=== PATIENT | female | born 1950 | race Caucasian/White ===

== ENCOUNTER 2021-09-20 05:38 | Emergency (ER) | payer MEDICARE, MEDICAID, SELFPAY ==
[2021-09-20] VITALS (71 sets, daily range): BP systolic 96–158; BP diastolic 63–102; PULSE 80–162; RESP 12–32; TEMP 36.4; O2SAT 86–100
--- NOTE | ~2021-09-20 | CT_ITS ---
EXAMINATION: CT brain wo con DATE: 09/20/2021 06:37 INDICATION: Confusion. TECHNIQUE: Computed tomography (CT) of the head was performed without intravenous contrast. The mA wa s adjusted according to patient size. Iterative reconstruction technique was employed. The dose-lengt h product was 681.00 mGy-cm. COMPARISON: None FINDINGS: There are scattered areas of low attenuation in the cerebral white matter. There is no intr acranial hemorrhage, acute infarction, or abnormal intracranial mass lesion. The ventricles are mohan l in size. There is mild mucosal thickening in the paranasal sinuses. The mastoid air cells are mohan l. The orbits are normal. IMPRESSION: 1. Mild nonspecific cerebral white matter disease, which likely represents chronic small vessel ische boby disease. Reviewed, dictated and finalized at location A. IMPRESSION: 1. Mild nonspecific cerebral white matter disease, which likely represents sales coordinator man small vessel ischemic disease.
--- NOTE | ~2021-09-20 | XR_ITS ---
EXAMINATION: XR chest 1V DATE: 09/20/2021 06:43 INDICATION: Cough. Transient alteration of awareness. TECHNIQUE: A single frontal view of the chest was obtained. COMPARISON: None. FINDINGS: The chest demonstrates clear lungs without pneumonia, pleural effusion, or pneumothorax. Th e heart size is normal. There is a left subclavian port with tip in superior vena cava. Surgical clip s in the right upper quadrant are likely from cholecystectomy. There is a suture anchor in right chiki ral head. IMPRESSION: 1. No acute cardiopulmonary disease. Reviewed, dictated and finalized at location A.
--- NOTE | 2021-09-20 05:45 | ECG_ITS ---
Measurements Intervals [place] Rate: 121 P: IN: 0 QRS: 13 QRSD: 76 T: 36 QT: 299 QTc: 424 Interpretive Statements ATRIAL FIBRILLATION WITH RAPID VENTRICULAR RESPONSE BASELINE ARTIFACT- II, III, AVR, AVL, AVF, V2 ABNORMAL ECG Electronically Signed On 09-20-2021 6:39:06 CDT by Jasbir Marcus D.O.
--- NOTE | 2021-09-20 05:54 | ED.AMS ---
HPI - Altered Mental Status General Chief Complaint: Altered Mental Status <Yaniv Winkler MD - Last Filed: 09/20/21 06:03> Stated Complaint: AMS, wound to L hip, new onset afib <Yaniv Winkler MD - Last Filed: 09/20/21 06:03> Time Seen by Provider: 09/20/21 05:45 <Yaniv Winkler MD - Last Filed: 09/20/21 06:03> Source: EMS <Yaniv Winkler MD - Last Filed: 09/20/21 06:03> Mode of arrival: EMS <Yaniv Winkler MD - Last Filed: 09/20/21 06:03> Limitations: altered mental status <Yaniv Winkler MD - Last Filed: 09/20/21 06:03> History of Present Illness HPI narrative: Patient is a 71-year-old female brought in by EMS from a longterm due to altered mental status. Family requested the patient be transferred to [place] but according to EMS, patient went into atrial fib RVR and that is why they brought her here which is the nearest facility. Per EMS, family requested since her infectious disease doctor is there, currently being treated secondary to left hip wound infection. <Yaniv Winkler MD - Last Filed: 09/20/21 06:03> Related Data Allergies/Adverse Reactions: Allergies Allergy/AdvReac Type Severity Reaction Status Date / Time iodine Allergy Unknown Verified 09/20/21 06:06 latex Allergy Unknown Verified 09/20/21 06:06 meperidine Allergy Unknown Verified 09/20/21 06:06 Penicillins Allergy Unknown Verified 09/20/21 06:06 piperacillin [From Zosyn] Allergy Unknown Verified 09/20/21 06:06 tazobactam [From Zosyn] Allergy Unknown Verified 09/20/21 06:06 <Yaniv Winkler MD - Last Filed: 09/20/21 06:03> Review of Systems Review of Systems: ROS unobtainable: Yes unobtainable due to mental status <Yaniv Winkler MD - Last Filed: 09/20/21 06:03> [facility] Past Medical History Medical History: Medical History (Updated 09/20/21 @ 17:18 by Analy Palomares MD) COPD (chronic obstructive pulmonary disease) Depression Diabetes mellitus Hypertension <Yaniv Winkler MD - Last Filed: 09/20/21 06:03> Exam Const: General: alert, confusion and ill appearing <Yaniv Winkler MD - Last Filed: 09/20/21 06:03> Other: Patient is alert and awake. Not oriented to time and place. Moderate distress <Yaniv Winkler MD - Last Filed: 09/20/21 06:03> HENMT: Head: normal to inspection, normocephalic and atraumatic <Yaniv Winkler MD - Last Filed: 09/20/21 06:03> Ears: hearing grossly normal bilaterally, TM normal on the right and TM normal on the left <Yaniv Winkler MD - Last Filed: 09/20/21 06:03> General nose exam: Normal external nose present, Normal nares present and No nasal discharge present <Yaniv Winkler MD - Last Filed: 09/20/21 06:03> Face and sinus: normal facial exam <Yaniv Winkler MD - Last Filed: 09/20/21 06:03> Mouth: Yes Normal oral and palatal mucosa present, Yes lip normal, Yes tongue normal and Yes oropharynx normal <Yaniv Winkler MD - Last Filed: 09/20/21 06:03> Throat: posterior oropharynx normal, tonsils normal and uvula midline <Yaniv Winkler MD - Last Filed: 09/20/21 06:03> Eyes: General: appearance normal, both eyes and all related structures <Yaniv Winkler MD - Last Filed: 09/20/21 06:03> Pupils: Equal, round and reactive pupils present <Yaniv Winkler MD - Last Filed: 09/20/21 06:03> EOM: EOMs intact bilaterally <Yaniv Winkler MD - Last Filed: 09/20/21 06:03> Neck: Neck: normal visual inspection, full ROM, no lymphadenopathy and no meningeal signs <Yaniv Winkler MD - Last Filed: 09/20/21 06:03> Chest: Chest palpation & inspection: normal inspection of the chest <Yaniv Winkler MD - Last Filed: 09/20/21 06:03> Resp: Effort & Inspection: normal respiratory effort, able to speak in complete sentences, no respiratory distress and not tachypneic <Yaniv Winkler MD - Last Filed: 09/20/21 06:03> Auscultation: clear to auscultation bilaterally, no crackles,
[2021-09-20] MEDS: LACTATED RINGERS 1,000 ML 999 ML IV CONT (06:05)
[2021-09-20] MEDS: dilTIAZem HCl INJ 25 MG/5 ML VIAL 20 MG IV PUSH (06:07)
--- NOTE | 2021-09-20 06:20 | PC.NURSE ---
pt O2 saturation at 86% on room air. placed pt on 2L of O2 via nasal cannula and pt now at 99%.
[2021-09-20 06:22] LABS: Basophils Absolute Auto 0.1 K/mm3 (0.0-0.1); Basophils Percent Auto 0.7 % (0.2-1.2); Eosinophils Absolute Auto 0.3 K/mm3 (0-0.3); Eosinophils Percent Auto 2.4 % (0-4.4); Hematocrit 41.3 % (37.0-47.0); Hemoglobin 13.2 g/dL (12.0-15.0); Immature Granulocyte Absolute 0.02 K/mm3 (0.00-0.031); Immature Granulocyte Percent A 0.2 % (0-0.5); Lymphocytes Absolute Auto 3.17 K/mm3 (0.9-3.2); Lymphocytes Percent Auto 30.4 % (18.3-44.2); Mean Corpuscular Hemoglobin 27.3 pg (26-34); Mean Corpuscular Volume 85.5 fl (80-100); Mean Platelet Volume 10.2 fl (7.4-10.4); Monocytes Absolute Auto 1.2 K/mm3 (0.1-0.6); Monocytes Percent Auto 11.1 % (2.6-8.5); Neutrophils Absolute Auto 5.8 K/mm3 (1.3-6.7); Neutrophils Percent Auto 55.2 % (45.5-73.1); Platelet Count Result 375 k/mm3 (150-375); Red Blood Count 4.83 M/mm3 (4.2-5.4); White Blood Count 10.4 K/mm3 (4.5-10.0)
[2021-09-20 06:43] LABS: Alanine Aminotransferase 16 U/L (4-35); Albumin Level 4.2 g/dL (3.5-5.1); Alkaline Phosphatase 137 U/L (38-126); Anion Gap 12 mmol/L (8-16); Aspartate Amino Transferase 32 U/L (14-36); Bilirubin,Total 0.6 mg/dL (0.2-1.3); Blood Urea Nitrogen 19 mg/dL (7-17); Calcium 9.6 mg/dL (8.4-10.2); Carbon Dioxide 27 mmol/L (22-30); Chloride 103 mmol/L (98-107); Estimated CRCL calculation 70 ml/min; Estimated Glomerular Filt Rate > 60; Glucose 94 mg/dL (65-110); Potassium 3.8 mmol/L (3.4-5.0); Sodium 142 mmol/L (137-145)
[2021-09-20 06:47] LABS: Add Urine Microscopic? YES; Appearance Urine Cloudy (Clear); Bacteria Urine 2+ /hpf; Bilirubin Urine Negative (Negative); Blood Urine 1+ (Negative); Color Urine Yellow (Yellow); Glucose Urine UA Negative (Negative); Ketones Urine Negative (Negative); Leukocyte Esterase Ur 3+ LEU/UL (Negative); Mucus Urine Rare /lpf; Nitrate Urine Positive (Negative); Protein Urine Negative (Negative); Specific Grav Ur 1.014 (1.001-1.035); Squamous Epithelial Cell Urine Few /hpf (Few); Urobilinogen Urine Negative mg/dL (<2.0); WBC Urine >75 /hpf
[2021-09-20 07:19] LABS: Lactic Acid Reflex 2.7 mmol/L (0.7-2.1)
--- NOTE | 2021-09-20 07:20 | PC.NURSE ---
assumed care of patient
[2021-09-20 08:07] LABS: Magnesium 1.6 mg/dL (1.6-2.3)
[2021-09-20 08:14] LABS: INR 1.1; Prothrombin Time 14.5 Seconds (11.1-14.7)
[2021-09-20 08:15] LABS: Partial Thromboplastin Time 36.8 SECONDS (22.3-36.8)
[2021-09-20] MEDS: METOPROLOL TARTRATE 50 MG TAB 12.5 MG PO ×2 (08:17→11:24)
--- NOTE | 2021-09-20 08:26 | PC.NURSE ---
vancomycin 1 gm completed.
[2021-09-20 10:06] LABS: Reflex Lactic Acid Yes or No Add Lactic
[2021-09-20 10:19] LABS: Free T4 Free Thyroxine Reflex 1.58 ng/dL (0.78-2.19)
[2021-09-20 11:10] LABS: Total Triiodothyronine (T3) 3.04 NG/ML (0.97-1.69)
[2021-09-20 11:43] LABS: Lactic Acid 1.7 mmol/L (0.7-2.1)
--- NOTE | 2021-09-20 12:28 | PC.NURSE ---
spo2 95% on room air.
--- NOTE | 2021-09-20 19:20 | PC.NURSE ---
Assumed care of pt at this time, per RN report, pt is A&Ox1. Pt upright on stretcher, refusing to answer this RNs A&O questions. Pt states Im not answering any questions, I already told the last nurse . Pt states she doesn't feel good but refuses to answer where her pain is or what her symptoms are. Lights dimmed, pt repositioned. Updated on POC.
--- NOTE | 2021-09-20 19:41 | PC.NURSE ---
1926: [facility] called to confirm that patient still needed bed and should remain on waitlist.
[2021-09-20] MEDS: MORPHINE SULFATE (*CRX) 4 MG/ML INJ IV PUSH (20:41)
[2021-09-20] MEDS: APIXABAN 5 MG TABLET PO (21:29)
--- NOTE | 2021-09-20 22:05 | PC.NURSE ---
Received call from [facility] transfer line, [address]. Gave report to Rayray DUBON at this time. 2215; Spoke with pts POA and gave update at this time.
--- NOTE | 2021-09-20 22:23 | PC.NURSE ---
Called [facility] to transport patient to [facility]. Rm [address]. ETA 12 midnight.
[2021-09-20] MEDS: METOPROLOL TARTRATE INJ 5 MG/5 ML VIAL IV PUSH (23:05)
--- NOTE | 2021-09-20 23:36 | PC.NURSE ---
Pt alert and oriented to person, place, and time. Visibly upset and crying. Pt asking for her grandson and asking if [facility] things about her. Then pt states to this RN You think you know everything, but you dont. I dont like you. EDP notified.
[2021-09-20] MEDS: LORazepam INJ (*CRX) 2 MG/ML VIAL 0.5 MG IV PUSH (23:49)
[2021-09-21 00:26] VITALS: BP 110/70; PULSE 119; RESP 18; O2SAT 97
--- NOTE | 2021-09-21 00:32 | PC.NURSE ---
Lindsay updated ETA...[id number]
[2021-09-21 00:34] VITALS: PULSE 104
--- NOTE | 2021-09-21 00:44 | PC.NURSE ---
Pt sleeping on stretcher, lights dimmed.
[2021-09-21 01:12] VITALS: PULSE 110; RESP 19; O2SAT 98
[2021-09-21 01:43] LABS: Glucose Point of Care 107 mg/dl (65-105)
[2021-09-21 01:54] VITALS: BP 104/54; PULSE 105; RESP 18; O2SAT 99
== END 2021-09-21 02:09 | disposition short-term general hospital (02) ==
PROVIDERS: Emergency Medicine; Emergency Provider General Practice; PCP Family Medicine
DX: Z20.822 Contact with and (suspected) exposure to COVID-19 (principal); R41.82 Altered mental status, unspecified; N39.0 Urinary tract infection, site not specified; I48.91 Unspecified atrial fibrillation; S71.002A Unspecified open wound, left hip, initial encounter; J44.9 Chronic obstructive pulmonary disease, unspecified; F32.9 Major depressive disorder, single episode, unspecified; E11.9 Type 2 diabetes mellitus without complications; I10 Essential (primary) hypertension; X58.XXXA Exposure to other specified factors, initial encounter
CPT/HCPCS: 36415; 70450; 71045; 80053; 81001; 82948; 83605; 83735; 84439; 84443; 84480; 85025; 85610; 85730; 87040; 87070; 87086; 87088; 87147; 87186; 87205; 87426; 93005; 96361; 96365; 96366; 96367; 96375; 99285; A9270; C9803; J1956; J2060; J2270; J3370; J7120

== ENCOUNTER 2021-11-14 07:00 | Emergency (ER) | payer MEDICARE, MEDICAID, SELFPAY ==
[2021-11-14] VITALS (76 sets, daily range): BP systolic 82–194; BP diastolic 50–131; PULSE 60–114; RESP 11–24; TEMP 36.2; O2SAT 92–100
--- NOTE | ~2021-11-14 | CT_ITS ---
EXAMINATION: CT brain wo con DATE: 11/14/2021 08:25 INDICATION: Altered mental status. Response to painful stimuli only. TECHNIQUE: Computed tomography (CT) of the head was performed without intravenous contrast. Sagittal and coronal reconstructions were performed. The mA was adjusted according to patient size. Iterative reconstruction technique was employed. The dose-length product was 756.67 mGy-cm. COMPARISON: head CT dated 09/20/2021 FINDINGS: No acute intracranial hemorrhage, acute infarction or abnormal extra axial fluid collection. There is unchanged mild scattered white matter hypoattenuation consistent with chronic small vessel ischemic disease. Symmetric prominence of the sulci and ventricles consistent with mild age-appropriate diffus e cerebral volume loss. No mass/mass effect. Mild mucosal thickening in the bilateral ethmoid sinuses . The orbits, paranasal sinuses and mastoid air cells are normal. IMPRESSION: 1. No acute intracranial process. 2. Stable appearance of age-related changes including mild diffuse volume loss and mild scattered whi te matter hypoattenuation consistent with chronic small vessel ischemic disease. Reviewed, dictated and finalized at location A. 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 No acute intracranial process. 2. Stable appearance of age-related changes including mild diffuse volume loss and mild scattered white matter hypoattenuation consistent with chronic small v essel ischemic disease.
--- NOTE | ~2021-11-14 | XR_ITS ---
EXAMINATION: XR chest 1V EXAM DATE: 11/14/2021 08:26 INDICATION: Confusion, shortness of breath. TECHNIQUE: Portable AP frontal chest x-ray was obtained. Comparison is made to prior examination from 09/20/2021. FINDINGS: Some tortuosity to the left-sided Chemo-Port with tip in the upper portion of the SVC. No k inking of the catheter. There are cholecystectomy clips. The lungs are clear. There are no pleural e ffusions. Cardiac silhouette is prominent but magnified on this AP technique. There is no pneumoth orax suspected. There are bony degenerative changes. IMPRESSION: No acute cardiopulmonary findings. Reviewed, dictated and finalized at location D. RTER LAUNDRY
--- NOTE | 2021-11-14 07:20 | ECG_ITS ---
Measurements Intervals [place] Rate: 72 P: [place]: 0 QRS: -17 QRSD: 98 T: -4 QT: 369 QTc: 406 Interpretive Statements ATRIAL FIBRILLATION DELAYED PRECORDIAL R/S TRANSITION LOW QRS VOLTAGE IN PRECORDIAL LEADS BORDERLINE T WAVE ABNORMALITY- DIFFUSE LEDS BASELINE ARTIFACT- I, II, III, AVR, AVL, AVF, V3-V6 ABNORMAL ECG Electronically Signed On 11-14-2021 7:25:16 APARTMENT MAINTENANCE by Jasbir Marcus D.O.
--- NOTE | 2021-11-14 07:33 | ED.GENADULT ---
HPI - General Adult General Chief complaint: Altered Mental Status Stated complaint: unresponsive episode Time Seen by Provider: 11/14/21 07:04 Source: EMS and RN notes reviewed History of Present Illness HPI narrative: Patient is a 71 y/o female sent from [facility] for altered mental status. Patient is found to have altered mental status this morning. There is no known alleviating or aggravating factor. Last known well is not clear at this time. Patient is unable to provide any history. Related Data Home Medications Medication Instructions Recorded Confirmed acetaminophen [Tylenol] 650 mg PO Q6-8H PRN 11/14/21 albuterol sulfate [ProAir HFA] 1 inh INHALATION QID 11/14/21 aspirin 81 mg PO DAILY 11/14/21 atorvastatin [Lipitor] 10 mg PO DAILY 11/14/21 cefuroxime axetil 250 mg PO BID 11/14/21 diltiazem HCl [Tiazac] 180 mg PO DAILY 11/14/21 duloxetine 30 mg PO DAILY 11/14/21 11/14/21 fentanyl 1 patch TOPICAL DAILY 11/14/21 ferrous sulfate 325 mg PO BID 11/14/21 furosemide [Lasix] 40 mg PO DAILY 11/14/21 gabapentin 400 mg PO DAILY 11/14/21 isosorbide mononitrate 30 mg PO DAILY 11/14/21 lisinopril 5 mg PO DAILY 11/14/21 methocarbamol 750 mg PO DAILY 11/14/21 metoprolol tartrate [Lopressor] 100 mg PO DAILY 11/14/21 nortriptyline 25 mg PO DAILY 11/14/21 oxycodone 5 mg PO Q8-12H PRN 11/14/21 pantoprazole 40 mg PO BID 11/14/21 paroxetine HCl 20 mg PO DAILY 11/14/21 potassium chloride 20 meq PO DAILY 11/14/21 tiotropium bromide [Spiriva with cap INHALATION DAILY 11/14/21 HandiHaler] Allergies Allergy/AdvReac Type Severity Reaction Status Date / Time iodine Allergy Unknown Verified 09/20/21 06:06 latex Allergy Unknown Verified 09/20/21 06:06 meperidine Allergy Unknown Verified 09/20/21 06:06 Penicillins Allergy Unknown Verified 09/20/21 06:06 piperacillin [From Zosyn] Allergy Unknown Verified 09/20/21 06:06 tazobactam [From Zosyn] Allergy Unknown Verified 09/20/21 06:06 Review of Systems Review of Systems: ROS unobtainable: Yes unobtainable due to mental status PMFSH Past Medical History Medical History COPD (chronic obstructive pulmonary disease) Depression Diabetes mellitus Hypertension Exam Const: General: no acute distress and well developed Orientation/consciousness: oriented to person and confusion HENMT: Head: normocephalic Ears: external ears normal General nose exam: Normal external nose present Eyes: General: appearance normal, both eyes and all related structures Conjunctivae: conjunctivae normal Neck: Neck: normal visual inspection and full ROM Chest: Chest palpation & inspection: normal inspection of the chest and no tenderness Resp: Effort & Inspection: normal respiratory effort Auscultation: clear to auscultation bilaterally Cardio: Rate: regular rate Rhythm: regular rhythm GI: GI Palp: No abdominal tenderness and Yes Soft to palpation Skin: General skin exam: normal color and turgor normal Neuro: General: oriented to person, confusion and other (does not follow commands or answer most questions) Extrem: General: normal to inspection, full ROM and no pedal edema Psych: Appearance: grossly normal Mental Status: mental status grossly normal Affect: normal affect Course Reevaluation(s) Reevaluation #1: Rechecked. Patient is more awake, she is able to answer questions and follow commands. Daughter is here. She requests transfer to [facility]. Date: 11/14/21 Time: 08:45 Consultations Consultation #1: Discussed with Dr. Jaquez (neurology) at [facility], who agrees to accept the patient for transfer. Date: 11/14/21 Time: 09:39 Vital Signs Vital signs: Vital Signs Temperature 36.2 C L 11/14/21 07:06 Pulse Rate 68 11/14/21 07:06 Respiratory Rate 17 11/14/21 07:06 Blood Pressure 138/84 11/14/21 07:06 Pulse Oximetry 99 11/14/21 07:06 Temperature 36.2 C L 11/14/21 07:06 Pulse Rate 96
[2021-11-14 07:54] LABS: Basophils Absolute Auto 0.1 K/mm3 (0.0-0.1); Basophils Percent Auto 0.8 % (0.2-1.2); Eosinophils Absolute Auto 0.6 K/mm3 (0-0.3); Eosinophils Percent Auto 6.6 % (0-4.4); Hematocrit 43.3 % (37.0-47.0); Hemoglobin 13.6 g/dL (12.0-15.0); Immature Granulocyte Absolute 0.02 K/mm3 (0.00-0.031); Immature Granulocyte Percent A 0.2 % (0-0.5); Lymphocytes Absolute Auto 3.15 K/mm3 (0.9-3.2); Lymphocytes Percent Auto 33.2 % (18.3-44.2); Mean Corpuscular HGB Conc 31.4 g/dl (32-36); Mean Corpuscular Hemoglobin 27.8 pg (26-34); Mean Corpuscular Volume 88.4 fl (80-100); Mean Platelet Volume 10.8 fl (7.4-10.4); Monocytes Absolute Auto 1.1 K/mm3 (0.1-0.6); Monocytes Percent Auto 11.2 % (2.6-8.5); Neutrophils Absolute Auto 4.5 K/mm3 (1.3-6.7); Platelet Count Result 267 k/mm3 (150-375); Red Cell Distribution Width 17.1 % (11.5-14.5); White Blood Count 9.5 K/mm3 (4.5-10.0)
--- NOTE | 2021-11-14 07:58 | PC.NURSE ---
[facility] called per ERP request, spoke with LING Sevilla. RN reports that pt was first noticed to be abnormal shortly after 0600. diet attendant RN did not note any abnormalities in pt condition.
[2021-11-14 08:00] LABS: Alveolar/Arterial O2 Gradient 18.1 mmHg; Base Excess ABG 3.5 mEq/l (+/-2.0); HCO3 ABG 27.5 mEq/l (22.0-26.0); Oxygen Saturation ABG 95.4 % (95.0-100.0); PCO2 ABG 39.5 mmHg (35.0-45.0); PO2 ABG 72.2 mmHg (80.0-100.0); Total Hemoglobin 13.6 g/dL (12.0-18.0)
[2021-11-14 08:01] LABS: Device NASAL CANNULA; Fractional Inspired Oxygen 28 %; Modified Allen's Test Pass; Oxygen Content ABG 94.4 %vol (16.0-22.0); Oxyhemoglobin 94.4 % THb (90.0-100.0); Site Drawn RIGHT RADIAL
[2021-11-14 08:02] LABS: Prothrombin Time 13.4 Seconds (11.1-14.7)
[2021-11-14 08:03] LABS: Add Urine Microscopic? YES; Appearance Urine Cloudy (Clear); Bilirubin Urine Negative (Negative); Blood Urine 2+ (Negative); Color Urine Yellow (Yellow); Glucose Urine UA Negative (Negative); Ketones Urine Negative (Negative); Leukocyte Esterase Ur 3+ LEU/UL (Negative); Mucus Urine Rare /lpf; Nitrate Urine Positive (Negative); Partial Thromboplastin Time 26.6 SECONDS (22.3-36.8); Protein Urine Negative (Negative); RBC Urine 21-50 /hpf (0-2); Specific Grav Ur 1.012 (1.001-1.035); Urobilinogen Urine Negative mg/dL (<2.0); WBC Clumps Urine Present /HPF; WBC Urine >75 /hpf
[2021-11-14 08:04] LABS: Alanine Aminotransferase 14 U/L (4-35); Albumin Level 4.2 g/dL (3.5-5.1); Alkaline Phosphatase 147 U/L (38-126); Anion Gap 12 mmol/L (8-16); Aspartate Amino Transferase 25 U/L (14-36); Bilirubin,Total 0.4 mg/dL (0.2-1.3); Blood Urea Nitrogen 20 mg/dL (7-17); Calcium 9.5 mg/dL (8.4-10.2); Carbon Dioxide 28 mmol/L (22-30); Chloride 101 mmol/L (98-107); Estimated Glomerular Filt Rate > 60; Glucose 96 mg/dL (65-110); Potassium 3.8 mmol/L (3.4-5.0); Sodium 141 mmol/L (137-145)
--- NOTE | 2021-11-14 08:20 | PC.NURSE ---
Patient to CT.
[2021-11-14] MEDS: CIPROFLOXACIN 400 MG/D5W 200ML 200 ML 200 MG IVPB (09:30)
[2021-11-14] MEDS: SODIUM CHLORIDE 0.9% IV 500 ML (12:00)
[2021-11-14] MEDS: oxyCODONE HCL (*CRX) 5 MG TAB IR PO (19:42)
--- NOTE | 2021-11-14 19:44 | PC.NURSE ---
made contact with [facility] to check if there was any update on a bed. [facility] stated that there are no bed available and they are over capacity
--- NOTE | 2021-11-14 23:00 | PC.NURSE ---
Assuming care of pt.
--- NOTE | 2021-11-14 23:48 | PC.NURSE ---
Pt sitting at end of bed wanting to go back to intermediate sitter at bedside for safety.
--- NOTE | 2021-11-15 00:23 | PC.NURSE ---
made contact with [facility] to transfer pt to [facility] RM 503 with ETA 0045 trip # [id number]
--- NOTE | 2021-11-15 00:52 | PC.NURSE ---
made contact with [facility] new eta 0201
--- NOTE | 2021-11-15 00:56 | PC.NURSE ---
Report called to [facility] Arminda RN pt will be going to room 503. Awaiting transport to take pt.
[2021-11-15 01:02] LABS: Glucose Point of Care 115 mg/dl (65-105)
--- NOTE | 2021-11-15 01:47 | PC.NURSE ---
laura has arrived and crew is aware that pt is going to [facility] rm 503
[2021-11-15 02:11] VITALS: BP 124/87; PULSE 96; RESP 18; O2SAT 96
== END 2021-11-15 02:14 | disposition short-term general hospital (02) ==
LOC: ANHED 07:24
PROVIDERS: Emergency Provider Emergency Medicine; PCP Family Medicine
DX: R41.82 Altered mental status, unspecified (principal); J44.9 Chronic obstructive pulmonary disease, unspecified; E11.9 Type 2 diabetes mellitus without complications; I10 Essential (primary) hypertension; F32.A Depression, unspecified; Z79.82 Long term (current) use of aspirin; I48.91 Unspecified atrial fibrillation; R94.31 Abnormal electrocardiogram [ECG] [EKG]
CPT/HCPCS: 36415; 36600; 51701; 70450; 71045; 80053; 81001; 82805; 82948; 85025; 85610; 85730; 87077; 87086; 87186; 93005; 96361; 96365; 99285; A9270; J0744; J7040

== ENCOUNTER 2021-11-25 08:00 | Emergency (ER) | payer MEDICARE, MEDICAID, SELFPAY ==
[2021-11-25 07:58] VITALS: BP 136/77; PULSE 73; RESP 14; TEMP 36.5; O2SAT 97
--- NOTE | 2021-11-25 08:19 | ED.WOUNDLAC ---
HPI - Wound/Laceration General Chief Complaint: Wound/Laceration Stated Complaint: bleeding wound Time Seen by Provider: 11/25/21 08:17 Source: patient, EMS and RN notes reviewed Mode of arrival: EMS Limitations: no limitations History of Present Illness HPI narrative: Patient brought to the emergency room by ambulance from [facility] because of bleeding from chronic wound on the left thigh. Patient reports having chronic wound with intermittent packing for a while. Patient denies other symptoms. Related Data Home Medications Medication Instructions Recorded Confirmed acetaminophen [Tylenol] 650 mg PO Q6-8H PRN 11/14/21 albuterol sulfate [ProAir HFA] 1 inh INHALATION QID 11/14/21 aspirin 81 mg PO DAILY 11/14/21 atorvastatin [Lipitor] 10 mg PO DAILY 11/14/21 cefuroxime axetil 250 mg PO BID 11/14/21 diltiazem HCl [Tiazac] 180 mg PO DAILY 11/14/21 duloxetine 30 mg PO DAILY 11/14/21 11/14/21 fentanyl 1 patch TOPICAL DAILY 11/14/21 ferrous sulfate 325 mg PO BID 11/14/21 furosemide [Lasix] 40 mg PO DAILY 11/14/21 gabapentin 400 mg PO DAILY 11/14/21 isosorbide mononitrate 30 mg PO DAILY 11/14/21 lisinopril 5 mg PO DAILY 11/14/21 methocarbamol 750 mg PO DAILY 11/14/21 metoprolol tartrate [Lopressor] 100 mg PO DAILY 11/14/21 nortriptyline 25 mg PO DAILY 11/14/21 oxycodone 5 mg PO Q8-12H PRN 11/14/21 pantoprazole 40 mg PO BID 11/14/21 paroxetine HCl 20 mg PO DAILY 11/14/21 potassium chloride 20 meq PO DAILY 11/14/21 tiotropium bromide [Spiriva with cap INHALATION DAILY 11/14/21 HandiHaler] Allergies Allergy/AdvReac Type Severity Reaction Status Date / Time iodine Allergy Unknown Verified 11/25/21 08:10 latex Allergy Unknown Verified 11/25/21 08:10 meperidine Allergy Unknown Verified 11/25/21 08:10 Penicillins Allergy Unknown Verified 11/25/21 08:10 piperacillin [From Zosyn] Allergy Unknown Verified 11/25/21 08:10 tazobactam [From Zosyn] Allergy Unknown Verified 11/25/21 08:10 Review of Systems Review of Systems: CONSTITUTIONAL: Denies fever, chills, or sweats. EYES: Denies visual changes, redness, or discharge. ENT: Denies rhinorrhea, congestion, sore throat, or otalgia. CARDIOVASCULAR: Denies chest pain, palpitations, or edema. RESPIRATORY: Denies cough or dyspnea. GASTROINTESTINAL: Denies abdominal pain, nausea, vomiting, or diarrhea. GENITOURINARY: Denies dysuria or hematuria. SKIN: Denies rash or itching. MUSCULOSKELETAL: Denies back pain, joint pain, or myalgia. NEUROLOGIC: Denies headache, numbness, or weakness. PSYCHIATRIC: Denies anxiety or depression. [facility] Past Medical History Medical History COPD (chronic obstructive pulmonary disease) Depression Diabetes mellitus Hypertension Exam Narrative: General appearance: Well-developed, well-nourished Skin: Normal color, 1.5 cm open wound, half centimeter deep, at the lateral side of left thigh, packed with small piece of gauze, no active bleeding. 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
[2021-11-25 09:18] VITALS: BP 135/91; PULSE 70; RESP 16; O2SAT 98
== END 2021-11-25 09:21 ==
PROVIDERS: Emergency Provider Emergency Medicine; PCP Family Medicine
DX: L98.8 Other specified disorders of the skin and subcutaneous tissue (principal); Z79.82 Long term (current) use of aspirin; J44.9 Chronic obstructive pulmonary disease, unspecified; E11.9 Type 2 diabetes mellitus without complications; I10 Essential (primary) hypertension
CPT/HCPCS: 99282

== ENCOUNTER 2023-03-26 17:09 | Inpatient (IN) | payer MEDICARE, MEDICAID, SELFPAY ==
[2023-03-26] VITALS (8 sets, daily range): BP systolic 97–159; BP diastolic 73–109; PULSE 95–132; RESP 19–24; TEMP 36.4–36.6; O2SAT 96–100; BMI 37.0
--- NOTE | ~2023-03-26 | XR_ITS ---
EXAMINATION: XR chest 1V portable Exam Date/Time: 03/26/2023 18:00 CDT HISTORY: covid + Comparison: 11/14/2021. RESULT: Lines, tubes, and devices: Left port terminating in the SVC. Lungs and pleura: Diffuse reticular opacities. Streaky and patchy left lower lung subsegmental opaci ties. Cardiomediastinal silhouette: Stable. Other: No acute osseous or upper abdominal finding. IMPRESSION: Mild interstitial edema. Subsegmental left basilar atelectasis/consolidation. Reviewed, dictated and finalized at location K.
--- NOTE | ~2023-03-26 | CT_ITS ---
EXAMINATION: CT brain wo con DATE: 03/26/2023 18:19 INDICATION: AMS . TECHNIQUE: Computed tomography (CT) of the head was performed without intravenous contrast. The mA wa s adjusted according to patient size. Iterative reconstruction technique was employed. The dose-lengt h product was 681.00 mGy-cm. COMPARISON: 11/14/2021. FINDINGS: No acute intracranial hemorrhage or extra-axial fluid collection. No hydrocephalus, mass, or herniation. No acute ischemic infarct. Unremarkable dural venous sinus attenuation. No acute osseous abnormality. Bilateral maxillary, ethmoid, and sphenoid coastal thickening, the remaining aerated spaces are clear . Mild atrophy and chronic white matter change. Atherosclerotic intracranial calcification. Old right i nternal capsule lacunar infarct. IMPRESSION: No acute intracranial process. Reviewed, dictated and finalized at location K.
--- NOTE | 2023-03-26 17:09 | ED.AMS ---
HPI - Altered Mental Status General Chief Complaint: Shortness of Breath/Dyspnea Stated Complaint: sob/altered loc Source: EMS Mode of arrival: EMS Limitations: altered mental status and clinical condition History of Present Illness HPI narrative: Patient is a 72-year-old female with a history of COPD, hypertension, hyperlipidemia, type 2 diabetes, atrial fibrillation on chronic anticoagulation, CHF, GERD, CVA noted to be recently COVID-positive at nursing facility in which patient resides, presenting for evaluation of altered mental status and hypoxia. Patient found to be hypoxic, 80% on room air by staff at facility today, placed on 4 L oxygen via nasal cannula and EMS contacted to transport the patient. Per chart review, patient without history of atrial fibrillation but is on chronic anticoagulation. Patient is somnolent but arousable. Currently protecting her airway. No significant respiratory distress but is hypoxic without supplemental oxygen. Additional history cannot be obtained secondary to altered mentation. Per daughter with whom I spoke with over the phone, pt recently diagnosed with UTI. No known seizure history. Family states that she has a history of stroke and difficulty communicating secondary to this. Pt is full code per daughter. Related Data Home Medications Medication Instructions Recorded Confirmed acetaminophen 325 mg capsule 650 mg PO Q6-8H PRN Pain 11/14/21 (Tylenol) albuterol sulfate 90 mcg/actuation 1 inh inhalation QID 11/14/21 aerosol inhaler (ProAir HFA) aspirin 81 mg chewable tablet 81 mg PO DAILY 11/14/21 atorvastatin 10 mg tablet (Lipitor) 10 mg PO DAILY 11/14/21 cefuroxime axetil 250 mg tablet 250 mg PO BID 11/14/21 diltiazem HCl 180 mg capsule,24 180 mg PO DAILY 11/14/21 hr,extended release (Tiazac) duloxetine 30 mg capsule,delayed 30 mg PO DAILY 11/14/21 11/14/21 release fentanyl 25 mcg/hr transdermal 1 patch topical DAILY 11/14/21 patch ferrous sulfate 325 mg (65 mg 325 mg PO BID 11/14/21 iron) capsule,extended release furosemide 40 mg tablet (Lasix) 40 mg PO DAILY 11/14/21 gabapentin 400 mg capsule 400 mg PO DAILY 11/14/21 isosorbide mononitrate 30 mg 30 mg PO DAILY 11/14/21 tablet,extended release 24 hr lisinopril 5 mg tablet 5 mg PO DAILY 11/14/21 methocarbamol 750 mg tablet 750 mg PO DAILY 11/14/21 metoprolol tartrate 100 mg tablet 100 mg PO DAILY 11/14/21 (Lopressor) nortriptyline 50 mg capsule 25 mg PO DAILY 11/14/21 oxycodone 5 mg tablet 5 mg PO Q8-12H PRN Pain 11/14/21 pantoprazole 40 mg tablet,delayed 40 mg PO BID 11/14/21 release paroxetine HCl 20 mg tablet 20 mg PO DAILY 11/14/21 potassium chloride 20 mEq 20 meq PO DAILY 11/14/21 tablet,extended release(part/cryst) tiotropium bromide 18 mcg capsule cap inhalation DAILY 11/14/21 with inhalation device (Spiriva with HandiHaler) Allergies Allergy/AdvReac Type Severity Reaction Status Date / Time iodine Allergy Unknown Verified 03/26/23 17:46 latex Allergy Unknown Verified 03/26/23 17:46 meperidine Allergy Unknown Verified 03/26/23 17:46 Penicillins Allergy Unknown Verified 03/26/23 17:46 piperacillin [From Zosyn] Allergy Unknown Verified 03/26/23 17:46 tazobactam [From Zosyn] Allergy Unknown Verified 03/26/23 17:46 Review of Systems Review of Systems: ROS unobtainable: Yes unobtainable due to medical condition and unobtainable due to mental status PMFSH Past Medical History Medical History COPD (chronic obstructive pulmonary disease) Depression Diabetes mellitus Hypertension Exam Narrative: GENERAL: Somnolent but arousable, ill-appearing, responds to painful stimuli HEAD: Normocephalic, atraumatic. EYES: PERRLA and EOMI. ENT: Nares clear, no rhinorrhea or epistaxis. Mucous membranes dry NECK: Supple. CHEST: Hypoxic on room air, placed on supplemental oxygen, coarse breath sounds bilaterally HEART
--- NOTE | 2023-03-26 17:20 | ECG_ITS ---
Measurements Intervals [place] Rate: 122 P: [place]: 0 QRS: 8 QRSD: 97 T: 180 QT: 268 QTc: 383 Interpretive Statements ATRIAL FIBRILLATION WITH RAPID VENTRICULAR RESPONSE ST DEVIATION AND MODERATE T-WAVE ABNORMALITY, CONSIDER LATERAL ISCHEMIA [-0.1+ mV T WAVE IN I/aVL/V5/V6] COMPARED TO ECG 11/14/2021 07:18:36 NO SIGNIFICANT CHANGES Electronically Signed On 03-27-2023 9:35:38 CDT by Jeremiah Valverde M.D.
[2023-03-26 17:44] LABS: Glucose Point of Care 139 mg/dl (65-105)
[2023-03-26] MEDS: SODIUM CHLORIDE 0.9% IV 500 ML 999 ML IV CONT (17:48)
[2023-03-26] MEDS: methylPREDNISolone SOD SUCC 125 MG VIAL IV PUSH (17:48)
[2023-03-26 17:50] LABS: Alveolar/Arterial O2 Gradient 66.9 mmHg; Base Excess ABG -1.5 mEq/l (+/-2.0); Fractional Inspired Oxygen 35 %; HCO3 ABG 23.1 mEq/l (22.0-26.0); Oxygen Content ABG 21.4 %vol (16.0-22.0); Oxygen Saturation ABG 98.7 % (95.0-100.0); Oxyhemoglobin 96.9 % THb (90.0-100.0); PCO2 ABG 38.8 mmHg (35.0-45.0); PO2 ABG 137.5 mmHg (80.0-100.0); PO2 FiO2 Ratio Arterial Blood 3.93 %; Total Hemoglobin 15.6 g/dL (12.0-18.0); pH ABG 7.392 (7.350-7.450)
[2023-03-26 17:51] LABS: Device SIMPLE MASK; Modified Allen's Test Pass; Site Drawn RIGHT RADIAL
[2023-03-26 17:53] LABS: Basophils Absolute Auto 0.1 K/mm3 (0.0-0.1); Basophils Percent Auto 0.6 % (0.2-1.2); Eosinophils Absolute Auto 0.1 K/mm3 (0-0.3); Eosinophils Percent Auto 1.2 % (0-4.4); Hematocrit 45.5 % (37.0-47.0); Hemoglobin 14.8 g/dL (12.0-15.0); Immature Granulocyte Absolute 0.03 K/mm3 (0.00-0.031); Immature Granulocyte Percent A 0.3 % (0-0.5); Lymphocytes Absolute Auto 2.41 K/mm3 (0.9-3.2); Lymphocytes Percent Auto 21.4 % (18.3-44.2); Mean Corpuscular HGB Conc 32.5 g/dl (32-36); Mean Corpuscular Hemoglobin 30.2 pg (26-34); Mean Corpuscular Volume 92.9 fl (80-100); Mean Platelet Volume 10.8 fl (7.4-10.4); Monocytes Absolute Auto 1.2 K/mm3 (0.1-0.6); Monocytes Percent Auto 10.8 % (2.6-8.5); Neutrophils Absolute Auto 7.4 K/mm3 (1.3-6.7); Neutrophils Percent Auto 65.7 % (45.5-73.1); Platelet Count Result 262 k/mm3 (150-375); Red Cell Distribution Width 13.5 % (11.5-14.5); White Blood Count 11.3 K/mm3 (4.5-10.0)
[2023-03-26 18:09] LABS: INR 1.5; Prothrombin Time 17.4 Seconds (11.1-14.7)
[2023-03-26 18:10] LABS: Partial Thromboplastin Time 39.8 SECONDS (22.3-36.8)
[2023-03-26 18:11] LABS: Alanine Aminotransferase 21 U/L (6-35); Alkaline Phosphatase 142 U/L (38-126); Anion Gap 9 mmol/L (8-16); Aspartate Amino Transferase 30 U/L (14-36); Bilirubin,Total 0.8 mg/dL (0.2-1.3); Blood Urea Nitrogen 18 mg/dL (7-17); Calcium 9.4 mg/dL (8.4-10.2); Carbon Dioxide 29 mmol/L (22-30); Chloride 103 mmol/L (98-107); Estimated CRCL calculation 61 ml/min; Estimated Glomerular Filt Rate > 60; Glucose 132 mg/dL (65-110); Potassium 3.7 mmol/L (3.4-5.0); Sodium 141 mmol/L (137-145)
[2023-03-26 18:21] LABS: NT Pro B Type Natriuretic Pept 532 pg/mL (19.9-100); Troponin I 0.013 ng/mL (0.000-0.034)
[2023-03-26 18:51] LABS: Appearance Urine Turbid (Clear); Bacteria Urine 4+ /hpf; Bilirubin Urine 1+ (Negative); Blood Urine 1+ (Negative); Color Urine Dark Yellow (Yellow); Glucose Urine UA Negative (Negative); Ketones Urine 2+ mg/dL (Negative); Leukocyte Esterase Ur 3+ LEU/UL (Negative); Need Manual Microscopic Reviewed; Nitrate Urine Negative (Negative); Non Pathogenic Casts >20; Protein Urine 3+ mg/dL (Negative); Specific Grav Ur 1.024 (1.001-1.035); Squamous Epithelial Cell Urine Moderate /hpf (Few); WBC Urine >100 /hpf; pH Urine 8.5 (5.0-9.0)
[2023-03-26 18:52] LABS: Add Urine Microscopic? YES
[2023-03-26 19:36] LABS: Influenza A QL RT-PCR Negative (Negative); Influenza B QL RT-PCR Negative (Negative); RSV RNA, RT-PCR Negative (Negative); SARS-CoV-2 RNA PCR Positive (Negative)
[2023-03-26] MEDS: REMDESIVIR 200 MG/NS 250 ML 200 MG/250 ML BAG 250 MG IVPB (19:47)
[2023-03-26] MEDS: METOPROLOL TARTRATE INJ 5 MG/5 ML VIAL IV PUSH (19:54)
[2023-03-26 20:00] LABS: Lactic Acid Reflex 1.3 mmol/L (0.7-2.0)
--- NOTE | 2023-03-26 20:01 | PM.IMHP ---
H&P: HPI History of Present Illness Date/Time: 03/26/23 20:01 Chief Complaint: Low pulse ox Narrative: This is a 72-year-old female with past medical history significant for COPD, hypertension, patient has had COVID B multiple times, resides at senior care facility today she was brought to the emergency room after she was found to have an oxygen saturation in the 80% range was placed on 4 L by nasal cannula by EMS. Most of the history has been obtained upon reviewing medical records discussion with emergency room physician at the time of my visit patient is lethargic unable to give any history. Preliminary workup was significant for chest x-ray was reported as: EXAMINATION:? XR chest 1V portable Exam Date/Time:? 03/26/2023 18:00 CDT HISTORY: covid + ? Comparison:? 11/14/2021. RESULT: Lines, tubes, and devices:? Left port terminating in the SVC. Lungs and pleura:? Diffuse reticular opacities. Streaky and patchy left lower lung subsegmental opacities. Cardiomediastinal silhouette:? Stable. Other:? No acute osseous or upper abdominal finding. ? IMPRESSION: Mild interstitial edema. Subsegmental left basilar atelectasis/consolidation. Head CT was reported as: EXAMINATION: CT brain wo con DATE: 03/26/2023 18:19 INDICATION: AMS . TECHNIQUE: Computed tomography (CT) of the head was performed without intravenous contrast. The mA was adjusted according to patient size. Iterative reconstruction technique was employed. The dose-length product was 681.00 mGy-cm. COMPARISON: 11/14/2021. FINDINGS: No acute intracranial hemorrhage or extra-axial fluid collection. No hydrocephalus, mass, or herniation. No acute ischemic infarct. Unremarkable dural venous sinus attenuation. No acute osseous abnormality. Bilateral maxillary, ethmoid, and sphenoid coastal thickening, the remaining aerated spaces are clear. Mild atrophy and chronic white matter change. Atherosclerotic intracranial calcification. Old right internal capsule lacunar infarct. IMPRESSION:? No acute intracranial process. Review of Systems Review of Systems: ROS unobtainable: Yes unobtainable due to mental status (lethargy) PMFSH Past Medical History Medical History (Updated 03/26/23 @ 23:31 by Vincenzo Perez MD) COPD (chronic obstructive pulmonary disease) Depression Diabetes mellitus Hypertension Meds Home Medications and Allergies Home Medications Medication Instructions Recorded Confirmed Type acetaminophen 325 mg capsule 650 mg PO Q6-8H PRN Pain 11/14/21 03/26/23 History (Tylenol) albuterol sulfate 90 mcg/actuation 1 inh inhalation QID 11/14/21 03/26/23 History aerosol inhaler (ProAir HFA) aspirin 81 mg chewable tablet 81 mg PO DAILY 11/14/21 03/26/23 History atorvastatin 10 mg tablet (Lipitor) 10 mg PO DAILY 11/14/21 03/26/23 History cefuroxime axetil 250 mg tablet 250 mg PO BID 11/14/21 03/26/23 History diltiazem HCl 180 mg capsule,24 180 mg PO DAILY 11/14/21 03/26/23 History hr,extended release (Tiazac) fentanyl 25 mcg/hr transdermal 1 patch topical DAILY 11/14/21 03/26/23 History patch ferrous sulfate 325 mg (65 mg 325 mg PO TID 11/14/21 03/26/23 History iron) capsule,extended release furosemide 40 mg tablet (Lasix) 40 mg PO DAILY 11/14/21 03/26/23 History isosorbide mononitrate 30 mg 30 mg PO DAILY 11/14/21 03/26/23 History tablet,extended release 24 hr lisinopril 5 mg tablet 5 mg PO DAILY 11/14/21 03/26/23 History nortriptyline 50 mg capsule 25 mg PO HS 11/14/21 03/26/23 History oxycodone 5 mg tablet 5 mg PO Q8-12H PRN Pain 11/14/21 03/26/23 History paroxetine HCl 20 mg tablet 20 mg PO DAILY 11/14/21 03/26/23 History potassium chloride 20 mEq 20 meq PO DAILY 11/14/21 03/26/23 History tablet,extended release(part/cryst) tiotropium bromide 18 mcg capsule 1 cap inhalation DAILY 11/14/21 03/26/23 History with inhalation device (Spiriva with HandiHaler) Lactobacillus acidophilus 75 1 cap PO BID 03/26/23
[2023-03-26 20:04] LABS: INR 1.5; Prothrombin Time 17.5 Seconds (11.1-14.7)
[2023-03-26 20:08] LABS: Alanine Aminotransferase 22 U/L (6-35); Estimated CRCL calculation 61 ml/min; Estimated Glomerular Filt Rate > 60
[2023-03-26 22:11] LABS: Troponin I 0.017 ng/mL (0.000-0.034)
--- NOTE | 2023-03-26 23:20 | ADMGEN ---
This patient, Lexus Veliz, was admitted to IMU Room 232-01. Patient/family oriented to hospital policies and general routines including ID bracelet, bed and alarms, visiting hours, pain management, procedures, bathroom and other care routines, personal items, smoking policy, room service/diet, and visiting hours. Information on how to activate the Rapid Response Team has been discussed. Patient/Family are encouraged to report perceived risks to care and to ask questions if they do not understand what they are told or what they should do.
[2023-03-27] VITALS (16 sets, daily range): BP systolic 92–132; BP diastolic 55–80; PULSE 64–134; RESP 16–20; TEMP 36.2–36.6; O2SAT 65–100
[2023-03-27 00:21] LABS: Troponin I 0.012 ng/mL (0.000-0.034)
[2023-03-27 05:23] LABS: Alanine Aminotransferase 21 U/L (6-35); Estimated CRCL calculation 71 ml/min; Estimated Glomerular Filt Rate > 60
[2023-03-27 05:34] LABS: INR 1.3; Prothrombin Time 16.1 Seconds (11.1-14.7)
[2023-03-27] MEDS: ALBUTEROL SULFATE (*SP) AEROSOL 1 PUFF INHALATION ×4 (08:43→21:02)
[2023-03-27] MEDS: FLUTICASONE/SALMETEROL 115-21 MCG INHALER 1 PUFF 2 PUFF INHALATION ×2 (08:43→21:03)
[2023-03-27] MEDS: UMECLIDINIUM BROMIDE 62.5 MCG ELLIPTA 1 PUFF INHALATION (08:44)
[2023-03-27] MEDS: METOPROLOL TARTRATE 50 MG TAB PO ×2 (09:57→20:30)
[2023-03-27] MEDS: FERROUS SULFATE 324 MG TABLET PO ×2 (09:58→17:46)
[2023-03-27] MEDS: lisinopriL 5 MG TABLET PO (09:58)
[2023-03-27] MEDS: ASPIRIN 81 MG CHEWABLE TABLET PO (09:58)
[2023-03-27] MEDS: dilTIAZem HCL CD 180 MG CAP.ER.24H PO (09:58)
[2023-03-27] MEDS: ACIDOPHILUS/BULGARICUS CHEWABLE TABLET 1 TABLET BY MOUTH ×2 (09:58→17:46)
[2023-03-27] MEDS: PARoxetine 20 MG TABLET PO (09:58)
[2023-03-27] MEDS: GABAPENTIN 100 MG CAPSULE 200 MG PO (09:58)
[2023-03-27] MEDS: SUCRALFATE 1 GM TABLET PO ×2 (09:59→17:46)
[2023-03-27] MEDS: THERAPEUTIC MULTIVITAMINS/MINERALS TAB (*BKC) 1 TABLET PO (09:59)
[2023-03-27] MEDS: busPIRone HCL 5 MG TABLET PO (09:59)
[2023-03-27] MEDS: ATORVASTATIN 10 MG TABLET PO (09:59)
[2023-03-27] MEDS: CHOLECALCIFEROL 1,000 UNITS TABLET 1000 UNITS PO (09:59)
[2023-03-27] MEDS: APIXABAN 5 MG TABLET PO ×2 (10:00→17:46)
[2023-03-27] MEDS: ISOSORBIDE MONONITRATE 30 MG TAB.ER.24H PO (10:00)
[2023-03-27] MEDS: SENNOSIDES 8.6 MG TABLET PO ×2 (10:00→17:46)
[2023-03-27] MEDS: TOLNAFTATE 1% POWDER 45 GM BTL 1 APPLIC TOPICAL ×2 (10:00→20:59)
[2023-03-27] MEDS: PANTOPRAZOLE 40 MG TABLET PO (10:00)
[2023-03-27] MEDS: ALTEPLASE 2 MG VIAL (CATHFLO) IV PUSH (10:03)
--- NOTE | 2023-03-27 16:11 | PM.IMPN ---
Progress Note: A&P Assessment and Plan (1) Altered mental status: Code(s): R41.82 - Altered mental status, unspecified Status: Acute Assessment and Plan: Patient brought to the ED for altered mental status. She has been here in the ED multiple times for similar findings. BP soft and mildly tachycardic on admission. CT brain showing no acute process but does show an old right internal capsule CVA. CXR showing mild interstitial edema and left basilar airspace disease. She was COVID positive. Treated with IV Solu-Medrol and IV fluids. BP improved. Required one dose of IV metoprolol for her HR. UA positive. Urine and Blood cultures collected. Remdesivir, Rocephin and Azithromycin given. She was admitted to IMU. Patient is noted to be on sedatives including Fentanyl patch and oxycodone which were held. UA noted and concerning for UTI. Hx of ESBL EColi. Adjust abx. Check TSH, B12 Will hold Gabapentin. Monitor. (2) COVID-19: Code(s): U07.1 - COVID-19 Status: Acute Assessment and Plan: Patient diagnosed with COVID prior to admission and still positive here. CXR showing mild interstitial edema and left basilar airspace disease. She was started on remdesivir. Add Decadron. Wean O2 as tolerated. (3) Lung infiltrate: Code(s): R91.8 - Other nonspecific abnormal finding of lung field Status: Acute Assessment and Plan: CXR as above with consolidation LLL. She has a hx of MRSA in a wound culture. Patient given Rocephin and Zithromax in ED and now on Azithro only. Will adjust abx. Check MRSA nasal swab. Check urine Ag Continue to monitor. Wean O2 as tolerated. (4) Acute UTI: Code(s): N39.0 - Urinary tract infection, site not specified Status: Acute Assessment and Plan: UA noted. Hx of ESBL EColi. Await urine culture identification and sensitivity. Abx as above (5) Hypoxia: Code(s): R09.02 - Hypoxemia Status: Acute Assessment and Plan: As above. ABG noted. No pCO2 retention. Related to COVID infection. Currently on supplemental oxygen by Venturi mask. Wean O2 as tolerated (6) COPD (chronic obstructive pulmonary disease): Code(s): J44.9 - Chronic obstructive pulmonary disease, unspecified Status: Acute Assessment and Plan: Patient not actively wheezing. Continue home inhalers. Hold off on nebulizer treatments since she has COVID (7) Atrial fibrillation with RVR: Code(s): I48.91 - Unspecified atrial fibrillation Status: Acute Assessment and Plan: AFib with RVR early on but rate controlled now. Continue diltiazem and metoprolol. Continue Eliquis Subjective Date/time seen: 03/27/23 16:11 Interval history: 72yo female with AFib on chronic anticoagulation, COPD, DM and HTN here for altered mental status and hypoxia. She was noted to be COVID positive recently at the shelter. Patient is somnolent but arouses. She responds to pain as well. She mumbles a few words but overall unable to give history. She has a hx of stroke and has difficulty communicating due to the stroke. No hx of seizures. Using a face mask since she is a mouth breather. Exam Narrative: AF 97.1 96/59 69 16 98% FM Gen - NARD lying semi-recumbent in bed resting quietly. Chest - coarse BS anteriorly with crackles in the flanks. nml RR CV - irregularly irregular. Tele showing AFib with mostly controlled rate. Abd - Soft, obese, NT Ext - No pedal edema Neuro - arouses, mumbles speech. does not interact with examiner. cog wheeling UE. no ankle clonus. Skin - Warm and dry Objective Data Vital Signs Vital Signs: Vital Signs - 24 hr 03/26/23 17:11 03/26/23 19:19 03/26/23 19:38 Temperature 97.5 F L Pulse Rate 112 H 108 H Respiratory Rate 20 21 H Blood Pressure 97/73 L 133/77 Pulse Oximetry 100 100 99 Oxygen Delivery Room Air Simple Face Mask Oxygen Flow Rate 4 03/26/23 19:54 03/26
[2023-03-27] MEDS: ACETAMINOPHEN 325 MG TABLET 650 MG PO (17:49)
[2023-03-27] MEDS: REMDESIVIR 100 MG/NS 250 ML 100 MG/250 ML BAG 250 MG IVPB (22:22)
[2023-03-27] MEDS: CENTRAL LINE FLUSH 10 ML IV PUSH (22:22)
[2023-03-28] VITALS (18 sets, daily range): BP systolic 84–129; BP diastolic 58–80; PULSE 61–78; RESP 18–22; TEMP 35.7–36.6; O2SAT 95–100
[2023-03-28] MEDS: CENTRAL LINE FLUSH 10 ML IV PUSH ×2 (05:30→12:51)
[2023-03-28 06:06] LABS: Basophils Percent Auto 0.1 % (0.2-1.2); Hematocrit 46.6 % (37.0-47.0); Hemoglobin 14.6 g/dL (12.0-15.0); Immature Granulocyte Absolute 0.07 K/mm3 (0.00-0.031); Immature Granulocyte Percent A 0.4 % (0-0.5); Lymphocytes Absolute Auto 1.72 K/mm3 (0.9-3.2); Lymphocytes Percent Auto 10.7 % (18.3-44.2); Mean Corpuscular HGB Conc 31.3 g/dl (32-36); Mean Corpuscular Hemoglobin 29.7 pg (26-34); Mean Corpuscular Volume 94.7 fl (80-100); Mean Platelet Volume 10.8 fl (7.4-10.4); Monocytes Absolute Auto 0.4 K/mm3 (0.1-0.6); Monocytes Percent Auto 2.5 % (2.6-8.5); Neutrophils Absolute Auto 13.8 K/mm3 (1.3-6.7); Neutrophils Percent Auto 86.3 % (45.5-73.1); Platelet Count Result 291 k/mm3 (150-375); Red Blood Count 4.92 M/mm3 (4.2-5.4); Red Cell Distribution Width 13.5 % (11.5-14.5)
[2023-03-28 06:19] LABS: INR 1.7; Prothrombin Time 19.7 Seconds (11.1-14.7)
[2023-03-28 06:24] LABS: Anion Gap 10 mmol/L (8-16); Blood Urea Nitrogen 20 mg/dL (7-17); Calcium 8.9 mg/dL (8.4-10.2); Carbon Dioxide 30 mmol/L (22-30); Chloride 98 mmol/L (98-107); Estimated CRCL calculation 71 ml/min; Estimated Glomerular Filt Rate > 60; Glucose 136 mg/dL (65-110); Magnesium 2.1 mg/dL (1.6-2.3); Phosphorus 3.2 mg/dL (2.5-4.5); Potassium 3.8 mmol/L (3.4-5.0); Sodium 138 mmol/L (137-145)
[2023-03-28 06:41] LABS: Alanine Aminotransferase 44 U/L (6-35)
[2023-03-28 07:27] LABS: Folic Acid 19.4 ng/mL (2.76->20)
[2023-03-28 07:36] LABS: Thyroid Stimulating Hormone Reflex 0.458 uIU/mL (0.465-4.68)
[2023-03-28] MEDS: UMECLIDINIUM BROMIDE 62.5 MCG ELLIPTA 1 PUFF INHALATION (08:04)
[2023-03-28] MEDS: FLUTICASONE/SALMETEROL 115-21 MCG INHALER 1 PUFF 2 PUFF INHALATION ×2 (08:04→20:33)
[2023-03-28] MEDS: ALBUTEROL SULFATE (*SP) AEROSOL 1 PUFF INHALATION ×3 (08:04→20:32)
[2023-03-28 08:24] LABS: Free T4 Free Thyroxine Reflex 1.33 ng/dL (0.78-2.19)
[2023-03-28] MEDS: ACETAMINOPHEN 325 MG TABLET 650 MG PO ×2 (09:15→15:23)
[2023-03-28] MEDS: SUCRALFATE 1 GM TABLET PO ×3 (09:15→17:34)
[2023-03-28] MEDS: lisinopriL 5 MG TABLET PO (09:16)
[2023-03-28] MEDS: CHOLECALCIFEROL 1,000 UNITS TABLET 1000 UNITS PO (09:16)
[2023-03-28] MEDS: ASPIRIN 81 MG CHEWABLE TABLET PO (09:16)
[2023-03-28] MEDS: dilTIAZem HCL CD 180 MG CAP.ER.24H PO (09:16)
[2023-03-28] MEDS: FERROUS SULFATE 324 MG TABLET PO ×3 (09:16→17:34)
[2023-03-28] MEDS: ACIDOPHILUS/BULGARICUS CHEWABLE TABLET 1 TABLET BY MOUTH ×2 (09:16→17:34)
[2023-03-28] MEDS: ISOSORBIDE MONONITRATE 30 MG TAB.ER.24H PO (09:16)
[2023-03-28] MEDS: THERAPEUTIC MULTIVITAMINS/MINERALS TAB (*BKC) 1 TABLET PO (09:16)
[2023-03-28] MEDS: APIXABAN 5 MG TABLET PO ×2 (09:16→17:34)
[2023-03-28] MEDS: SENNOSIDES 8.6 MG TABLET PO ×2 (09:16→17:35)
[2023-03-28] MEDS: METOPROLOL TARTRATE 50 MG TAB PO (09:16)
[2023-03-28] MEDS: PANTOPRAZOLE 40 MG TABLET PO (09:16)
[2023-03-28] MEDS: ATORVASTATIN 10 MG TABLET PO (09:16)
[2023-03-28] MEDS: busPIRone HCL 5 MG TABLET PO (09:16)
[2023-03-28] MEDS: PARoxetine 20 MG TABLET PO (09:16)
[2023-03-28] MEDS: TOLNAFTATE 1% POWDER 45 GM BTL 1 APPLIC TOPICAL (09:17)
[2023-03-28] MEDS: AZITHROMYCIN 250 MG TABLET PO (09:17)
[2023-03-28 09:20] LABS: Total Triiodothyronine (T3) 1.35 NG/ML (0.97-1.69)
--- NOTE | 2023-03-28 09:58 | PM.IMPN ---
Progress Note: A&P Assessment and Plan (1) Altered mental status: Code(s): R41.82 - Altered mental status, unspecified Status: Acute Assessment and Plan: Patient brought to the ED for altered mental status. She has been here in the ED multiple times for similar findings in 2020. BP soft and mildly tachycardic on admission. CT brain showing no acute process but does show an old right internal capsule CVA. CXR showing mild interstitial edema and left basilar airspace disease. She was COVID positive. Treated with IV Solu-Medrol and IV fluids. BP improved. Required one dose of IV metoprolol for her HR. UA positive. Urine and Blood cultures collected. Remdesivir, Rocephin and Azithromycin given. She was admitted to IMU. TSH 0.46 with normal B12. Symptoms better today Patient is noted to be on sedatives including Fentanyl patch and oxycodone which remain on hold UA noted and concerning for UTI. Hx of ESBL EColi. Will hold Gabapentin. Continue abx. Monitor. (2) COVID-19: Code(s): U07.1 - COVID-19 Status: Acute Assessment and Plan: Patient diagnosed with COVID prior to admission and still positive here. CXR showing mild interstitial edema and left basilar airspace disease. She was started on remdesivir and Decadron. Weaned off O2 today. Continue the same for now (3) Lung infiltrate: Code(s): R91.8 - Other nonspecific abnormal finding of lung field Status: Acute Assessment and Plan: CXR as above with consolidation LLL. Lynn she has bacterial PNA. She has a hx of MRSA in a wound culture. Patient given Rocephin and Zithromax in ED and now on Azithro only. Abx adjusted. BCx NGTD. MRSA nasal swab pending. Urine Ag pending Continue to monitor. (4) Acute UTI: Code(s): N39.0 - Urinary tract infection, site not specified Status: Acute Assessment and Plan: UA noted. Hx of ESBL EColi. UCx positive. Await urine culture identification and sensitivity. Abx as above (5) Hypoxia: Code(s): R09.02 - Hypoxemia Status: Acute Assessment and Plan: As above. ABG noted. No pCO2 retention. Related to COVID infection. Was on supplemental oxygen by Venturi mask. Monitor for continued improvement. (6) COPD (chronic obstructive pulmonary disease): Code(s): J44.9 - Chronic obstructive pulmonary disease, unspecified Status: Acute Assessment and Plan: Patient not actively wheezing. Continue home inhalers. Hold off on nebulizer treatments since she has COVID (7) Atrial fibrillation with RVR: Code(s): I48.91 - Unspecified atrial fibrillation Status: Acute Assessment and Plan: AFib with RVR early on but rate controlled now. Continue diltiazem and metoprolol. Continue Eliquis Subjective Date/time seen: 03/28/23 09:58 Interval history: 72yo female with AFib on chronic anticoagulation, COPD, DM and HTN here for altered mental status and hypoxia. She was noted to be COVID positive recently at the retirement. Patient is more awake and alert but confused so hx unreliable. She complains of pain 'everywhere' mostly in her low back/buttock area. Also with lower chest and upper abd pain. Mild nausea but thinks she could eat. Complains of SOB but not cough. Exam Narrative: AF 96.3 123/73 71 22 100% FM (on RA at the time of my visit) Gen - NARD lying semi-recumbent in bed Chest - few basilar rhonchi CV - irregularly irregular. Tele showing AFib with controlled rate. Abd - Soft, obese, +BS, diffusely tender - Stone secured draining clear yellow urine Ext - No pedal edema Neuro - Awake and alert. Oriented to name only. Skin - Warm and dry. chronic venous stasis skin changes bilateral shins Objective Data Vital Signs Vital Signs: Vital Signs - 24 hr 03/27/23 10:00 03/27/23 12:00 03/27/23 12:00 Temperature 97.1 F L Pulse Rate 78 71 Respiratory Rate 16 Blood Pressure 96/59 L
--- NOTE | 2023-03-28 14:10 | PCPTNOTE ---
Spoke with pt's daughter, pt uses [facility] at retirement. Hospitalist aware of DC of PT orders at this time.
--- NOTE | 2023-03-28 14:12 | PCOTNOTE ---
Pt. is dependent at baseline at [facility], confirmed by daughter. Not appropriate for therapy services at this level of care. Hospitalist notified and in agreement. Nursing aware
[2023-03-28] MEDS: ERTAPENEM 1 GM/NS 50 ML 1 GM/50 ML BAG IVPB (17:33)
--- NOTE | 2023-03-28 21:57 | PC.NURSE ---
patient transferred to [facility]. rm [id number]. transported by [facility]. kofi marina at [facility] given report.
[2023-03-30 22:07] LABS: Pneumococcal Antigen Urine Not Detected (Not Detected)
--- NOTE | 2023-03-31 07:09 | PM.TDS ---
Transfer Discharge Sum: Prov Provider Date of admission: 03/27/23 13:47 Primary care physician: Bill Da Silva, Admitting clinician: Vincenzo Perez MD DS: Admitting Diagnosis Discharge Date 03/28/23 Admitting Diagnosis Altered mental status and hypoxia DS: Discharge Diagnosis Discharge Diagnosis (1) Altered mental status: Code(s): R41.82 - Altered mental status, unspecified Status: Acute (2) COVID-19: Code(s): U07.1 - COVID-19 Status: Acute (3) Pneumonia: Code(s): J18.9 - Pneumonia, unspecified organism Status: Acute (4) Acute UTI: Code(s): N39.0 - Urinary tract infection, site not specified Status: Acute (5) Hypoxia: Code(s): R09.02 - Hypoxemia Status: Acute (6) COPD (chronic obstructive pulmonary disease): Code(s): J44.9 - Chronic obstructive pulmonary disease, unspecified Status: Acute (7) Atrial fibrillation with RVR: Code(s): I48.91 - Unspecified atrial fibrillation Status: Acute (8) Lung infiltrate: Code(s): R91.8 - Other nonspecific abnormal finding of lung field Status: Acute Transfer Discharge Sum: Med Medications Active and Home Medications: Home Medications acetaminophen 325 mg capsule (Tylenol) 650 mg PO Q6-8H PRN Pain 11/14/21 [History Confirmed 03/26/23] albuterol sulfate 90 mcg/actuation aerosol inhaler (ProAir HFA) 1 inh inhalation QID 11/14/21 [History Confirmed 03/26/23] aspirin 81 mg chewable tablet 81 mg PO DAILY 11/14/21 [History Confirmed 03/26/23] atorvastatin 10 mg tablet (Lipitor) 10 mg PO DAILY 11/14/21 [History Confirmed 03/26/23] cefuroxime axetil 250 mg tablet 250 mg PO BID 11/14/21 [History Confirmed 03/26/23] diltiazem HCl 180 mg capsule,24 hr,extended release (Tiazac) 180 mg PO DAILY 11/14/21 [History Confirmed 03/26/23] fentanyl 25 mcg/hr transdermal patch 1 patch topical DAILY 11/14/21 [History Confirmed 03/26/23] ferrous sulfate 325 mg (65 mg iron) capsule,extended release 325 mg PO TID 11/14/21 [History Confirmed 03/26/23] furosemide 40 mg tablet (Lasix) 40 mg PO DAILY 11/14/21 [History Confirmed 03/26/23] isosorbide mononitrate 30 mg tablet,extended release 24 hr 30 mg PO DAILY 11/14/21 [History Confirmed 03/26/23] lisinopril 5 mg tablet 5 mg PO DAILY 11/14/21 [History Confirmed 03/26/23] nortriptyline 50 mg capsule 25 mg PO HS 11/14/21 [History Confirmed 03/26/23] oxycodone 5 mg tablet 5 mg PO Q8-12H PRN Pain 11/14/21 [History Confirmed 03/26/23] paroxetine HCl 20 mg tablet 20 mg PO DAILY 11/14/21 [History Confirmed 03/26/23] potassium chloride 20 mEq tablet,extended release(part/cryst) 20 meq PO DAILY 11/14/21 [History Confirmed 03/26/23] tiotropium bromide 18 mcg capsule with inhalation device (Spiriva with HandiHaler) 1 cap inhalation DAILY 11/14/21 [History Confirmed 03/26/23] Lactobacillus acidophilus 75 million cell-pectin 100 mg capsule 1 cap PO BID 03/26/23 [History Confirmed 03/26/23] apixaban 5 mg tablet (Eliquis) 5 mg PO BID 03/26/23 [History Confirmed 03/26/23] budesonide-formoterol HFA 160 mcg-4.5 mcg/actuation aerosol inhaler (Symbicort) 2 inh inhalation BID 03/26/23 [History Confirmed 03/26/23] buspirone 5 mg tablet 5 mg PO DAILY 03/26/23 [History Confirmed 03/26/23] cholecalciferol (vitamin D3) 25 mcg (1,000 unit) tablet 25 mcg PO DAILY 03/26/23 [History Confirmed 03/26/23] doxycycline hyclate 100 mg capsule 100 mg PO BID 03/26/23 [History Confirmed 03/26/23] gabapentin 100 mg capsule 200 mg PO TID 03/26/23 [History Confirmed 03/26/23] metoprolol tartrate 50 mg tablet 50 mg PO BID 03/26/23 [History Confirmed 03/26/23] multivitamin d-gkchebzt-gwvrxig fumarate 18 mg-vitamin K 25 mcg tablet 1 tablet PO DAILY 03/26/23 [History Confirmed 03/26/23] nystatin 100,000 unit/gram topical powder 1 applic topical BID 03/26/23 [History Confirmed 03/26/23] omeprazole 20 mg capsule,delayed release 20 mg PO DAILY 03/26/23 [History Confirmed 03/26/23] sennosides 8.6 mg tablet
[2023-04-01 05:07] LABS: Legionella pneumophila Ag Ur Not Detected (Not Detected)
== END 2023-03-28 21:55 | disposition short-term general hospital (02) | DRG 177 ==
LOC: ANHED 19:17 → ANHIMU 20:41
PROVIDERS: Admitting Provider Internal Medicine; Emergency Provider Emergency Medicine; PCP Family Medicine; Visit Provider Internal Medicine
DX: U07.1 COVID-19 (principal); J18.9 Pneumonia, unspecified organism; N39.0 Urinary tract infection, site not specified; B95.62 Methicillin resistant Staphylococcus aureus infection as the cause of diseases classified elsewhere; I69.328 Other speech and language deficits following cerebral infarction; E78.5 Hyperlipidemia, unspecified; E11.9 Type 2 diabetes mellitus without complications; F32.A Depression, unspecified; I10 Essential (primary) hypertension; I48.91 Unspecified atrial fibrillation; K21.9 Gastro-esophageal reflux disease without esophagitis; J44.9 Chronic obstructive pulmonary disease, unspecified; Z86.16 Personal history of COVID-19; Z79.01 Long term (current) use of anticoagulants; Z86.14 Personal history of Methicillin resistant Staphylococcus aureus infection; Z88.0 Allergy status to penicillin
CPT/HCPCS: 36415; 36600; 70450; 71045; 80053; 80069; 81001; 82565; 82607; 82746; 82805; 82948; 83605; 83735; 83880; 84439; 84443; 84460; 84480; 84484; 85025; 85610; 85730; 87040; 87077; 87081; 87086; 87147; 87186; 87449; 87637; 87899; 93005; 94640; 96361; 96365; 96367; 96375; 99285; A9270; G0378; J0248; J0456; J0696; J0743; J1100; J1335; J1642; J2930; J2997; J3370; J7040

== ENCOUNTER 2023-04-20 12:15 | Emergency (ER) | payer MEDICARE, MEDICAID, SELFPAY ==
--- NOTE | ~2023-04-20 | CT_ITS ---
EXAMINATION: CT brain wo con INDICATION: Head injury COMPARISON: 03/26/2023 TECHNIQUE: Standard unenhanced head CT. The dose-length product (DLP) was 605.33 mGy-cm. The mA was a djusted according to patient size. Iterative reconstruction technique was employed. FINDINGS: There is no acute intraparenchymal hemorrhage. No evidence of mass lesion. No evidence of a cute infarction. There is mild periventricular and subcortical hypodensity probably related to small vessel ischemic disease. There is mild prominence of the sulci and ventricles related to cerebral atr ophy. Intracranial calcified cerebral atherosclerosis is noted. There are no extra-axial collections. There is no mass effect or midline shift. The orbits and soft tissues are unremarkable. The visualiz ed sinuses and mastoid air cells are well aerated. IMPRESSION: 1. No acute intracranial abnormality. 2. Age related findings. Reviewed, dictated and finalized at location A.
--- NOTE | ~2023-04-20 | XR_ITS ---
EXAMINATION: XR ankle LT min 3V DATE: 04/20/2023 13:27 INDICATION: Left ankle pain TECHNIQUE: Three views of the ankle were obtained. COMPARISON: None. FINDINGS: Bone alignment is normal. The bones are osteopenic which limits the sensitivity for fractur e however none is seen. There is ankle soft tissue swelling. Posterior and plantar calcaneal enthesop hytes are noted. IMPRESSION: 1. No acute osseous abnormality identified, sensitivity limited by osteopenia. Reviewed, dictated and finalized at location A.
--- NOTE | ~2023-04-20 | XR_ITS ---
EXAMINATION: XR foot LT min 3V DATE: 04/20/2023 13:27 INDICATION: Left foot pain TECHNIQUE: Dorsoplantar, lateral, and 2 oblique views of the left foot were obtained. COMPARISON: None FINDINGS: There is dorsal soft tissue swelling of the foot. The bones are osteopenic which limits the sensitivity for fracture however none is seen. There is mild to moderate polyarticular osteoarthriti s. IMPRESSION: 1. No acute osseous abnormality identified, sensitivity limited by osteopenia. Reviewed, dictated and finalized at location A.
--- NOTE | ~2023-04-20 | XR_ITS ---
EXAMINATION: XR hand RT min 3V INDICATION: Right hand pain TECHNIQUE: Three views of the right hand are obtained. COMPARISON: None available FINDINGS: The bones are osteopenic which limits sensitivity for fracture. There is a questionable fra cture at the palmar base of the first distal phalanx. There is soft tissue swelling of the wrist. A l inear heterotopic ossification is seen medial to the distal aspect of the third middle phalanx. There is polyarticular osteoarthritis. IMPRESSION: 1. Possible fracture at the base of the first distal phalanx. 2. Heterotopic ossification near the third middle phalanx, possible old avulsion. Correlate for tende rness at this site. Reviewed, dictated and finalized at location A. IMPRESSION: 1. Possible fracture at the base of the first distal phalanx. 2. Heterotopic ossification near the third middle phalanx, possible old avulsio n. Correlate for tenderness at this site.
--- NOTE | ~2023-04-20 | XR_ITS ---
EXAMINATION: XR wrist RT min 3V INDICATION: Right wrist pain TECHNIQUE: Four views of the right wrist are obtained. COMPARISON: None available FINDINGS: The bones are osteopenic which limits sensitivity for fracture. There is soft tissue swelli ng of the wrist. There is marked degenerative change at the distal radioulnar joint. There is chronic deformity of the ulnar styloid. No wrist fracture is identified. IMPRESSION: 1. Osteoarthritis and soft tissue swelling of the wrist without acute fracture identified. Reviewed, dictated and finalized at location A.
[2023-04-20 12:16] VITALS: BP 107/69; PULSE 61; RESP 20; TEMP 36.9; O2SAT 100
--- NOTE | 2023-04-20 12:38 | ED.FALL ---
HPI - Fall General Chief Complaint: Fall Stated Complaint: unwitnessed GLF, headache Time Seen by Provider: 04/20/23 12:25 History of Present Illness HPI Narrative: 72-year-old female presented to the ED for evaluation after having a fall from her wheelchair. Patient states she does not stand or ambulate at baseline. Patient states she fell asleep in her wheelchair and when she woke up she was unable to catch her cell from falling. Patient states she did injure her left foot right hand and did strike her head. Patient denied any loss of consciousness from the fall but patient is on Eliquis. Related Data Home Medications Medication Instructions Recorded Confirmed acetaminophen 325 mg capsule 650 mg PO Q6-8H PRN Pain 11/14/21 03/26/23 (Tylenol) albuterol sulfate 90 mcg/actuation 1 inh inhalation QID 11/14/21 03/26/23 aerosol inhaler (ProAir HFA) aspirin 81 mg chewable tablet 81 mg PO DAILY 11/14/21 03/26/23 atorvastatin 10 mg tablet (Lipitor) 10 mg PO DAILY 11/14/21 03/26/23 cefuroxime axetil 250 mg tablet 250 mg PO BID 11/14/21 03/26/23 diltiazem HCl 180 mg capsule,24 180 mg PO DAILY 11/14/21 03/26/23 hr,extended release (Tiazac) fentanyl 25 mcg/hr transdermal 1 patch topical DAILY 11/14/21 03/26/23 patch ferrous sulfate 325 mg (65 mg 325 mg PO TID 11/14/21 03/26/23 iron) capsule,extended release furosemide 40 mg tablet (Lasix) 40 mg PO DAILY 11/14/21 03/26/23 isosorbide mononitrate 30 mg 30 mg PO DAILY 11/14/21 03/26/23 tablet,extended release 24 hr lisinopril 5 mg tablet 5 mg PO DAILY 11/14/21 03/26/23 nortriptyline 50 mg capsule 25 mg PO HS 11/14/21 03/26/23 oxycodone 5 mg tablet 5 mg PO Q8-12H PRN Pain 11/14/21 03/26/23 paroxetine HCl 20 mg tablet 20 mg PO DAILY 11/14/21 03/26/23 potassium chloride 20 mEq 20 meq PO DAILY 11/14/21 03/26/23 tablet,extended release(part/cryst) tiotropium bromide 18 mcg capsule 1 cap inhalation DAILY 11/14/21 03/26/23 with inhalation device (Spiriva with HandiHaler) Lactobacillus acidophilus 75 1 cap PO BID 03/26/23 03/26/23 million cell-pectin 100 mg capsule apixaban 5 mg tablet (Eliquis) 5 mg PO BID 03/26/23 03/26/23 budesonide-formoterol HFA 160 2 inh inhalation BID 03/26/23 03/26/23 mcg-4.5 mcg/actuation aerosol inhaler (Symbicort) buspirone 5 mg tablet 5 mg PO DAILY 03/26/23 03/26/23 cholecalciferol (vitamin D3) 25 25 mcg PO DAILY 03/26/23 03/26/23 mcg (1,000 unit) tablet doxycycline hyclate 100 mg capsule 100 mg PO BID 03/26/23 03/26/23 gabapentin 100 mg capsule 200 mg PO TID 03/26/23 03/26/23 metoprolol tartrate 50 mg tablet 50 mg PO BID 03/26/23 03/26/23 multivitamin t-ijnqtzsn-imdxidg 1 tablet PO DAILY 03/26/23 03/26/23 fumarate 18 mg-vitamin K 25 mcg tablet nystatin 100,000 unit/gram topical 1 applic topical BID 03/26/23 03/26/23 powder omeprazole 20 mg capsule,delayed 20 mg PO DAILY 03/26/23 03/26/23 release sennosides 8.6 mg tablet (senna) 8.6 mg PO BID 03/26/23 03/26/23 sucralfate 1 gram tablet 1 g PO TID 03/26/23 03/26/23 Allergies Allergy/AdvReac Type Severity Reaction Status Date / Time iodine Allergy Unknown Verified 04/20/23 12:58 latex Allergy Unknown Verified 04/20/23 12:58 meperidine Allergy Unknown Verified 04/20/23 12:58 Penicillins Allergy Unknown Verified 04/20/23 12:58 piperacillin [From Zosyn] Allergy Unknown Verified 04/20/23 12:58 tazobactam [From Zosyn] Allergy Unknown Verified 04/20/23 12:58 Review of Systems Review of Systems: All systems reviewed & are unremarkable except as noted in HPI and below PMFSH Past Medical History Medical History (Updated 04/20/23 @ 15:19 by Landen Landers MD) COPD (chronic obstructive pulmonary disease) Depression Diabetes mellitus Hypertension Social History Social History Smoking status: Former smoker Alcohol intake: never Substance use: never Substance use type: does not use Spiritual care concerns:
[2023-04-20 13:27] VITALS: BP 116/70; PULSE 60; RESP 16; O2SAT 99
--- NOTE | 2023-04-20 14:51 | PC.NURSE ---
spoke with patient's daugher, update given. family unavailable to filler picker patient to transport back. spoke with rivera at [place], no transportation available today. per rivera, patient will be given medications when she returns to facility, no meds due until then.
[2023-04-20 14:55] VITALS: BP 112/74; PULSE 60; RESP 20; O2SAT 97
[2023-04-20] MEDS: oxyCODONE HCL (*CRX) 5 MG TAB IR PO (15:35)
--- NOTE | 2023-05-07 20:11 | PC.NURSE ---
LATE ENTRY This note is being entered to document information to the patient's record. The following information was omitted on [05/07/23], by [dusty]. received VO from Dr. Landers to place metal finger splint to right hand index finger. Metal finger splint placed to right hand index finger, secured with coban. patient tolerated
== END 2023-04-20 15:48 ==
PROVIDERS: Emergency Provider Emergency Medicine; PCP Family Medicine
DX: S09.90XA Unspecified injury of head, initial encounter (principal); S62.521A Displaced fracture of distal phalanx of right thumb, initial encounter for closed fracture; S99.912A Unspecified injury of left ankle, initial encounter; J44.9 Chronic obstructive pulmonary disease, unspecified; E11.9 Type 2 diabetes mellitus without complications; I10 Essential (primary) hypertension; F32.A Depression, unspecified; Z79.01 Long term (current) use of anticoagulants; Z79.82 Long term (current) use of aspirin; M85.872 Other specified disorders of bone density and structure, left ankle and foot; M19.031 Primary osteoarthritis, right wrist; W05.0XXA Fall from non-moving wheelchair, initial encounter
CPT/HCPCS: 29130; 70450; 73110; 73130; 73610; 73630; 99284; A9270

== ENCOUNTER 2023-05-12 18:07 | Inpatient (IN) | payer MEDICARE, MEDICAID, SELFPAY ==
[2023-05-12] VITALS (11 sets, daily range): BP systolic 104–131; BP diastolic 64–91; PULSE 70–102; RESP 14–22; TEMP 36.4–36.5; O2SAT 92–100; BMI 32.4
--- NOTE | ~2023-05-12 | XR_ITS ---
XR chest 1V portable DATE: 05/12/2023 19:48 INDICATION: Cerebrovascular accident TECHNIQUE: Portable supine AP view on 05/12/2023 at 1946 hours COMPARISON: March 26, 2023 portable supine AP chest at 1808 hours FINDINGS: Left subclavian Port-A-Cath catheter tip overlies the superior vena cava. Normal heart size. There is aortic calcification and unfolding. No hilar or mediastinal enlargement. No pulmonary infiltrate or consolidation, pleural effusion or pulmonary vascular congestion or pneumo thorax. Diffuse osteopenia. Degenerative spurring and mild thoracic scoliosis. IMPRESSION: No active cardiopulmonary disease Aortic atherosclerosis Left Port-A-Cath Reviewed, dictated and finalized at location A.
--- NOTE | ~2023-05-12 | MR_ITS ---
EXAMINATION: MR brain/brain stem wo/w con DATE: 05/13/2023 11:20 INDICATION: Seizure-like activity. TECHNIQUE: Magnetic resonance imaging (MRI) of the brain and brainstem was performed without and with 19 mL MultiHance intravenous contrast. COMPARISON: Head CT 05/12/2023 FINDINGS: There are scattered areas of nonspecific increased T2-weighted signal intensity in the cere bral white matter and jerson. There is no intracranial hemorrhage, acute infarction, or abnormal intrac ranial mass lesion. The ventricles are normal in size. The orbits are normal. There is mild mucosal t hickening in the ethmoid sinuses. The mastoid air cells are normal. IMPRESSION: 1. Mild nonspecific cerebral white matter disease and pontine disease, which likely represents chroni c small vessel ischemic disease. Reviewed, dictated and finalized at location A. IMPRESSION: 1. Mild nonspecific cerebral white matter disease and pontine disease, which sharad gill represents chronic small vessel ischemic disease.
--- NOTE | ~2023-05-12 | CT_ITS ---
EXAMINATION: CT brain wo con DATE: 05/12/2023 18:19 INDICATION: Complete change in mental status TECHNIQUE: Computed tomography (CT) of the head was performed without intravenous contrast. The mA wa s adjusted according to patient size. Iterative reconstruction technique was employed. Exam dose: 68 1.00 mGy-cm total exam DLP. COMPARISON: 04/20/2023 CT brain FINDINGS: No intracranial mass lesion or hemorrhage or cerebrovascular accident is evident. No midlin e shift or mass effect effect. Bilateral carotid siphon internal carotid artery calcifications. Nonspecific diminished attenuation o f the cerebral white matter, likely due to chronic small vessel ischemic changes. No subdural or epidural hematoma. No fracture or bone destruction of the cranial vault. Mild focal soft tissue thickening is some the e thmoid air cells. The paranasal sinuses and mastoid air cells are otherwise unremarkable. IMPRESSION: Cerebral atherosclerosis and chronic small vessel ischemic changes of the cerebral white matter No acute intracranial finding or significant change since 04/20/2023 Reviewed, dictated and finalized at Location A. Reviewed, dictated and finalized at location A.
--- NOTE | 2023-05-12 18:12 | ECG_ITS ---
Measurements Intervals [place] Rate: 77 P: [place]: 0 QRS: 3 QRSD: 82 T: 50 QT: 319 QTc: 363 Interpretive Statements POOR ECG QUALITY BECAUSE OF BASELINE NOISE ATRIAL FIBRILLATION LOW QRS VOLTAGE [QRS DEFLECTION < 0.5/1.0 mV IN LIMB/CHEST LEADS] POOR R-WAVE PROGRESSION ABNORMAL ECG COMPARED TO ECG 03/26/2023 17:29:10 HEART RATE RESPONSE TO ATRIAL FIBRILLATION IS NOW CONTROLLED Electronically Signed On 05-13-2023 11:19:00 CDT by Miguel Mtichell M.D.
--- NOTE | 2023-05-12 18:27 | ED.NEUROSD ---
HPI - Neuro Symptoms/Deficit General Chief Complaint: Suspected CVA Stated Complaint: cva Time Seen by Provider: 05/12/23 18:27 Source: EMS Mode of arrival: EMS History of Present Illness HPI Narrative: 72 years old white female came from senior living by ambulance because of unresponsiveness. Patient had her regular medication at 4 PM and was doing okay, at 520 the nurse noted that the patient sitting in bed, staring in space, unresponsive to verbal commands. 911 was called. Last COVID infection was March 2023. History of multiple CVA. Patient is full code. Related Data Home Medications Medication Instructions Recorded Confirmed acetaminophen 325 mg capsule 650 mg PO Q6-8H PRN Pain 11/14/21 03/26/23 (Tylenol) albuterol sulfate 90 mcg/actuation 1 inh inhalation QID 11/14/21 03/26/23 aerosol inhaler (ProAir HFA) aspirin 81 mg chewable tablet 81 mg PO DAILY 11/14/21 03/26/23 atorvastatin 10 mg tablet (Lipitor) 10 mg PO DAILY 11/14/21 03/26/23 cefuroxime axetil 250 mg tablet 250 mg PO BID 11/14/21 03/26/23 diltiazem HCl 180 mg capsule,24 180 mg PO DAILY 11/14/21 03/26/23 hr,extended release (Tiazac) fentanyl 25 mcg/hr transdermal 1 patch topical DAILY 11/14/21 03/26/23 patch ferrous sulfate 325 mg (65 mg 325 mg PO TID 11/14/21 03/26/23 iron) capsule,extended release furosemide 40 mg tablet (Lasix) 40 mg PO DAILY 11/14/21 03/26/23 isosorbide mononitrate 30 mg 30 mg PO DAILY 11/14/21 03/26/23 tablet,extended release 24 hr lisinopril 5 mg tablet 5 mg PO DAILY 11/14/21 03/26/23 nortriptyline 50 mg capsule 25 mg PO HS 11/14/21 03/26/23 oxycodone 5 mg tablet 5 mg PO Q8-12H PRN Pain 11/14/21 03/26/23 paroxetine HCl 20 mg tablet 20 mg PO DAILY 11/14/21 03/26/23 potassium chloride 20 mEq 20 meq PO DAILY 11/14/21 03/26/23 tablet,extended release(part/cryst) tiotropium bromide 18 mcg capsule 1 cap inhalation DAILY 11/14/21 03/26/23 with inhalation device (Spiriva with HandiHaler) Lactobacillus acidophilus 75 1 cap PO BID 03/26/23 03/26/23 million cell-pectin 100 mg capsule apixaban 5 mg tablet (Eliquis) 5 mg PO BID 03/26/23 03/26/23 budesonide-formoterol HFA 160 2 inh inhalation BID 03/26/23 03/26/23 mcg-4.5 mcg/actuation aerosol inhaler (Symbicort) buspirone 5 mg tablet 5 mg PO DAILY 03/26/23 03/26/23 cholecalciferol (vitamin D3) 25 25 mcg PO DAILY 03/26/23 03/26/23 mcg (1,000 unit) tablet doxycycline hyclate 100 mg capsule 100 mg PO BID 03/26/23 03/26/23 gabapentin 100 mg capsule 200 mg PO TID 03/26/23 03/26/23 metoprolol tartrate 50 mg tablet 50 mg PO BID 03/26/23 03/26/23 multivitamin [id number] 1 tablet PO DAILY 03/26/23 03/26/23 fumarate 18 mg-vitamin K 25 mcg tablet nystatin 100,000 unit/gram topical 1 applic topical BID 03/26/23 03/26/23 powder omeprazole 20 mg capsule,delayed 20 mg PO DAILY 03/26/23 03/26/23 release sennosides 8.6 mg tablet (senna) 8.6 mg PO BID 03/26/23 03/26/23 sucralfate 1 gram tablet 1 g PO TID 03/26/23 03/26/23 Allergies Allergy/AdvReac Type Severity Reaction Status Date / Time iodine Allergy Unknown Verified 04/20/23 12:58 latex Allergy Unknown Verified 04/20/23 12:58 meperidine Allergy Unknown Verified 04/20/23 12:58 Penicillins Allergy Unknown Verified 04/20/23 12:58 piperacillin [From Zosyn] Allergy Unknown Verified 04/20/23 12:58 tazobactam [From Zosyn] Allergy Unknown Verified 04/20/23 12:58 Review of Systems Review of Systems: ROS unobtainable: Yes unobtainable due to medical condition PMFSH Past Medical History Medical History COPD (chronic obstructive pulmonary disease) Depression Diabetes mellitus Hypertension Social History Social History Smoking status: Former smoker Alcohol intake: never Substance use: never Substance use type: does not use Spiritual care concerns: No Exam Narrative: General appear
[2023-05-12] MEDS: SODIUM CHLORIDE 0.9% IV 1,000 ML 999 ML IV CONT (18:47)
[2023-05-12 18:48] LABS: Alveolar/Arterial O2 Gradient 83.9 mmHg; Base Excess ABG 3.5 mEq/l (+/-2.0); Fractional Inspired Oxygen 28 %; HCO3 ABG 28.7 mEq/l (22.0-26.0); Oxygen Content ABG 18.5 %vol (16.0-22.0); Oxygen Saturation ABG 91.8 % (95.0-100.0); Oxyhemoglobin 90.8 % THb (90.0-100.0); PCO2 ABG 45.8 mmHg (35.0-45.0); PO2 ABG 61.7 mmHg (80.0-100.0); Total Hemoglobin 14.5 g/dL (12.0-18.0); pH ABG 7.415 (7.350-7.450)
[2023-05-12 18:49] LABS: Device NASAL CANNULA; Site Drawn LEFT RADIAL
[2023-05-12 19:05] LABS: Basophils Absolute Auto 0.1 K/mm3 (0.0-0.1); Basophils Percent Auto 0.6 % (0.2-1.2); Eosinophils Absolute Auto 0.5 K/mm3 (0-0.3); Hematocrit 43.2 % (37.0-47.0); Hemoglobin 13.6 g/dL (12.0-15.0); Immature Granulocyte Absolute 0.06 K/mm3 (0.00-0.031); Immature Granulocyte Percent A 0.4 % (0-0.5); Lymphocytes Absolute Auto 2.58 K/mm3 (0.9-3.2); Lymphocytes Percent Auto 16.7 % (18.3-44.2); Mean Corpuscular HGB Conc 31.5 g/dl (32-36); Mean Corpuscular Volume 95.2 fl (80-100); Mean Platelet Volume 10.3 fl (7.4-10.4); Monocytes Absolute Auto 1.2 K/mm3 (0.1-0.6); Monocytes Percent Auto 7.6 % (2.6-8.5); Neutrophils Absolute Auto 11.1 K/mm3 (1.3-6.7); Neutrophils Percent Auto 71.7 % (45.5-73.1); Platelet Count Result 335 k/mm3 (150-375); Red Blood Count 4.54 M/mm3 (4.2-5.4); Red Cell Distribution Width 13.6 % (11.5-14.5); White Blood Count 15.5 K/mm3 (4.5-10.0)
[2023-05-12 19:13] LABS: Acetaminophen < 10 ug/mL (10-30); Ammonia < 9 umol/L (9-30); Ethanol < 10 mg/dL (<10); Salicylate < 1.0 mg/dL (2-20)
[2023-05-12 19:15] LABS: Alanine Aminotransferase 17 U/L (6-35); Albumin Level 3.9 g/dL (3.5-5.1); Alkaline Phosphatase 155 U/L (38-126); Anion Gap 4 mmol/L (8-16); Aspartate Amino Transferase 30 U/L (14-36); Bilirubin,Total 0.6 mg/dL (0.2-1.3); Blood Urea Nitrogen 11 mg/dL (7-17); Calcium 9.3 mg/dL (8.4-10.2); Carbon Dioxide 35 mmol/L (22-30); Chloride 103 mmol/L (98-107); Creatine Kinase 40 U/L (30-135); Estimated CRCL calculation 70 ml/min; Estimated Glomerular Filt Rate > 60; Glucose 119 mg/dL (65-110); Potassium 4.8 mmol/L (3.4-5.0); Sodium 142 mmol/L (137-145)
[2023-05-12 19:25] LABS: Troponin I < 0.012 ng/mL (0.000-0.034)
[2023-05-12 19:26] LABS: INR 1.3; Prothrombin Time 16.8 Seconds (11.1-14.7)
[2023-05-12 19:27] LABS: Partial Thromboplastin Time 42.4 SECONDS (22.3-36.8)
[2023-05-12 19:54] LABS: Appearance Urine Cloudy (Clear); Bacteria Urine 1+ /hpf; Bilirubin Urine Negative (Negative); Blood Urine 1+ (Negative); Color Urine Dark Yellow (Yellow); Glucose Urine UA Negative (Negative); Ketones Urine Negative (Negative); Leukocyte Esterase Ur 1+ LEU/UL (Negative); Need Manual Microscopic Reviewed; Nitrate Urine Positive (Negative); Protein Urine Trace mg/dL (Negative); RBC Urine 0-2 /hpf (0-2); Specific Grav Ur 1.022 (1.001-1.035); Squamous Epithelial Cell Urine Many /hpf (Few); Urobilinogen Urine 0.2 mg/dL (<2.0); WBC Urine 21-50 /hpf
[2023-05-12 19:55] LABS: Add Urine Microscopic? YES
[2023-05-12 20:15] LABS: Amphetamine Screen Urine Negative (Negative); Barbiturate Screen Urine Negative (Negative); Benzodiazepines Screen Urine Negative (Negative); Cannabinoid Screen Urine Negative (Negative); Cocaine Screen Urine Negative (Negative); Methadone Screen Urine Negative (Negative); Opiate Screen Urine Positive (Negative); Phencyclidine Screen Urine Negative (Negative)
--- NOTE | 2023-05-12 22:07 | PC.NURSE ---
2200 Attempted to call report, spoke with Gera Roland RN. RN was on the phone with [employer] regarding another pt. Will call back.
--- NOTE | 2023-05-12 22:54 | ADMGEN ---
This patient, Lexus Veliz, was admitted to IMU Room 206-02. Patient/family oriented to hospital policies and general routines including ID bracelet, bed and alarms, visiting hours, pain management, procedures, bathroom and other care routines, personal items, smoking policy, room service/diet, and visiting hours. Information on how to activate the Rapid Response Team has been discussed. Patient/Family are encouraged to report perceived risks to care and to ask questions if they do not understand what they are told or what they should do.
[2023-05-12 22:57] LABS: Glucose Point of Care 118 mg/dl (65-105)
[2023-05-13] VITALS (17 sets, daily range): BP systolic 93–141; BP diastolic 58–87; PULSE 64–90; RESP 14–22; TEMP 36.4–36.8; O2SAT 93–98
--- NOTE | 2023-05-13 05:07 | ECG_ITS ---
Measurements Intervals [place] Rate: 78 P: [place]: 0 QRS: -13 QRSD: 78 T: -14 QT: 337 QTc: 386 Interpretive Statements ATRIAL FIBRILLATION BASELINE ARTIFACT LOW QRS VOLTAGE [QRS DEFLECTION < 0.5/1.0 mV IN LIMB/CHEST LEADS] POSSIBLE ANTERIOR MYOCARDIAL INFARCTION [30 ms Q WAVE IN V3/V4, OR R < 0.2 mV IN V4], OF INDETERMINATE AGE ABNORMAL ECG COMPARED TO ECG 05/12/2023 18:34:38 NO SIGNIFICANT CHANGES Electronically Signed On 05-13-2023 17:00:45 CDT by Sarwat Cespedes M.D.
[2023-05-13] MEDS: NITROGLYCERIN SL 0.4 MG TABLET SUBLINGUAL (05:38)
[2023-05-13] MEDS: oxyCODONE HCL (*CRX) 2.5 MG TAB IR PO ×2 (05:43→18:01)
[2023-05-13] MEDS: IPRATROPIUM BR 0.02% INH SOLN 0.5 MG/2.5 ML VIAL INHALATION (05:56)
[2023-05-13] MEDS: ALBUTEROL SULFATE NEB 2.5 MG/3 ML INH INHALATION (05:56)
[2023-05-13] MEDS: SODIUM CHLORIDE 0.9% IV 1,000 ML 75 ML IV CONT ×2 (06:24→22:58)
--- NOTE | 2023-05-13 06:34 | PM.IMHP ---
H&P: HPI History of Present Illness Date/Time: 05/13/23 06:34 Chief Complaint: Altered mental status Narrative: 72-year-old female with a past medical history of depression, paroxysmal atrial fibrillation, COPD, GERD, coronary artery disease and chronic pain who presents to the ER from [facility] due to altered mental status. Per EMS report the patient is usually alert orient x4 around 16:30 patient was found to be not responsive. Patient was not talking or following commands but she was responsive to painful stimuli. She was reportedly having episodes of apnea. Patient's blood glucose was 101. The patient herself is a poor historian. She is alert oriented person and seems to be aware that she is in the hospital. She can call all the staff members by name after only being them once. But when I asked her the month and year she looks away and refuses to answer. The patient only wants to talk about how much pain she is in. She is complaining of severe chest pain an EKG was performed when she arrived to IMU and demonstrated no acute process although his poor tracing. At the time of my evaluation I just barely brushed my fingers across the patient's chest wall in she screamed out in pain. The ER provider wanted the patient admitted because of her altered mental status he. He reported that when the patient came into the ER she looks as if she may have been having did corticated posturing with her arms extended wrists flexed in hands fisted with her toes pointed. However at the time of my evaluation the patient is awake and talking to me in her toes are chronically in a dorsiflexed position with noted contractures of her Achilles tendon with decreased range of motion of the ankles. The patient is able to straighten out the fingers are left hand in staff is able to easily straighten out the fingers the patient's left hand she does tend the hold the wrist flexed. This could be possibly due to her prior history of stroke that her daughter report. Patient in the holding the fingers of the right hand in a odd posture as well. Even while the patient is talking to staff she is holding her arms in extension at the elbows. Her arms tend to be more rolled in at the shoulders. However patient is able to move her hands in his picking up her cup. The patient had a Stone catheter that was placed in the ER. She has does have very dark colored urine. Her urine in the ER demonstrated many squamous cells 1+ bacteria 2150 wbc's and 1+ esterase with positive nitrates. She does have a history multidrug resistant UTIs in the past. The patient is unable to give me significant information regarding her symptoms preceding her admission. The patient perseverating about her pain in just asks for us to help her. Nursing staff had told me that the patient was wheezing. I had ordered p.r.n. breathing treatments. I arrived at the bedside while patient was receiving her breathing treatment and lungs were clear. Respiratory felt the patient's lungs were clear prior to the treatment. However nursing staff felt the patient was wheezing from the door. Patient does have history of COPD. She has not been witnessed coughing. She did recently have COVID. She was placed on oxygen by EMS. Witnessed apnea occurred with EMS but the patient does have a history of obstructive sleep apnea. According to the ER the patient is not on oxygen at the senior care. Source of information is past medical records, ER records, senior care records and patient report is a poor historian. Nursing staff received past medical history from patient's daughter. Review of Systems Review of Systems: Review of systems was attempted but limited due to various behavioral factors with the patient and possibly some confusion. [facility] Past Medical History Medical History (Updated 05/13/23 @ 07:26 by Miranda Noyola DO) Anxiety CHF (congestive heart failure) Chronic pain disorder CMV (cytome
[2023-05-13 07:29] LABS: Basophils Absolute Auto 0.1 K/mm3 (0.0-0.1); Basophils Percent Auto 0.4 % (0.2-1.2); Eosinophils Absolute Auto 0.4 K/mm3 (0-0.3); Hemoglobin 12.2 g/dL (12.0-15.0); Immature Granulocyte Absolute 0.05 K/mm3 (0.00-0.031); Immature Granulocyte Percent A 0.4 % (0-0.5); Lymphocytes Percent Auto 16.9 % (18.3-44.2); Mean Corpuscular HGB Conc 31.3 g/dl (32-36); Mean Corpuscular Hemoglobin 29.6 pg (26-34); Mean Corpuscular Volume 94.7 fl (80-100); Mean Platelet Volume 10.6 fl (7.4-10.4); Monocytes Percent Auto 8.2 % (2.6-8.5); Neutrophils Absolute Auto 8.9 K/mm3 (1.3-6.7); Neutrophils Percent Auto 71.1 % (45.5-73.1); Platelet Count Result 291 k/mm3 (150-375); Red Blood Count 4.12 M/mm3 (4.2-5.4); Red Cell Distribution Width 13.5 % (11.5-14.5); White Blood Count 12.5 K/mm3 (4.5-10.0)
[2023-05-13 07:35] LABS: Anion Gap 2 mmol/L (8-16); Blood Urea Nitrogen 11 mg/dL (7-17); Calcium 8.3 mg/dL (8.4-10.2); Carbon Dioxide 32 mmol/L (22-30); Chloride 104 mmol/L (98-107); Estimated CRCL calculation 76 ml/min; Estimated Glomerular Filt Rate > 60; Glucose 104 mg/dL (65-110); Potassium 3.8 mmol/L (3.4-5.0); Sodium 138 mmol/L (137-145)
[2023-05-13] MEDS: TOLNAFTATE 1% POWDER 45 GM BTL 1 APPLIC TOPICAL ×2 (10:06→18:45)
[2023-05-13] MEDS: ISOSORBIDE MONONITRATE 30 MG TAB.ER.24H PO (10:07)
[2023-05-13] MEDS: CHOLECALCIFEROL 1,000 UNITS TABLET 1000 UNITS PO (10:07)
[2023-05-13] MEDS: GABAPENTIN 100 MG CAPSULE 200 MG PO ×3 (10:07→18:01)
[2023-05-13] MEDS: SENNA/DOCUSATE SODIUM TABLET 1 TAB PO ×2 (10:07→18:01)
[2023-05-13] MEDS: PANTOPRAZOLE 40 MG TABLET PO (10:07)
[2023-05-13] MEDS: APIXABAN 5 MG TABLET PO ×2 (10:07→21:54)
[2023-05-13] MEDS: METOPROLOL TARTRATE 50 MG TAB PO ×2 (10:08→21:55)
[2023-05-13] MEDS: lisinopriL 2.5 MG TABLET PO (10:08)
[2023-05-13] MEDS: SUCRALFATE 1 GM TABLET PO ×4 (10:09→21:55)
[2023-05-13] MEDS: busPIRone HCL 5 MG TABLET PO (10:09)
[2023-05-13] MEDS: PARoxetine 20 MG TABLET PO (10:09)
[2023-05-13] MEDS: dilTIAZem HCL CD 180 MG CAP.ER.24H PO (10:09)
[2023-05-13] MEDS: ASPIRIN 81 MG CHEWABLE TABLET PO (10:14)
[2023-05-13 11:14] LABS: Glucose Point of Care 101 mg/dl (65-105)
--- NOTE | 2023-05-13 12:24 | WPDNEURCNPN ---
Assessment and Plan Assessment and plan (1) Altered mental status: Qualifiers: Altered mental status type: transient alteration of awareness Qualified Code(s): R40.4 - Transient alteration of awareness Code(s): R41.82 - Altered mental status, unspecified Status: Acute (2) Chronic narcotic use: Code(s): F11.90 - Opioid use, unspecified, uncomplicated Status: Acute (3) Seizure-like activity: Code(s): R56.9 - Unspecified convulsions Status: Acute Plan Chronic use of the narcotics with the possibility of the abnormal postures or seizure-like activity in addition to chronic obstructive pulmonary disease patient was loaded with the anticonvulsants in the emergency room that is Keppra 1 g which can be continued in the dosage of 500 b.i.d. and she can be observed over the next 24 hours evaluate the final status Consult date: 05/13/23 HPI: Lexus Veliz is a 72 year old female admitted to the hospital through the emergency room where she was sent from the custodial by ambulance because of unresponsiveness as per the information available she had her regular medication at 4:00 p.m. at 5:20 p.m. patient's nurse noted that she was sitting in bed staring in the space and unresponsive to the verbal commands 911 was called to the scene she has had multiple CVAs in the past but carries the full code status. She has been on multiple medications including aspirin 81 mg daily atorvastatin 10 mg daily antihypertensive medications and also with multiple drug allergies. She does have a history of chronic obstructive pulmonary disease with diabetes mellitus, hypertension, former smoker, never alcohol intake, initial exam neurologically she was unresponsive staring into space not following verbal commands and decerebrate posturing vital signs otherwise were normal considering the possibility of the seizure as described above given Keppra IV in the emergency room 1.5 g subsequently documentation that she became more responsive admission diagnosis was convulsion with history of stroke otherwise routine labs with mild leukocytosis and MRI today diagnostic of nonspecific cerebral white matter disease and pontine disease on the basis of chronic small vessel disease patient's medication profile shows multiple medications including fentanyl apixaban gabapentin and now antibiotics. Review of Systems Review of Systems: All systems reviewed & are unremarkable except as noted in HPI and below PMFSH Past Medical History Medical History (Updated 05/13/23 @ 07:26 by Miranda Noyola DO) Anxiety CHF (congestive heart failure) Chronic pain disorder CMV (cytomegalovirus infection) COPD (chronic obstructive pulmonary disease) CVA (cerebral vascular accident) Depression Diabetes mellitus Diabetic peripheral neuropathy GERD (gastroesophageal reflux disease) Hypertension Obstructive sleep apnea Paroxysmal A-fib Pneumonia due to COVID-19 virus (~01/2023) Type 2 diabetes mellitus Vasculitis determined by biopsy of skin Vitamin D deficiency Surgical History Surgical History (Updated 05/13/23 @ 06:52 by Miranda Noyola DO) History of colonoscopy with polypectomy History of hysterectomy History of left hip replacement Family History Family History Sibling Heart disease Son COPD (chronic obstructive pulmonary disease) Daughter Sleep apnea Father Colon polyp Mother Colon polyp Colon cancer Social History Social History (Updated 05/13/23 @ 06:59 by Miranda Noyola DO) Social History: Patient is residing at [facility]. Code status: Full code per EMR Smoking packs per day: 2 Smoking cigarettes per day: 40.0 Years smoked: 15 Smoking pack-years: 30.00 Smoking status: Former smoker Tobacco type: cigarettes Alcohol intake: former Substance use: never Substance use type: does not use Lack of Transportati
--- NOTE | 2023-05-13 13:18 | PM.IMPN ---
Progress Note: A&P Assessment and Plan (1) Altered mental status: Qualifiers: Altered mental status type: transient alteration of awareness Qualified Code(s): R40.4 - Transient alteration of awareness Code(s): R41.82 - Altered mental status, unspecified Status: Acute Assessment and Plan: Patient and episode of altered mental status brought her to the ER. ER staff was worried about patient possibly having seizure. Ammonia <9. B12/folate normal in March. TSH normal. She did receive keppra in the ED. Neurology consulted and Keppra recommended. Brain MRI showing no acute findings. Check EEG. (2) Seizure-like activity: Code(s): R56.9 - Unspecified convulsions Status: Acute Assessment and Plan: As above (3) Chronic narcotic use: Code(s): F11.90 - Opioid use, unspecified, uncomplicated Status: Acute Assessment and Plan: Stable. Continue Fentanyl (4) Bacteriuria with pyuria: Code(s): R82.71 - Bacteriuria; R82.81 - Pyuria Status: Acute Assessment and Plan: Urine dark in color. Many squamous cells noted on sample so suspect this is contaminate. Bili normal and Hgb stable so doubt hemolysis. Rocephin started. (5) COPD (chronic obstructive pulmonary disease): Qualifiers: COPD type: unspecified COPD Qualified Code(s): J44.9 - Chronic obstructive pulmonary disease, unspecified Code(s): J44.9 - Chronic obstructive pulmonary disease, unspecified Status: Acute Assessment and Plan: Forced expiratory wheezing felt related to her self-induced. Nebs treatments available as needed. Subjective Date/time seen: 05/13/23 13:18 Interval history: 72yo female with pAFib, COPD, CAD and chronic pain [facility] status. She complains of headache but not uncommon for her normally controlled with Tylenol. She also having 'a little bit' of chest pain and slight SOB. Chest pain is chronic and normally takes Tylenol (and then NTG SL if pain persists). She is eating without issues today. She is confused and so hx is suspect. Exam Narrative: AF 98.1 120/82 88 18 98% 4L Gen - NARD sitting up feeding herself lunch using a fork Chest - bibasialr inspiratory crackles with expiratory wheezing with self-induced forced expiration CV - irregularly irregular. Tele showing AFib with controlled HR Abd - Soft, obese, +epigastric pain with guarding - Stone secured draining brown colored urine. Ext - No pedal edema Neuro - Alert but confused. chronic plantar flexion with some ability to attempt dorsiflexion. 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 suspect self-induced malingering. Skin -chronic venous stasis skin changes bilateral lower extremities Objective Data Vital Signs Vital Signs: Vital Signs - 24 hr 05/12/23 18:36 05/12/23 18:45 05/12/23 18:45 Temperature 97.7 F Pulse Rate 91 102 H 70 Respiratory Rate 18 18 Blood Pressure 129/78 129/78 Pulse Oximetry 92 Oxygen Delivery Nasal Cannula Oxygen Flow Rate 2 05/12/23 19:02 05/12/23 20:04 05/12/23 20:29 Temperature Pulse Rate 101 H 86 Respiratory Rate 17 15 14 Blood Pressure 131/91 H 119/64 104/78 Pulse Oximetry 93 92 99 Oxygen Delivery Oxygen Flow Rate 05/12/23 20:41 05/12/23 21:01 05/12/23 21:02 Temperature Pulse Rate 79 89 87 Respiratory Rate 17 15 17 Blood Pressure 110/81 106/77 Pulse Oximetry 98 100 96 Oxygen Delivery Oxygen Flow Rate 05/12/23 21:22 05/12/23 21:42 05/12/23 22:25 Temperature 97.6 F Pulse Rate 86 86 77 Respiratory Rate 17 15 22 H Blood Pressure 120/87 110/65 110/64 Pulse Oximetry 92 96 95 Oxygen Delivery Oxygen Flow Rate 05/13/23 00:00 05/13/23 00:00 05/13/23 02:00 Temperature Pulse Rate 71 72 Respiratory Rate Blood Pressure 110/64 Pulse Oximetry Oxygen Delivery Oxy
[2023-05-13 20:08] LABS: Glucose Point of Care 127 mg/dl (65-105)
[2023-05-13] MEDS: ATORVASTATIN 10 MG TABLET PO (21:54)
[2023-05-13] MEDS: levETIRAcetam 500 MG TABLET PO (21:55)
[2023-05-13] MEDS: NORTRIPTYLINE HCL 25 MG CAPSULE PO (21:55)
[2023-05-14] VITALS (14 sets, daily range): BP systolic 97–140; BP diastolic 43–78; PULSE 55–80; RESP 16–22; TEMP 36.2–36.6; O2SAT 94–100
[2023-05-14 04:59] LABS: Basophils Absolute Auto 0.1 K/mm3 (0.0-0.1); Basophils Percent Auto 0.8 % (0.2-1.2); Eosinophils Absolute Auto 0.6 K/mm3 (0-0.3); Eosinophils Percent Auto 6.2 % (0-4.4); Hematocrit 38.4 % (37.0-47.0); Hemoglobin 12.1 g/dL (12.0-15.0); Immature Granulocyte Absolute 0.02 K/mm3 (0.00-0.031); Immature Granulocyte Percent A 0.2 % (0-0.5); Lymphocytes Absolute Auto 2.34 K/mm3 (0.9-3.2); Lymphocytes Percent Auto 26.2 % (18.3-44.2); Mean Corpuscular HGB Conc 31.5 g/dl (32-36); Mean Platelet Volume 10.5 fl (7.4-10.4); Monocytes Absolute Auto 1.1 K/mm3 (0.1-0.6); Neutrophils Absolute Auto 4.9 K/mm3 (1.3-6.7); Neutrophils Percent Auto 54.6 % (45.5-73.1); Platelet Count Result 275 k/mm3 (150-375); Red Blood Count 4.04 M/mm3 (4.2-5.4); Red Cell Distribution Width 13.5 % (11.5-14.5); White Blood Count 8.9 K/mm3 (4.5-10.0)
[2023-05-14 05:22] LABS: Anion Gap 7 mmol/L (8-16); Blood Urea Nitrogen 8 mg/dL (7-17); Calcium 8.2 mg/dL (8.4-10.2); Carbon Dioxide 26 mmol/L (22-30); Chloride 105 mmol/L (98-107); Estimated CRCL calculation 88 ml/min; Estimated Glomerular Filt Rate > 60; Glucose 104 mg/dL (65-110); Lactate Dehydrogenase 143 U/L (120-246); Potassium 3.3 mmol/L (3.4-5.0); Sodium 138 mmol/L (137-145)
[2023-05-14] MEDS: ISOSORBIDE MONONITRATE 30 MG TAB.ER.24H PO (08:23)
[2023-05-14] MEDS: SUCRALFATE 1 GM TABLET PO ×4 (08:23→21:51)
[2023-05-14] MEDS: POTASSIUM CHLORIDE 20 MEQ PACKET (FOR LIQUID) PO (08:23)
[2023-05-14] MEDS: lisinopriL 2.5 MG TABLET PO (08:23)
[2023-05-14] MEDS: ASPIRIN 81 MG CHEWABLE TABLET PO (08:23)
[2023-05-14] MEDS: dilTIAZem HCL CD 180 MG CAP.ER.24H PO (08:24)
[2023-05-14] MEDS: PANTOPRAZOLE 40 MG TABLET PO (08:24)
[2023-05-14] MEDS: PARoxetine 20 MG TABLET PO (08:24)
[2023-05-14] MEDS: APIXABAN 5 MG TABLET PO ×2 (08:24→21:51)
[2023-05-14] MEDS: CHOLECALCIFEROL 1,000 UNITS TABLET 1000 UNITS PO (08:24)
[2023-05-14] MEDS: busPIRone HCL 5 MG TABLET PO (08:24)
[2023-05-14] MEDS: GABAPENTIN 100 MG CAPSULE 200 MG PO ×3 (08:24→17:02)
[2023-05-14] MEDS: SENNA/DOCUSATE SODIUM TABLET 1 TAB PO ×2 (08:24→17:02)
[2023-05-14] MEDS: METOPROLOL TARTRATE 50 MG TAB PO ×2 (08:24→21:51)
[2023-05-14] MEDS: levETIRAcetam 500 MG TABLET PO ×2 (08:24→21:51)
[2023-05-14] MEDS: fentaNYL (*CRX) 25 MCG PATCH TRANSDERM (08:26)
[2023-05-14] MEDS: UMECLIDINIUM BROMIDE 62.5 MCG ELLIPTA 1 PUFF INHALATION (08:57)
[2023-05-14 09:05] LABS: Glucose Point of Care 105 mg/dl (65-105)
--- NOTE | 2023-05-14 11:37 | WPDNEUROLOGY ---
Neurology EEG Report General Information Date of Study: 05/13/23 TEST eeg DIAGNOSIS seizure-like activity CONDITION OF RECORDING awake drowsy and sleep EEG NUMBER [id number] CLINICAL HISTORY patient is not sure why she is here ,seems little confused and the test was ordered because seizure-like activity , at the time of testing patient was awake drowsy and sleep.
--- NOTE | 2023-05-14 11:48 | WPDNEUROLOGY ---
Neurology EEG Report General Information Date of Study: 05/13/23 TEST eeg DIAGNOSIS seizure like activity CONDITION OF RECORDING awake drowsy and sleep EEG NUMBER [id number] CLINICAL HISTORY patient is not sure why she is here seems somewhat confused. EEG DESCRIPTION Background rhythm consists of low to medium voltage 6 to 7 hertz per 2nd theta activity with a fair anterior-posterior gradient and also admixed with multiple movement artifacts. Bilateral symmetrical sleep activity seen during sleep again with multiple muscle artifacts. Hyperventilation not done. Photic stimulation not done. Non paroxysmal. Nonfocal. Nonlateralizing. IMPRESSION No significant abnormalities noted
[2023-05-14 12:06] LABS: Glucose Point of Care 159 mg/dl (65-105)
[2023-05-14] MEDS: TOLNAFTATE 1% POWDER 45 GM BTL 1 APPLIC TOPICAL ×2 (12:26→17:02)
--- NOTE | 2023-05-14 15:58 | PM.IMPN ---
Progress Note: A&P Assessment and Plan (1) Altered mental status: Qualifiers: Altered mental status type: transient alteration of awareness Qualified Code(s): R40.4 - Transient alteration of awareness Code(s): R41.82 - Altered mental status, unspecified Status: Acute Assessment and Plan: Patient leigh to the ED for altered mental status. ED staff was worried about patient possibly having seizure. Ammonia <9. B12/folate normal in March. TSH normal. She did receive Keppra in the ED. Neurology consulted and Keppra recommended. Brain MRI showing no acute findings. EEG showing normal record. Appreciate neurology input. (2) Seizure-like activity: Code(s): R56.9 - Unspecified convulsions Status: Acute Assessment and Plan: As above (3) Bacteriuria with pyuria: Code(s): R82.71 - Bacteriuria; R82.81 - Pyuria Status: Acute Assessment and Plan: Urine was dark in color but no evidence of hemolysis. Many squamous cells noted on sample so suspect this is contaminate. UCx growing EColi. Was started on Rocephin but has hx of ESBL EColi. Will change to meropenem until sensitivites known. (4) Chronic narcotic use: Code(s): F11.90 - Opioid use, unspecified, uncomplicated Status: Acute Assessment and Plan: Stable. Continue Fentanyl (5) COPD (chronic obstructive pulmonary disease): Qualifiers: COPD type: unspecified COPD Qualified Code(s): J44.9 - Chronic obstructive pulmonary disease, unspecified Code(s): J44.9 - Chronic obstructive pulmonary disease, unspecified Status: Acute Assessment and Plan: Forced expiratory wheezing felt related to her self-induced. Nebs treatments available as needed. Wean off O2. Subjective Date/time seen: 05/14/23 15:58 Interval history: 72yo female with pAFib, COPD, CAD and chronic pain brought in from the custodial for altered mental status. Slept okay. She is alert but confused and thus hx is unreliable. Exam Narrative: AF 97.1 97/43 66 18 95% ra Gen - NARD Chest - bibasialr inspiratory crackles with expiratory wheezing with self-induced forced expiration CV - irregularly irregular. Tele showing AFib with controlled HR Abd - Soft, obese, mild diffuse tenderness - Stone secured draining clear colored urine. Ext - No pedal edema Neuro - Alert but confused. Psych - odd mood. Skin -chronic venous stasis skin changes bilateral lower extremities Objective Data Vital Signs Vital Signs: Vital Signs - 24 hr 05/13/23 16:00 05/13/23 16:00 05/13/23 18:00 Temperature 98.2 F Pulse Rate 73 73 83 Respiratory Rate 18 Blood Pressure 93/65 L Pulse Oximetry 98 Oxygen Delivery Oxygen Flow Rate 05/13/23 16:00 05/13/23 20:00 05/13/23 21:55 Temperature 97.8 F Pulse Rate 71 68 Respiratory Rate 20 Blood Pressure 110/58 L Pulse Oximetry 94 98 Oxygen Delivery Nasal Cannula Oxygen Flow Rate 2 05/13/23 20:00 05/13/23 22:00 05/14/23 00:00 Temperature 97.3 F L Pulse Rate 64 73 55 L Respiratory Rate 22 H Blood Pressure 135/78 Pulse Oximetry 94 Oxygen Delivery Oxygen Flow Rate 05/14/23 00:00 05/14/23 02:00 05/14/23 04:00 Temperature 97.2 F L Pulse Rate 80 67 65 Respiratory Rate 20 Blood Pressure 140/65 Pulse Oximetry 98 Oxygen Delivery Oxygen Flow Rate 05/14/23 04:00 05/14/23 00:10 05/14/23 06:00 Temperature Pulse Rate 62 62 78 Respiratory Rate 18 Blood Pressure Pulse Oximetry 98 Oxygen Delivery Nasal Cannula Oxygen Flow Rate 3 05/14/23 08:24 05/14/23 08:00 05/14/23 08:00 Temperature 97.3 F L Pulse Rate 75 80 Respiratory Rate 18 Blood Pressure 110/64 Pulse Oximetry 100 99 Oxygen Delivery Nasal Cannula Oxygen Flow Rate 2 05/14/23 08:45 05/14/23 08:57 05/14/23 08:00 Temperature Pulse Rate 74 Respiratory Rate Blood Pressure P
[2023-05-14] MEDS: MEROPENEM 500 MG in SODIUM CHLORIDE 0.9% IV 100 ML 200 ML IVPB ×2 (17:02→21:52)
--- NOTE | 2023-05-14 17:55 | PC.NURSE ---
This patient, Lexus Veliz, was transferred to [[id number] ] on 05/14/23 at 1755. Personal belongings sent with patient. Report given to [LING Kumari @ [phone] ]. Appropriate documentation sent with patient.
[2023-05-14] MEDS: NORTRIPTYLINE HCL 25 MG CAPSULE PO (21:51)
[2023-05-14] MEDS: ATORVASTATIN 10 MG TABLET PO (21:51)
[2023-05-15 20:00] VITALS: BP 129/77; PULSE 86; RESP 20; TEMP 36.2; O2SAT 99
--- NOTE | 2023-05-15 20:16 | PC.NURSE ---
Paper documentation exists on this patient due to [employer] [facility] downtime on 05/15/23 from 0030 to 1930 .
--- NOTE | 2023-05-15 21:12 | PC.NURSE ---
Pt has been discharged from this facility, per EMS to [facility]. IV has been removed, pt has been cleaned up, and report was called to LING Brandt at receiving facility.
[2023-05-16 10:29] LABS: EDCOVIDSCREEN Negative (Negative)
== END 2023-05-15 18:00 | DRG 101 ==
LOC: ANHED 21:20 → ANHIMU 21:49 → ANH3MEDSUR 05-14 17:59
PROVIDERS: Internal Medicine; Admitting Provider Internal Medicine; Emergency Provider Emergency Medicine; PCP Family Medicine; Visit Provider Student in an Organized Health Care Education/Training Program
DX: R56.9 Unspecified convulsions (principal); R82.71 Bacteriuria; J44.9 Chronic obstructive pulmonary disease, unspecified; Z20.822 Contact with and (suspected) exposure to COVID-19; I25.10 Atherosclerotic heart disease of native coronary artery without angina pectoris; F11.90 Opioid use, unspecified, uncomplicated; I48.0 Paroxysmal atrial fibrillation; E11.42 Type 2 diabetes mellitus with diabetic polyneuropathy; K21.9 Gastro-esophageal reflux disease without esophagitis; G47.33 Obstructive sleep apnea (adult) (pediatric); I11.0 Hypertensive heart disease with heart failure; I50.9 Heart failure, unspecified; F32.A Depression, unspecified; Z96.642 Presence of left artificial hip joint; E66.9 Obesity, unspecified; Z68.32 Body mass index [BMI] 32.0-32.9, adult; Z87.891 Personal history of nicotine dependence; Z86.16 Personal history of COVID-19; Z79.82 Long term (current) use of aspirin; Z86.73 Personal history of transient ischemic attack (TIA), and cerebral infarction without residual deficits; Z90.710 Acquired absence of both cervix and uterus
CPT/HCPCS: 36415; 36600; 70450; 70553; 71045; 80048; 80053; 80307; 81001; 82140; 82550; 82805; 82948; 83615; 84443; 84484; 85025; 85610; 85730; 87077; 87086; 87186; 87426; 93005; 94640; 95816; 96361; 96365; 99285; A9270; A9577; C9803; J0696; J1953; J2185; J7030

== ENCOUNTER 2023-07-27 12:19 | Observation (INO) | payer MEDICARE, MEDICAID, SELFPAY ==
[2023-07-27] VITALS (37 sets, daily range): BP systolic 63–174; BP diastolic 44–158; PULSE 49–100; RESP 12–24; TEMP 36.1–36.5; O2SAT 87–100
--- NOTE | ~2023-07-27 | CT_ITS ---
EXAMINATION: CT brain wo con DATE: 07/27/2023 14:45 INDICATION: Altered mental status. Seizure-like activity. TECHNIQUE: Computed tomography (CT) of the head was performed without intravenous contrast. The mA wa s adjusted according to patient size. Iterative reconstruction technique was employed. Exam dose: 60 5.33 mGy-cm total exam DLP. COMPARISON: 05/13/2023 MRI brain/brainstem 05/12/2023 CT brain FINDINGS: There is moderately prominent central and cortical cerebral and cerebellar atrophy. No intracranial mass lesion or hemorrhage or cerebrovascular accident is detected. No midline shift o r mass effect. No subdural or epidural hematoma. Bilateral carotid siphon internal carotid artery calcifications. No fracture or bone destruction of the cranial vault. Limited development of mastoid air cells, espec ially on the right. Occasional opacified left mastoid air cells. Included paranasal sinuses are unrem arkable. No fracture or bone destruction of the cranial vault. IMPRESSION: No acute intracranial finding Reviewed, dictated and finalized at [facility]. Reviewed, dictated and finalized at [facility].
--- NOTE | ~2023-07-27 | XR_ITS ---
XR chest 1V portable DATE: 07/27/2023 14:48 INDICATION: Altered mental state TECHNIQUE: Portable AP chest on 07/27/2023 at 1446 hours COMPARISON: 05/12/2023 portable AP chest at 1946 hours FINDINGS: Left Port-A-Cath catheter overlies proximal superior vena cava. Heart size appears within normal limits. Is aortic calcification and unfolding. No hilar or mediastin al enlargement is detected. There is mild elevation of the right leaf of the diaphragm. No pulmonary infiltrate or consolidation, pleural effusion or pulmonary vascular congestion or pneumo thorax is detected. There is diffuse osteopenia. There is osteophytic change at the glenohumeral joints. There is degener ative spurring of the thoracic and lumbar spine. Status post cholecystectomy. IMPRESSION: No active cardiopulmonary disease Left Port-A-Cath Reviewed, dictated and finalized at location [facility].
--- NOTE | 2023-07-27 12:22 | ED.SEIZURE ---
HPI - Seizure General Chief Complaint: Seizure Stated Complaint: seizure History of Present Illness HPI Narrative: Patient is a 73 year old male with history of stroke, seizure vs psuedo seizure here with possible seizure like activity. History obtained by EMS/nursing as patient is unable to tell me. They note her facility noticed an episode of her staring off and were concerned she may have been having a seizure. No seizure like activity was unwitnessed by staff but she was unresponsive to staff when they found her and suspected she may have had one. Recent admission for similar. Related Data Home Medications Medication Instructions Recorded Confirmed acetaminophen 325 mg capsule 650 mg PO Q6H PRN Pain 11/14/21 07/27/23 (Tylenol) albuterol sulfate 90 mcg/actuation 2 inh inhalation QID 11/14/21 07/27/23 aerosol inhaler (ProAir HFA) aspirin 81 mg chewable tablet 81 mg PO DAILY 11/14/21 07/27/23 atorvastatin 10 mg tablet (Lipitor) 10 mg PO HS 11/14/21 07/27/23 diltiazem HCl 180 mg capsule,24 180 mg PO DAILY 11/14/21 07/27/23 hr,extended release (Tiazac) fentanyl 25 mcg/hr transdermal 1 patch topical Q72H 11/14/21 07/27/23 patch isosorbide mononitrate 30 mg 30 mg PO DAILY 11/14/21 07/27/23 tablet,extended release 24 hr lisinopril 5 mg tablet 2.5 mg PO DAILY 11/14/21 07/27/23 nortriptyline 50 mg capsule 25 mg PO HS 11/14/21 07/27/23 oxycodone 5 mg tablet 2.5 mg PO Q8H PRN Pain 11/14/21 07/27/23 paroxetine HCl 20 mg tablet 20 mg PO DAILY 11/14/21 07/27/23 tiotropium bromide 18 mcg capsule 1 cap inhalation DAILY 11/14/21 07/27/23 with inhalation device (Spiriva with HandiHaler) apixaban 5 mg tablet (Eliquis) 5 mg PO BID 03/26/23 07/27/23 buspirone 5 mg tablet 5 mg PO DAILY 03/26/23 07/27/23 cholecalciferol (vitamin D3) 25 25 mcg PO DAILY 03/26/23 07/27/23 mcg (1,000 unit) tablet gabapentin 100 mg capsule 200 mg PO TID 03/26/23 07/27/23 metoprolol tartrate 50 mg tablet 50 mg PO BID 03/26/23 07/27/23 multivitamin e-[id number] 1 tablet PO DAILY 03/26/23 07/27/23 fumarate 18 mg-vitamin K 25 mcg tablet nystatin 100,000 unit/gram topical 1 applic topical BID 03/26/23 07/27/23 powder sucralfate 1 gram tablet 1 g PO QID 03/26/23 07/27/23 glucagon 1 mg solution for 1 mg IM Q15M PRN Hypoglycemia 05/12/23 07/27/23 injection (Glucagon Emergency Kit) guaifenesin 100 mg/5 mL oral liquid 200 mg PO Q6H PRN Cough 05/12/23 07/27/23 naloxone 4 mg/actuation nasal spray 1 spray intranasal ONCE PRN Opioid 05/12/23 07/27/23 Overdose nitroglycerin 0.4 mg sublingual 0.4 mg sublingual Q5M PRN Chest 05/12/23 07/27/23 tablet Pain ondansetron 4 mg disintegrating 4 mg PO Q8H PRN Nausea And Vomiting 05/12/23 07/27/23 tablet pantoprazole 40 mg tablet,delayed 40 mg PO QAM 05/12/23 07/27/23 release sennosides 8.6 mg-docusate sodium 1 tab-cap PO BID 05/12/23 07/27/23 50 mg capsule (Senna Plus) levetiracetam 500 mg tablet 500 mg PO BID 07/27/23 07/27/23 Allergies Allergy/AdvReac Type Severity Reaction Status Date / Time iodine Allergy Unknown Verified 07/27/23 13:13 latex Allergy Unknown Verified 07/27/23 13:13 meperidine Allergy Unknown Verified 07/27/23 13:13 Penicillins Allergy Unknown Verified 07/27/23 13:13 piperacillin [From Zosyn] Allergy Unknown Verified 07/27/23 13:13 tazobactam [From Zosyn] Allergy Unknown Verified 07/27/23 13:13 Review of Systems Review of Systems: ROS unobtainable: Yes unobtainable due to mental status PMFSH Past Medical History Medical History (Updated 07/27/23 @ 17:48 by Randa Brady PA-C) Anxiety Chronic anticoagulation Chronic obstructive pulmonary disease Chronic pain disorder Depression Diabetic peripheral neuropathy Gastroesophageal reflux disease Hypertension Obstructive sleep apnea Paroxysmal atrial fibrillation Pneumonia due to COVID-19 virus (01/2023) Seizure-like activity (05/2023) Type 2 diabetes mellitus Vasculitis determined by biopsy of skin Gisell
--- NOTE | 2023-07-27 12:25 | ECG_ITS ---
Measurements Intervals [place] Rate: 52 P: OK: 0 QRS: 2 QRSD: 89 T: 17 QT: 374 QTc: 350 Interpretive Statements ATRIAL FIBRILLATION WITH SLOW VENTRICULAR RESPONSE LOW QRS VOLTAGE [QRS DEFLECTION < 0.5/1.0 mV IN LIMB/CHEST LEADS] MINIMAL ST DEPRESSION [0.025+ mV ST DEPRESSION] COMPARED TO ECG 05/13/2023 05:20:39 ST (T WAVE) DEVIATION NOW PRESENT Electronically Signed On 07-28-2023 11:11:14 CDT by Fazal Murrell MD
[2023-07-27 12:48] LABS: Basophils Absolute Auto 0.1 K/mm3 (0.0-0.1); Basophils Percent Auto 0.6 % (0.2-1.2); Eosinophils Absolute Auto 0.4 K/mm3 (0-0.3); Eosinophils Percent Auto 4.5 % (0-4.4); Hematocrit 43.9 % (37.0-47.0); Hemoglobin 13.6 g/dL (12.0-15.0); Immature Granulocyte Absolute 0.03 K/mm3 (0.00-0.031); Immature Granulocyte Percent A 0.3 % (0-0.5); Lymphocytes Absolute Auto 2.81 K/mm3 (0.9-3.2); Lymphocytes Percent Auto 28.5 % (18.3-44.2); Mean Corpuscular Hemoglobin 28.5 pg (26-34); Mean Corpuscular Volume 91.8 fl (80-100); Mean Platelet Volume 10.7 fl (7.4-10.4); Monocytes Absolute Auto 1.2 K/mm3 (0.1-0.6); Monocytes Percent Auto 12.2 % (2.6-8.5); Neutrophils Absolute Auto 5.3 K/mm3 (1.3-6.7); Neutrophils Percent Auto 53.9 % (45.5-73.1); Platelet Count Result 341 k/mm3 (150-375); Red Blood Count 4.78 M/mm3 (4.2-5.4); Red Cell Distribution Width 14.1 % (11.5-14.5); White Blood Count 9.9 K/mm3 (4.5-10.0)
[2023-07-27 13:04] LABS: Anion Gap 4 mmol/L (8-16); Blood Urea Nitrogen 12 mg/dL (7-17); Carbon Dioxide 30 mmol/L (22-30); Chloride 102 mmol/L (98-107); Potassium 4.4 mmol/L (3.4-5.0); Sodium 136 mmol/L (137-145)
[2023-07-27] MEDS: SODIUM CHLORIDE 0.9% IV 1,000 ML 999 ML IV CONT (13:04)
[2023-07-27] MEDS: levETIRAcetam 1000MG/NACL100ML 1,000 MG/100 ML BAG 400 MG IVPB ×2 (13:04)
[2023-07-27 13:05] LABS: Alanine Aminotransferase 17 U/L (6-35); Albumin Level 4.2 g/dL (3.5-5.1); Alkaline Phosphatase 126 U/L (38-126); Aspartate Amino Transferase 36 U/L (14-36); Bilirubin,Total 0.6 mg/dL (0.2-1.3); Calcium 9.3 mg/dL (8.4-10.2); Estimated Glomerular Filt Rate > 60; Glucose 112 mg/dL (65-110)
[2023-07-27 13:17] LABS: Appearance Urine Cloudy (Clear); Bacteria Urine 4+ /hpf; Bilirubin Urine Negative (Negative); Blood Urine Trace (Negative); Color Urine Dark Yellow (Yellow); Glucose Urine UA Negative (Negative); Ketones Urine Negative (Negative); Leukocyte Esterase Ur 2+ LEU/UL (Negative); Need Manual Microscopic Reviewed; Nitrate Urine Positive (Negative); Protein Urine Trace mg/dL (Negative); RBC Urine 0-2 /hpf (0-2); Specific Grav Ur 1.021 (1.001-1.035); Squamous Epithelial Cell Urine Few /hpf (Few); WBC Urine 51-100 /hpf
[2023-07-27 13:20] LABS: Lipase 34 U/L (23-300)
[2023-07-27 13:21] LABS: INR 1.4; Prothrombin Time 17.8 Seconds (11.1-14.7)
[2023-07-27 13:22] LABS: Partial Thromboplastin Time 43.8 SECONDS (22.3-36.8)
[2023-07-27 13:25] LABS: Add Urine Microscopic? YES
[2023-07-27 13:27] LABS: Creatine Kinase 47 U/L (30-135)
[2023-07-27 13:31] LABS: Troponin I < 0.012 ng/mL (0.000-0.034)
[2023-07-27 13:39] LABS: Ammonia < 9 umol/L (9-30); Lactic Acid Reflex 3.4 mmol/L (0.7-2.0)
--- NOTE | 2023-07-27 13:59 | PC.NURSE ---
Patient in room screaming and yelling and attempting to get out of bed. MD ordered meds and LING Guzman, at bedside to administer. Pt refusing medication, refusing cat scan and other imaging, and refusing to let staff touch or help her. Multiple attempts have been made to contact pts DPOA with no success. This RN spoke to Dr Blanton about administering Zyprexa IM without patient consent and due to mental status of patient at this time it has been decided the patient is unsafe to make her own decisions and for safety of patient, multiple staff members at bedside to assist RN with administering med. Pt then attempting to climb out of bed and swinging to hit staff. Security called to room to speak with patient and continue to keep her safe.
[2023-07-27] MEDS: OLANZapine 5 MG, WATER, STERILE FOR INJECTION 2.1 ML IM (14:03)
--- NOTE | 2023-07-27 15:49 | PC.NURSE ---
Pts BP cuff adjusted multiple times and rechecked BP with high readings. MD aware, no new orders received at this time.
[2023-07-27] MEDS: GENTAMICIN SULFATE INJ 355 MG in DEXTROSE 5% 100 ML 100 MG IVPB (15:51)
[2023-07-27 16:11] LABS: Troponin I < 0.012 ng/mL (0.000-0.034)
[2023-07-27] MEDS: hydrALAZINE HCL 20 MG/ML VIAL 10 MG IV PUSH (16:13)
[2023-07-27] MEDS: SODIUM CHLORIDE 0.9% IV 1,000 ML 999 ML (16:22)
[2023-07-27 16:28] LABS: Reflex Lactic Acid Yes or No Add Lactic
[2023-07-27 17:08] LABS: Lactic Acid 1.1 mmol/L (0.7-2.0)
--- NOTE | 2023-07-27 17:42 | PM.IMHP ---
H&P: HPI History of Present Illness Date/Time: 07/27/23 18:00 Chief Complaint: Possible seizure. Narrative: This is a 73-year-old female with a medical history significant for paroxysmal atrial fibrillation, coronary artery disease, chronic obstructive pulmonary disease, gastroesophageal reflux disease, depression, chronic pain, ESBL E coli UTI, MRSA, and a fairly recent hospitalization in May 2023 for seizure-like activity for which she has been on levetiracetam who presented to the emergency department via EMS from [facility] for evaluation of a possible seizure. She is alert and oriented at the time my evaluation provides the following history. She woke up feeling ?off? this morning though she could provide me with no specifics. Not long prior to arrival staff at her care facility found her ?staring off? and they were concerned that she was having a seizure as they were unable to get her to respond. There were no reports of limb jerking, tongue bite, or bowel or bladder incontinence. She was a bit confused thereafter and as the hours have passed she has become progressively more oriented. At the time my evaluation she does not have any specific complaints. She does endorse dysuria when prompted. She denies fever, chills, sweats, headache, neck ache, focal weakness, paresthesias, chest pain, shortness a breath, nausea, vomiting, and diarrhea. Review of Systems Review of Systems: Twelve systems were reviewed and are negative except for as per HPI. [facility] Past Medical History Medical History (Updated 07/27/23 @ 22:50 by Randa Brady PA-C) Anxiety Chronic anticoagulation Chronic obstructive pulmonary disease Chronic pain disorder Depression Diabetic peripheral neuropathy Gastroesophageal reflux disease Hypertension Obstructive sleep apnea Paroxysmal atrial fibrillation Pneumonia due to COVID-19 virus (01/2023) Seizure-like activity (05/2023) Type 2 diabetes mellitus Vasculitis determined by biopsy of skin Vitamin D deficiency Surgical History Surgical History History of colonoscopy with polypectomy History of hysterectomy History of left hip replacement Family History Family History Sibling Heart disease Son COPD (chronic obstructive pulmonary disease) Daughter Sleep apnea Father Colon polyp Mother Colon polyp Colon cancer Social History Social History Social History: Healthcare power of state attorney: Karina Veliz. Code status: Full code. Smoking packs per day: 2 Smoking cigarettes per day: 40.0 Years smoked: 25 Smoking pack-years: 50.00 Smoking status: Former smoker Tobacco type: cigarettes Alcohol intake: never Substance use: never Substance use type: does not use Lack of Transportation: No Lack of Food: Never True Current Housing: I Have Housing Concerned About Future Housing: No Difficulty Paying Gas/Electric Bills: No Difficulty Paying for Meds: No Currently Unemployed: No Education: Don't Know Difficulty w/ Childcare or Family Care: No Additional living arrangements comments: Resident of [facility]. Spiritual care concerns: No Meds Home Medications and Allergies Home Medications Medication Instructions Recorded Confirmed Type acetaminophen 325 mg capsule 650 mg PO Q6H PRN Pain 11/14/21 07/27/23 History (Tylenol) albuterol sulfate 90 mcg/actuation 2 inh inhalation QID 11/14/21 07/27/23 History aerosol inhaler (ProAir HFA) aspirin 81 mg chewable tablet 81 mg PO DAILY 11/14/21 07/27/23 History atorvastatin 10 mg tablet (Lipitor) 10 mg PO HS 11/14/21 07/27/23 History diltiazem HCl 180 mg capsule,24 180 mg PO DAILY 11/14/21 07/27/23 History hr,extended release (Tiazac) fentanyl 25 mcg/hr transdermal 1 patch topical Q72H 11/14/21
--- NOTE | 2023-07-27 18:41 | ADMGEN ---
This patient, Lexus Veliz, was admitted to Medical Room 247-. Patient/family oriented to hospital policies and general routines including ID bracelet, bed and alarms, visiting hours, pain management, procedures, bathroom and other care routines, personal items, smoking policy, room service/diet, and visiting hours. Information on how to activate the Rapid Response Team has been discussed. Patient/Family are encouraged to report perceived risks to care and to ask questions if they do not understand what they are told or what they should do.
[2023-07-27 20:31] LABS: Glucose Point of Care 85 mg/dl (65-105)
[2023-07-27 20:36] LABS: Troponin I < 0.012 ng/mL (0.000-0.034)
[2023-07-27] MEDS: ATORVASTATIN 10 MG TABLET PO (23:14)
[2023-07-27] MEDS: SENNA/DOCUSATE SODIUM TABLET 1 TAB PO (23:14)
[2023-07-27] MEDS: APIXABAN 5 MG TABLET PO (23:14)
[2023-07-27] MEDS: SUCRALFATE 1 GM TABLET PO (23:14)
[2023-07-27] MEDS: levETIRAcetam 500 MG TABLET PO (23:14)
[2023-07-27] MEDS: GABAPENTIN 100 MG CAPSULE 200 MG PO (23:14)
[2023-07-27] MEDS: ACETAMINOPHEN 325 MG TABLET 650 MG PO (23:21)
[2023-07-27] MEDS: SODIUM CHLORIDE 0.9% IV 1,000 ML 100 ML IV CONT (23:22)
[2023-07-27] MEDS: NORTRIPTYLINE HCL 25 MG CAPSULE PO (23:22)
[2023-07-28] VITALS (11 sets, daily range): BP systolic 107–124; BP diastolic 55–78; PULSE 70–120; RESP 18; TEMP 35.8–36.6; O2SAT 94–100
[2023-07-28 02:54] LABS: Hematocrit 36.6 % (37.0-47.0); Hemoglobin 11.6 g/dL (12.0-15.0); Mean Corpuscular HGB Conc 31.7 g/dl (32-36); Mean Corpuscular Hemoglobin 28.9 pg (26-34); Mean Corpuscular Volume 91.3 fl (80-100); Mean Platelet Volume 10.5 fl (7.4-10.4); Platelet Count Result 264 k/mm3 (150-375); Red Blood Count 4.01 M/mm3 (4.2-5.4); Red Cell Distribution Width 14.2 % (11.5-14.5); White Blood Count 7.3 K/mm3 (4.5-10.0)
[2023-07-28 03:08] LABS: Anion Gap 5 mmol/L (8-16); Blood Urea Nitrogen 9 mg/dL (7-17); Calcium 8.4 mg/dL (8.4-10.2); Carbon Dioxide 25 mmol/L (22-30); Chloride 106 mmol/L (98-107); Estimated CRCL calculation 70 ml/min; Estimated Glomerular Filt Rate > 60; Glucose 127 mg/dL (65-110); Magnesium 1.7 mg/dL (1.6-2.3); Potassium 3.4 mmol/L (3.4-5.0); Sodium 136 mmol/L (137-145)
[2023-07-28 03:12] LABS: Gentamicin Random 4.4 ug/mL (5.0-12.0)
[2023-07-28 08:10] LABS: Glucose Point of Care 105 mg/dl (65-105)
[2023-07-28] MEDS: SUCRALFATE 1 GM TABLET PO ×2 (08:31→20:21)
[2023-07-28] MEDS: APIXABAN 5 MG TABLET PO ×2 (08:31→20:21)
[2023-07-28] MEDS: CHOLECALCIFEROL 1,000 UNITS TABLET 1000 UNITS PO (08:31)
[2023-07-28] MEDS: THERAPEUTIC MULTIVITAMINS/MINERALS TAB (*BKC) 1 TABLET PO (08:31)
[2023-07-28] MEDS: PANTOPRAZOLE 40 MG TABLET PO (08:31)
[2023-07-28] MEDS: levETIRAcetam 500 MG TABLET PO ×2 (08:31→17:09)
[2023-07-28] MEDS: ASPIRIN 81 MG CHEWABLE TABLET PO (08:31)
[2023-07-28] MEDS: PARoxetine 20 MG TABLET PO ×2 (08:31→20:21)
[2023-07-28] MEDS: GABAPENTIN 100 MG CAPSULE 200 MG PO (08:31)
[2023-07-28] MEDS: busPIRone HCL 5 MG TABLET PO (08:31)
[2023-07-28] MEDS: SENNA/DOCUSATE SODIUM TABLET 1 TAB PO (08:31)
[2023-07-28] MEDS: TOLNAFTATE 1% POWDER 45 GM BTL 1 APPLIC TOPICAL ×2 (08:32→17:11)
[2023-07-28] MEDS: UMECLIDINIUM BROMIDE 62.5 MCG ELLIPTA 1 PUFF INHALATION (08:56)
[2023-07-28] MEDS: ALBUTEROL SULFATE (*SP) AEROSOL 1 PUFF 2 PUFF INHALATION ×3 (08:56→19:22)
[2023-07-28 12:03] LABS: Glucose Point of Care 109 mg/dl (65-105)
--- NOTE | 2023-07-28 12:05 | PM.IMPN ---
Progress Note: A&P Assessment and Plan (1) Unresponsive episode: Code(s): R40.4 - Transient alteration of awareness Status: Acute Assessment and Plan: CT Brain negative 07/27/23 Likely due to hypotension vs seizure vs arrhythmia vs psychiatric 07/28/23: Drowsy and confused. Encephalopathy due to infection vs drugs vs postictal vs psych 07/28/23: Stopped nortriptyline and fentanyl patch (2) Urinary tract infection: Code(s): N39.0 - Urinary tract infection, site not specified Status: Acute Assessment and Plan: Continue vanc and gent pending c/s results (3) Hypotension: Code(s): I95.9 - Hypotension, unspecified Status: Acute Assessment and Plan: Dehydration vs drugs vs sepsis vs cardiac (unlikely) 07/28/23: BP 107/55 (4) Lactic acidosis: Code(s): E87.20 - Acidosis, unspecified Status: Acute Assessment and Plan: Hypotension vs seizure (5) Seizure-like activity: Onset Date: 05/2023 Code(s): R56.9 - Unspecified convulsions Status: Acute Assessment and Plan: Continue levetiracetam (6) Hypertension: Code(s): I10 - Essential (primary) hypertension Status: Acute Assessment and Plan: Hold diltiazem and monitor (7) Paroxysmal atrial fibrillation: Code(s): I48.0 - Paroxysmal atrial fibrillation Status: Acute Assessment and Plan: Continue low-dose metoprolol and apixaban (8) Chronic anticoagulation: Code(s): Z79.01 - terminal carman (current) use of anticoagulants Status: Acute Assessment and Plan: Apixaban Subjective Date/time seen: 07/28/23 12:05 Interval history: Admitted 07/27 with hypotension altered mental status and possible UTI. Hypotension responded to fluids. Treated with zyprexa 5 mg IM at about 2:00 p.m. 07/27 due to agitation. Receiving vancomycin and gentamicin for UTI due to history of MRSA infection. 07/28 drowsy. Poor appetite. Sleeping most of the day. Review of Systems Review of Systems: ROS unobtainable: Yes unobtainable due to mental status Exam Narrative: HEENT: PERRL, sclerae nonicteric, pharyngeal mucosa pink and intact NECK: No JVD CHEST: Clear to auscultation. Normal effort. HEART: NL S1/S2, regular, no murmur ABDOMEN: BS+, soft, nontender, no mass, no bruits EXTREMITIES: No cyanosis, edema, or clubbing NEUROLOGIC: CN intact and symmetric to inspection. Moves all extremities. Does not follow commands. Speech slurred. MUSCULOSKELETAL: Tone and strength symmetric. PSYCH: Drowsy but arouses with calling name and moving arm. Oriented to person only. Objective Data Vital Signs Vital Signs: Vital Signs - 24 hr 07/27/23 12:11 07/27/23 12:16 07/27/23 12:21 Temperature 97.7 F Pulse Rate 61 Respiratory Rate 18 Blood Pressure 133/80 Pulse Oximetry 100 100 100 Oxygen Delivery Room Air Room Air Room Air Oxygen Flow Rate 07/27/23 13:14 07/27/23 13:15 07/27/23 13:18 Temperature Pulse Rate 74 Respiratory Rate 24 H Blood Pressure Pulse Oximetry 87 L 98 90 Oxygen Delivery Room Air Nasal Cannula Oxygen Flow Rate 2 07/27/23 13:21 07/27/23 13:43 07/27/23 13:49 Temperature Pulse Rate 74 Respiratory Rate 23 H 19 14 Blood Pressure 139/53 L Pulse Oximetry 100 89 L Oxygen Delivery Oxygen Flow Rate 07/27/23 14:00 07/27/23 14:01 07/27/23 14:15 Temperature Pulse Rate 68 Respiratory Rate 12 12 16 Blood Pressure 110/91 H Pulse Oximetry Oxygen Delivery Oxygen Flow Rate 07/27/23 14:16 07/27/23 14:51 07/27/23 14:52 Temperature Pulse Rate 66 61 65 Respiratory Rate 12 17 14 Blood Pressure 129/101 H 152/134 H Pulse Oximetry 100 97 Oxygen Delivery Oxygen Flow Rate 07/27/23 15:02 07/27/23 15:15 07/27/23 15:17 Temperature Pulse Rate 59 L 52 L 61 Respiratory Rate 17 16 16 Blood Pressure 174/158 H Pulse Oximetry 100 92 100 Oxygen Deliv
--- NOTE | 2023-07-28 12:14 | PC.NURSE ---
Dr Lino notified of patient hard to arouse and keep awake. Patient responds to voice and opens her eyes but goes right back to sleep. Patient was able to follow commands this am but will not now. Fentanyl patch removed from left chest. Dr Lino at bedside. [place] signs temp 97, resp 22 02 3l sat 98% hr 102 and bp 121/66. Will monitor, patient on tele Afib
[2023-07-28 17:12] LABS: Glucose Point of Care 112 mg/dl (65-105)
--- NOTE | 2023-07-28 17:47 | PC.NURSE ---
Dr Lino notified of patient refusing 1700 meds
[2023-07-28] MEDS: ATORVASTATIN 10 MG TABLET PO (20:21)
[2023-07-28 21:03] LABS: Glucose Point of Care 113 mg/dl (65-105)
[2023-07-28] MEDS: ACETAMINOPHEN 325 MG TABLET 650 MG PO (23:58)
[2023-07-29] VITALS (10 sets, daily range): BP systolic 91–127; BP diastolic 70–95; PULSE 62–99; RESP 18; TEMP 36.5–36.6; O2SAT 95–100
[2023-07-29] MEDS: GENTAMICIN SULFATE INJ 355 MG in DEXTROSE 5% 100 ML 100 MG IVPB (03:33)
[2023-07-29 05:59] LABS: Hematocrit 39.1 % (37.0-47.0); Hemoglobin 12.2 g/dL (12.0-15.0); Mean Corpuscular HGB Conc 31.2 g/dl (32-36); Mean Corpuscular Hemoglobin 28.6 pg (26-34); Mean Corpuscular Volume 91.6 fl (80-100); Mean Platelet Volume 10.5 fl (7.4-10.4); Platelet Count Result 262 k/mm3 (150-375); Red Blood Count 4.27 M/mm3 (4.2-5.4); Red Cell Distribution Width 14.2 % (11.5-14.5); White Blood Count 7.5 K/mm3 (4.5-10.0)
[2023-07-29] MEDS: ACETAMINOPHEN 325 MG TABLET 650 MG PO (06:05)
[2023-07-29 06:16] LABS: Anion Gap 4 mmol/L (8-16); Blood Urea Nitrogen 6 mg/dL (7-17); Calcium 8.9 mg/dL (8.4-10.2); Carbon Dioxide 29 mmol/L (22-30); Chloride 104 mmol/L (98-107); Estimated CRCL calculation 70 ml/min; Estimated Glomerular Filt Rate > 60; Glucose 91 mg/dL (65-110); Potassium 3.9 mmol/L (3.4-5.0); Sodium 137 mmol/L (137-145)
--- NOTE | 2023-07-29 07:00 | P.PNIM_ITS ---
Progress Note: A&P Assessment and Plan (1) Acute metabolic encephalopathy: Code(s): G93.41 - Metabolic encephalopathy Status: Acute Assessment and Plan: * Presented to the ED with unresponsive behavior, staring off in space * CT of the brain showed no acute intracranial findings * Urine culture positive for UTI * Currently on Gentamicin, convert to PO if able * Seems to be improving * Continue to trend mental status (2) Urinary tract infection: Qualifiers: Hematuria presence: without hematuria Urinary tract infection type: acute cystitis Qualified Code(s): N30.00 - Acute cystitis without hematuria Code(s): N39.0 - Urinary tract infection, site not specified Status: Acute Assessment and Plan: * UA was positive for nitrates, Leukocyte esterase, WBC 51-100, 4+ bacteria * Urine culture postive for ECOLI * History of ESBL in the past * Continue Gentamicin for now * Convert to PO option if able (3) Hypotension: Qualifiers: Hypotension type: other hypotension type Qualified Code(s): I95.89 - Other hypotension Code(s): I95.9 - Hypotension, unspecified Status: Acute Assessment and Plan: * Related to dehydration or acute infection * BP noted to be 63/52 * Currently stable at 123/95 * Resolved * Continue to trend (4) Lactic acidosis: Code(s): E87.20 - Acidosis, unspecified Status: Acute Assessment and Plan: * Lactic acid 3.4 upon arrival * Resolved, repeat 1.1 * IV fluids given in the ED * Continue antibiotics (5) Seizure-like activity: Onset Date: 05/2023 Code(s): R56.9 - Unspecified convulsions Status: Acute Assessment and Plan: * Continue levetiracetam 500mg PO BID * Seizure precautions * Head CT negative for acute findings (6) Hypertension: Qualifiers: Hypertension type: primary hypertension Qualified Code(s): I10 - Essential (primary) hypertension Code(s): I10 - Essential (primary) hypertension Status: Acute Assessment and Plan: * Noted to be hypotensive at 63/52 * IV fluids given in the ED * Stable at this time 123/95 * Ok to restart Dilt, metoprolol and lisinopril from home * Trend BP * Adjust therapy as indicated (7) Paroxysmal atrial fibrillation: Code(s): I48.0 - Paroxysmal atrial fibrillation Status: Acute Assessment and Plan: * Continue low-dose metoprolol and apixaban * Rate controlled * Restart Dilt as well * Trend HR (8) Chronic anticoagulation: Code(s): Z79.01 - skilled nursing (current) use of anticoagulants Status: Acute Assessment and Plan: * Apixaban * For A. fib Time Spent With Patient Time: 48 minutes Time with patient: Greater than 35 minutes Subjective Date/time seen: 07/29/23 07:00 Interval history: 07/29/23 07/28/23 1205 Admitted 07/27 with hypotension altered mental status and possible UTI. Hypotension responded to fluids. Treated with zyprexa 5 mg IM at about 2:00 p.m. 07/27 due to agitation. Receiving vancomycin and gentamicin for UTI due to history of MRSA infection. 07/28 drowsy. Poor appetite. Sleeping most of the day.
--- NOTE | 2023-07-29 07:00 | PM.IMPN ---
Progress Note: A&P Assessment and Plan (1) Acute metabolic encephalopathy: Code(s): G93.41 - Metabolic encephalopathy Status: Acute Assessment and Plan: Presented to the ED with unresponsive behavior, staring off in space CT of the brain showed no acute intracranial findings Urine culture positive for UTI Currently on Gentamicin, convert to PO if able Seems to be improving Continue to trend mental status (2) Urinary tract infection: Qualifiers: Hematuria presence: without hematuria Urinary tract infection type: acute cystitis Qualified Code(s): N30.00 - Acute cystitis without hematuria Code(s): N39.0 - Urinary tract infection, site not specified Status: Acute Assessment and Plan: UA was positive for nitrates, Leukocyte esterase, WBC 51-100, 4+ bacteria Urine culture postive for ECOLI History of ESBL in the past Continue Gentamicin for now Convert to PO option if able (3) Hypotension: Qualifiers: Hypotension type: other hypotension type Qualified Code(s): I95.89 - Other hypotension Code(s): I95.9 - Hypotension, unspecified Status: Acute Assessment and Plan: Related to dehydration or acute infection BP noted to be 63/52 Currently stable at 123/95 Resolved Continue to trend (4) Lactic acidosis: Code(s): E87.20 - Acidosis, unspecified Status: Acute Assessment and Plan: Lactic acid 3.4 upon arrival Resolved, repeat 1.1 IV fluids given in the ED Continue antibiotics (5) Seizure-like activity: Onset Date: 05/2023 Code(s): R56.9 - Unspecified convulsions Status: Acute Assessment and Plan: Continue levetiracetam 500mg PO BID Seizure precautions Head CT negative for acute findings (6) Hypertension: Qualifiers: Hypertension type: primary hypertension Qualified Code(s): I10 - Essential (primary) hypertension Code(s): I10 - Essential (primary) hypertension Status: Acute Assessment and Plan: Noted to be hypotensive at 63/52 IV fluids given in the ED Stable at this time 123/95 Ok to restart Dilt, metoprolol and lisinopril from home Trend BP Adjust therapy as indicated (7) Paroxysmal atrial fibrillation: Code(s): I48.0 - Paroxysmal atrial fibrillation Status: Acute Assessment and Plan: Continue low-dose metoprolol and apixaban Rate controlled Restart Dilt as well Trend HR (8) Chronic anticoagulation: Code(s): Z79.01 - 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 fib Time Spent With Patient Time: 48 minutes Time with patient: Greater than 35 minutes Subjective Date/time seen: 07/29/23 07:00 Interval history: 07/29/23 07/28/23 1205 Admitted 07/27 with hypotension altered mental status and possible UTI. Hypotension responded to fluids. Treated with zyprexa 5 mg IM at about 2:00 p.m. 07/27 due to agitation. Receiving vancomycin and gentamicin for UTI due to history of MRSA infection. 07/28 drowsy. Poor appetite. Sleeping most of the day. 07/27/23? 18:00 This is a 73-year-old female with a medical history significant for paroxysmal atrial fibrillation, coronary artery disease, chronic obstructive pulmonary disease, gastroesophageal reflux disease, depression, chronic pain, ESBL E coli UTI, MRSA, and a fairly recent hospitalization in May 2023 for seizure-like activity for which she has been on levetiracetam who presented to the emergency department via EMS from [facility] for evaluation of a possible seizure. She is alert and oriented at the time my evaluation provides the following history. She woke up feeling ?off? this morning though she could provide me with no specifics. Not long prior to a
[2023-07-29] MEDS: UMECLIDINIUM BROMIDE 62.5 MCG ELLIPTA 1 PUFF INHALATION (08:14)
[2023-07-29] MEDS: ALBUTEROL SULFATE (*SP) AEROSOL 1 PUFF 2 PUFF INHALATION ×3 (08:15→16:33)
[2023-07-29] MEDS: SUCRALFATE 1 GM TABLET PO (08:19)
[2023-07-29] MEDS: PANTOPRAZOLE 40 MG TABLET PO (08:19)
[2023-07-29] MEDS: GABAPENTIN 100 MG CAPSULE 200 MG PO (08:21)
[2023-07-29] MEDS: ASPIRIN 81 MG CHEWABLE TABLET PO (08:21)
[2023-07-29] MEDS: APIXABAN 5 MG TABLET PO (08:21)
[2023-07-29] MEDS: CHOLECALCIFEROL 1,000 UNITS TABLET 1000 UNITS PO (08:22)
[2023-07-29] MEDS: METOPROLOL TARTRATE 50 MG TAB PO (08:24)
[2023-07-29] MEDS: lisinopriL 2.5 MG TABLET PO (08:24)
[2023-07-29] MEDS: THERAPEUTIC MULTIVITAMINS/MINERALS TAB (*BKC) 1 TABLET PO (08:24)
[2023-07-29] MEDS: dilTIAZem HCL CD 180 MG CAP.24HR PO (08:24)
[2023-07-29] MEDS: busPIRone HCL 5 MG TABLET PO (08:25)
[2023-07-29] MEDS: levETIRAcetam 500 MG TABLET PO (08:25)
[2023-07-29] MEDS: TOLNAFTATE 1% POWDER 45 GM BTL 1 APPLIC TOPICAL (08:25)
[2023-07-29] MEDS: SENNA/DOCUSATE SODIUM TABLET 1 TAB PO (08:25)
[2023-07-29 08:41] LABS: Glucose Point of Care 84 mg/dl (65-105)
--- NOTE | 2023-07-29 11:45 | PM.DS ---
DS: Admitting Diagnosis Discharge Date 07/29/23 1145 Admitting Diagnosis Acute UTI, Acute metabolic encephalopathy DS: Discharge Diagnosis Discharge Diagnosis (1) Acute metabolic encephalopathy: Code(s): G93.41 - Metabolic encephalopathy Status: Acute Assessment and Plan: Presented to the ED with unresponsive behavior, staring off in space CT of the brain showed no acute intracranial findings Urine culture positive for UTI Currently on Gentamicin, convert to PO if able Seems to be improving Continue to trend mental status (2) Urinary tract infection: Qualifiers: Hematuria presence: without hematuria Urinary tract infection type: acute cystitis Qualified Code(s): N30.00 - Acute cystitis without hematuria Code(s): N39.0 - Urinary tract infection, site not specified Status: Acute Assessment and Plan: UA was positive for nitrates, Leukocyte esterase, WBC 51-100, 4+ bacteria Urine culture postive for ECOLI History of ESBL in the past Continue Gentamicin for now Convert to PO option if able (3) Hypotension: Qualifiers: Hypotension type: other hypotension type Qualified Code(s): I95.89 - Other hypotension Code(s): I95.9 - Hypotension, unspecified Status: Acute Assessment and Plan: Related to dehydration or acute infection BP noted to be 63/52 Currently stable at 123/95 Resolved Continue to trend (4) Lactic acidosis: Code(s): E87.20 - Acidosis, unspecified Status: Acute Assessment and Plan: Lactic acid 3.4 upon arrival Resolved, repeat 1.1 IV fluids given in the ED Continue antibiotics (5) Seizure-like activity: Onset Date: 05/2023 Code(s): R56.9 - Unspecified convulsions Status: Acute Assessment and Plan: Continue levetiracetam 500mg PO BID Seizure precautions Head CT negative for acute findings (6) Hypertension: Qualifiers: Hypertension type: primary hypertension Qualified Code(s): I10 - Essential (primary) hypertension Code(s): I10 - Essential (primary) hypertension Status: Acute Assessment and Plan: Noted to be hypotensive at 63/52 IV fluids given in the ED Stable at this time 123/95 Ok to restart Dilt, metoprolol and lisinopril from home Trend BP Adjust therapy as indicated (7) Paroxysmal atrial fibrillation: Code(s): I48.0 - Paroxysmal atrial fibrillation Status: Acute Assessment and Plan: Continue low-dose metoprolol and apixaban Rate controlled Restart Dilt as well Trend HR (8) Chronic anticoagulation: Code(s): 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 upon arrival to the ED head CT showed no acute intracranial findings. Chest x-ray showed no acute cardiopulmonary her disease. Patient was noted to be hypotensive with a blood pressure of 63/52. Lactic acid was elevated at 3.4 which after fluids came down to 1.1. UA did appear infectious however urine culture was positive for E coli. Patient was started on gentamicin and vancomycin Related to the ESBL the patient does have in the past. Currently patient is doing well she seems to be at her baseline. She is complaining of little bit of GERD. She denies any current shortness of breath, nausea, vomiting, diarrhea or constipation. She did state that her bilateral legs do hurt. Currently patient is stable for discharge. Patient will
--- NOTE | 2023-07-29 11:45 | P.DS_ITS ---
DS: Admitting Diagnosis Discharge Date 07/29/23 1145 Admitting Diagnosis Acute UTI, Acute metabolic encephalopathy DS: Discharge Diagnosis Discharge Diagnosis (1) Acute metabolic encephalopathy: Code(s): G93.41 - Metabolic encephalopathy Status: Acute Assessment and Plan: * Presented to the ED with unresponsive behavior, staring off in space * CT of the brain showed no acute intracranial findings * Urine culture positive for UTI * Currently on Gentamicin, convert to PO if able * Seems to be improving * Continue to trend mental status (2) Urinary tract infection: Qualifiers: Hematuria presence: without hematuria Urinary tract infection type: acute cystitis Qualified Code(s): N30.00 - Acute cystitis without hematuria Code(s): N39.0 - Urinary tract infection, site not specified Status: Acute Assessment and Plan: * UA was positive for nitrates, Leukocyte esterase, WBC 51-100, 4+ bacteria * Urine culture postive for ECOLI * History of ESBL in the past * Continue Gentamicin for now * Convert to PO option if able (3) Hypotension: Qualifiers: Hypotension type: other hypotension type Qualified Code(s): I95.89 - Other hypotension Code(s): I95.9 - Hypotension, unspecified Status: Acute Assessment and Plan: * Related to dehydration or acute infection * BP noted to be 63/52 * Currently stable at 123/95 * Resolved * Continue to trend (4) Lactic acidosis: Code(s): E87.20 - Acidosis, unspecified Status: Acute Assessment and Plan: * Lactic acid 3.4 upon arrival * Resolved, repeat 1.1 * IV fluids given in the ED * Continue antibiotics (5) Seizure-like activity: Onset Date: 05/2023 Code(s): R56.9 - Unspecified convulsions Status: Acute Assessment and Plan: * Continue levetiracetam 500mg PO BID * Seizure precautions * Head CT negative for acute findings (6) Hypertension: Qualifiers: Hypertension type: primary hypertension Qualified Code(s): I10 - Essential (primary) hypertension Code(s): I10 - Essential (primary) hypertension Status: Acute Assessment and Plan: * Noted to be hypotensive at 63/52 * IV fluids given in the ED * Stable at this time 123/95 * Ok to restart Dilt, metoprolol and lisinopril from home * Trend BP * Adjust therapy as indicated (7) Paroxysmal atrial fibrillation: Code(s): I48.0 - Paroxysmal atrial fibrillation Status: Acute Assessment and Plan: * Continue low-dose metoprolol and apixaban * Rate controlled * Restart Dilt as well * Trend HR (8) Chronic anticoagulation: Code(s): Z79.01 - alf (current) use of anticoagulants Status: Acute Assessment and Plan: * Apixaban * For A. fib DS: Summary Hospital Course Reason for hospitalization: Hospital Course: Patient is a 73-year-old female with a past medical history of AFib, UTI, chronic pain disorder, hypertension, RUPAL, AFib, type 2 diabetes who presented to the ED with complaints of confusion, Staring off in space, possible seizure. upon arrival to the ED head CT showed no acute intracranial findings. Chest x-
[2023-07-29 12:15] LABS: Glucose Point of Care 108 mg/dl (65-105)
[2023-07-29 12:16] LABS: Glucose Point of Care 101 mg/dl (65-105)
--- NOTE | 2023-07-29 12:44 | PC.NURSE ---
Guillaume Zaidi PHYSICAL THERAPY RESIDENT notified of mrsa nares positive result
[2023-07-29] MEDS: oxyCODONE HCL (*CRX) 2.5 MG TAB IR PO (12:56)
[2023-07-29 15:04] LABS: SARS-CoV-2 RNA PCR Negative (Negative)
--- NOTE | 2023-07-29 16:00 | PC.NURSE ---
On 07/29/23, the student, Helen Reyna RN LP provided care and completed [employer] documentation on this patient. I have reviewed the student's documentation and agree with the findings.
[2023-07-30 12:59] LABS: Levetiracetam Keppra 31.4 mcg/mL (6.0-46.0)
== END 2023-07-29 17:46 ==
LOC: ANHED 17:26 → ANH2MED 21:05
PROVIDERS: Internal Medicine; Nurse Practitioner; Physician Assistant; Admitting Provider Chiropractor; Emergency Provider Student in an Organized Health Care Education/Training Program; PCP Family Medicine; Visit Provider Internal Medicine
DX: G93.41 Metabolic encephalopathy (principal); N39.0 Urinary tract infection, site not specified; B96.20 Unspecified Escherichia coli [E. coli] as the cause of diseases classified elsewhere; I95.9 Hypotension, unspecified; E87.20 Acidosis, unspecified; E11.42 Type 2 diabetes mellitus with diabetic polyneuropathy; R56.9 Unspecified convulsions; I11.0 Hypertensive heart disease with heart failure; I48.0 Paroxysmal atrial fibrillation; F41.9 Anxiety disorder, unspecified; F32.A Depression, unspecified; J44.9 Chronic obstructive pulmonary disease, unspecified; K21.9 Gastro-esophageal reflux disease without esophagitis; Z45.2 Encounter for adjustment and management of vascular access device; E55.9 Vitamin D deficiency, unspecified; G47.33 Obstructive sleep apnea (adult) (pediatric); Z87.01 Personal history of pneumonia (recurrent); U09.9 Post COVID-19 condition, unspecified; Z87.891 Personal history of nicotine dependence; Z86.73 Personal history of transient ischemic attack (TIA), and cerebral infarction without residual deficits; Z79.82 Long term (current) use of aspirin; Z79.51 Long term (current) use of inhaled steroids; Z79.1 Long term (current) use of non-steroidal anti-inflammatories (NSAID); Z79.85 Long-term (current) use of injectable non-insulin antidiabetic drugs; Z79.891 Long term (current) use of opiate analgesic; Z79.01 Long term (current) use of anticoagulants; Z79.899 Other long term (current) drug therapy
CPT/HCPCS: 36415; 70450; 71045; 80048; 80053; 80170; 80177; 81001; 82140; 82550; 82948; 83605; 83690; 83735; 84484; 85025; 85027; 85610; 85730; 86140; 87040; 87077; 87081; 87086; 87147; 87186; 87635; 93005; 94640; 96361; 96365; 96366; 96367; 96372; 96375; 99285; A9270; G0378; J0360; J1580; J1953; J3370; J7030

== ENCOUNTER 2023-08-24 15:26 | Emergency (ER) | payer MEDICARE, MEDICAID, SELFPAY ==
--- NOTE | ~2023-08-24 | CT_ITS ---
EXAMINATION: CT cervical spine wo con DATE: 08/24/2023 16:29 INDICATION: neck pain TECHNIQUE: Computed tomography (CT) of the cervical spine was performed without intravenous contrast. Automated exposure control and iterative reconstruction technique were employed. The dose-length pro duct was 379.05 mGy-cm. COMPARISON: None. FINDINGS: Vertebral Body Alignment: Reversed lordosis centered at C6-7. Multilevel grade 1 listheses, presumabl y on a degenerative basis. Craniocervical and atlantoaxial alignment: Moderate degenerative change. Alignment intact. Osseous structures/fracture: No evidence of a lytic or blastic process in the visualized spine. No e vidence of acute fracture. C3-4 vertebral body fusion. Unfused C1 arch. Cervical soft tissues: The paraspinal soft tissues planes are maintained. Bilateral mastoid fluid. Bi apical pleural scarring. Degenerative changes: Multilevel moderate and severe degenerative disc disease and facet arthropathy. No severe central canal or neural foraminal narrowing. IMPRESSION: No acute fracture or traumatic malalignment in the cervical spine. Reviewed, dictated and finalized at location K.
--- NOTE | ~2023-08-24 | XR_ITS ---
EXAM: XR hip LT 2V w AP pelvis DATE: 08/24/2023 16:39 HISTORY: Left hip pain post fall . COMPARISON: None available. FINDINGS: Normal mineralization. No acute fracture or dislocation. Left hip arthroplasty with constr ained liner. Heterotopic bone about the left hip, with apparent bone bridging. Soft tissue anchors ov er the greater trochanter. No erosion or periosteal change. Soft tissues within normal limits. IMPRESSION: No radiopaque evidence of acute osseous or hardware fracture. 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 Loosening, infection, or particle disease not excluded. Comparison to outside studies would be helpfu l. Reviewed, dictated and finalized at location K. IMPRESSION: No radiopaque evidence of acute osseous or hardware fracture. Pseudarthrosis versus ankylosis of the heterotopic bone surrounding the hip chi nt. Loosening, infection, or particle disease not excluded. Comparison to outside s tudies would be helpful.
--- NOTE | ~2023-08-24 | CT_ITS ---
EXAMINATION: CT brain wo con DATE: 08/24/2023 16:29 INDICATION: head injury . TECHNIQUE: Computed tomography (CT) of the head was performed without intravenous contrast. The mA wa s adjusted according to patient size. Iterative reconstruction technique was employed. The dose-lengt h product was 681.00 mGy-cm. Coronal reformatted images were not available until 45 minutes after the scan was initially posted to PACS. COMPARISON: 07/27/2023. FINDINGS: No acute intracranial hemorrhage or extra-axial fluid collection. No hydrocephalus, mass, or herniation. No acute ischemic infarct. Unremarkable dural venous sinus attenuation. No acute osseous abnormality. Small left posterior occipital contusion. Trace right and small volume left mastoid fluid without erosion or middle ear fluid, the remaining ae rated spaces are clear. Moderate atrophy and chronic white matter change. Atherosclerotic intracranial calcification. IMPRESSION: No acute intracranial process. Reviewed, dictated and finalized at location K.
[2023-08-24 15:30] VITALS: BP 104/67; PULSE 74; RESP 20; TEMP 36.7; O2SAT 97
--- NOTE | 2023-08-24 15:34 | ED.FALL ---
HPI - Fall General Chief Complaint: Fall Stated Complaint: fall History of Present Illness HPI Narrative: 73-year-old female present to the emergency department for evaluation after having a fall from bed. Patient did strike the back of her head. Patient denied any loss consciousness. Patient did also report having some left hip pain but states this was potentially not from the fall. Patient denies any other pain or injury. Related Data Home Medications Medication Instructions Recorded Confirmed acetaminophen 325 mg capsule 650 mg PO Q6H PRN Pain 11/14/21 07/27/23 (Tylenol) albuterol sulfate 90 mcg/actuation 2 inh inhalation QID 11/14/21 07/27/23 aerosol inhaler (ProAir HFA) aspirin 81 mg chewable tablet 81 mg PO DAILY 11/14/21 07/27/23 atorvastatin 10 mg tablet (Lipitor) 10 mg PO HS 11/14/21 07/27/23 diltiazem HCl 180 mg capsule,24 180 mg PO DAILY 11/14/21 07/27/23 hr,extended release (Tiazac) isosorbide mononitrate 30 mg 30 mg PO DAILY 11/14/21 07/27/23 tablet,extended release 24 hr lisinopril 5 mg tablet 2.5 mg PO DAILY 11/14/21 07/27/23 nortriptyline 50 mg capsule 25 mg PO HS 11/14/21 07/27/23 paroxetine HCl 20 mg tablet 20 mg PO DAILY 11/14/21 07/27/23 tiotropium bromide 18 mcg capsule 1 cap inhalation DAILY 11/14/21 07/27/23 with inhalation device (Spiriva with HandiHaler) apixaban 5 mg tablet (Eliquis) 5 mg PO BID 03/26/23 07/27/23 buspirone 5 mg tablet 5 mg PO DAILY 03/26/23 07/27/23 cholecalciferol (vitamin D3) 25 25 mcg PO DAILY 03/26/23 07/27/23 mcg (1,000 unit) tablet gabapentin 100 mg capsule 200 mg PO TID 03/26/23 07/27/23 metoprolol tartrate 50 mg tablet 50 mg PO BID 03/26/23 07/27/23 multivitamin [id number]-[id number] 1 tablet PO DAILY 03/26/23 07/27/23 fumarate 18 mg-vitamin K 25 mcg tablet nystatin 100,000 unit/gram topical 1 applic topical BID 03/26/23 07/27/23 powder sucralfate 1 gram tablet 1 g PO QID 03/26/23 07/27/23 glucagon 1 mg solution for 1 mg IM Q15M PRN Hypoglycemia 05/12/23 07/27/23 injection (Glucagon Emergency Kit) guaifenesin 100 mg/5 mL oral liquid 200 mg PO Q6H PRN Cough 05/12/23 07/27/23 naloxone 4 mg/actuation nasal spray 1 spray intranasal ONCE PRN Opioid 05/12/23 07/27/23 Overdose nitroglycerin 0.4 mg sublingual 0.4 mg sublingual Q5M PRN Chest 05/12/23 07/27/23 tablet Pain ondansetron 4 mg disintegrating 4 mg PO Q8H PRN Nausea And Vomiting 05/12/23 07/27/23 tablet pantoprazole 40 mg tablet,delayed 40 mg PO QAM 05/12/23 07/27/23 release sennosides 8.6 mg-docusate sodium 1 tab-cap PO BID 05/12/23 07/27/23 50 mg capsule (Senna Plus) levetiracetam 500 mg tablet 500 mg PO BID 07/27/23 07/27/23 Allergies Allergy/AdvReac Type Severity Reaction Status Date / Time iodine Allergy Unknown Verified 07/27/23 13:13 latex Allergy Unknown Verified 07/27/23 13:13 meperidine Allergy Unknown Verified 07/27/23 13:13 Penicillins Allergy Unknown Verified 07/27/23 13:13 piperacillin [From Zosyn] Allergy Unknown Verified 07/27/23 13:13 tazobactam [From Zosyn] Allergy Unknown Verified 07/27/23 13:13 Review of Systems Review of Systems: All systems reviewed & are unremarkable except as noted in HPI and below PMFSH Past Medical History Medical History (Updated 08/24/23 @ 17:41 by Landen Landers MD) Anxiety Chronic anticoagulation Chronic obstructive pulmonary disease Chronic pain disorder Depression Diabetic peripheral neuropathy Gastroesophageal reflux disease Hypertension Obstructive sleep apnea Paroxysmal atrial fibrillation Pneumonia due to COVID-19 virus (01/2023) Seizure-like activity (05/2023) Type 2 diabetes mellitus Vasculitis determined by biopsy of skin Vitamin D deficiency Surgical History Surgical History History of colonoscopy with polypectomy History of hysterectomy History of left hip replacement Family History Family History (Reviewed 07/27/23 @ 22:37 by Randa Negrete
[2023-08-24 15:39] VITALS: RESP 20
[2023-08-24 19:45] VITALS: BP 110/83; PULSE 66; RESP 18; O2SAT 97
[2023-08-25 00:43] VITALS: BP 117/52; PULSE 74; RESP 15; O2SAT 100
== END 2023-08-25 00:58 ==
PROVIDERS: Emergency Provider Emergency Medicine; PCP Family Medicine
DX: S09.90XA Unspecified injury of head, initial encounter (principal); J44.9 Chronic obstructive pulmonary disease, unspecified; I10 Essential (primary) hypertension; E11.42 Type 2 diabetes mellitus with diabetic polyneuropathy; E55.9 Vitamin D deficiency, unspecified; G47.33 Obstructive sleep apnea (adult) (pediatric); F32.A Depression, unspecified; F41.9 Anxiety disorder, unspecified; Z96.642 Presence of left artificial hip joint; Z86.16 Personal history of COVID-19; Z87.01 Personal history of pneumonia (recurrent); Z87.891 Personal history of nicotine dependence; Z79.01 Long term (current) use of anticoagulants; Z90.710 Acquired absence of both cervix and uterus; W06.XXXA Fall from bed, initial encounter
CPT/HCPCS: 70450; 72125; 73502; 99284

== ENCOUNTER 2023-11-20 19:25 | Inpatient (IN) | payer MEDICARE, MEDICAID, SELFPAY ==
--- NOTE | ~2023-11-20 | CT_ITS ---
EXAMINATION: CT abdomen pelvis wo con DATE: 11/22/2023 13:50 INDICATION: Abdominal pain TECHNIQUE: Computed tomography (CT) of the abdomen and pelvis was performed without intravenous contr ast. The dose-length product (DLP) was 1279.86 mGy-cm. Automated exposure control and iterative recon struction technique were employed. COMPARISON: 11/20/2023 FINDINGS: Minimal dependent atelectasis is present in the lung bases. Cardiomegaly is noted. There ar e changes of cholecystectomy. The liver, spleen, pancreas, and adrenal glands are normal. Cysts of th e right kidney measure up to 4.1 cm. There is cortical thinning of the kidneys. There is mild left in guinal lymphadenopathy. No free intraperitoneal gas or evidence of bowel obstruction. There is severe lumbar spondylosis. There is a total left hip arthroplasty with unchanged lucency surrounding the ac etabular component. There is a small umbilical hernia containing fat. There is a moderate volume of c olonic stool including persistent fecal impaction of the rectum. IMPRESSION: 1. Constipation with persistent fecal impaction of the rectum. 2. Mild left inguinal lymphadenopathy, likely reactive. 3. Changes surrounding the left hip arthroplasty as previously described. Reviewed, dictated and finalized at location B. [employer]
--- NOTE | ~2023-11-20 | XR_ITS ---
XR abdomen/kub 1V DATE: 11/25/2023 09:49 INDICATION: Constipation TECHNIQUE: 2 supine AP views on 11/25/2023 and 0934 and 0935 hours COMPARISON: 11/20/2023 KUB FINDINGS: Surgical clips, right upper quadrant, likely due to cholecystectomy. There is prominent gaseous distention of the hepatic flexure, transverse colon, splenic flexure and d escending colon. There are some nondilated gas containing small bowel segments. No thumbprinting or b owel wall thickening is appreciated. No apparent intraperitoneal free air. The lung bases appear clear. Status post left total hip arthroplasty. Moderately severe right hip osteoarthritis. Multilevel degenerative disease of the lumbar spine. Osteopenia. IMPRESSION: Prominent gaseous distention of the colon; no bowel obstruction is evident Reviewed, dictated and finalized at [facility]. Reviewed, dictated and finalized at location A. OR CLINICAL DATA ANALYST
--- NOTE | ~2023-11-20 | CT_ITS ---
EXAMINATION: CT chest abdomen pelvis w con DATE: 11/20/2023 20:54 INDICATION: Left flank pain. Left upper quadrant and right lower quadrant abdominal pain. TECHNIQUE: Computed tomography (CT) of the chest, abdomen, and pelvis was performed with 100 mL Omnip aque 350 intravenous contrast. Automated exposure control and iterative reconstruction technique were employed. The dose-length product was 1684.19 mGy-cm. COMPARISON: Pelvis and left hip radiographs 08/24/2023 FINDINGS: CHEST CT: The lungs demonstrate mild atelectasis. No pleural effusion. Cardiomegaly is noted. No pericardial ef fusion. There is a left subclavian port with tip in superior vena cava. There is severe thoracic spon dylosis. ABDOMEN/PELVIS CT: There are cysts in the liver measuring up to 5 mm. There are changes of cholecystectomy. The spleen, pancreas, adrenal glands are normal. There is cortical thinning of the kidneys. There are cysts in ri ght kidney measuring up to 4.1 cm. There is calcified atherosclerosis of the aorta and many of the ot her arteries. Stool distends the rectosigmoid. There is diverticulosis of the colon without evidence of diverticulitis. The appendix is normal. There are no pathologically enlarged lymph nodes. There is no free intraperitoneal fluid. There is a total left hip arthroplasty. There are lucencies surroundi ng the acetabular component. There is an old healed fracture of proximal left femur. There is severe lumbar spondylosis. IMPRESSION: 1. Stool distends the rectosigmoid. 2. Total left arthroplasty with chronic lucencies around the acetabular component, which may be seen with infection, loosening, or particle disease. Correlate with postoperative radiographs. Reviewed, dictated and finalized at location [facility]. ERY OR MUSEUM GUIDE IMPRESSION: 1. Stool distends the rectosigmoid. 2. Total left arthroplasty with chronic lucencies around the acetabular compone nt, which may be seen with infection, loosening, or particle disease. Correlate with postoperative radiographs.
--- NOTE | ~2023-11-20 | XR_ITS ---
XR abdomen/kub 1V 11/24/2023 12:14 INDICATION: Abdomen pain TECHNIQUE: KUB COMPARISON: None FINDINGS: Bowel gas pattern is normal. Moderate colonic fecal loading. There is a left hip arthroplas ty. There is no evidence of free air, mass, organomegaly, ascites or obstruction. No abnormal calcul i are seen. The bones appear intact. Advanced lumbar spondylosis. There are cholecystectomy clips. IMPRESSION: 1: No acute abdominal abnormality identified. Reviewed, dictated and finalized at location [facility]. UP MACHINIST
[2023-11-20 19:26] VITALS: BP 139/99; PULSE 112; RESP 16; TEMP 36.3; O2SAT 98
[2023-11-20 19:45] LABS: Basophils Absolute Auto 0.1 K/mm3 (0.0-0.1); Basophils Percent Auto 0.8 % (0.2-1.2); Eosinophils Absolute Auto 0.3 K/mm3 (0-0.3); Eosinophils Percent Auto 2.6 % (0-4.4); Hematocrit 42.1 % (37.0-47.0); Hemoglobin 13.2 g/dL (12.0-15.0); Immature Granulocyte Absolute 0.04 K/mm3 (0.00-0.031); Immature Granulocyte Percent A 0.3 % (0-0.5); Lymphocytes Absolute Auto 2.88 K/mm3 (0.9-3.2); Lymphocytes Percent Auto 24.7 % (18.3-44.2); Mean Corpuscular HGB Conc 31.4 g/dl (32-36); Mean Corpuscular Hemoglobin 27.7 pg (26-34); Mean Corpuscular Volume 88.4 fl (80-100); Mean Platelet Volume 10.2 fl (7.4-10.4); Monocytes Percent Auto 8.2 % (2.6-8.5); Neutrophils Absolute Auto 7.4 K/mm3 (1.3-6.7); Neutrophils Percent Auto 63.4 % (45.5-73.1); Platelet Count Result 350 k/mm3 (150-375); Red Blood Count 4.76 M/mm3 (4.2-5.4); White Blood Count 11.6 K/mm3 (4.5-10.0)
[2023-11-20 19:56] LABS: Alanine Aminotransferase 18 U/L (6-35); Albumin Level 4.1 g/dL (3.5-5.1); Alkaline Phosphatase 189 U/L (38-126); Anion Gap 7 mmol/L (8-16); Aspartate Amino Transferase 26 U/L (14-36); Bilirubin,Total 0.4 mg/dL (0.2-1.3); Blood Urea Nitrogen 18 mg/dL (7-17); Calcium 9.2 mg/dL (8.4-10.2); Carbon Dioxide 28 mmol/L (22-30); Chloride 104 mmol/L (98-107); Estimated CRCL calculation 59 ml/min; Estimated Glomerular Filt Rate > 60; Glucose 131 mg/dL (65-110); Lipase 58 U/L (23-300); Potassium 3.9 mmol/L (3.4-5.0); Sodium 139 mmol/L (137-145)
--- NOTE | 2023-11-20 20:04 | ED.ABDPAIN ---
HPI - Abdominal Pain General Chief Complaint: Abdominal Pain Stated Complaint: abd pain Time Seen by Provider: 11/20/23 19:27 History of Present Illness HPI narrative: 73-year-old female presenting to the emergency department for left upper back, left upper quadrant and right lower quadrant abdominal pain. Patient reports that the pain started after breakfast. Patient does have prior history of cholecystectomy Patient also has a left total arthroplasty that has chronic infection that the surgeon opted not to reoperate on. Patient is not on any antibiotics for this but she is getting wound dressings. Patient denied any increased pain at the left hip Related Data Home Medications Medication Instructions Recorded Confirmed acetaminophen 325 mg capsule 650 mg PO Q6H PRN Pain 11/14/21 07/27/23 (Tylenol) albuterol sulfate 90 mcg/actuation 2 inh inhalation QID 11/14/21 07/27/23 aerosol inhaler (ProAir HFA) aspirin 81 mg chewable tablet 81 mg PO DAILY 11/14/21 07/27/23 atorvastatin 10 mg tablet (Lipitor) 10 mg PO HS 11/14/21 07/27/23 diltiazem HCl 180 mg capsule,24 180 mg PO DAILY 11/14/21 07/27/23 hr,extended release (Tiazac) isosorbide mononitrate 30 mg 30 mg PO DAILY 11/14/21 07/27/23 tablet,extended release 24 hr lisinopril 5 mg tablet 2.5 mg PO DAILY 11/14/21 07/27/23 nortriptyline 50 mg capsule 25 mg PO HS 11/14/21 07/27/23 paroxetine HCl 20 mg tablet 20 mg PO DAILY 11/14/21 07/27/23 tiotropium bromide 18 mcg capsule 1 cap inhalation DAILY 11/14/21 07/27/23 with inhalation device (Spiriva with HandiHaler) apixaban 5 mg tablet (Eliquis) 5 mg PO BID 03/26/23 07/27/23 buspirone 5 mg tablet 5 mg PO DAILY 03/26/23 07/27/23 cholecalciferol (vitamin D3) 25 25 mcg PO DAILY 03/26/23 07/27/23 mcg (1,000 unit) tablet gabapentin 100 mg capsule 200 mg PO TID 03/26/23 07/27/23 metoprolol tartrate 50 mg tablet 50 mg PO BID 03/26/23 07/27/23 multivitamin [id number] 1 tablet PO DAILY 03/26/23 07/27/23 fumarate 18 mg-vitamin K 25 mcg tablet nystatin 100,000 unit/gram topical 1 applic topical BID 03/26/23 07/27/23 powder sucralfate 1 gram tablet 1 g PO QID 03/26/23 07/27/23 glucagon 1 mg solution for 1 mg IM Q15M PRN Hypoglycemia 05/12/23 07/27/23 injection (Glucagon Emergency Kit) guaifenesin 100 mg/5 mL oral liquid 200 mg PO Q6H PRN Cough 05/12/23 07/27/23 naloxone 4 mg/actuation nasal spray 1 spray intranasal ONCE PRN Opioid 05/12/23 07/27/23 Overdose nitroglycerin 0.4 mg sublingual 0.4 mg sublingual Q5M PRN Chest 05/12/23 07/27/23 tablet Pain ondansetron 4 mg disintegrating 4 mg PO Q8H PRN Nausea And Vomiting 05/12/23 07/27/23 tablet pantoprazole 40 mg tablet,delayed 40 mg PO QAM 05/12/23 07/27/23 release sennosides 8.6 mg-docusate sodium 1 tab-cap PO BID 05/12/23 07/27/23 50 mg capsule (Senna Plus) levetiracetam 500 mg tablet 500 mg PO BID 07/27/23 07/27/23 Allergies Allergy/AdvReac Type Severity Reaction Status Date / Time iodine Allergy Unknown Verified 11/20/23 19:44 latex Allergy Unknown Verified 11/20/23 19:44 meperidine Allergy Unknown Verified 11/20/23 19:44 Penicillins Allergy Unknown Verified 11/20/23 19:44 piperacillin [From Zosyn] Allergy Unknown Verified 11/20/23 19:44 tazobactam [From Zosyn] Allergy Unknown Verified 11/20/23 19:44 Review of Systems Review of Systems: All systems reviewed & are unremarkable except as noted in HPI and below PMFSH Past Medical History Medical History (Updated 11/20/23 @ 22:42 by Landen Landers MD) Anxiety Chronic anticoagulation Chronic obstructive pulmonary disease Chronic pain disorder Depression Diabetic peripheral neuropathy Gastroesophageal reflux disease Hypertension Obstructive sleep apnea Paroxysmal atrial fibrillation Pneumonia due to COVID-19 virus (01/2023) Seizure-like activity (05/2023) Type 2 diabetes mellitus Vasculitis determined by biopsy of skin Vitamin D deficiency Surgical History Surgical History
[2023-11-20] MEDS: MORPHINE SULFATE (*CRX) 2 MG/ML INJ IV PUSH ×2 (21:03→22:19)
[2023-11-20 21:25] LABS: Add Urine Microscopic? YES; Appearance Urine Turbid (Clear); Bacteria Urine 4+ /hpf; Bilirubin Urine Negative (Negative); Blood Urine Negative (Negative); Color Urine Yellow (Yellow); Glucose Urine UA Negative (Negative); Ketones Urine Negative (Negative); Leukocyte Esterase Ur 2+ LEU/UL (Negative); Need Manual Microscopic Reviewed; Nitrate Urine Positive (Negative); Protein Urine Trace mg/dL (Negative); RBC Urine 0-2 /hpf (0-2); Specific Grav Ur 1.017 (1.001-1.035); Squamous Epithelial Cell Urine Many /hpf (Few); Urobilinogen Urine 0.2 mg/dL (<2.0); WBC Urine 51-100 /hpf
[2023-11-20 21:39] VITALS: BP 145/93; PULSE 99; RESP 17; O2SAT 98
[2023-11-20 23:00] VITALS: BP 149/79; PULSE 97; RESP 16; TEMP 36.7; O2SAT 96; BMI 30.9
--- NOTE | 2023-11-20 23:26 | ADMGEN ---
This patient, Lexus Veliz, was admitted to Medical Room 257-01. Patient/family oriented to hospital policies and general routines including ID bracelet, bed and alarms, visiting hours, pain management, procedures, bathroom and other care routines, personal items, smoking policy, room service/diet, and visiting hours. Information on how to activate the Rapid Response Team has been discussed. Patient/Family are encouraged to report perceived risks to care and to ask questions if they do not understand what they are told or what they should do.
--- NOTE | 2023-11-21 00:14 | PM.IMHP ---
H&P: HPI History of Present Illness Date/Time: 11/21/23 00:14 Chief Complaint: Left flank pain Narrative: This is a 73-year-old female [place] resident, past medical history significant for atrial fibrillation, rate controlled anticoagulated, chronic left hip pain and osteomyelitis, patient is mostly bed ridden, wheelchair-bound, COPD/emphysema, chronic pain disorder, gastroesophageal reflux disease, type 2 diabetes mellitus obstructive sleep apnea diabetic peripheral neuropathy. Patient has been in and out of hospitals and rehabilitation centers for the last 3 years. Patient was brought to the emergency room due to left flank pain. Preliminary workup was significant for urinalysis with numerous WBCs present. CT of chest abdomen and pelvis was reported as: EXAMINATION: CT chest abdomen pelvis w con DATE: 11/20/2023 20:54 INDICATION: Left flank pain. Left upper quadrant and right lower quadrant abdominal pain. TECHNIQUE: Computed tomography (CT) of the chest, abdomen, and pelvis was performed with 100 mL Omnipaque 350 intravenous contrast. Automated exposure control and iterative reconstruction technique were employed. The dose-length product was 1684.19 mGy-cm. COMPARISON: Pelvis and left hip radiographs 08/24/2023 FINDINGS: CHEST CT: The lungs demonstrate mild atelectasis. No pleural effusion. Cardiomegaly is noted. No pericardial effusion. There is a left subclavian port with tip in superior vena cava. There is severe thoracic spondylosis. ABDOMEN/PELVIS CT: There are cysts in the liver measuring up to 5 mm. There are changes of cholecystectomy. The spleen, pancreas, adrenal glands are normal. There is cortical thinning of the kidneys. There are cysts in right kidney measuring up to 4.1 cm. There is calcified atherosclerosis of the aorta and many of the other arteries. Stool distends the rectosigmoid. There is diverticulosis of the colon without evidence of diverticulitis. The appendix is normal. There are no pathologically enlarged lymph nodes. There is no free intraperitoneal fluid. There is a total left hip arthroplasty. There are lucencies surrounding the acetabular component. There is an old healed fracture of proximal left femur. There is severe lumbar spondylosis. IMPRESSION: 1. Stool distends the rectosigmoid. 2. Total left arthroplasty with chronic lucencies around the acetabular component, which may be seen with infection, loosening, or particle disease. Correlate with postoperative radiographs. Review of Systems Review of Systems: Left flank pain ROS unobtainable: Yes other (Patient is really poor historian circumstantial not really contributing ) [facility] Past Medical History Medical History (Updated 11/20/23 @ 22:42 by Landen Landers MD) Anxiety Chronic anticoagulation Chronic obstructive pulmonary disease Chronic pain disorder Depression Diabetic peripheral neuropathy Gastroesophageal reflux disease Hypertension Obstructive sleep apnea Paroxysmal atrial fibrillation Pneumonia due to COVID-19 virus (01/2023) Seizure-like activity (05/2023) Type 2 diabetes mellitus Vasculitis determined by biopsy of skin Vitamin D deficiency Surgical History Surgical History History of colonoscopy with polypectomy History of hysterectomy History of left hip replacement Family History Family History Sibling Heart disease Son COPD (chronic obstructive pulmonary disease) Daughter Sleep apnea Father Colon polyp Mother Colon polyp Colon cancer Social History Social History Social History: Healthcare power of criminal attorney: Karina Veliz. Code status: Full code. Smoking packs per day: 2 Smoking cigarettes per day: 40.0 Years smoked: 25 Smoking pack-years: 50.00 Smoking status: Former smoker Tobacco type: cigare
[2023-11-21 03:45] VITALS: BP 154/81; PULSE 91; RESP 24; TEMP 36.4; O2SAT 93
[2023-11-21] MEDS: MORPHINE SULFATE (*CRX) 2 MG/ML INJ IV PUSH ×2 (03:52→12:25)
--- NOTE | 2023-11-21 07:33 | PM.IMPN ---
Progress Note: A&P Assessment and Plan (1) Acute UTI: Code(s): N39.0 - Urinary tract infection, site not specified Status: Acute Assessment and Plan: UA suspicious for infection. Patient originally started on Rocephin but has history of ESBL and was transition to meropenem. Urine cultures pending. Adjust antibiotics to culture results. Patient may need IV antibiotics at home. (2) Acute flank pain: Code(s): R10.9 - Unspecified abdominal pain Status: Acute Assessment and Plan: Likely secondary to pyelonephritis Analgesics p.r.n. Supportive care (3) Acute metabolic encephalopathy: Code(s): G93.41 - Metabolic encephalopathy Status: Acute Assessment and Plan: Likely secondary to sepsis (4) Paroxysmal atrial fibrillation: Code(s): I48.0 - Paroxysmal atrial fibrillation Status: Acute Assessment and Plan: Rate controlled (5) Chronic obstructive pulmonary disease: Code(s): J44.9 - Chronic obstructive pulmonary disease, unspecified Status: Acute Assessment and Plan: Not actively wheezing. Stable. (6) Gastroesophageal reflux disease: Code(s): K21.9 - Gastro-esophageal reflux disease without esophagitis Status: Acute Assessment and Plan: PPI Subjective Date/time seen: 11/21/23 07:33 Interval history: Patient continued to have flank pain. Antibiotics transition to [place] and only due to no history of E coli ESBL. Advise patient to continue to ask for pain medications as they are available to her. Her CT does not show any signs of stone. She has remained afebrile. She denies any nausea vomiting. Exam Narrative: GENERAL: Comfortable, no acute distress HENMT: moist mucous membranes EYES: EOM intact b/l NECK: no lymphadenopathy RESPIRATORY: clear to auscultation CARDIO: RRR GI: soft, bowel sounds present; Left-sided CVA tenderness, left sided abdominal tenderness SKIN: no rashes EXTREMITIES: no edema, redness or tenderness Objective Data Vital Signs Vital Signs: Vital Signs - 24 hr 11/20/23 19:26 11/20/23 21:39 11/20/23 23:00 Temperature 97.3 F L 98.1 F Pulse Rate 112 H 99 97 Respiratory Rate 16 17 16 Blood Pressure 139/99 H 145/93 H 149/79 H Pulse Oximetry 98 98 96 Oxygen Delivery Room Air 11/21/23 03:45 Temperature 97.6 F Pulse Rate 91 Respiratory Rate 24 H Blood Pressure 154/81 H Pulse Oximetry 93 Oxygen Delivery Intake/Output Intake/Output: Intake & Output 11/18/23 11/19/23 11/20/23 11/21/23 23:59 23:59 23:59 23:59 Intake Total 50 50 Output Total 3 300 Balance 47 -250 Meds/Results Medications: Active Medications Generic Name Dose Route Start Last Admin Trade Name Freq PRN Reason Stop Dose Admin Acetaminophen 650 mg 11/21/23 07:27 Acetaminophen 325 Mg Tablet PO Q6H PRN Pain (Scale Score 1-3) Albuterol 2 puff 11/21/23 07:27 Albuterol Sulfate (*Sp) Aerosol 1 Puff INHALATION QID PRN Shortness Of Breath Apixaban 5 mg 11/21/23 09:00 Apixaban 5 Mg Tablet PO BID [facility] Aspirin 81 mg 11/21/23 09:00 Aspirin 81 Mg Chewable Tablet PO DAILY DEVAUGHN Atorvastatin Calcium 10 mg 11/21/23 21:00 Atorvastatin 10 Mg Tablet PO HS DEVAUGHN Buspirone HCl 5 mg 11/21/23 09:00 Buspirone Hcl 5 Mg Tablet PO TID DEVAUGHN Diltiazem HCl 180 mg 11/21/23 09:00 Diltiazem Hcl Cd 180 Mg Cap.24hr PO DAILY [facility] Meropenem 1 gm in 100 mls @ 200 mls/hr 11/21/23 07:35 IVPB Q8H DEVAUGHN Levetiracetam 500 mg 11/21/23 09:00 Levetiracetam 500 Mg Tablet PO BID DEVAUGHN Morphine Sulfate 2 mg 11/20/23 21:58 11/21/23 03:52 Morphine Sulfate (*Crx) 2 Mg/Ml Inj IV PUSH 2 mg Q4H PRN Administration Pain Rated 7-10 Nitroglycerin 0.4 mg 11/21/23 07:27 Nitroglycerin Sl 0.4 Mg Tablet SUBLINGUAL Q5M PRN Chest Pain Non-Formula
[2023-11-21 08:06] LABS: Hematocrit 41.4 % (37.0-47.0); Hemoglobin 12.8 g/dL (12.0-15.0); Mean Corpuscular HGB Conc 30.9 g/dl (32-36); Mean Corpuscular Hemoglobin 27.8 pg (26-34); Mean Corpuscular Volume 89.8 fl (80-100); Mean Platelet Volume 10.4 fl (7.4-10.4); Platelet Count Result 319 k/mm3 (150-375); Red Blood Count 4.61 M/mm3 (4.2-5.4); White Blood Count 9.2 K/mm3 (4.5-10.0)
[2023-11-21 08:18] LABS: Anion Gap 4 mmol/L (8-16); Blood Urea Nitrogen 14 mg/dL (7-17); Calcium 8.6 mg/dL (8.4-10.2); Carbon Dioxide 29 mmol/L (22-30); Chloride 104 mmol/L (98-107); Estimated CRCL calculation 73 ml/min; Estimated Glomerular Filt Rate > 60; Glucose 100 mg/dL (65-110); Sodium 137 mmol/L (137-145)
[2023-11-21] MEDS: PANTOPRAZOLE 40 MG TABLET PO (08:41)
[2023-11-21] MEDS: PARoxetine 20 MG TABLET PO (08:41)
[2023-11-21] MEDS: dilTIAZem HCL CD 180 MG CAP.24HR PO (08:41)
[2023-11-21] MEDS: SENNA/DOCUSATE SODIUM TABLET 1 TAB PO ×2 (08:41→17:15)
[2023-11-21] MEDS: oxyCODONE HCL (*CRX) 5 MG TAB IR PO ×2 (08:41→21:18)
[2023-11-21] MEDS: levETIRAcetam 500 MG TABLET PO ×2 (08:42→17:15)
[2023-11-21] MEDS: SUCRALFATE 1 GM TABLET PO ×4 (08:42→21:18)
[2023-11-21] MEDS: ASPIRIN 81 MG CHEWABLE TABLET PO (08:42)
[2023-11-21] MEDS: APIXABAN 5 MG TABLET PO ×2 (08:42→17:15)
[2023-11-21] MEDS: MEROPENEM 1 GM/NS 100 ML 1 GM/100 ML BAG IVPB ×3 (08:43→21:19)
[2023-11-21] MEDS: UMECLIDINIUM BROMIDE 62.5 MCG ELLIPTA 1 PUFF INHALATION (08:50)
[2023-11-21] MEDS: busPIRone HCL 5 MG TABLET PO ×3 (08:58→17:15)
[2023-11-21 12:07] VITALS: BMI 30.9
--- NOTE | 2023-11-21 15:13 | PCOTNOTE ---
Per care coordination notes from pt's last visit in July, pt has been a resident for 3 years at [facility] and is dependent at baseline and uses a marga lift to get to a w/c. Pt has no acute therapy needs at this time and orders will be discharged. Called Steff Odell to update her on this pt.
[2023-11-21 15:59] VITALS: BP 148/70; PULSE 83; RESP 18; TEMP 36.6; O2SAT 96
[2023-11-21] MEDS: HYDROmorphone HCL INJ (*CRX) 1 MG/ML SYR IV PUSH ×2 (17:16→23:36)
[2023-11-21 20:02] VITALS: BP 130/80; PULSE 101; RESP 20; TEMP 36.9; O2SAT 97
[2023-11-21] MEDS: ATORVASTATIN 10 MG TABLET PO (21:18)
[2023-11-22] MEDS: HYDROmorphone HCL INJ (*CRX) 1 MG/ML SYR IV PUSH ×4 (03:54→22:50)
[2023-11-22 03:56] VITALS: BP 136/90; PULSE 92; RESP 24; TEMP 37; O2SAT 98
[2023-11-22] MEDS: oxyCODONE HCL (*CRX) 5 MG TAB IR PO ×3 (05:39→21:04)
[2023-11-22] MEDS: MEROPENEM 1 GM/NS 100 ML 1 GM/100 ML BAG IVPB ×3 (05:39→21:10)
[2023-11-22 06:28] LABS: Alanine Aminotransferase 17 U/L (6-35); Albumin Level 3.7 g/dL (3.5-5.1); Alkaline Phosphatase 159 U/L (38-126); Anion Gap 6 mmol/L (8-16); Aspartate Amino Transferase 26 U/L (14-36); Bilirubin,Total 0.5 mg/dL (0.2-1.3); Blood Urea Nitrogen 13 mg/dL (7-17); Calcium 8.9 mg/dL (8.4-10.2); Carbon Dioxide 28 mmol/L (22-30); Chloride 103 mmol/L (98-107); Estimated CRCL calculation 73 ml/min; Estimated Glomerular Filt Rate > 60; Glucose 114 mg/dL (65-110); Hemoglobin 13.8 g/dL (12.0-15.0); Mean Corpuscular HGB Conc 31.4 g/dl (32-36); Mean Corpuscular Hemoglobin 28.2 pg (26-34); Mean Platelet Volume 10.5 fl (7.4-10.4); Platelet Count Result 358 k/mm3 (150-375); Potassium 3.8 mmol/L (3.4-5.0); Red Blood Count 4.89 M/mm3 (4.2-5.4); Red Cell Distribution Width 15.7 % (11.5-14.5); Sodium 137 mmol/L (137-145); White Blood Count 10.6 K/mm3 (4.5-10.0)
[2023-11-22 08:27] VITALS: BP 146/82; PULSE 92; RESP 18; TEMP 36.3; O2SAT 100
[2023-11-22] MEDS: dilTIAZem HCL CD 180 MG CAP.24HR PO (08:28)
[2023-11-22] MEDS: APIXABAN 5 MG TABLET PO ×2 (08:28→18:49)
[2023-11-22] MEDS: ASPIRIN 81 MG CHEWABLE TABLET PO (08:28)
[2023-11-22] MEDS: busPIRone HCL 5 MG TABLET PO ×3 (08:28→18:48)
[2023-11-22] MEDS: SENNA/DOCUSATE SODIUM TABLET 1 TAB PO ×2 (08:28→18:48)
[2023-11-22] MEDS: levETIRAcetam 500 MG TABLET PO ×2 (08:28→18:48)
[2023-11-22] MEDS: SUCRALFATE 1 GM TABLET PO ×4 (08:29→21:05)
[2023-11-22] MEDS: PANTOPRAZOLE 40 MG TABLET PO (08:29)
[2023-11-22] MEDS: polyethylene glycoL 3350 17 GM POWD.PACK PO (08:29)
[2023-11-22] MEDS: PARoxetine 20 MG TABLET PO (08:29)
[2023-11-22] MEDS: UMECLIDINIUM BROMIDE 62.5 MCG ELLIPTA 1 PUFF INHALATION (08:38)
--- NOTE | 2023-11-22 10:15 | PC.NURSE ---
Patient has port to left upper chest, not accessed
[2023-11-22] MEDS: fentaNYL (*CRX) 25 MCG PATCH TRANSDERM (13:20)
[2023-11-22 14:00] VITALS: BP 106/69; PULSE 91; RESP 16; TEMP 36.2; O2SAT 93
--- NOTE | 2023-11-22 14:21 | PM.IMPN ---
Progress Note: A&P Assessment and Plan (1) Acute UTI: Code(s): N39.0 - Urinary tract infection, site not specified Status: Acute Assessment and Plan: UA suspicious for infection. Patient originally started on Rocephin but has history of ESBL and was transition to meropenem. Urine cultures pending. Adjust antibiotics to culture results. Patient may need IV antibiotics at home. (2) Acute flank pain: Code(s): R10.9 - Unspecified abdominal pain Status: Acute Assessment and Plan: Likely secondary to pyelonephritis Analgesics p.r.n. 11/21 Pain worsened today. Lactic acid and repeat CT scan ordered. Lactic acid within normal limits. (3) Acute metabolic encephalopathy: Code(s): G93.41 - Metabolic encephalopathy Status: Acute Assessment and Plan: Likely secondary to sepsis (4) Paroxysmal atrial fibrillation: Code(s): I48.0 - Paroxysmal atrial fibrillation Status: Acute Assessment and Plan: Rate controlled (5) Chronic obstructive pulmonary disease: Code(s): J44.9 - Chronic obstructive pulmonary disease, unspecified Status: Acute Assessment and Plan: Not actively wheezing. Stable. (6) Gastroesophageal reflux disease: Code(s): K21.9 - Gastro-esophageal reflux disease without esophagitis Status: Acute Assessment and Plan: PPI Subjective Date/time seen: 11/22/23 14:21 Interval history: Patient having extensive abdominal pain and back pain. It is very tender to palpation. Added ventral patch patient's pain medication regimen due to extreme pain. Lactic was ordered and came back within normal limits and a repeat CT scan was ordered as well. She denies any nausea. Patient's labs are stable and kidney function is within normal limits. Urine culture still pending at this time. Exam Narrative: GENERAL: Comfortable, no acute distress HENMT: moist mucous membranes EYES: EOM intact b/l NECK: no lymphadenopathy RESPIRATORY: clear to auscultation CARDIO: RRR GI: soft, bowel sounds present; Left-sided CVA tenderness, left sided abdominal tenderness SKIN: no rashes EXTREMITIES: no edema, redness or tenderness Objective Data Vital Signs Vital Signs: Vital Signs - 24 hr 11/21/23 15:59 11/21/23 20:02 11/22/23 03:56 Temperature 97.9 F 98.4 F 98.6 F Pulse Rate 83 101 H 92 Respiratory Rate 18 20 24 H Blood Pressure 148/70 H 130/80 136/90 Pulse Oximetry 96 97 98 Oxygen Delivery 11/22/23 08:27 11/22/23 08:30 11/22/23 14:00 Temperature 97.4 F L 97.1 F L Pulse Rate 92 91 Respiratory Rate 18 16 Blood Pressure 146/82 H 106/69 Pulse Oximetry 100 93 Oxygen Delivery Room Air Intake/Output Intake/Output: Intake & Output 11/19/23 11/20/23 11/21/23 11/22/23 23:59 23:59 23:59 23:59 Intake Total 50 890 570 Output Total 3 1200 250 Balance 47 -310 320 Meds/Results Medications: Active Medications Generic Name Dose Route Start Last Admin Trade Name Freq PRN Reason Stop Dose Admin Acetaminophen 650 mg 11/21/23 07:27 Acetaminophen 325 Mg Tablet PO Q6H PRN Pain (Scale Score 1-3) Albuterol 2 puff 11/21/23 07:27 Albuterol Sulfate (*Sp) Aerosol 1 Puff INHALATION QID PRN Shortness Of Breath Apixaban 5 mg 11/21/23 09:00 11/22/23 08:28 Apixaban 5 Mg Tablet PO 5 mg BID DEVAUGHN Administration Aspirin 81 mg 11/21/23 09:00 11/22/23 08:28 Aspirin 81 Mg Chewable Tablet PO 81 mg DAILY DEVAUGHN Administration Atorvastatin Calcium 10 mg 11/21/23 21:00 11/21/23 21:18 Atorvastatin 10 Mg Tablet PO 10 mg HS DEVAUGHN Administration Buspirone HCl 5 mg 11/21/23 09:00 11/22/23 12:49 Buspirone Hcl 5 Mg Tablet PO 5 mg TID DEVAUGHN Administration Diltiazem HCl 180 mg 11/21/23 09:00 11/22/23 08:28 Diltiazem Hcl Cd 180 Mg Cap.24hr PO 180 mg DAILY DEVAUGHN Administration Fentanyl 25
[2023-11-22] MEDS: LORazepam INJ (*CRX) 2 MG/ML VIAL 1 MG IV PUSH (16:00)
[2023-11-22] MEDS: MAGNESIUM CITRATE 300 ML BTL 150 ML PO (16:00)
[2023-11-22 18:46] VITALS: BP 119/78; PULSE 96; RESP 16; O2SAT 94
[2023-11-22 19:31] VITALS: BP 149/74; PULSE 98; RESP 16; TEMP 37.3; O2SAT 94
[2023-11-22] MEDS: ATORVASTATIN 10 MG TABLET PO (21:05)
[2023-11-23] MEDS: ACETAMINOPHEN 325 MG TABLET 650 MG PO ×2 (01:24→15:14)
[2023-11-23 04:35] VITALS: BP 124/58; PULSE 88; RESP 16; TEMP 36.6; O2SAT 94
[2023-11-23] MEDS: MEROPENEM 1 GM/NS 100 ML 1 GM/100 ML BAG IVPB ×3 (05:15→21:55)
[2023-11-23 06:20] LABS: Basophils Absolute Auto 0.1 K/mm3 (0.0-0.1); Basophils Percent Auto 0.6 % (0.2-1.2); Eosinophils Absolute Auto 0.2 K/mm3 (0-0.3); Hematocrit 39.1 % (37.0-47.0); Hemoglobin 12.2 g/dL (12.0-15.0); Immature Granulocyte Absolute 0.04 K/mm3 (0.00-0.031); Immature Granulocyte Percent A 0.3 % (0-0.5); Lymphocytes Absolute Auto 2.09 K/mm3 (0.9-3.2); Lymphocytes Percent Auto 17.8 % (18.3-44.2); Mean Corpuscular HGB Conc 31.2 g/dl (32-36); Mean Corpuscular Volume 89.7 fl (80-100); Mean Platelet Volume 10.9 fl (7.4-10.4); Monocytes Absolute Auto 1.2 K/mm3 (0.1-0.6); Monocytes Percent Auto 10.2 % (2.6-8.5); Neutrophils Absolute Auto 8.1 K/mm3 (1.3-6.7); Neutrophils Percent Auto 69.1 % (45.5-73.1); Platelet Count Result 351 k/mm3 (150-375); Red Blood Count 4.36 M/mm3 (4.2-5.4); Red Cell Distribution Width 15.6 % (11.5-14.5); White Blood Count 11.8 K/mm3 (4.5-10.0)
[2023-11-23 06:39] LABS: Alanine Aminotransferase 15 U/L (6-35); Albumin Level 3.4 g/dL (3.5-5.1); Alkaline Phosphatase 153 U/L (38-126); Anion Gap 9 mmol/L (8-16); Aspartate Amino Transferase 26 U/L (14-36); Bilirubin,Total 0.6 mg/dL (0.2-1.3); Blood Urea Nitrogen 15 mg/dL (7-17); Calcium 8.8 mg/dL (8.4-10.2); Carbon Dioxide 29 mmol/L (22-30); Chloride 99 mmol/L (98-107); Estimated CRCL calculation 84 ml/min; Estimated Glomerular Filt Rate > 60; Glucose 99 mg/dL (65-110); Potassium 3.7 mmol/L (3.4-5.0); Sodium 137 mmol/L (137-145)
[2023-11-23] MEDS: HYDROmorphone HCL INJ (*CRX) 1 MG/ML SYR IV PUSH ×3 (07:05→19:57)
[2023-11-23 09:11] VITALS: BP 125/67; PULSE 92; RESP 17; O2SAT 94
[2023-11-23] MEDS: dilTIAZem HCL CD 180 MG CAP.24HR PO (09:14)
[2023-11-23] MEDS: SUCRALFATE 1 GM TABLET PO ×4 (09:14→20:15)
[2023-11-23] MEDS: ASPIRIN 81 MG CHEWABLE TABLET PO (09:14)
[2023-11-23] MEDS: PANTOPRAZOLE 40 MG TABLET PO (09:14)
[2023-11-23] MEDS: levETIRAcetam 500 MG TABLET PO ×2 (09:14→19:06)
[2023-11-23] MEDS: polyethylene glycoL 3350 17 GM POWD.PACK PO (09:14)
[2023-11-23] MEDS: busPIRone HCL 5 MG TABLET PO ×3 (09:14→19:06)
[2023-11-23] MEDS: APIXABAN 5 MG TABLET PO ×2 (09:14→19:06)
[2023-11-23] MEDS: SENNA/DOCUSATE SODIUM TABLET 1 TAB PO ×2 (09:14→19:06)
[2023-11-23] MEDS: PARoxetine 20 MG TABLET PO (09:14)
[2023-11-23] MEDS: oxyCODONE HCL (*CRX) 5 MG TAB IR PO (09:24)
[2023-11-23] MEDS: UMECLIDINIUM BROMIDE 62.5 MCG ELLIPTA 1 PUFF INHALATION (09:47)
[2023-11-23 09:48] VITALS: O2SAT 94
--- NOTE | 2023-11-23 12:33 | PM.IMPN ---
Progress Note: A&P Assessment and Plan (1) Acute UTI: Code(s): N39.0 - Urinary tract infection, site not specified Status: Acute Assessment and Plan: UA suspicious for infection. Patient originally started on Rocephin but has history of ESBL and was transition to meropenem. Urine cultures positive for Proteus mirabilis and Providencia stuartii. Sensitivities pending. Adjust antibiotics to culture results. Patient may need IV antibiotics at home. (2) Acute flank pain: Code(s): R10.9 - Unspecified abdominal pain Status: Acute Assessment and Plan: Likely secondary to pyelonephritis Analgesics p.r.n. 11/21 Pain worsened today. Lactic acid and repeat CT scan ordered. Lactic acid within normal limits. CT scan showing constipation (3) Constipation: Qualifiers: Constipation type: drug induced constipation Qualified Code(s): K59.03 - Drug induced constipation Code(s): K59.00 - Constipation, unspecified Status: Acute Assessment and Plan: patient had CT of her abdomen pelvis revealing fecal impaction and constipation Patient was given 150 mL of Mag citrate and soapsuds enema. And patient had 1 bowel movement. she did have relief after this bowel movement. Will repeat again today (4) Acute metabolic encephalopathy: Code(s): G93.41 - Metabolic encephalopathy Status: Acute Assessment and Plan: Likely secondary to sepsis (5) Paroxysmal atrial fibrillation: Code(s): I48.0 - Paroxysmal atrial fibrillation Status: Acute Assessment and Plan: Rate controlled (6) Chronic obstructive pulmonary disease: Code(s): J44.9 - Chronic obstructive pulmonary disease, unspecified Status: Acute Assessment and Plan: Not actively wheezing. Stable. (7) Gastroesophageal reflux disease: Code(s): K21.9 - Gastro-esophageal reflux disease without esophagitis Status: Acute Assessment and Plan: PPI Subjective Date/time seen: 11/23/23 12:33 Interval history: Patient continues to have abdominal discomfort although it is better today. She did have 1 bowel movement yesterday after her enema and magnesium citrate was given. Attempted to call patient's daughter to discuss patient's baseline pain level due to her being on oxycodone at home. She did not answer the phone but a message was left for her. Due to her chronic opioid use it likely makes her constipation worse. Exam Narrative: GENERAL: Comfortable, no acute distress HENMT: moist mucous membranes EYES: EOM intact b/l NECK: no lymphadenopathy RESPIRATORY: clear to auscultation CARDIO: RRR GI: soft, bowel sounds present, abdominal tenderess. SKIN: no rashes EXTREMITIES: no edema, redness or tenderness Objective Data Vital Signs Vital Signs: Vital Signs - 24 hr 11/22/23 14:00 11/22/23 18:46 11/22/23 19:31 Temperature 97.1 F L 99.2 F Pulse Rate 91 96 98 Respiratory Rate 16 16 16 Blood Pressure 106/69 119/78 149/74 H Pulse Oximetry 93 94 94 Oxygen Delivery 11/22/23 20:00 11/23/23 04:35 11/23/23 09:11 Temperature 97.8 F Pulse Rate 88 92 Respiratory Rate 16 17 Blood Pressure 124/58 L 125/67 Pulse Oximetry 94 94 Oxygen Delivery Room Air 11/23/23 09:48 11/23/23 09:25 Temperature Pulse Rate Respiratory Rate Blood Pressure Pulse Oximetry 94 Oxygen Delivery Room Air Room Air Intake/Output Intake/Output: Intake & Output 11/20/23 11/21/23 11/22/23 11/23/23 23:59 23:59 23:59 23:59 Intake Total 50 890 770 100 Output Total 3 1200 250 400 Balance 47 -310 520 -300 Meds/Results Medications: Active Medications Generic Name Dose Route Start Last Admin Trade Name Freq PRN Reason Stop Dose Admin Acetaminophen 650 mg 11/21/23 07:27 11/23/23 01:24 Acetaminophen 325 Mg Tablet PO 650 mg Q6H PRN Administration Pain (Sca
[2023-11-23 14:00] VITALS: BP 125/62; PULSE 66; RESP 12; TEMP 36.9; O2SAT 93
[2023-11-23 19:59] VITALS: BP 133/63; PULSE 79; RESP 16; TEMP 36.7; O2SAT 97
[2023-11-23] MEDS: ATORVASTATIN 10 MG TABLET PO (20:15)
[2023-11-24 04:24] VITALS: BP 129/68; PULSE 82; RESP 16; TEMP 37; O2SAT 99
[2023-11-24] MEDS: HYDROmorphone HCL INJ (*CRX) 1 MG/ML SYR IV PUSH ×5 (04:45→21:33)
[2023-11-24] MEDS: MEROPENEM 1 GM/NS 100 ML 1 GM/100 ML BAG IVPB ×3 (05:24→21:34)
[2023-11-24 06:00] LABS: Hematocrit 39.1 % (37.0-47.0); Hemoglobin 12.3 g/dL (12.0-15.0); Mean Corpuscular HGB Conc 31.5 g/dl (32-36); Mean Corpuscular Hemoglobin 27.7 pg (26-34); Mean Corpuscular Volume 88.1 fl (80-100); Mean Platelet Volume 10.4 fl (7.4-10.4); Platelet Count Result 353 k/mm3 (150-375); Red Blood Count 4.44 M/mm3 (4.2-5.4); Red Cell Distribution Width 15.4 % (11.5-14.5); White Blood Count 8.2 K/mm3 (4.5-10.0)
[2023-11-24 06:15] LABS: Anion Gap 9 mmol/L (8-16); Blood Urea Nitrogen 10 mg/dL (7-17); Calcium 8.7 mg/dL (8.4-10.2); Carbon Dioxide 29 mmol/L (22-30); Chloride 100 mmol/L (98-107); Estimated CRCL calculation 99 ml/min; Estimated Glomerular Filt Rate > 60; Glucose 110 mg/dL (65-110); Potassium 3.6 mmol/L (3.4-5.0); Sodium 138 mmol/L (137-145)
[2023-11-24 09:25] VITALS: BP 106/75; PULSE 88; RESP 16; TEMP 36.3; O2SAT 97
[2023-11-24] MEDS: PANTOPRAZOLE 40 MG TABLET PO (09:35)
[2023-11-24] MEDS: busPIRone HCL 5 MG TABLET PO ×3 (09:35→18:35)
[2023-11-24] MEDS: polyethylene glycoL 3350 17 GM POWD.PACK PO (09:35)
[2023-11-24] MEDS: ASPIRIN 81 MG CHEWABLE TABLET PO (09:35)
[2023-11-24] MEDS: dilTIAZem HCL CD 180 MG CAP.24HR PO (09:35)
[2023-11-24] MEDS: PARoxetine 20 MG TABLET PO (09:35)
[2023-11-24] MEDS: APIXABAN 5 MG TABLET PO ×2 (09:35→18:35)
[2023-11-24] MEDS: levETIRAcetam 500 MG TABLET PO ×2 (09:35→18:35)
[2023-11-24] MEDS: SUCRALFATE 1 GM TABLET PO ×4 (09:36→21:34)
[2023-11-24] MEDS: ACETAMINOPHEN 325 MG TABLET 650 MG PO (09:36)
[2023-11-24] MEDS: SENNA/DOCUSATE SODIUM TABLET 1 TAB PO ×2 (09:36→18:35)
[2023-11-24] MEDS: UMECLIDINIUM BROMIDE 62.5 MCG ELLIPTA 1 PUFF INHALATION (10:55)
[2023-11-24] MEDS: oxyCODONE HCL (*CRX) 5 MG TAB IR PO (13:15)
[2023-11-24 13:24] VITALS: BP 113/61; PULSE 86; RESP 18; TEMP 36.4; O2SAT 98
--- NOTE | 2023-11-24 14:19 | PM.IMPN ---
Progress Note: A&P Assessment and Plan (1) Acute UTI: Code(s): N39.0 - Urinary tract infection, site not specified Status: Acute Assessment and Plan: UA suspicious for infection. Patient originally started on Rocephin but has history of ESBL and was transition to meropenem. Urine cultures positive for Proteus mirabilis and Providencia stuartii. Sensitivities pending. Adjust antibiotics to culture results. Patient may need IV antibiotics at home. (2) Acute flank pain: Code(s): R10.9 - Unspecified abdominal pain Status: Acute Assessment and Plan: Likely secondary to pyelonephritis Analgesics p.r.n. 11/21 Pain worsened today. Lactic acid and repeat CT scan ordered. Lactic acid within normal limits. CT scan showing constipation (3) Constipation: Qualifiers: Constipation type: drug induced constipation Qualified Code(s): K59.03 - Drug induced constipation Code(s): K59.00 - Constipation, unspecified Status: Acute Assessment and Plan: patient had CT of her abdomen pelvis revealing fecal impaction and constipation 11/23 Patient was given 150 mL of Mag citrate and soapsuds enema. And patient had 1 bowel movement. she did have relief after this bowel movement. 11/24 KUB showing impaction and constipation throughout the colon. Discussed with GI. Will do 1 more round of Mag citrate and a soapsuds enema. If patient does not have bowel movement will consult GI tomorrow. (4) Acute metabolic encephalopathy: Code(s): G93.41 - Metabolic encephalopathy Status: Acute Assessment and Plan: Likely secondary to sepsis (5) Paroxysmal atrial fibrillation: Code(s): I48.0 - Paroxysmal atrial fibrillation Status: Acute Assessment and Plan: Rate controlled (6) Chronic obstructive pulmonary disease: Code(s): J44.9 - Chronic obstructive pulmonary disease, unspecified Status: Acute Assessment and Plan: Not actively wheezing. Stable. (7) Gastroesophageal reflux disease: Code(s): K21.9 - Gastro-esophageal reflux disease without esophagitis Status: Acute Assessment and Plan: PPI Subjective Date/time seen: 11/24/23 14:19 Interval history: Patient continues abdominal pain. She is severely constipated. Discussed her care with GI and will do another enema and Mag citrate today. Possible GI consultation tomorrow. Urine sensitivities came back and ceftriaxone was added to patient's meropenem. Patient very well may have to stay in the hospital to get her IV antibiotics to completion. Will wait to see if patient gets some relief with possible bowel movement later today. If not GI will see her tomorrow. Exam Narrative: GENERAL: Comfortable, no acute distress HENMT: moist mucous membranes EYES: EOM intact b/l NECK: no lymphadenopathy RESPIRATORY: clear to auscultation CARDIO: RRR GI: soft, bowel sounds present, abdominal tenderess. SKIN: no rashes EXTREMITIES: no edema, redness or tenderness Objective Data Vital Signs Vital Signs: Vital Signs - 24 hr 11/23/23 19:59 11/23/23 20:00 11/24/23 04:24 Temperature 98.1 F 98.6 F Pulse Rate 79 82 Respiratory Rate 16 16 Blood Pressure 133/63 129/68 Pulse Oximetry 97 99 Oxygen Delivery Room Air 11/24/23 09:25 11/24/23 09:45 11/24/23 13:24 Temperature 97.3 F L 97.6 F Pulse Rate 88 86 Respiratory Rate 16 18 Blood Pressure 106/75 113/61 Pulse Oximetry 97 98 Oxygen Delivery Room Air Intake/Output Intake/Output: Intake & Output 11/21/23 11/22/23 11/23/23 11/24/23 23:59 23:59 23:59 23:59 Intake Total 621 799 9712 390 Output Total 7695 913 6857 500 Balance -310 520 140 -110 Meds/Results Medications: Active Medications Generic Name Dose Route Start Last Admin Trade Name Freq PRN Reason Stop Dose Admin Acetaminophen 650 mg 11/21/23 07:27 11/02
[2023-11-24] MEDS: LACTULOSE 20 GM/30 ML UDC PO (15:07)
[2023-11-24] MEDS: MAGNESIUM CITRATE 300 ML BTL PO (15:07)
[2023-11-24 20:00] VITALS: PULSE 86; RESP 18; O2SAT 98
[2023-11-24 21:24] VITALS: BP 103/69; PULSE 88; RESP 16; TEMP 36.6; O2SAT 91
[2023-11-24] MEDS: ATORVASTATIN 10 MG TABLET PO (21:34)
[2023-11-25] MEDS: HYDROmorphone HCL INJ (*CRX) 1 MG/ML SYR IV PUSH ×4 (03:39→22:37)
[2023-11-25 05:45] LABS: Hematocrit 40.3 % (37.0-47.0); Hemoglobin 12.4 g/dL (12.0-15.0); Mean Corpuscular HGB Conc 30.8 g/dl (32-36); Mean Corpuscular Hemoglobin 27.9 pg (26-34); Mean Corpuscular Volume 90.6 fl (80-100); Mean Platelet Volume 10.3 fl (7.4-10.4); Platelet Count Result 383 k/mm3 (150-375); Red Blood Count 4.45 M/mm3 (4.2-5.4); Red Cell Distribution Width 15.3 % (11.5-14.5); White Blood Count 7.2 K/mm3 (4.5-10.0)
[2023-11-25] MEDS: MEROPENEM 1 GM/NS 100 ML 1 GM/100 ML BAG IVPB ×3 (05:45→22:10)
[2023-11-25 06:00] VITALS: BP 118/60; PULSE 72; RESP 16; TEMP 36.5; O2SAT 94
[2023-11-25 06:06] LABS: Alanine Aminotransferase 17 U/L (6-35); Albumin Level 3.4 g/dL (3.5-5.1); Alkaline Phosphatase 154 U/L (38-126); Anion Gap 7 mmol/L (8-16); Aspartate Amino Transferase 32 U/L (14-36); Bilirubin,Total 0.4 mg/dL (0.2-1.3); Blood Urea Nitrogen 9 mg/dL (7-17); Calcium 8.7 mg/dL (8.4-10.2); Carbon Dioxide 32 mmol/L (22-30); Chloride 100 mmol/L (98-107); Estimated CRCL calculation 84 ml/min; Estimated Glomerular Filt Rate > 60; Glucose 104 mg/dL (65-110); Potassium 3.3 mmol/L (3.4-5.0); Sodium 139 mmol/L (137-145)
[2023-11-25] MEDS: UMECLIDINIUM BROMIDE 62.5 MCG ELLIPTA 1 PUFF INHALATION (08:22)
[2023-11-25 08:23] VITALS: O2SAT 98
[2023-11-25 09:00] VITALS: O2SAT 98
[2023-11-25] MEDS: PANTOPRAZOLE 40 MG TABLET PO (09:03)
[2023-11-25] MEDS: dilTIAZem HCL CD 180 MG CAP.24HR PO (09:03)
[2023-11-25] MEDS: ASPIRIN 81 MG CHEWABLE TABLET PO (09:04)
[2023-11-25] MEDS: POTASSIUM CHLORIDE 20 MEQ ER TABLET 40 MEQ PO (09:04)
[2023-11-25] MEDS: SUCRALFATE 1 GM TABLET PO ×4 (09:04→22:05)
[2023-11-25] MEDS: SENNA/DOCUSATE SODIUM TABLET 1 TAB PO ×2 (09:05→17:16)
[2023-11-25] MEDS: PARoxetine 20 MG TABLET PO (09:06)
[2023-11-25] MEDS: polyethylene glycoL 3350 17 GM POWD.PACK PO (09:06)
[2023-11-25] MEDS: LACTULOSE 20 GM/30 ML UDC PO (09:06)
[2023-11-25] MEDS: busPIRone HCL 5 MG TABLET PO ×3 (09:06→17:16)
[2023-11-25] MEDS: APIXABAN 5 MG TABLET PO ×2 (09:06→17:17)
[2023-11-25] MEDS: levETIRAcetam 500 MG TABLET PO ×2 (09:06→17:16)
[2023-11-25] MEDS: fentaNYL (*CRX) 25 MCG PATCH TRANSDERM (09:07)
--- NOTE | 2023-11-25 11:46 | PM.IMPN ---
Progress Note: A&P Assessment and Plan (1) Acute UTI: Code(s): N39.0 - Urinary tract infection, site not specified Status: Acute Assessment and Plan: UA suspicious for infection. Patient originally started on Rocephin but has history of ESBL and was transition to meropenem. Urine cultures positive for Proteus mirabilis and Providencia stuartii. Sensitivities pending. Adjust antibiotics to culture results. Patient may need IV antibiotics at home. (2) Acute flank pain: Code(s): R10.9 - Unspecified abdominal pain Status: Acute Assessment and Plan: Likely secondary to pyelonephritis Analgesics p.r.n. 11/21 Pain worsened today. Lactic acid and repeat CT scan ordered. Lactic acid within normal limits. CT scan showing constipation (3) Constipation: Qualifiers: Constipation type: drug induced constipation Qualified Code(s): K59.03 - Drug induced constipation Code(s): K59.00 - Constipation, unspecified Status: Acute Assessment and Plan: patient had CT of her abdomen pelvis revealing fecal impaction and constipation 11/23 Patient was given 150 mL of Mag citrate and soapsuds enema. And patient had 1 bowel movement. she did have relief after this bowel movement. 11/24 KUB showing impaction and constipation throughout the colon. Discussed with GI. Will do 1 more round of Mag citrate and a soapsuds enema. If patient does not have bowel movement will consult GI tomorrow. 11/25 Patient continued to have ongoing abdominal pain. Repeat KUB showing prominent gaseous distention of the colon without evidence of bowel obstruction. GI consulted. (4) Acute metabolic encephalopathy: Code(s): G93.41 - Metabolic encephalopathy Status: Acute Assessment and Plan: Likely secondary to sepsis (5) Paroxysmal atrial fibrillation: Code(s): I48.0 - Paroxysmal atrial fibrillation Status: Acute Assessment and Plan: Rate controlled (6) Chronic obstructive pulmonary disease: Code(s): J44.9 - Chronic obstructive pulmonary disease, unspecified Status: Acute Assessment and Plan: Not actively wheezing. Stable. (7) Gastroesophageal reflux disease: Code(s): K21.9 - Gastro-esophageal reflux disease without esophagitis Status: Acute Assessment and Plan: PPI Subjective Date/time seen: 11/25/23 11:46 Interval history: Patient continues to have abdominal pain. She did have bowel movement early this morning although she is still distended. Repeat KUB showing prominent gaseous distention of the colon without evidence of obstruction. Will consult GI to review imaging to see if patient needs any surgical intervention at this time. Exam Narrative: GENERAL: Comfortable, no acute distress HENMT: moist mucous membranes EYES: EOM intact b/l NECK: no lymphadenopathy RESPIRATORY: clear to auscultation CARDIO: RRR GI: soft, bowel sounds present, abdominal tenderess. SKIN: no rashes EXTREMITIES: no edema, redness or tenderness Objective Data Vital Signs Vital Signs: Vital Signs - 24 hr 11/24/23 13:24 11/24/23 20:00 11/24/23 21:24 Temperature 97.6 F 97.9 F Pulse Rate 86 86 88 Respiratory Rate 18 18 16 Blood Pressure 113/61 103/69 Pulse Oximetry 98 98 91 Oxygen Delivery Room Air Oxygen Flow Rate Fraction of Inspired Oxygen 11/25/23 06:00 11/25/23 08:23 Temperature 97.7 F Pulse Rate 72 Respiratory Rate 16 Blood Pressure 118/60 Pulse Oximetry 94 98 Oxygen Delivery Nasal Cannula Oxygen Flow Rate 2 Fraction of Inspired Oxygen 28 Intake/Output Intake/Output: Intake & Output 11/22/23 11/23/23 11/24/23 11/25/23 23:59 23:59 23:59 23:59 Intake Total 770 1190 1220 530 Output Total 250 1050 900 400 Balance 520 140 320 130 Meds/Results Medications: Active Medications Generic Name Dose Route Start Last Admin
[2023-11-25] MEDS: SIMETHICONE 125 MG CHEW TAB PO ×3 (12:40→22:05)
--- NOTE | 2023-11-25 13:18 | WPDGICN ---
Assessment and Plan Assessment and plan (1) Constipation: Qualifiers: Constipation type: drug induced constipation Qualified Code(s): K59.03 - Drug induced constipation Code(s): K59.00 - Constipation, unspecified Status: Acute Assessment and Plan: will give bowel prep and tomorrow attempt colonoscopy, if she is not clean out we could do sigmoidoscopy continue with laxatives prn (2) Acute UTI: Code(s): N39.0 - Urinary tract infection, site not specified Status: Acute Assessment and Plan: on abx (3) Acute metabolic encephalopathy: Code(s): G93.41 - Metabolic encephalopathy Status: Acute Assessment and Plan: improved (4) Chronic anticoagulation: Code(s): Z79.01 - manager long term care (current) use of anticoagulants Status: Acute Assessment and Plan: on eliquis GI Consult Note Consult date/time: 11/25/23 13:18 Reason for consult: constipation HPI: Lexus Veliz is a 73 year old female who is a skilled nursing resident, past medical history significant for atrial fibrillation, rate controlled anticoagulated, chronic left hip pain and osteomyelitis, patient is mostly bed ridden, wheelchair-bound, COPD/emphysema, chronic pain disorder, gastroesophageal reflux disease, type 2 diabetes mellitus. She has been in and out of hospitals and rehabilitation centers for the last 3 years. Patient was brought to the emergency room due to left flank pain also c/o left hip pain. CT scan showed large amount stool and has been getting stool softener/laxatives, finally had some BM last night but still some abdominal discomfort. She says that had colonoscopy but years ago, she is not best historian. Also treated for uti and encephalopathy. Review of Systems Constitutional: Constitutional: Denies chills Eyes: Eyes: Denies blurry vision ENT: Reports Normal hearing present Cardiovascular: Cardiovascular: Denies chest pain Respiratory: Respiratory: Denies cough Gastrointestinal: Gastrointestinal: Reports abdominal pain and Reports constipation Musculoskeletal: Musculoskeletal: Reports arthralgias (left hip- chronic) Integumentary/Breasts: Skin/Breast: Denies rash Neurologic: Reports confusion Psychiatric: Psychiatric: Reports anxiety [facility] Past Medical History Medical History (Updated 11/23/23 @ 12:37 by Steff Odell PA-C) Anxiety Chronic anticoagulation Chronic obstructive pulmonary disease Chronic pain disorder Depression Diabetic peripheral neuropathy Gastroesophageal reflux disease Hypertension Obstructive sleep apnea Paroxysmal atrial fibrillation Pneumonia due to COVID-19 virus (01/2023) Seizure-like activity (05/2023) Type 2 diabetes mellitus Vasculitis determined by biopsy of skin Vitamin D deficiency Surgical History Surgical History History of colonoscopy with polypectomy History of hysterectomy History of left hip replacement Family History Family History Sibling Heart disease Son COPD (chronic obstructive pulmonary disease) Daughter Sleep apnea Father Colon polyp Mother Colon polyp Colon cancer Social History Social History Social History: Healthcare power of corporate attorney: Karina Veliz. Code status: Full code. Smoking packs per day: 2 Smoking cigarettes per day: 40.0 Years smoked: 25 Smoking pack-years: 50.00 Smoking status: Former smoker Tobacco type: cigarettes Alcohol intake: never Substance use: never Substance use type: does not use Do You Feel Safe in your Home?: Yes Lack of Transportation: No Lack of Food: Never True Current Housing: I Have Housing Concerned About Future Housing: No Difficulty Paying Gas/Electric Bills: No Difficulty Paying for Meds: No Currently Unemployed: No [employer]
[2023-11-25 15:15] VITALS: BP 112/63; PULSE 78; RESP 18; TEMP 36.2; O2SAT 91
[2023-11-25] MEDS: polyethylene glycoL 3350 238 GM BOTTLE PO (17:17)
[2023-11-25] MEDS: BISACODYL 5 MG TABLET EC 20 MG PO (17:20)
--- NOTE | 2023-11-25 19:14 | PC.NURSE ---
11/25/23 18:15 Spoke on the phone with daughter about concerns for colonoscopy tomorrow, and asked if the doctor can do an EGD and colonoscopy because she's supposed to have one at [facility] with her GI doctor. Explained that I can call the doctor and inform of her concerns. Called Dr. Howard and explained of the concerns. He will attempt to contact daughter tomorrow.
[2023-11-25 19:39] VITALS: BP 143/70; PULSE 74; RESP 20; TEMP 36.2; O2SAT 96
[2023-11-25] MEDS: ATORVASTATIN 10 MG TABLET PO (22:05)
[2023-11-26] VITALS (10 sets, daily range): BP systolic 88–136; BP diastolic 48–81; PULSE 66–95; RESP 14–22; TEMP 35.5–36.5; O2SAT 93–100
[2023-11-26] MEDS: MAGNESIUM CITRATE 300 ML BTL PO ×2 (02:30→08:22)
[2023-11-26] MEDS: ONDANSETRON HCL ODT 4 MG TABLET PO (02:49)
[2023-11-26] MEDS: MEROPENEM 1 GM/NS 100 ML 1 GM/100 ML BAG IVPB ×3 (05:40→21:53)
[2023-11-26 07:05] LABS: Hematocrit 40.2 % (37.0-47.0); Hemoglobin 12.4 g/dL (12.0-15.0); Mean Corpuscular HGB Conc 30.8 g/dl (32-36); Mean Corpuscular Hemoglobin 28.2 pg (26-34); Mean Corpuscular Volume 91.4 fl (80-100); Mean Platelet Volume 10.3 fl (7.4-10.4); Platelet Count Result 389 k/mm3 (150-375); Red Cell Distribution Width 15.3 % (11.5-14.5); White Blood Count 8.6 K/mm3 (4.5-10.0)
[2023-11-26] MEDS: UMECLIDINIUM BROMIDE 62.5 MCG ELLIPTA 1 PUFF INHALATION (09:07)
[2023-11-26 10:40] LABS: Alanine Aminotransferase 19 U/L (6-35); Albumin Level 3.7 g/dL (3.5-5.1); Alkaline Phosphatase 174 U/L (38-126); Anion Gap 9 mmol/L (8-16); Aspartate Amino Transferase 33 U/L (14-36); Bilirubin,Total 0.4 mg/dL (0.2-1.3); Blood Urea Nitrogen 4 mg/dL (7-17); Calcium 9.1 mg/dL (8.4-10.2); Carbon Dioxide 28 mmol/L (22-30); Chloride 104 mmol/L (98-107); Estimated CRCL calculation 84 ml/min; Estimated Glomerular Filt Rate > 60; Glucose 104 mg/dL (65-110); Potassium 3.7 mmol/L (3.4-5.0); Sodium 141 mmol/L (137-145)
[2023-11-26 13:38] LABS: Glucose Point of Care 92 mg/dl (65-105)
[2023-11-26] MEDS: LACTATED RINGERS 1,000 ML 150 ML IV CONT (13:41)
--- NOTE | 2023-11-26 13:42 | WPDANESEPPF ---
Anes - Initial Pre Proc Eval Procedure: Operation Date: 11/26/23 15:00 Proposed Procedures p Esophagogastroduodenoscopy & Colonoscopy - Ankit Perales MD Date/Time: 11/26/23 13:42 Surgeon: Vincenzo Perez MD Pre Op Diagnosis: Flank Pain, UTI Patient Data Age: 73 Gender: F Height: 1.73 m Weight: 92.3 kg Last Vital Signs Temp 97.7 F 11/26/23 13:37 Pulse 91 11/26/23 13:37 Resp 20 11/26/23 13:37 BP 136/69 11/26/23 13:37 Pulse Ox 95 11/26/23 13:37 O2 Del Method Room Air 11/26/23 13:37 O2 Flow Rate 2 11/25/23 09:00 FiO2 21 11/26/23 09:06 Allergies Allergy/AdvReac Type Severity Reaction Status Date / Time iodine Allergy Unknown Verified 11/20/23 19:44 latex Allergy Unknown Verified 11/20/23 19:44 meperidine Allergy Unknown Verified 11/20/23 19:44 Penicillins Allergy Unknown Verified 11/20/23 19:44 piperacillin [From Zosyn] Allergy Unknown Verified 11/20/23 19:44 tazobactam [From Zosyn] Allergy Unknown Verified 11/20/23 19:44 Home Medications Medication Instructions Recorded Confirmed Type acetaminophen 325 mg capsule 650 mg PO Q6H PRN Pain (Scale 11/14/21 11/20/23 History (Tylenol) Score 1-3) albuterol sulfate 90 mcg/actuation 2 inh inhalation QID PRN Shortness 11/14/21 11/20/23 History aerosol inhaler (ProAir HFA) Of Breath aspirin 81 mg chewable tablet 81 mg PO DAILY 11/14/21 11/20/23 History atorvastatin 10 mg tablet (Lipitor) 10 mg PO HS 11/14/21 11/20/23 History diltiazem HCl 180 mg capsule,24 180 mg PO DAILY 11/14/21 11/20/23 History hr,extended release (Tiazac) paroxetine HCl 20 mg tablet 20 mg PO DAILY 11/14/21 11/20/23 History tiotropium bromide 18 mcg capsule 1 cap inhalation DAILY 11/14/21 11/20/23 History with inhalation device (Spiriva with HandiHaler) apixaban 5 mg tablet (Eliquis) 5 mg PO BID 03/26/23 11/20/23 History buspirone 5 mg tablet 5 mg PO TID 03/26/23 11/20/23 History cholecalciferol (vitamin D3) 25 25 mcg PO DAILY 03/26/23 11/20/23 History mcg (1,000 unit) tablet multivitamin d-vgsdkjap-[id number] 1 tablet PO DAILY 03/26/23 11/20/23 History fumarate 18 mg-vitamin K 25 mcg tablet nystatin 100,000 unit/gram topical 1 applic topical BID 03/26/23 11/20/23 History powder sucralfate 1 gram tablet 1 g PO QID 03/26/23 11/20/23 History glucagon 1 mg solution for 1 mg IM Q15M PRN Hypoglycemia 05/12/23 11/20/23 History injection (Glucagon Emergency Kit) guaifenesin 100 mg/5 mL oral liquid 200 mg PO Q6H PRN Cough 05/12/23 11/20/23 History naloxone 4 mg/actuation nasal spray 1 spray intranasal ONCE PRN Opioid 05/12/23 11/20/23 History Overdose nitroglycerin 0.4 mg sublingual 0.4 mg sublingual Q5M PRN Chest 05/12/23 11/20/23 History tablet Pain ondansetron 4 mg disintegrating 4 mg PO Q8H PRN Nausea And Vomiting 05/12/23 11/20/23 History tablet pantoprazole 40 mg tablet,delayed 40 mg PO QAM 05/12/23 11/20/23 History release sennosides 8.6 mg-docusate sodium 1 tab-cap PO BID 05/12/23 11/20/23 History 50 mg capsule (Senna Plus) levetiracetam 500 mg tablet 500 mg PO BID 07/27/23 11/20/23 History doxycycline hyclate 100 mg capsule 100 mg PO BID 11/20/23 11/20/23 History loperamide 2 mg tablet 4 mg PO Q8H PRN Diarrhea 11/20/23 11/20/23 History nystatin 100,000 unit/gram topical 1 applic topical PRN PRN reddened 11/20/23 11/20/23 History cream skin oxycodone 5 mg tablet 5 mg PO Q8H PRN Pain (Scale Score 11/20/23 11/20/23 History 4-6) Laboratory Tests 11/26/23 11/26/23 11/26/23 06:48 10:01 13:35 WBC 8.6 K/mm3 (4.5-10.0) RBC 4.40 M/mm3 (4.2-5.4) Hgb 12.4 g/dL (12.0-15.0) Hct 40.2 % (37.0-47.0) MCV 91.4 fl (80-100) MCH 28.2 pg (26-34) MCHC 30.8 L g/dl (32-36) RDW 15.3 H % (11.5-14.5) Plt Count 389 H k/mm3 (150-375) MPV 10.3 fl (7.4-10.4) Sodium 141 mmol/L (137-145)
--- NOTE | 2023-11-26 14:04 | PCNFU ---
Nutrition Follow-Up Complete: Inadequate Oral Intake as related to pain as evidenced by poor po intake and weight loss of 17 ibs(8%) in 4 months. Adequate Intake of at least 75% of meals/supplements - progressing. NPO today for colonoscopy Goal: Pt current nutrition is NPO for colonoscopy. Nutrition recommendation: Resume heart heart healthy diet and Ensure Compact BID when finished with procedure Last recorded weight is 92.3 kg. Bowel Motility: +3 BM 11/26/34 Labs Reviewed: BUN 4, Cre 0.6 Meds Noted: Meropenem Skin: No pressure injuries Additional Notes: Pt having colonscopy today. Intakes on previous diet 100% Will monitor weight, labs, skin, meds, oral intake every 5 days.
--- NOTE | 2023-11-26 14:14 | SUR.OPER ---
EGD end 1409 COLONOSCOPY START 1414
--- NOTE | 2023-11-26 14:39 | PM.IMPN ---
Progress Note: A&P Assessment and Plan (1) Acute UTI: Code(s): N39.0 - Urinary tract infection, site not specified Status: Acute Assessment and Plan: UA suspicious for infection. Patient originally started on Rocephin but has history of ESBL and was transition to meropenem. Urine cultures positive for Proteus mirabilis sensitive to meropenem and Providencia stuartii sensitive to rocephin. Will give cefdinir for 7 days. Give Ertapenem through 11/30/2023. Cefdinir through 12/03/22 Transition meropenem to ertapenem for discharge. Patient planned to get PICC line tomorrow. (2) Constipation: Qualifiers: Constipation type: drug induced constipation Qualified Code(s): K59.03 - Drug induced constipation Code(s): K59.00 - Constipation, unspecified Status: Acute Assessment and Plan: patient had CT of her abdomen pelvis revealing fecal impaction and constipation 11/23 Patient was given 150 mL of Mag citrate and soapsuds enema. And patient had 1 bowel movement. she did have relief after this bowel movement. 11/24 KUB showing impaction and constipation throughout the colon. Discussed with GI. Will do 1 more round of Mag citrate and a soapsuds enema. If patient does not have bowel movement will consult GI tomorrow. 11/25 Patient continued to have ongoing abdominal pain. Repeat KUB showing prominent gaseous distention of the colon without evidence of bowel obstruction. GI consulted. 11/26 Patient underwent colonoscopy and EGD today. Colonoscopy revealed diverticulosis and EGD showed gastritis. GI recommending starting patient on Linzess. (3) Acute flank pain: Code(s): R10.9 - Unspecified abdominal pain Status: Acute Assessment and Plan: Likely secondary to pyelonephritis Analgesics p.r.n. 11/21 Pain worsened today. Lactic acid and repeat CT scan ordered. Lactic acid within normal limits. CT scan showing constipation (4) Acute metabolic encephalopathy: Code(s): G93.41 - Metabolic encephalopathy Status: Acute Assessment and Plan: Likely secondary to sepsis (5) Paroxysmal atrial fibrillation: Code(s): I48.0 - Paroxysmal atrial fibrillation Status: Acute Assessment and Plan: Rate controlled (6) Chronic obstructive pulmonary disease: Code(s): J44.9 - Chronic obstructive pulmonary disease, unspecified Status: Acute Assessment and Plan: Not actively wheezing. Stable. (7) Gastroesophageal reflux disease: Code(s): K21.9 - Gastro-esophageal reflux disease without esophagitis Status: Acute Assessment and Plan: PPI Subjective Date/time seen: 11/26/23 14:39 Interval history: Patient's abdominal pain is improved today after she has had many bowel movements. Due to lack of vascular access patient unable to get PICC line today. Plan for PICC line tomorrow following a dose of ertapenem and patient should be able to discharge. Exam Narrative: GENERAL: Comfortable, no acute distress HENMT: moist mucous membranes EYES: EOM intact b/l NECK: no lymphadenopathy RESPIRATORY: clear to auscultation CARDIO: RRR GI: soft, bowel sounds present, abdominal tenderness. -- Improved SKIN: no rashes EXTREMITIES: no edema, redness or tenderness Objective Data Vital Signs Vital Signs: Vital Signs - 24 hr 11/25/23 15:15 11/25/23 19:39 11/25/23 20:00 Temperature 97.1 F L 97.1 F L Pulse Rate 78 74 Respiratory Rate 18 20 Blood Pressure 112/63 143/70 H Pulse Oximetry 91 96 Oxygen Delivery Room Air Oxygen Flow Rate Fraction of Inspired Oxygen 11/26/23 04:12 11/26/23 08:00 11/26/23 09:06 Temperature 96.8 F L Pulse Rate 89 Respiratory Rate 20 Blood Pressure 130/66 Pulse Oximetry 93 93 93 Oxygen Delivery Room Air Room Air Oxygen Flow Rate Fraction of Inspired Oxygen 21 11/26/23 13:37 11/26/23
[2023-11-26] MEDS: levETIRAcetam 500 MG TABLET PO (16:11)
[2023-11-26] MEDS: busPIRone HCL 5 MG TABLET PO (16:11)
[2023-11-26] MEDS: PARoxetine 20 MG TABLET PO (16:11)
[2023-11-26] MEDS: PANTOPRAZOLE 40 MG TABLET PO (16:11)
[2023-11-26] MEDS: ASPIRIN 81 MG CHEWABLE TABLET PO (16:11)
[2023-11-26] MEDS: dilTIAZem HCL CD 180 MG CAP.24HR PO (16:11)
[2023-11-26] MEDS: SUCRALFATE 1 GM TABLET PO ×2 (16:11→20:16)
[2023-11-26] MEDS: SIMETHICONE 125 MG CHEW TAB PO ×2 (16:11→20:15)
[2023-11-26] MEDS: APIXABAN 5 MG TABLET PO (16:11)
[2023-11-26] MEDS: HYDROmorphone HCL INJ (*CRX) 1 MG/ML SYR IV PUSH ×2 (18:53→21:55)
[2023-11-26] MEDS: CEFDINIR 300 MG CAPSULE PO (20:16)
[2023-11-26] MEDS: ATORVASTATIN 10 MG TABLET PO (20:16)
[2023-11-27 03:45] VITALS: BP 110/72; PULSE 86; RESP 20; TEMP 35.7; O2SAT 100
[2023-11-27 05:57] LABS: Hematocrit 40.8 % (37.0-47.0); Hemoglobin 12.4 g/dL (12.0-15.0); Mean Corpuscular HGB Conc 30.4 g/dl (32-36); Mean Corpuscular Hemoglobin 27.8 pg (26-34); Mean Corpuscular Volume 91.5 fl (80-100); Mean Platelet Volume 10.3 fl (7.4-10.4); Platelet Count Result 355 k/mm3 (150-375); Red Blood Count 4.46 M/mm3 (4.2-5.4); Red Cell Distribution Width 15.1 % (11.5-14.5); White Blood Count 8.6 K/mm3 (4.5-10.0)
[2023-11-27] MEDS: LINACLOTIDE 72 MCG CAPSULE PO (06:02)
--- NOTE | 2023-11-27 07:47 | WPDANESPN ---
Anes - Prog Note Post-Op Date/Time: 11/27/23 07:47 Cardiovascular status: normal Respiratory status: normal Airway patency: baseline Mental status: baseline Post-Op hydration status: normal Vital Signs: Last Vital Signs Temp 35.7 C L 11/27/23 03:45 Pulse 86 11/27/23 03:45 Resp 20 11/27/23 03:45 BP 110/72 11/27/23 03:45 Pulse Ox 100 11/27/23 03:45 O2 Del Method Nasal Cannula 11/26/23 20:12 O2 Flow Rate 2 11/26/23 20:12 FiO2 21 11/26/23 09:06 Pain Score (VAS): 02/08 I/O: Intake & Output 11/26/23 11/26/23 11/27/23 15:59 23:59 07:59 Intake Total 50 590 290 Output Total 50 Balance 50 590 240 Laboratory Tests 11/27/23 05:35 11/26/23 11/26/23 11/27/23 10:01 13:35 05:35 WBC 8.6 RBC 4.46 Hgb 12.4 Hct 40.8 MCV 91.5 MCH 27.8 MCHC 30.4 L RDW 15.1 H Plt Count 355 MPV 10.3 Sodium 141 Pending Potassium 3.7 Pending Chloride 104 Pending Carbon Dioxide 28 Pending Anion Gap 9 Pending BUN 4 L D Pending Creatinine 0.60 L Pending Estim Creat Clear Calc 84 Pending Estimated GFR > 60 Pending Glucose 104 Pending POC Capillary Glucose 92 Calcium 9.1 Pending Total Bilirubin 0.4 Pending AST 33 Pending ALT 19 Pending Alkaline Phosphatase 174 H Pending Total Protein 7.0 Pending Albumin 3.7 Pending Post-procedural complaints: none Patient Feedback: Patient satisfied with anesthetic care.
[2023-11-27] MEDS: UMECLIDINIUM BROMIDE 62.5 MCG ELLIPTA 1 PUFF INHALATION (07:56)
[2023-11-27 07:58] VITALS: O2SAT 99
[2023-11-27] MEDS: LACTULOSE 20 GM/30 ML UDC PO (09:26)
[2023-11-27] MEDS: polyethylene glycoL 3350 17 GM POWD.PACK PO (09:28)
[2023-11-27] MEDS: ASPIRIN 81 MG CHEWABLE TABLET PO (09:28)
[2023-11-27] MEDS: PANTOPRAZOLE 40 MG TABLET PO (09:28)
[2023-11-27] MEDS: dilTIAZem HCL CD 180 MG CAP.24HR PO (09:28)
[2023-11-27] MEDS: CEFDINIR 300 MG CAPSULE PO (09:30)
[2023-11-27] MEDS: SENNA/DOCUSATE SODIUM TABLET 1 TAB PO ×2 (09:30→17:21)
[2023-11-27] MEDS: levETIRAcetam 500 MG TABLET PO ×2 (09:30→17:21)
[2023-11-27] MEDS: SIMETHICONE 125 MG CHEW TAB PO ×3 (09:30→17:20)
[2023-11-27] MEDS: PARoxetine 20 MG TABLET PO (09:30)
[2023-11-27] MEDS: SUCRALFATE 1 GM TABLET PO ×3 (09:30→17:21)
[2023-11-27] MEDS: APIXABAN 5 MG TABLET PO ×2 (09:30→17:21)
[2023-11-27] MEDS: busPIRone HCL 5 MG TABLET PO ×2 (09:31→13:00)
[2023-11-27] MEDS: oxyCODONE HCL (*CRX) 5 MG TAB IR PO (11:12)
[2023-11-27] MEDS: HYDROmorphone HCL INJ (*CRX) 1 MG/ML SYR IV PUSH ×2 (13:01→17:28)
[2023-11-27] MEDS: ERTAPENEM 1 GM/NS 50 ML 1 GM/50 ML BAG IVPB (13:02)
[2023-11-27] MEDS: LIDOCAINE HCL 1% LOCAL INJ 2 ML AMPUL 5 ML INFILTRATE (13:04)
[2023-11-27 13:11] LABS: Alanine Aminotransferase 17 U/L (6-35); Alkaline Phosphatase 148 U/L (38-126); Anion Gap 3 mmol/L (8-16); Aspartate Amino Transferase 34 U/L (14-36); Bilirubin,Total 0.3 mg/dL (0.2-1.3); Blood Urea Nitrogen 8 mg/dL (7-17); Calcium 9.1 mg/dL (8.4-10.2); Carbon Dioxide 32 mmol/L (22-30); Chloride 106 mmol/L (98-107); Estimated CRCL calculation 84 ml/min; Estimated Glomerular Filt Rate > 60; Glucose 97 mg/dL (65-110); Potassium 3.8 mmol/L (3.4-5.0); Sodium 141 mmol/L (137-145)
--- NOTE | 2023-11-27 13:58 | PM.DS ---
DS: Admitting Diagnosis Discharge Date 11/27/2023 Admitting Diagnosis Acute UTI Acute flank pain Lactic acidosis Therapeutic opioid induced constipation DS: Discharge Diagnosis Discharge Diagnosis (1) Therapeutic opioid induced constipation: Code(s): K59.03 - Drug induced constipation; T40.2X5A - Adverse effect of other opioids, initial encounter Status: Acute Assessment and Plan: Resolved, EGD and colonoscopy unremarkable. Will start Linzess daily. (2) Acute UTI: Code(s): N39.0 - Urinary tract infection, site not specified Status: Acute Assessment and Plan: MDRO-discharge on cefdinir and ertapenem (3) Acute flank pain: Code(s): R10.9 - Unspecified abdominal pain Status: Acute Assessment and Plan: MDRO-discharge on cefdinir and ertapenem (4) Lactic acidosis: Code(s): E87.20 - Acidosis, unspecified Status: Acute Assessment and Plan: resolved DS: Summary Hospital Course Reason for hospitalization: Acute UTI Acute flank pain Lactic acidosis Therapeutic opioid induced constipation Hospital Course: This is a 73-year-old female intermediate resident, past medical history significant for atrial fibrillation, rate controlled anticoagulated, chronic left hip pain and osteomyelitis, patient is mostly bed ridden, wheelchair-bound, COPD/emphysema, chronic pain disorder, gastroesophageal reflux disease, type 2 diabetes mellitus obstructive sleep apnea diabetic peripheral neuropathy.? Patient has been in and out of hospitals and rehabilitation centers for the last 3 years. Patient was brought to the emergency room due to left flank pain.? Preliminary workup was significant for urinalysis with numerous WBCs present.? CT of chest abdomen and pelvis was reported as: 1. Stool distends the rectosigmoid. 2. Total left arthroplasty with chronic lucencies around the acetabular component, which may be seen with infection, loosening, or particle disease. Correlate with postoperative radiographs.EGD reveals the esophagus was examined and mucosa was normal with a normal Z-line and no ulcers or masses. No esophagitis, no Gonzalez's, no varices. Gastritis was seen in the body of the stomach in the antrum. The gastritis had erythematous and edematous changes, no ulcer, no mucosal bleeding. The bulb and 2nd portion of the duodenum was normal with no ulcers or masses. Results of the colonoscopy revealed a few small diverticula were present in the sigmoid colon. The diverticula were not actively bleeding. The colon was examined and was normal otherwise, no colitis, no polyps. Urine culture returned Proteus mirabilis which is sensitive to ertapenem and Providencia stuartii which is sensitive to cefdinir. Patient will be discharged on ertapenem Q 24 hours through 11/30/2023. Cefdinir through 12/03/2022. Patient had multiple large bowel movements and improvement in symptoms. Patient had midline placed today [facility]. Had a lengthy discussion with daughter, Karina, regarding her concern over sending her to the intermediate with a midline. Explained that we would not be able to keep her until she finished the antibiotics as everything else was improving or resolved. Status at Discharge Cognitive/behavioral status at discharge: A/O x 3 Functional status at discharge: wheelchair bound Overall status at discharge: patient is progressing back to baseline Time Spent with Patient Time attestation: Total time spent providing and/or coordinating discharge services: Time spent: Less than 30 minutes Exam Narrative: Pt is a/ox3 and appears in no acute distress Const: General: comfortable and no acute distress HENMT: Face/Nose/Sinus: Normal nares present Mouth: Yes moist mucous membranes Eyes: General: appearance normal, both eyes and all related structures Sclera: sclerae normal Pupils: Equal, round and reactive pupils present EOM: E
[2023-11-27 14:00] VITALS: BP 116/54; PULSE 97; RESP 15; TEMP 36.4; O2SAT 99
== END 2023-11-27 17:50 | DRG 689 ==
LOC: ANHED 19:52 → ANH2MED 22:24
PROVIDERS: Internal Medicine Critical Care Medicine; Internal Medicine Gastroenterology; Admitting Provider Internal Medicine; Emergency Provider Emergency Medicine; PCP Family Medicine; Visit Provider Nurse Practitioner Family
PROC: 0DJ08ZZ Inspection of Upper Intestinal Tract, Via Natural or Artificial Opening Endoscopic (ICD-10-PCS; CPT 43235; principal; 2023-11-26 15:00)
DX: N39.0 Urinary tract infection, site not specified (principal); G93.41 Metabolic encephalopathy; E87.21 Acute metabolic acidosis; B96.4 Proteus (mirabilis) (morganii) as the cause of diseases classified elsewhere; B96.89 Other specified bacterial agents as the cause of diseases classified elsewhere; K57.30 Diverticulosis of large intestine without perforation or abscess without bleeding; J44.9 Chronic obstructive pulmonary disease, unspecified; K29.70 Gastritis, unspecified, without bleeding; E11.42 Type 2 diabetes mellitus with diabetic polyneuropathy; K21.9 Gastro-esophageal reflux disease without esophagitis; G89.4 Chronic pain syndrome; G47.33 Obstructive sleep apnea (adult) (pediatric); I48.0 Paroxysmal atrial fibrillation; Z96.642 Presence of left artificial hip joint; Z79.82 Long term (current) use of aspirin; Z79.01 Long term (current) use of anticoagulants; Z90.49 Acquired absence of other specified parts of digestive tract; Z86.16 Personal history of COVID-19; Z90.710 Acquired absence of both cervix and uterus; Z87.891 Personal history of nicotine dependence; Z99.3 Dependence on wheelchair; E66.9 Obesity, unspecified; Z68.30 Body mass index [BMI] 30.0-30.9, adult; K59.03 Drug induced constipation; T40.2X5A Adverse effect of other opioids, initial encounter; Z74.01 Bed confinement status
CPT/HCPCS: 36415; 36569; 71260; 74018; 74176; 74177; 80048; 80053; 81001; 82948; 83605; 83690; 85025; 85027; 87077; 87086; 87088; 87186; 88305; 94640; 96365; 96375; 96376; 99285; A9270; G0378; J0696; J1170; J1335; J2001; J2060; J2185; J2270; J2371; J2405; J2704; J7120; Q9967

== ENCOUNTER 2023-12-31 14:39 | Outpatient (NON) | payer MEDICARE, MEDICAID, SELFPAY ==
[2023-12-31 15:24] LABS: Influenza A QL RT-PCR Negative (Negative); Influenza B QL RT-PCR Negative (Negative); RSV RNA, RT-PCR Positive (Negative); SARS-CoV-2 RNA PCR Positive (Negative)
== END 2023-12-31 14:40 | disposition home or self-care (01) ==
PROVIDERS: PCP Family Medicine; Visit Provider Hospitalist
DX: R05.9 Cough, unspecified (principal); U07.1 COVID-19
CPT/HCPCS: 87637

== ENCOUNTER 2024-05-10 10:25 | Observation (INO) | payer MEDICARE, MEDICAID, SELFPAY ==
[2024-05-10] VITALS (30 sets, daily range): BP systolic 97–188; BP diastolic 64–154; PULSE 72–98; RESP 14–24; TEMP 36.4–36.8; O2SAT 95–99; BMI 30.7
--- NOTE | ~2024-05-10 | XR_ITS ---
XR chest 1V portable 05/10/2024 13:55 Indication: Chest pain Procedure: AP portable chest Comparison: Comparison to multiple prior studies sequentially, with oldest reviewed study dated 11/01. Findings: Borderline heart size. Portacatheter tip in the SVC. Mild interstitial edema. There are cho lecystectomy clips. There are severe degenerative changes of the shoulders. Impression: 1: Mild interstitial edema. Reviewed, dictated and finalized at location B. Impression: 1: Mild interstitial edema.
--- NOTE | ~2024-05-10 | CT_ITS ---
EXAMINATION: CT abdomen pelvis wo con DATE: 05/10/2024 11:54 INDICATION: Left upper quadrant pain. TECHNIQUE: Computed tomography (CT) of the abdomen and pelvis was performed without intravenous contr ast. The dose-length product was 1211.66 mGy-cm. Automated exposure control and iterative reconstruct ion technique were employed. COMPARISON: CT dated 11/22/2023 FINDINGS: Lung bases unremarkable. Heart size normal. No significant pleural or pericardial effusion. Status post cholecystectomy. There is a 4 cm exophytic right renal cyst. Nonobstructive bowel gas pa ttern. Status post left hip arthroplasty. Severe osteoarthritis of the right hip. No renal stones. No hydronephrosis. There is atherosclerosis of the aorta without aneurysm. There are small nonenlarged retroperitoneal lymph nodes, likely reactive. Small fat-containing umbilical hernia. No abnormal pelv ic masses or fluid collections. Severe lumbar spondylosis. No free air or free fluid. Left inguinal l ymphadenopathy, likely reactive. IMPRESSION: 1. No acute abdominal abnormality. Reviewed, dictated and finalized at location B.
--- NOTE | 2024-05-10 10:41 | ECG_ITS ---
[facility] [address] Test Date: 2024-05-10 Pat Name: Lexus Veliz Department: Room: Gender: F [employer]: : 1950 Requested By: Aidan Magana Order Number: [id number] [place] MD: Miguel Mitchell M.D. Measurements Intervals [place] Rate: 84 P: 0 MT: 0 QRS: -12 QRSD: 77 T: 23 QT: 336 QTc: 397 Interpretive Statements ATRIAL FIBRILLATION LOW QRS VOLTAGE IN PRECORDIAL LEADS [QRS DEFLECTION < 1.0 mV IN CHEST LEADS] POOR R-WAVE PROGRESSION ABNORMAL ECG No previous ECG available for comparison Electronically Signed On 05-11-2024 07:59:06 CDT by Miguel Mitchell M.D.
[2024-05-10 11:45] LABS: Glucose Point of Care 114 mg/dl (65-105)
[2024-05-10 11:58] LABS: Basophils Absolute Auto 0.1 K/mm3 (0.0-0.1); Basophils Percent Auto 0.9 % (0.2-1.2); Eosinophils Absolute Auto 0.2 K/mm3 (0-0.3); Eosinophils Percent Auto 2.1 % (0-4.4); Hematocrit 42.8 % (37.0-47.0); Hemoglobin 13.4 g/dL (12.0-15.0); Immature Granulocyte Absolute 0.03 K/mm3 (0.00-0.031); Immature Granulocyte Percent A 0.3 % (0-0.5); Lymphocytes Absolute Auto 2.02 K/mm3 (0.9-3.2); Lymphocytes Percent Auto 20.7 % (18.3-44.2); Mean Corpuscular HGB Conc 31.3 g/dl (32-36); Mean Corpuscular Hemoglobin 26.9 pg (26-34); Mean Corpuscular Volume 85.9 fl (80-100); Mean Platelet Volume 10.4 fl (7.4-10.4); Monocytes Absolute Auto 1.1 K/mm3 (0.1-0.6); Monocytes Percent Auto 10.7 % (2.6-8.5); Neutrophils Absolute Auto 6.4 K/mm3 (1.3-6.7); Neutrophils Percent Auto 65.3 % (45.5-73.1); Platelet Count Result 340 k/mm3 (150-375); Red Blood Count 4.98 M/mm3 (4.2-5.4); Red Cell Distribution Width 15.6 % (11.5-14.5); White Blood Count 9.8 K/mm3 (4.5-10.0)
[2024-05-10 12:08] LABS: Alanine Aminotransferase 13 U/L (6-35); Albumin Level 3.8 g/dL (3.5-5.1); Alkaline Phosphatase 181 U/L (38-126); Anion Gap 7 mmol/L (4-12); Aspartate Amino Transferase 21 U/L (14-36); Bilirubin,Total 0.4 mg/dL (0.2-1.3); Blood Urea Nitrogen 10 mg/dL (7-17); Calcium 8.9 mg/dL (8.4-10.2); Carbon Dioxide 31 mmol/L (22-30); Chloride 104 mmol/L (98-107); Estimated CRCL calculation 65 ml/min; Estimated Glomerular Filt Rate > 60; Glucose 111 mg/dL (65-110); Lactic Acid Reflex 2.2 mmol/L (0.7-2.0); Lipase 37 U/L (23-300); Magnesium 1.8 mg/dL (1.6-2.3); Potassium 3.8 mmol/L (3.4-5.0); Sodium 142 mmol/L (137-145)
[2024-05-10 12:12] LABS: INR 1.2; Prothrombin Time 15.6 Seconds (11.1-14.7)
[2024-05-10 12:13] LABS: Partial Thromboplastin Time 39.9 Seconds (22.3-36.8)
[2024-05-10 12:19] LABS: NT Pro B Type Natriuretic Pept 566 pg/mL (19.9-100); Troponin I < 0.012 ng/mL (0.000-0.034)
[2024-05-10 12:23] LABS: Bacteria Urine 4+ /hpf; RBC Urine >100 /hpf (0-2); Squamous Epithelial Cell Urine Moderate /hpf (Few); WBC Clumps Urine Present /HPF; WBC Urine >100 /hpf (0-3)
[2024-05-10 12:29] LABS: pH Urine 5.5 (5.0-9.0)
[2024-05-10 12:30] LABS: Appearance Urine Cloudy (Clear); Color Urine Dark Yellow (Yellow)
[2024-05-10 12:31] LABS: Glucose Urine UA Negative (Negative); Protein Urine 3+ mg/dL (Negative); Specific Grav Ur > 1.030 (1.001-1.035)
[2024-05-10 12:32] LABS: Bilirubin Urine 1+ (Negative); Blood Urine 3+ (Negative); Ketones Urine 1+ mg/dL (Negative); Nitrate Urine Positive (Negative)
[2024-05-10 12:33] LABS: Leukocyte Esterase Ur 3+ LEU/UL (Negative)
[2024-05-10 12:34] LABS: Add Urine Microscopic? YES
[2024-05-10 13:01] LABS: Influenza A QL RT-PCR Negative (Negative); Influenza B QL RT-PCR Negative (Negative); RSV RNA, RT-PCR Negative (Negative); SARS-CoV-2 RNA PCR Negative (Negative)
--- NOTE | 2024-05-10 13:37 | ED.GENADULT ---
HPI - General Adult General Chief complaint: Chest Pain Stated complaint: Chest Pain Time Seen by Provider: 05/10/24 10:44 History of Present Illness HPI narrative: Patient is a poor historian and has poor insight into her medical conditions and symptoms. Unclear if there is some sort of cognitive disability but her behavior is almost child-like. This is a 73-year-old residential patient presenting ED for chest pain. Patient says she has been having chest pain for the last several days. She says it migrates over her chest and then points to different areas of her chest. It is never consistent in [address]. She also says she is having some shortness of breath. She denies fevers/chills, productive cough, or lower extremity edema. Patient is also complaining of left upper quadrant abdominal pain. Patient says it is an aching pain worse when you press on her belly. Sign associated with nausea vomiting or diarrhea. Patient has history of chronic constipation. Hx of UTI. Related Data Home Medications Medication Instructions Recorded Confirmed acetaminophen 325 mg capsule 650 mg PO Q6H PRN Pain (Scale 11/14/21 11/20/23 (Tylenol) Score 1-3) albuterol sulfate 90 mcg/actuation 2 inh inhalation QID PRN Shortness 11/14/21 11/20/23 aerosol inhaler (ProAir HFA) Of Breath aspirin 81 mg chewable tablet 81 mg PO DAILY 11/14/21 11/20/23 atorvastatin 10 mg tablet (Lipitor) 10 mg PO HS 11/14/21 11/20/23 diltiazem HCl 180 mg capsule,24 180 mg PO DAILY 11/14/21 11/20/23 hr,extended release (Tiazac) paroxetine HCl 20 mg tablet 20 mg PO DAILY 11/14/21 11/20/23 tiotropium bromide 18 mcg capsule 1 cap inhalation DAILY 11/14/21 11/20/23 with inhalation device (Spiriva with HandiHaler) apixaban 5 mg tablet (Eliquis) 5 mg PO BID 03/26/23 11/20/23 buspirone 5 mg tablet 5 mg PO TID 03/26/23 11/20/23 cholecalciferol (vitamin D3) 25 25 mcg PO DAILY 03/26/23 11/20/23 mcg (1,000 unit) tablet multivitamin [id number]-guexxta 1 tablet PO DAILY 03/26/23 11/20/23 fumarate 18 mg-vitamin K 25 mcg tablet nystatin 100,000 unit/gram topical 1 applic topical BID 03/26/23 11/20/23 powder sucralfate 1 gram tablet 1 g PO QID 03/26/23 11/20/23 glucagon 1 mg solution for 1 mg IM Q15M PRN Hypoglycemia 05/12/23 11/20/23 injection (Glucagon Emergency Kit) guaifenesin 100 mg/5 mL oral liquid 200 mg PO Q6H PRN Cough 05/12/23 11/20/23 naloxone 4 mg/actuation nasal spray 1 spray intranasal ONCE PRN Opioid 05/12/23 11/20/23 Overdose nitroglycerin 0.4 mg sublingual 0.4 mg sublingual Q5M PRN Chest 05/12/23 11/20/23 tablet Pain ondansetron 4 mg disintegrating 4 mg PO Q8H PRN Nausea And Vomiting 05/12/23 11/20/23 tablet pantoprazole 40 mg tablet,delayed 40 mg PO QAM 05/12/23 11/20/23 release sennosides 8.6 mg-docusate sodium 1 tab-cap PO BID 05/12/23 11/20/23 50 mg capsule (Senna Plus) levetiracetam 500 mg tablet 500 mg PO BID 07/27/23 11/20/23 loperamide 2 mg tablet 4 mg PO Q8H PRN Diarrhea 11/20/23 11/20/23 nystatin 100,000 unit/gram topical 1 applic topical PRN PRN reddened 11/20/23 11/20/23 cream skin oxycodone 5 mg tablet 5 mg PO Q8H PRN Pain (Scale Score 11/20/23 11/20/23 4-6) Allergies Allergy/AdvReac Type Severity Reaction Status Date / Time iodine Allergy Unknown Verified 05/10/24 13:57 latex Allergy Unknown Verified 05/10/24 13:57 meperidine Allergy Unknown Verified 05/10/24 13:57 Penicillins Allergy Unknown Verified 05/10/24 13:57 piperacillin [From Zosyn] Allergy Unknown Verified 05/10/24 13:57 tazobactam [From Zosyn] Allergy Unknown Verified 05/10/24 13:57 [facility] Past Medical History Medical History Anxiety Chronic anticoagulation Chronic obstructive pulmonary disease Chronic pain disorder Depression Diabetic peripheral neuropathy Gastroesophageal reflux disease Hypertension Obstructive sleep apnea Paroxysmal atrial fibrillation Pneumonia due to COVID-19 virus
[2024-05-10] MEDS: IPRATROPIUM 0.5 MG/ALBUTEROL SULFATE 2.5 MG AMPUL.NEB 3 ML 6 ML INHALATION (14:12)
[2024-05-10] MEDS: methylPREDNISolone SOD SUCC 125 MG VIAL IV PUSH (14:34)
[2024-05-10 14:56] LABS: Reflex Lactic Acid Yes or No Add Lactic
[2024-05-10 15:01] LABS: Troponin I < 0.012 ng/mL (0.000-0.034)
[2024-05-10] MEDS: cefTAZidime 1 GM/NS 50 ML 1 GM/50 ML BAG IVPB ×2 (15:11→21:45)
[2024-05-10 15:25] LABS: Lactic Acid 2.3 mmol/L (0.7-2.0)
--- NOTE | 2024-05-10 17:05 | PM.IMHP ---
H&P: HPI History of Present Illness Date/Time: 05/10/24 19:00 Chief Complaint: Palpitations. 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 The patient provides the following history. The last several days she has been feeling her heart beating fast and irregularly however on occasion it feels as though it pauses or skips a beat. At times she has mild mid chest discomfort with the palpitations and occasional shortness of breath as well. She denies syncope, near syncope, fever, chills, sweats, cold and flu symptoms, pleuritic pain, cough, abdominal pain, nausea, vomiting, diarrhea, and dysuria. In the ED: She has been in atrial fibrillation since arrival. Blood pressures have been as high as 186/96. Labs were significant for a WBC count of 9.8, hemoglobin 13.4, BUN 10, creatinine 0.80, sodium 142, potassium 3.8, calcium 8.9, magnesium 1.8, lactic acid 2.2, troponin less than 0.012, proBNP 566. Urine was positive for 3+ protein, 1+ ketones, 3+ blood, 1+ bilirubin, positive nitrate, 3+ leukocyte esterase, greater than 100 RBC and WBC, 4+ bacteria, WBC clumps, and moderate epithelial cells. She tested negative for influenza, RSV, and COVID. Chest x-ray showed mild interstitial edema. CT of the abdomen pelvis showed no acute abdominal abnormality. Review of Systems Review of Systems: 12 systems were reviewed and are negative except for as per HPI. [facility] Past Medical History Medical History (Updated 05/10/24 @ 22:46 by Randa Brady PA-C) Anxiety Atrial fibrillation Chronic anticoagulation Chronic obstructive pulmonary disease Chronic pain disorder Depression Diabetic peripheral neuropathy Gastroesophageal reflux disease Hypertension Obstructive sleep apnea Pneumonia due to COVID-19 virus (01/2023) Seizure-like activity (05/2023) Type 2 diabetes mellitus Vasculitis determined by biopsy of skin Vitamin D deficiency Surgical History Surgical History History of colonoscopy with polypectomy History of hysterectomy History of left hip replacement Family History Family History Sibling Heart disease Son COPD (chronic obstructive pulmonary disease) Daughter Sleep apnea Father Colon polyp Mother Colon polyp Colon cancer Social History Social History Social History: [employer] worker: Karina Veliz. Code status: Full code. Smoking packs per day: 2 Smoking cigarettes per day: 40.0 Years smoked: 25 Smoking pack-years: 50.00 Smoking status: Former smoker Alcohol intake: never Substance use: never Substance use type: does not use Do You Feel Safe in your Home?: Yes Lack of Transportation: No Lack of Food: Never True Current Housing: I Have Housing Concerned About Future Housing: No Difficulty Paying Gas/Electric Bills: No Difficulty Paying for Meds: No Currently Unemployed: No Education: Don't Know Difficulty w/ Childcare or Family Care: No Additional [facility] Spiritual care concerns: No Meds Home Medications and Allergies Home Medications Medication Instructions Recorded Confirmed Type acetaminophen 325 mg capsule 650 mg PO Q6H PRN Pain (Scale 11/14/21 05/10/24 History (Tylenol) Score 1-3) albuterol sulfate 90 mcg/actuation 2 inh inhalation QID PRN Shortness 11/14/21 05/10/24 History aerosol
--- NOTE | 2024-05-10 17:30 | ADMGEN ---
This patient, Lexus Veliz, was admitted to Medical Room 248-. Patient/family oriented to hospital policies and general routines including ID bracelet, bed and alarms, visiting hours, pain management, procedures, bathroom and other care routines, personal items, smoking policy, room service/diet, and visiting hours. Information on how to activate the Rapid Response Team has been discussed. Patient/Family are encouraged to report perceived risks to care and to ask questions if they do not understand what they are told or what they should do.
[2024-05-10] MEDS: IPRATROPIUM 0.5 MG/ALBUTEROL SULFATE 2.5 MG AMPUL.NEB 3 ML INHALATION (20:35)
[2024-05-10 21:00] LABS: Glucose Point of Care 257 mg/dl (65-105)
[2024-05-10] MEDS: LACTATED RINGERS 1,000 ML 125 ML IV CONT (21:06)
[2024-05-10] MEDS: APIXABAN 5 MG TABLET PO (21:33)
[2024-05-10] MEDS: ATORVASTATIN 10 MG TABLET PO (21:33)
[2024-05-10] MEDS: levETIRAcetam 500 MG TABLET PO (21:33)
[2024-05-10] MEDS: SUCRALFATE 1 GM TABLET PO (21:33)
[2024-05-10] MEDS: ACETAMINOPHEN 325 MG TABLET 650 MG PO (21:33)
[2024-05-10] MEDS: traZODone HCL 50 MG TABLET PO (21:33)
[2024-05-10] MEDS: oxyCODONE HCL (*CRX) 5 MG TAB IR PO (21:33)
[2024-05-10] MEDS: busPIRone HCL 5 MG TABLET PO (21:37)
[2024-05-10] MEDS: INSULIN ASPART (*BKC) 100 UNITS/ML SUB-Q (21:40)
[2024-05-10 21:54] LABS: Hemoglobin A1C 5.9 % (<5.7)
[2024-05-10 22:05] LABS: CRP 5.2 mg/dL (<1.0)
[2024-05-10 22:39] LABS: Procalcitonin 0.1 ng/mL
[2024-05-10] MEDS: FUROSEMIDE INJ 40 MG/4 ML VIAL 20 MG IV PUSH (23:55)
[2024-05-11] VITALS (11 sets, daily range): BP systolic 116–130; BP diastolic 60–62; PULSE 73–85; RESP 17–20; TEMP 36.4–36.6; O2SAT 94–98
[2024-05-11 05:24] LABS: Hematocrit 43.6 % (37.0-47.0); Hemoglobin 13.7 g/dL (12.0-15.0); Mean Corpuscular HGB Conc 31.4 g/dl (32-36); Mean Corpuscular Hemoglobin 26.9 pg (26-34); Mean Corpuscular Volume 85.5 fl (80-100); Mean Platelet Volume 10.8 fl (7.4-10.4); Platelet Count Result 388 k/mm3 (150-375); Red Cell Distribution Width 15.4 % (11.5-14.5); White Blood Count 9.5 K/mm3 (4.5-10.0)
[2024-05-11 05:40] LABS: Alanine Aminotransferase 15 U/L (6-35); Albumin Level 3.9 g/dL (3.5-5.1); Alkaline Phosphatase 171 U/L (38-126); Anion Gap 7 mmol/L (4-12); Aspartate Amino Transferase 21 U/L (14-36); Bilirubin,Total 0.4 mg/dL (0.2-1.3); Blood Urea Nitrogen 12 mg/dL (7-17); Calcium 9.2 mg/dL (8.4-10.2); Carbon Dioxide 28 mmol/L (22-30); Chloride 105 mmol/L (98-107); Estimated CRCL calculation 73 ml/min; Estimated Glomerular Filt Rate > 60; Glucose 206 mg/dL (65-110); Magnesium 1.8 mg/dL (1.6-2.3); Potassium 3.6 mmol/L (3.4-5.0); Sodium 140 mmol/L (137-145)
[2024-05-11] MEDS: oxyCODONE HCL (*CRX) 5 MG TAB IR PO ×2 (06:16→16:41)
[2024-05-11] MEDS: LINACLOTIDE 72 MCG CAPSULE PO (06:16)
--- NOTE | 2024-05-11 07:26 | PM.IMPN ---
Progress Note: A&P Assessment and Plan (1) Asymptomatic bacteriuria: Code(s): R82.71 - Bacteriuria Status: Acute Assessment and Plan: U/A grossly abnormal but afebrile and normal WBC. Urine culture ordered. Patient is stating to me that she is having dysuria. started on Rocephin lactic 2.3 on admission, WBC normal, afebrile, normotensive. (2) Palpitations: Code(s): R00.2 - Palpitations Status: Acute Assessment and Plan: EKG shows atrial fibrillation with a ventricular rate of 84. On diltiazem 180 mg daily, resumed here. On Eliquis for anticoagulation. telemetry ordered. She is running a-fib with a rate of 90-100's. (3) Atrial fibrillation: Code(s): I48.91 - Unspecified atrial fibrillation Status: Acute Assessment and Plan: see number 1 (4) Chronic wound of extremity: Status: Inactive Assessment and Plan: left hip with chronic wound. currently covered with Mepilex. Area does not appear infection. There is some scant bloody drainage present. No erythema, warmth, or purulence appreciated. Patient states the wound has been having drainage off and on for the last 30 years after her hip surgery. Wound consult placed but I suspect there is nothing much more to do. (5) Chronic obstructive pulmonary disease: Code(s): J44.9 - Chronic obstructive pulmonary disease, unspecified Status: Acute Assessment and Plan: Initially had some shortness of breath but she denies increased cough or sputum. She is on room air. Duo nebs prn Continue Spiriva inhaler (6) Chronic anticoagulation: Code(s): Z79.01 - buttermaker continuous churn (current) use of anticoagulants Status: Acute Assessment and Plan: on eliquis for a-fib (7) Seizure: Code(s): R56.9 - Unspecified convulsions Status: Acute Assessment and Plan: on keppra. continue (8) Hyperglycemia: Code(s): R73.9 - Hyperglycemia, unspecified Status: Acute Assessment and Plan: Hemoglobin A1c 5.9% A.c. HS Accu-Cheks Hypoglycemia protocol Low-dose SSI Plan Feeding: Heart healthy Analgesia: Tylenol Thromboembolic prophylaxis: SCDs, Eliquis Ulcer prophylaxis: Ppi Glycemic control: Low-dose SSI Bowel regimen: Holding due to diarrhea Lines: PIV Antibiotics: Rocephin 2 g Disposition: Return to her detention when medically ready Subjective Date/time seen: 05/11/24 07:26 Interval history: This is a very pleasant 73-year-old female with atrial fibrillation on chronic anticoagulation, coronary artery disease, chronic obstructive pulmonary disease, gastroesophageal reflux disease, depression, chronic pain syndrome, 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 05/11: Very pleasantly knee seen this morning in bed. She states that she needs a full-body overall as she just generally does not feel well. She says that she came in because she was having palpitations, shortness of breath, dizziness, diarrhea with 5 occurrences, nausea and dry heaving. She is also reporting dysuria and intermittent stabbing pains to her suprapubic area with urination. UA is concerning for infection, will start on Rocephin today. C diff ordered given her a recent complaint of diarrhea and [facility] status. Review of Systems Review of Systems: 12 systems were reviewed and are negative except for as per HPI. All systems reviewed & are unremarkable except as noted in HPI and below Exam Narrative: General: well appearing, appears stated age. HEENT: normocephalic, atraumatic. Mucous membranes moist. EOMI, PERRLA, bilateral sclera anicteric, no conjunctival injection. Neck supple without JVD, lymphadenopathy, or bruit. Respiratory: clear to auscultation b
[2024-05-11] MEDS: UMECLIDINIUM BROMIDE 62.5 MCG ELLIPTA 1 PUFF INHALATION (07:50)
[2024-05-11 07:56] LABS: Glucose Point of Care 168 mg/dl (65-105)
[2024-05-11] MEDS: busPIRone HCL 5 MG TABLET PO ×3 (09:14→20:11)
[2024-05-11] MEDS: PANTOPRAZOLE 40 MG TABLET PO (09:14)
[2024-05-11] MEDS: THERAPEUTIC MULTIVITAMINS/MINERALS TAB (*BKC) 1 TABLET PO (09:15)
[2024-05-11] MEDS: PARoxetine 20 MG TABLET PO (09:15)
[2024-05-11] MEDS: levETIRAcetam 500 MG TABLET PO ×2 (09:15→20:11)
[2024-05-11] MEDS: SUCRALFATE 1 GM TABLET PO ×4 (09:15→20:11)
[2024-05-11] MEDS: ASPIRIN 81 MG CHEWABLE TABLET PO (09:15)
[2024-05-11] MEDS: APIXABAN 5 MG TABLET PO ×2 (09:15→20:11)
[2024-05-11] MEDS: SENNA/DOCUSATE SODIUM TABLET 1 TAB PO (09:15)
[2024-05-11] MEDS: TOLNAFTATE 1% POWDER 45 GM BTL 1 APPLIC TOPICAL ×2 (09:16→20:12)
[2024-05-11] MEDS: DICLOFENAC SODIUM 1% 100 GM GEL (*BKC) 1 APPLIC TOPICAL ×4 (09:18→20:12)
[2024-05-11] MEDS: dilTIAZem HCL CD 180 MG CAP.24HR PO (09:18)
[2024-05-11] MEDS: cefTRIAXone 2 GM/NS 100 ML 2 GM/100 ML BAG IVPB (11:26)
[2024-05-11] MEDS: PHENAZOPYRIDINE HCL 100 MG TABLET 200 MG PO ×2 (11:33→16:37)
[2024-05-11 11:46] LABS: Glucose Point of Care 239 mg/dl (65-105)
[2024-05-11] MEDS: INSULIN ASPART (*BKC) 100 UNITS/ML SUB-Q (11:49)
[2024-05-11 16:49] LABS: Glucose Point of Care 164 mg/dl (65-105)
[2024-05-11] MEDS: traZODone HCL 50 MG TABLET PO (20:11)
[2024-05-11] MEDS: ATORVASTATIN 10 MG TABLET PO (20:11)
[2024-05-11 21:03] LABS: Glucose Point of Care 146 mg/dl (65-105)
[2024-05-12] VITALS (11 sets, daily range): BP systolic 117–142; BP diastolic 55–83; PULSE 68–91; RESP 16–20; TEMP 36.4–36.8; O2SAT 93–100
[2024-05-12] MEDS: oxyCODONE HCL (*CRX) 5 MG TAB IR PO ×2 (00:15→21:12)
[2024-05-12 05:32] LABS: Basophils Absolute Auto 0.1 K/mm3 (0.0-0.1); Basophils Percent Auto 0.3 % (0.2-1.2); Eosinophils Absolute Auto 0.1 K/mm3 (0-0.3); Eosinophils Percent Auto 0.6 % (0-4.4); Hematocrit 43.7 % (37.0-47.0); Hemoglobin 13.5 g/dL (12.0-15.0); Immature Granulocyte Absolute 0.08 K/mm3 (0.00-0.031); Immature Granulocyte Percent A 0.5 % (0-0.5); Lymphocytes Absolute Auto 3.39 K/mm3 (0.9-3.2); Lymphocytes Percent Auto 19.2 % (18.3-44.2); Mean Corpuscular HGB Conc 30.9 g/dl (32-36); Mean Corpuscular Hemoglobin 26.7 pg (26-34); Mean Corpuscular Volume 86.5 fl (80-100); Mean Platelet Volume 10.3 fl (7.4-10.4); Monocytes Percent Auto 5.5 % (2.6-8.5); Neutrophils Absolute Auto 13.1 K/mm3 (1.3-6.7); Neutrophils Percent Auto 73.9 % (45.5-73.1); Platelet Count Result 378 k/mm3 (150-375); Red Blood Count 5.05 M/mm3 (4.2-5.4); Red Cell Distribution Width 15.8 % (11.5-14.5); White Blood Count 17.7 K/mm3 (4.5-10.0)
[2024-05-12 05:57] LABS: Alanine Aminotransferase 15 U/L (6-35); Albumin Level 3.7 g/dL (3.5-5.1); Alkaline Phosphatase 156 U/L (38-126); Anion Gap 4 mmol/L (4-12); Aspartate Amino Transferase 28 U/L (14-36); Bilirubin,Total 0.4 mg/dL (0.2-1.3); Blood Urea Nitrogen 17 mg/dL (7-17); Calcium 9.5 mg/dL (8.4-10.2); Carbon Dioxide 35 mmol/L (22-30); Chloride 106 mmol/L (98-107); Estimated CRCL calculation 59 ml/min; Estimated Glomerular Filt Rate > 60; Glucose 112 mg/dL (65-110); Potassium 4.2 mmol/L (3.4-5.0); Sodium 145 mmol/L (137-145)
[2024-05-12] MEDS: ACETAMINOPHEN 325 MG TABLET 650 MG PO (06:58)
[2024-05-12] MEDS: LINACLOTIDE 72 MCG CAPSULE PO (06:58)
[2024-05-12 07:52] LABS: Glucose Point of Care 90 mg/dl (65-105)
[2024-05-12] MEDS: UMECLIDINIUM BROMIDE 62.5 MCG ELLIPTA 1 PUFF INHALATION (08:12)
[2024-05-12] MEDS: THERAPEUTIC MULTIVITAMINS/MINERALS TAB (*BKC) 1 TABLET PO (08:25)
[2024-05-12] MEDS: ASPIRIN 81 MG CHEWABLE TABLET PO (08:25)
[2024-05-12] MEDS: dilTIAZem HCL CD 180 MG CAP.24HR PO (08:25)
[2024-05-12] MEDS: PHENAZOPYRIDINE HCL 100 MG TABLET 200 MG PO ×3 (08:25→17:17)
[2024-05-12] MEDS: busPIRone HCL 5 MG TABLET PO ×3 (08:25→21:11)
[2024-05-12] MEDS: SUCRALFATE 1 GM TABLET PO ×4 (08:25→21:11)
[2024-05-12] MEDS: levETIRAcetam 500 MG TABLET PO ×2 (08:26→21:11)
[2024-05-12] MEDS: PANTOPRAZOLE 40 MG TABLET PO (08:26)
[2024-05-12] MEDS: APIXABAN 5 MG TABLET PO ×2 (08:26→21:11)
[2024-05-12] MEDS: PARoxetine 20 MG TABLET PO (08:26)
[2024-05-12] MEDS: TOLNAFTATE 1% POWDER 45 GM BTL 1 APPLIC TOPICAL ×2 (08:27→21:19)
[2024-05-12] MEDS: DICLOFENAC SODIUM 1% 100 GM GEL (*BKC) 1 APPLIC TOPICAL ×4 (08:27→21:19)
--- NOTE | 2024-05-12 08:47 | PM.IMPN ---
Progress Note: A&P Assessment and Plan (1) Asymptomatic bacteriuria: Code(s): R82.71 - Bacteriuria Status: Acute Assessment and Plan: UA showing 3+ urine protein, 1+ urine ketones, 3+ urine blood, positive nitrate, 1+ urine bili, 3+ leukocytes, greater than 100 urine RBC, greater than 100 urine WBC, 4+ urine bacteria. Urine culture showing Gram-negative bacilli isolated on preliminary read Patient has history of ESBL in the urine Rocephin changed to meropenem today (2) Atrial fibrillation: Code(s): I48.91 - Unspecified atrial fibrillation Status: Acute Assessment and Plan: Continue telemetry Continue Eliquis and diltiazem (3) Chronic wound of extremity: Status: Inactive Assessment and Plan: wound care seen patient and they recommended silver gel to left hip incision. (4) Chronic obstructive pulmonary disease: Code(s): J44.9 - Chronic obstructive pulmonary disease, unspecified Status: Acute Assessment and Plan: Continue Duo nebs prn Continue Spiriva inhaler (5) Chronic anticoagulation: Code(s): Z79.01 - [facility] (current) use of anticoagulants Status: Acute Assessment and Plan: on eliquis for a-fib (6) Seizure: Code(s): R56.9 - Unspecified convulsions Status: Acute Assessment and Plan: Continue Keppra Continue seizure precaution (7) Hyperglycemia: Code(s): R73.9 - Hyperglycemia, unspecified Status: Acute Assessment and Plan: Blood sugars ranging 112-146 Hemoglobin A1c 5.9% AC/ HS Accu-Cheks Hypoglycemia protocol Low-dose SSI Time Spent With Patient Time with patient: Greater than 35 minutes Subjective Date/time seen: 05/12/24 08:47 Interval history: This is a very pleasant 73-year-old female with atrial fibrillation on chronic anticoagulation, coronary artery disease, chronic obstructive pulmonary disease, gastroesophageal reflux disease, depression, chronic pain syndrome, 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 05/11: Very pleasantly knee seen this morning in bed. She states that she needs a full-body overall as she just generally does not feel well. She says that she came in because she was having palpitations, shortness of breath, dizziness, diarrhea with 5 occurrences, nausea and dry heaving. She is also reporting dysuria and intermittent stabbing pains to her suprapubic area with urination. UA is concerning for infection, will start on Rocephin today. C diff ordered given her a recent complaint of diarrhea and half-way status. 05/12/24: On examination today patient is alert and oriented x3. Patient denies any fever, chills, nausea, vomiting, diarrhea, chest pain or shortness of breath. Patient endorses burning sensation with urinating. Labs today revealed a WBC 17.7, otherwise unremarkable. Urine cultures showing gram negative bacilli isolated on preliminary read. Blood cultures showing no growth on preliminary read. Patient has a history of ESBL in the urine and antibiotics were changed to meropenem from Rocephin. Review of Systems Review of Systems: 12 systems were reviewed and are negative except for as per HPI. All systems reviewed & are unremarkable except as noted in HPI and below Constitutional: Constitutional: Reports as per HPI and Reports no additional constitutional complaints Eyes: Eyes: Reports as per HPI and Reports no additional eye complaints ENT: Reports system reviewed and no additional complaints, except as documented and Reports as per HPI Cardiovascular: Cardiovascular: Reports as per HPI and Reports no additional cardiovascular complaints Respiratory: Respiratory: Reports as per HPI and Reports no additional respiratory complaints
[2024-05-12] MEDS: MEROPENEM 1 GM/NS 100 ML 1 GM/100 ML BAG IVPB ×2 (09:23→17:14)
[2024-05-12 11:28] LABS: Glucose Point of Care 113 mg/dl (65-105)
[2024-05-12 16:57] LABS: Glucose Point of Care 84 mg/dl (65-105)
[2024-05-12 20:39] LABS: Glucose Point of Care 114 mg/dl (65-105)
[2024-05-12] MEDS: ATORVASTATIN 10 MG TABLET PO (21:11)
[2024-05-12] MEDS: traZODone HCL 50 MG TABLET PO (21:11)
[2024-05-13] VITALS (8 sets, daily range): BP systolic 138–149; BP diastolic 64–66; PULSE 68–99; RESP 18; TEMP 36.5–36.8; O2SAT 95–97
[2024-05-13] MEDS: MEROPENEM 1 GM/NS 100 ML 1 GM/100 ML BAG IVPB ×2 (01:53→09:41)
[2024-05-13] MEDS: LINACLOTIDE 72 MCG CAPSULE PO (05:58)
[2024-05-13] MEDS: oxyCODONE HCL (*CRX) 5 MG TAB IR PO ×2 (06:03→12:34)
[2024-05-13] MEDS: UMECLIDINIUM BROMIDE 62.5 MCG ELLIPTA 1 PUFF INHALATION (07:57)
[2024-05-13 08:21] LABS: Basophils Absolute Auto 0.1 K/mm3 (0.0-0.1); Basophils Percent Auto 0.7 % (0.2-1.2); Eosinophils Absolute Auto 0.4 K/mm3 (0-0.3); Eosinophils Percent Auto 3.7 % (0-4.4); Hemoglobin 13.1 g/dL (12.0-15.0); Immature Granulocyte Absolute 0.04 K/mm3 (0.00-0.031); Immature Granulocyte Percent A 0.4 % (0-0.5); Lymphocytes Absolute Auto 2.45 K/mm3 (0.9-3.2); Lymphocytes Percent Auto 25.6 % (18.3-44.2); Mean Corpuscular HGB Conc 30.5 g/dl (32-36); Mean Corpuscular Hemoglobin 26.5 pg (26-34); Mean Platelet Volume 10.2 fl (7.4-10.4); Monocytes Absolute Auto 0.9 K/mm3 (0.1-0.6); Monocytes Percent Auto 9.3 % (2.6-8.5); Neutrophils Absolute Auto 5.8 K/mm3 (1.3-6.7); Neutrophils Percent Auto 60.3 % (45.5-73.1); Platelet Count Result 368 k/mm3 (150-375); Red Blood Count 4.94 M/mm3 (4.2-5.4); Red Cell Distribution Width 15.8 % (11.5-14.5); White Blood Count 9.6 K/mm3 (4.5-10.0)
[2024-05-13 08:24] LABS: Glucose Point of Care 90 mg/dl (65-105)
[2024-05-13 08:32] LABS: Alanine Aminotransferase 14 U/L (6-35); Albumin Level 3.6 g/dL (3.5-5.1); Alkaline Phosphatase 155 U/L (38-126); Anion Gap 7 mmol/L (4-12); Aspartate Amino Transferase 26 U/L (14-36); Bilirubin,Total 0.5 mg/dL (0.2-1.3); Blood Urea Nitrogen 16 mg/dL (7-17); Calcium 8.6 mg/dL (8.4-10.2); Carbon Dioxide 28 mmol/L (22-30); Chloride 106 mmol/L (98-107); Estimated CRCL calculation 74 ml/min; Estimated Glomerular Filt Rate > 60; Glucose 91 mg/dL (65-110); Potassium 3.3 mmol/L (3.4-5.0); Sodium 141 mmol/L (137-145)
[2024-05-13] MEDS: THERAPEUTIC MULTIVITAMINS/MINERALS TAB (*BKC) 1 TABLET PO (09:40)
[2024-05-13] MEDS: levETIRAcetam 500 MG TABLET PO (09:40)
[2024-05-13] MEDS: SUCRALFATE 1 GM TABLET PO ×3 (09:40→17:23)
[2024-05-13] MEDS: APIXABAN 5 MG TABLET PO (09:40)
[2024-05-13] MEDS: PARoxetine 20 MG TABLET PO (09:40)
[2024-05-13] MEDS: PANTOPRAZOLE 40 MG TABLET PO (09:40)
[2024-05-13] MEDS: PHENAZOPYRIDINE HCL 100 MG TABLET 200 MG PO ×3 (09:40→17:23)
[2024-05-13] MEDS: ASPIRIN 81 MG CHEWABLE TABLET PO (09:40)
[2024-05-13] MEDS: dilTIAZem HCL CD 180 MG CAP.24HR PO (09:40)
[2024-05-13] MEDS: TOLNAFTATE 1% POWDER 45 GM BTL 1 APPLIC TOPICAL (09:41)
[2024-05-13] MEDS: DICLOFENAC SODIUM 1% 100 GM GEL (*BKC) 1 APPLIC TOPICAL ×3 (09:41→17:24)
[2024-05-13] MEDS: busPIRone HCL 5 MG TABLET PO ×2 (09:48→12:27)
[2024-05-13] MEDS: ACETAMINOPHEN 325 MG TABLET 650 MG PO ×2 (09:48→17:34)
[2024-05-13 12:10] LABS: Glucose Point of Care 150 mg/dl (65-105)
--- NOTE | 2024-05-13 15:25 | PM.DS ---
DS: Admitting Diagnosis Discharge Date 05/13/24 Admitting Diagnosis Palpitation AFib Asymptomatic bacteriuria Elevated lactic acid level Chronic wound of extremity COPD Chronic anticoagulation Seizure Hyperglycemia DS: Discharge Diagnosis Discharge Diagnosis (1) Asymptomatic bacteriuria: Code(s): R82.71 - Bacteriuria Status: Acute (2) Atrial fibrillation: Code(s): I48.91 - Unspecified atrial fibrillation Status: Acute (3) Chronic wound of extremity: Status: Inactive (4) Chronic obstructive pulmonary disease: Code(s): J44.9 - Chronic obstructive pulmonary disease, unspecified Status: Acute (5) Chronic anticoagulation: Code(s): Z79.01 - correction (current) use of anticoagulants Status: Acute (6) Seizure: Code(s): R56.9 - Unspecified convulsions Status: Acute (7) Hyperglycemia: Code(s): R73.9 - Hyperglycemia, unspecified Status: Acute DS: Summary Hospital Course Reason for hospitalization: Palpitation AFib Asymptomatic bacteriuria Elevated lactic acid level Chronic wound of extremity COPD Chronic anticoagulation Seizure Hyperglycemia Hospital Course: Interval history: This is a very pleasant 73-year-old female with atrial fibrillation on chronic anticoagulation, coronary artery disease, chronic obstructive pulmonary disease, gastroesophageal reflux disease, depression, chronic pain syndrome, 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 05/11: Very pleasantly knee seen this morning in bed. She states that she needs a full-body overall as she just generally does not feel well. She says that she came in because she was having palpitations, shortness of breath, dizziness, diarrhea with 5 occurrences, nausea and dry heaving. She is also reporting dysuria and intermittent stabbing pains to her suprapubic area with urination. UA is concerning for infection, will start on Rocephin today. C diff ordered given her a recent complaint of diarrhea and skilled nursing status. 05/12/24: On examination today patient is alert and oriented x3. Patient denies any fever, chills, nausea, vomiting, diarrhea, chest pain or shortness of breath. Patient endorses burning sensation with urinating. Labs today revealed a WBC 17.7, otherwise unremarkable. Urine cultures showing gram negative bacilli isolated on preliminary read. Blood cultures showing no growth on preliminary read. Patient has a history of ESBL in the urine and antibiotics were changed to meropenem from Rocephin. 05/13/24: Patient denies any new complaints today. Labs today show white blood cell count of 9.6. Urine culture showing ESBL. Patient currently on meropenem which was changed to a one time dose of Gentamicin due to her ESBL being resistant to most oral options. Patient is stable for discharge at this time. She will need to follow up with PCP in 1 week. Patient would benefit from prophylactic use of Macrobid due to her recurrent UTI infections as she has no other oral options that will work for her. Final diagnosis: UTI, atrial fibrillation Status at Discharge Cognitive/behavioral status at discharge: Alert oriented x3 Functional status at discharge: independent ambulation Overall status at discharge: patient is progressing back to baseline Time Spent with Patient Time attestation: Total time spent providing and/or coordinating discharge services: Time spent: Greater than 30 minutes Exam Narrative: General: In no acute distress, well nourished Head: atraumatic, no encephalopathy Eyes: EOMI, PERRLA, sclera clear ENT: moist mucous membranes, nasal passages clear Neck: supple, no JVD, no adenopathy, trachea midline Cardiac: Normal S1 and S2. A fib, No murmur, gallops or friction rubs, per
[2024-05-13] MEDS: GENTAMICIN SULFATE INJ 380 MG in DEXTROSE 5% 100 ML 100 MG IVPB (15:38)
[2024-05-13 17:35] LABS: Glucose Point of Care 83 mg/dl (65-105)
[2024-05-13 17:50] LABS: SARS-CoV-2 RNA PCR Negative (Negative)
--- NOTE | 2024-05-13 18:10 | PC.NURSE ---
Blank Prescription removed from pyxis. Dr. Dennis wrote for oxycodone for [facility]
--- NOTE | 2024-05-19 08:19 | PC.NURSE ---
Blood cx are negative.
== END 2024-05-13 18:15 | disposition home or self-care (01) ==
LOC: ANHED 15:26 → ANH2MED 21:22
PROVIDERS: Nurse Practitioner Acute Care; Physician Assistant; Admitting Provider Internal Medicine; Emergency Provider Emergency Medicine; PCP Family Medicine; Visit Provider Nurse Practitioner Acute Care
DX: I48.0 Paroxysmal atrial fibrillation (principal); N39.0 Urinary tract infection, site not specified; B96.89 Other specified bacterial agents as the cause of diseases classified elsewhere; R79.89 Other specified abnormal findings of blood chemistry; J44.9 Chronic obstructive pulmonary disease, unspecified; R06.02 Shortness of breath; S71.002A Unspecified open wound, left hip, initial encounter; X58.XXXA Exposure to other specified factors, initial encounter; I10 Essential (primary) hypertension; E11.42 Type 2 diabetes mellitus with diabetic polyneuropathy; E11.65 Type 2 diabetes mellitus with hyperglycemia; E55.9 Vitamin D deficiency, unspecified; G40.909 Epilepsy, unspecified, not intractable, without status epilepticus; K21.9 Gastro-esophageal reflux disease without esophagitis; I25.10 Atherosclerotic heart disease of native coronary artery without angina pectoris; G89.4 Chronic pain syndrome; F41.9 Anxiety disorder, unspecified; F32.A Depression, unspecified; G47.33 Obstructive sleep apnea (adult) (pediatric); Z20.822 Contact with and (suspected) exposure to COVID-19; Z79.51 Long term (current) use of inhaled steroids; Z79.82 Long term (current) use of aspirin; Z79.01 Long term (current) use of anticoagulants; Z79.891 Long term (current) use of opiate analgesic; Z87.891 Personal history of nicotine dependence; Z22.322 Carrier or suspected carrier of Methicillin resistant Staphylococcus aureus
CPT/HCPCS: 36415; 71045; 74176; 80053; 81001; 82948; 83036; 83605; 83690; 83735; 83880; 84145; 84443; 84484; 85025; 85027; 85610; 85730; 86140; 87040; 87077; 87086; 87088; 87186; 87635; 87637; 93005; 94640; 96366; 96367; 96374; 96375; 96376; 99285; A9270; G0378; J0696; J0713; J1580; J1815; J1940; J2185; J2919; J7120

== ENCOUNTER 2024-06-12 07:20 | Emergency (ER) | payer MEDICARE, MEDICAID, SELFPAY ==
--- NOTE | ~2024-06-12 | XR_ITS ---
Left Hand Technique: PA, oblique, and lateral views were obtained. Clinical History: Pain Findings: No acute fracture or dislocation is seen. There is moderate degenerative change of the firs t MCP joint and fifth PIP joint. Soft tissues are unremarkable. Impression: Degenerative changes, as detailed above. Reviewed, dictated and finalized at location . Impression: Degenerative changes, as detailed above.
--- NOTE | ~2024-06-12 | CT_ITS ---
Noncontrast CT scan of the cervical spine Technique: Multiple contiguous axial [address] images of the cervical spine were obtained and rec onstructed in 2D sagittal and coronal planes on the acquisition scanner. Dose reduction technique was used on this scan by utilizing automated exposure control, adjustment of the mA and/or kV according to patient size. The dose-length product (DLP) was 532.72 mGy-cm. Clinical History: Pain COMPARISON: 08/24/2023 Findings: No acute fractures or dislocations. Osseous alignment is stable from prior exam. Stable re versal normal cervical lordosis. Stable grade 1 anterolisthesis of C3 over C4. There is severe degene rative disc narrowing and probable partial fusion across the C3-C4 disc space. There is severe degene rative disc change at C4-C5, C5-C6, and C6-C7. There is fusion across the bilateral C3-C4 facet joint s. There is left facet arthropathy at C2-C3 with probable minimal left neural foraminal narrowing at this level. There is probable bilateral neural foraminal narrowing at C4-C5, disc ossify complex and facet arthropathy present. There is right neural foraminal narrowing particularly at C5-C6, disc oste ophyte complex and facet arthropathy. There is probable bilateral neural foraminal narrowing at C6-C7 . No prevertebral soft tissue swelling. Impression: No acute abnormality evident. Stable grade 1 anterolisthesis of C3 over C4. Advanced degenerative spondylosis, similar to prior exa m. Reviewed, dictated and finalized at location . Impression: No acute abnormality evident. Stable grade 1 anterolisthesis of C3 over C4. Advanced degenerative spondylosis , similar to prior exam.
--- NOTE | ~2024-06-12 | XR_ITS ---
Left wrist Technique: PA, oblique, lateral, and ulnar deviation views were obtained. Clinical History: Pain Findings: No acute fracture or dislocation is seen. Osseous alignment is anatomic. Joint spaces are p reserved. Soft tissues are unremarkable. Impression: Unremarkable left wrist radiographs. Reviewed, dictated and finalized at location . Impression: Unremarkable left wrist radiographs.
--- NOTE | ~2024-06-12 | CT_ITS ---
CT head without contrast Indication: Status post fall COMPARISON: 08/24/2023 Technique: Serial scans were obtained through the brain without the administration of contrast. Dose reduction technique was used on this scan by utilizing automated exposure control and iterative recon struction technique. The dose-length product (DLP) was 681.00 mGy-cm. Findings: There is no evidence of intracranial hemorrhage, mass lesion, or acute infarct. The ventri cles and subarachnoid spaces are dilated, consistent with mild atrophy. Low attenuation regions are seen within the periventricular white matter bilaterally, likely representing changes from chronic mi crovascular ischemic disease. There is no evidence of edema, mass effect or midline shift. There is sinus disease involving the bilateral ethmoid air cells, left maxillary sinus, and right sphenoid sin us. The remaining visualized paranasal sinuses and mastoid air cells are clear. Impression: No intracranial hemorrhage, mass, or acute infarct. Atrophy and chronic white matter changes, as above. Sinus disease, as above. Reviewed, dictated and finalized at location . Impression: No intracranial hemorrhage, mass, or acute infarct. Atrophy and chronic white matter changes, as above. Sinus disease, as above.
--- NOTE | ~2024-06-12 | CT_ITS ---
Noncontrast CT scan of the thoracolumbar spine CLINICAL HISTORY: Status post fall TECHNIQUE: Axial noncontrast imaging of the thoracolumbar spine was performed. Sagittal and coronal r eformatted images were constructed. Dose reduction technique was used on this scan by utilizing autom ated exposure control and iterative reconstruction technique. The dose-length product (DLP) was 1988. 05 mGy-cm. FINDINGS: No fracture or subluxation seen in the thoracic or lumbar spine. Vertebral bodies maintain normal height and central unremarkable alignment, there is straightening of the normal lumbar lordosi s. There is moderate to advanced degenerative disc narrowing throughout the thoracic spine. There is fac et arthropathy and probable mild canal stenosis at T9-T10. There is advanced facet arthropathy and pr obable moderate canal stenosis at T10-T11 and T11-T12. Element of underlying cord compression at thes e levels cannot be completely excluded. There is additional facet arthropathy and probable mild canal stenosis at T12-L1. At L1-L2, there is advanced degenerative disc narrowing. Disc bulge and moderate facet arthropathy re sult in severe central canal stenosis/thecal sac compression, and severe bilateral neural foraminal c ompromise. At L2-L3, there is severe degenerative disc narrowing. Disc bulge and advanced facet arthropathy resu lt in severe spinal canal stenosis/thecal sac compression. There is moderate to advanced bilateral ne ural foraminal narrowing. At L3-L4, there is advanced degenerative disc narrowing. Disc bulge and severe facet arthropathy resu lt in severe spinal canal stenosis/thecal sac compression. There is moderate to severe bilateral neur al foraminal narrowing. At L4-L5, there is advanced degenerative disc narrowing. Disc bulge and severe facet arthropathy resu lt in severe spinal canal stenosis/thecal sac compression. There is severe left neural foraminal, rig ht, and moderate to severe right neural foraminal comprise. At L5-S1, there is mild disc bulge and moderate facet arthropathy. No frederick central canal stenosis. T here is severe bilateral neural foraminal compromise. There is partially imaged probable severe osteoarthritis of the left hip joint. Paravertebral soft ti ssues are unremarkable. Impression: No acute fracture or subluxation. Severe degenerative spondylosis of the lumbar spine and lower thoracic spine, as detailed above. Ther e is multilevel severe spinal canal stenosis and severe neural foraminal narrowing throughout the cor responding particular. Reviewed, dictated and finalized at location M. Impression: No acute fracture or subluxation. Severe degenerative spondylosis of the lumbar spine and lower thoracic spine, a s detailed above. There is multilevel severe spinal canal stenosis and severe n eural foraminal narrowing throughout the corresponding particular.
[2024-06-12 07:26] VITALS: BP 144/76; PULSE 85; RESP 18; TEMP 36.8; O2SAT 100
--- NOTE | 2024-06-12 07:29 | ED.FALL ---
HPI - Fall General Chief Complaint: Fall Stated Complaint: fall Source: patient and EMS Mode of arrival: EMS Limitations: no limitations History of Present Illness HPI Narrative: Patient is 74 years old, residential, wheelchair-bound, reclining, fell backward, struck the back of her head on the floor, complaining of headache, back pain, left hand/wrist pain. She denies loss of consciousness, patient on Eliquis and aspirin. Related Data Home Medications Medication Instructions Recorded Confirmed acetaminophen 325 mg capsule 650 mg PO Q6H PRN Pain (Scale 11/14/21 05/10/24 (Tylenol) Score 1-3) albuterol sulfate 90 mcg/actuation 2 inh inhalation QID PRN Shortness 11/14/21 05/10/24 aerosol inhaler (ProAir HFA) Of Breath aspirin 81 mg chewable tablet 81 mg PO DAILY 11/14/21 05/10/24 atorvastatin 10 mg tablet (Lipitor) 10 mg PO HS 11/14/21 05/10/24 diltiazem HCl 180 mg capsule,24 180 mg PO DAILY 11/14/21 05/10/24 hr,extended release (Tiazac) paroxetine HCl 20 mg tablet 20 mg PO DAILY 11/14/21 05/10/24 tiotropium bromide 18 mcg capsule 1 cap inhalation DAILY 11/14/21 05/10/24 with inhalation device (Spiriva with HandiHaler) apixaban 5 mg tablet (Eliquis) 5 mg PO BID 03/26/23 05/10/24 buspirone 5 mg tablet 5 mg PO TID 03/26/23 05/10/24 multivitamin n-abnoxnxe-ldklmhl 1 tablet PO DAILY 03/26/23 05/10/24 fumarate 18 mg-vitamin K 25 mcg tablet nystatin 100,000 unit/gram topical 1 applic topical BID 03/26/23 05/10/24 powder sucralfate 1 gram tablet 1 g PO QID 03/26/23 05/10/24 glucagon 1 mg solution for 1 mg IM Q15M PRN Hypoglycemia 05/12/23 05/10/24 injection (Glucagon Emergency Kit) guaifenesin 100 mg/5 mL oral liquid 200 mg PO Q6H PRN Cough 05/12/23 05/10/24 naloxone 4 mg/actuation nasal spray 1 spray intranasal ONCE PRN Opioid 05/12/23 05/10/24 Overdose nitroglycerin 0.4 mg sublingual 0.4 mg sublingual Q5M PRN Chest 05/12/23 05/10/24 tablet Pain ondansetron 4 mg disintegrating 4 mg PO Q8H PRN Nausea And Vomiting 05/12/23 05/10/24 tablet pantoprazole 40 mg tablet,delayed 40 mg PO QAM 05/12/23 05/10/24 release sennosides 8.6 mg-docusate sodium 1 tab-cap PO BID 05/12/23 05/10/24 50 mg capsule (Senna Plus) levetiracetam 500 mg tablet 500 mg PO BID 07/27/23 05/10/24 loperamide 2 mg tablet 4 mg PO Q8H PRN Diarrhea 11/20/23 05/10/24 nystatin 100,000 unit/gram topical 1 applic topical PRN PRN reddened 11/20/23 05/10/24 cream skin oxycodone 5 mg tablet 5 mg PO Q8H PRN Pain (Scale Score 11/20/23 05/10/24 4-6) diclofenac sodium 1 % topical gel 2 g topical QID 05/10/24 05/10/24 (Voltaren Arthritis Pain) trazodone 50 mg tablet 50 mg PO HS 05/10/24 05/10/24 Allergies Allergy/AdvReac Type Severity Reaction Status Date / Time iodine Allergy Unknown Verified 05/10/24 13:57 latex Allergy Unknown Verified 05/10/24 13:57 meperidine Allergy Unknown Verified 05/10/24 13:57 Penicillins Allergy Unknown Verified 05/12/24 08:34 piperacillin [From Zosyn] Allergy Unknown Verified 05/12/24 08:34 tazobactam [From Zosyn] Allergy Unknown Verified 05/12/24 08:34 Review of Systems Review of Systems: All systems reviewed & are unremarkable except as noted in HPI and below PMFSH Past Medical History Medical History Anxiety Atrial fibrillation Chronic anticoagulation Chronic obstructive pulmonary disease Chronic pain disorder Depression Diabetic peripheral neuropathy Gastroesophageal reflux disease Hypertension Obstructive sleep apnea Pneumonia due to COVID-19 virus (01/2023) Seizure-like activity (05/2023) Type 2 diabetes mellitus Vasculitis determined by biopsy of skin Vitamin D deficiency Surgical History Surgical History History of colonoscopy with polypectomy History of hysterectomy History of left hip replacement Family History Family History S
[2024-06-12 07:33] VITALS: BP 144/76; PULSE 97; RESP 18; TEMP 36.8; O2SAT 100
[2024-06-12] MEDS: MORPHINE SULFATE (*CRX) 4 MG/ML INJ IV PUSH (08:32)
[2024-06-12] MEDS: ONDANSETRON INJ 4 MG/2 ML VIAL IV PUSH (08:33)
[2024-06-12 08:37] VITALS: BP 105/86; PULSE 100; RESP 18; TEMP 36.8; O2SAT 100
--- NOTE | 2024-06-12 08:46 | PC.NURSE ---
Pt c/o occipital head pain, back pain & left wrist. CMS intact. Pt A/O x3.
[2024-06-12 09:30] VITALS: BP 127/92; PULSE 92; RESP 18; TEMP 36.8; O2SAT 90
[2024-06-12 10:15] VITALS: BP 125/70; PULSE 89; RESP 16; O2SAT 98
[2024-06-12 11:00] VITALS: BP 128/81; PULSE 92; RESP 16; TEMP 36.8; O2SAT 92
== END 2024-06-12 11:55 ==
PROVIDERS: Emergency Provider Emergency Medicine; PCP Family Medicine
DX: S09.90XA Unspecified injury of head, initial encounter (principal); S60.222A Contusion of left hand, initial encounter; S30.0XXA Contusion of lower back and pelvis, initial encounter; I48.91 Unspecified atrial fibrillation; J44.9 Chronic obstructive pulmonary disease, unspecified; E11.9 Type 2 diabetes mellitus without complications; I10 Essential (primary) hypertension; Z79.01 Long term (current) use of anticoagulants; Z79.82 Long term (current) use of aspirin; Z87.81 Personal history of (healed) traumatic fracture; W19.XXXA Unspecified fall, initial encounter
CPT/HCPCS: 70450; 72125; 72128; 72131; 73110; 73130; 96374; 96375; 99284; J2270; J2405

== ENCOUNTER 2024-07-04 00:17 | Emergency (ER) | payer MEDICARE, MEDICAID, SELFPAY ==
[2024-07-04] VITALS (27 sets, daily range): BP systolic 105–141; BP diastolic 62–85; PULSE 81–97; RESP 17–20; TEMP 36.7; O2SAT 92–100
--- NOTE | ~2024-07-04 | CT_ITS ---
EXAMINATION: CT abdomen pelvis wo con DATE: 07/04/2024 01:52 INDICATION: Left abdominal pain. TECHNIQUE: Computed tomography (CT) of the abdomen and pelvis was performed without intravenous contr ast. Automated exposure control and iterative reconstruction technique were employed. The dose-length product was 1167.45 mGy-cm. COMPARISON: CT abdomen and pelvis 05/10/2024, 11/20/2023 FINDINGS: The visualized portions of the lung bases demonstrate mild atelectasis. No pleural effusion . The heart size is normal. No pericardial effusion. There are calcifications in the liver, consisten t with old granulomatous disease. The spleen is normal. There are changes of cholecystectomy. The mccray creas and adrenal glands are normal. There is cortical thinning of the kidneys. There is a 4.3 cm cys t in right kidney. There is a 15 x 24 mm left inguinal lymph node. There are no pathologically enlarg ed lymph nodes. There is no free intraperitoneal fluid. There are old healed fractures of left acetab ulum and proximal left femur. There is a total left hip arthroplasty in near-anatomic alignment. Ther e are chronic lucencies adjacent to the acetabular component. There is severe lumbar spondylosis. The re is moderate thoracic spondylosis. IMPRESSION: 1. Mild left inguinal lymphadenopathy, likely reactive. 2. Total left hip arthroplasty with chronic lucencies adjacent to the acetabular component, which may be seen with infection, loosening, or particle disease. Correlate with postoperative radiographs. Reviewed, dictated and finalized at location A. IMPRESSION: 1. Mild left inguinal lymphadenopathy, likely reactive. 2. Total left hip arthroplasty with chronic lucencies adjacent to the acetabula r component, which may be seen with infection, loosening, or particle disease. Correlate with postoperative radiographs.
--- NOTE | ~2024-07-04 | XR_ITS ---
EXAMINATION: XR hip LT 2V w AP pelvis DATE: 07/04/2024 00:48 INDICATION: Left hip pain. TECHNIQUE: An anteroposterior view of the pelvis and 2 views of left hip were obtained. COMPARISON: Pelvis and left hip radiographs 08/24/2023 FINDINGS: There is a total left hip arthroplasty in near-anatomic alignment. There are old fracture d eformities of the left acetabulum and proximal left femur. No acute fracture. There is moderate right hip osteoarthritis. There is severe lumbar spondylosis. There are suture anchors in proximal left fe mur. IMPRESSION: 1. Total left hip arthroplasty in near-anatomic alignment. 2. Moderate right hip osteoarthritis. Reviewed, dictated and finalized at location A.
--- NOTE | 2024-07-04 01:01 | ED.GENADULT ---
HPI - General Adult General Chief complaint: Unspecified <GAB Quigley Last Filed: 07/04/24 03:25> Stated complaint: L hip pain <GAB Quigley Last Filed: 07/04/24 03:25> Time Seen by Provider: 07/04/24 00:19 <GAB Quigley Last Filed: 07/04/24 03:25> Source: patient and old records reviewed <GAB Quigley Last Filed: 07/04/24 03:25> Mode of arrival: EMS <GAB Quigley Last Filed: 07/04/24 03:25> Limitations: no limitations and dementia <GAB Quigley Last Filed: 07/04/24 03:25> History of Present Illness HPI narrative: Patient is a 74-year-old female who presents the ED via EMS with report of left hip and left abdominal pain. Patient is resident of [facility]. Patient is a poor historian. A&O X1 at baseline per records. Patient has hx of L hip replacement with chronic left hip wound for the last several years that she receives wound care with at the facility. She is nonambulatory, wheelchair bound at baseline. Per EMS report, patient began complaining of pain to her left hip after receiving her wound care today. Nursing facility staff reported that patient has been refusing her pain medication over the last few days. She is on Oxycodone per med rec. Per EMS, patient was sleeping upon arrival. Patient does report over the last few days, the pain has been more severe in her left hip and has been radiating into her left-sided abdomen. She reports intermittent nausea. Denies vomiting. Denies fevers. <GAB Quigley Last Filed: 07/04/24 03:25> Related Data Home medications: Home Medications Medication Instructions Recorded Confirmed acetaminophen 325 mg capsule 650 mg PO Q6H PRN Pain (Scale 11/14/21 06/30/24 (Tylenol) Score 1-3) albuterol sulfate 90 mcg/actuation 2 inh inhalation QID PRN Shortness 11/14/21 06/30/24 aerosol inhaler (ProAir HFA) Of Breath aspirin 81 mg chewable tablet 81 mg PO DAILY 11/14/21 06/30/24 atorvastatin 10 mg tablet (Lipitor) 10 mg PO HS 11/14/21 06/30/24 diltiazem HCl 180 mg capsule,24 180 mg PO DAILY 11/14/21 06/30/24 hr,extended release (Tiazac) paroxetine HCl 20 mg tablet 20 mg PO DAILY 11/14/21 06/30/24 tiotropium bromide 18 mcg capsule 1 cap inhalation DAILY 11/14/21 06/30/24 with inhalation device (Spiriva with HandiHaler) apixaban 5 mg tablet (Eliquis) 5 mg PO BID 03/26/23 06/30/24 buspirone 5 mg tablet 5 mg PO TID 03/26/23 06/30/24 multivitamin r-fvztecjk-jnkkyix 1 tablet PO DAILY 03/26/23 06/30/24 fumarate 18 mg-vitamin K 25 mcg tablet nystatin 100,000 unit/gram topical 1 applic topical BID 03/26/23 06/30/24 powder sucralfate 1 gram tablet 1 g PO QID 03/26/23 06/30/24 glucagon 1 mg solution for 1 mg IM Q15M PRN Hypoglycemia 05/12/23 06/30/24 injection (Glucagon Emergency Kit) guaifenesin 100 mg/5 mL oral liquid 200 mg PO Q6H PRN Cough 05/12/23 06/30/24 naloxone 4 mg/actuation nasal spray 1 spray intranasal ONCE PRN Opioid 05/12/23 06/30/24 Overdose nitroglycerin 0.4 mg sublingual 0.4 mg sublingual Q5M PRN Chest 05/12/23 06/30/24 tablet Pain ondansetron 4 mg disintegrating 4 mg PO Q8H PRN Nausea And Vomiting 05/12/23 06/30/24 tablet sennosides 8.6 mg-docusate sodium 1 tab-cap PO BID 05/12/23 06/30/24 50 mg capsule (Senna Plus) levetiracetam 500 mg tablet 500 mg PO BID 07/27/23 06/30/24 loperamide 2 mg tablet 4 mg PO Q8H PRN Diarrhea 11/20/23 06/30/24 nystatin 100,000 unit/gram topical 1 applic topical PRN PRN reddened 11/20/23 06/30/24 cream skin oxycodone 5 mg tablet 5 mg PO Q8H PRN Pain (Scale Score 11/20/23 06/30/24 4-6) diclofenac sodium 1 % topical gel 2 g topical QID 05/10/24 06/30/24 (Voltaren Arthritis Pain) trazodone 50 mg tablet 50 mg PO HS 05/10/24 06/30/24 <Heather Calhoun PA-C - Last Filed: 07/04/24 03:25> Allergies/adverse reactions: Allergies Allergy/AdvReac Type Se
[2024-07-04] MEDS: oxyCODONE HCL (*CRX) 5 MG TAB IR PO (01:34)
--- NOTE | 2024-07-04 01:36 | PC.NURSE ---
Patient taken to CT via stretcher at this time.
[2024-07-04 02:14] LABS: Basophils Absolute Auto 0.1 K/mm3 (0.0-0.1); Basophils Percent Auto 0.8 % (0.2-1.2); Eosinophils Absolute Auto 0.4 K/mm3 (0-0.3); Eosinophils Percent Auto 3.6 % (0-4.4); Hemoglobin 13.4 g/dL (12.0-15.0); Immature Granulocyte Absolute 0.03 K/mm3 (0.00-0.031); Immature Granulocyte Percent A 0.3 % (0-0.5); Lymphocytes Absolute Auto 2.72 K/mm3 (0.9-3.2); Mean Corpuscular HGB Conc 31.9 g/dl (32-36); Mean Corpuscular Hemoglobin 27.2 pg (26-34); Mean Corpuscular Volume 85.4 fl (80-100); Mean Platelet Volume 10.2 fl (7.4-10.4); Monocytes Absolute Auto 1.2 K/mm3 (0.1-0.6); Monocytes Percent Auto 11.4 % (2.6-8.5); Neutrophils Absolute Auto 6.1 K/mm3 (1.3-6.7); Neutrophils Percent Auto 57.9 % (45.5-73.1); Platelet Count Result 299 k/mm3 (150-375); Red Blood Count 4.92 M/mm3 (4.2-5.4); Red Cell Distribution Width 16.4 % (11.5-14.5); White Blood Count 10.5 K/mm3 (4.5-10.0)
[2024-07-04 02:31] LABS: Alanine Aminotransferase 13 U/L (6-35); Albumin Level 3.8 g/dL (3.5-5.1); Alkaline Phosphatase 158 U/L (38-126); Anion Gap 9 mmol/L (4-12); Aspartate Amino Transferase 21 U/L (14-36); Bilirubin,Total 0.5 mg/dL (0.2-1.3); Blood Urea Nitrogen 12 mg/dL (7-17); CRP 2.5 mg/dL (<1.0); Carbon Dioxide 28 mmol/L (22-30); Chloride 103 mmol/L (98-107); Estimated CRCL calculation 61 ml/min; Estimated Glomerular Filt Rate > 60; Glucose 112 mg/dL (65-110); Lipase 60 U/L (23-300); Potassium 3.4 mmol/L (3.4-5.0); Sodium 140 mmol/L (137-145)
[2024-07-04 02:36] LABS: Lactic Acid Reflex 1.4 mmol/L (0.7-2.0)
--- NOTE | 2024-07-04 05:22 | PC.NURSE ---
Attempted to call report to MD, no answer. Will try again.
--- NOTE | 2024-07-04 05:37 | PC.NURSE ---
0536 Report called to MARYANNE Bell at [facility].
== END 2024-07-04 06:25 ==
PROVIDERS: Physician Assistant; Emergency Provider Emergency Medicine; PCP Family Medicine
DX: M25.552 Pain in left hip (principal); R10.9 Unspecified abdominal pain; L98.8 Other specified disorders of the skin and subcutaneous tissue; I48.91 Unspecified atrial fibrillation; I10 Essential (primary) hypertension; J44.9 Chronic obstructive pulmonary disease, unspecified; E11.42 Type 2 diabetes mellitus with diabetic polyneuropathy; E55.9 Vitamin D deficiency, unspecified; K21.9 Gastro-esophageal reflux disease without esophagitis; G47.33 Obstructive sleep apnea (adult) (pediatric); F41.0 Panic disorder [episodic paroxysmal anxiety]; F32.A Depression, unspecified; Z96.642 Presence of left artificial hip joint; Z86.16 Personal history of COVID-19; Z87.01 Personal history of pneumonia (recurrent); Z86.010 Personal history of colon polyps; Z90.710 Acquired absence of both cervix and uterus; Z79.01 Long term (current) use of anticoagulants; Z79.899 Other long term (current) drug therapy; Z79.82 Long term (current) use of aspirin
CPT/HCPCS: 36415; 73502; 74176; 80053; 83605; 83690; 85025; 86140; 99284; A9270

== ENCOUNTER 2024-08-10 20:45 | Emergency (ER) | payer MEDICARE, MEDICAID, SELFPAY ==
[2024-08-10] VITALS (10 sets, daily range): BP systolic 117–129; BP diastolic 73–91; PULSE 80–99; RESP 14–20; TEMP 36.5; O2SAT 93–100
--- NOTE | ~2024-08-10 | CT_ITS ---
EXAMINATION: CT abdomen pelvis wo con DATE: 08/10/2024 22:15 INDICATION: fall, pain on L side of body TECHNIQUE: Computed tomography (CT) of the abdomen and pelvis was performed without intravenous contr ast. Automated exposure control and iterative reconstruction technique were employed. The dose-length product was 1275.97 mGy-cm. COMPARISON: 02/22. FINDINGS: Lower thorax: Aortic valve and mitral calcification. Minimal dependent atelectasis/scar. Liver: Subcentimeter hypodensity in the right lobe, likely cyst or hemangioma. Biliary/Gallbladder: Gallbladder is absent. No bile duct dilation. Pancreas: No mass or duct dilation. Spleen: Multiple subcentimeter hypodensities, likely cysts or hemangiomas. Adrenals:No mass. Kidneys: No suspicious mass, obstructing stone, or hydronephrosis. Simple right midpole cyst. GI tract: No small or large bowel dilation. Normal appendix. Diverticulosis without diverticulitis. Mesentery/Peritoneum: No ascites, mass, or free air. Retroperitoneum: No mass. Atherosclerotic abdominal aortic and/or arterial calcifications. Pelvis: Absent uterus. Ovaries not confidently visualized. Enlarged left external iliac and femoral l ymph nodes. Partially distended urinary bladder with mild wall thickening and adjacent stranding. Soft Tissues: Subcutaneous stranding over the left hip. 5.9 cm fluid collection over the left hip, pa rtially obscured by metal artifact. Enlarged left inguinal lymph nodes. Bones: No acute osseous finding. Left hip arthroplasty hardware. Chronic stable lucencies adjacent t o the acetabular component. Heterotopic bone formation about the left hip. IMPRESSION: No acute traumatic finding detected in the abdomen or pelvis. Possible cystitis, correlate with urinalysis. Left external iliac, femoral, and inguinal lymphadenopathy. Chronic lucencies adjacent to the acetabular component of the left hip arthroplasty hardware, as can be seen with infection, loosening, particle disease. Chronic 5.9 cm fluid collection over the left hip. Reviewed, dictated and finalized at location K. IMPRESSION: No acute traumatic finding detected in the abdomen or pelvis. Possible cystitis, correlate with urinalysis. Left external iliac, femoral, and inguinal lymphadenopathy. Chronic lucencies adjacent to the acetabular component of the left hip arthropl asty hardware, as can be seen with infection, loosening, particle disease. Chronic 5.9 cm fluid collection over the left hip.
--- NOTE | ~2024-08-10 | XR_ITS ---
EXAM: XR shoulder LT min 2V DATE: 08/10/2024 22:06 HISTORY: L shoulder pain . COMPARISON: None available. FINDINGS: Suboptimal positioning. Decreased mineralization. No fracture or dislocation. No lytic or b lastic lesion. Moderate degenerative change at the AC joint and glenohumeral joint. Subacromial narro wing as can be seen with rotator cuff pathology. Partially visualized implanted port in the left ches t with a loop in the catheter. No erosion or periosteal change. Soft tissues within normal limits. IMPRESSION: No definite acute osseous finding in the left shoulder given limitations of positioning. Left chest port with looped catheter, correlate with line function and consider chest radiograph to d ocument tube tip position. Reviewed, dictated and finalized at location K. IMPRESSION: No definite acute osseous finding in the left shoulder given limita tions of positioning. Left chest port with looped catheter, correlate with line function and consider chest radiograph to document tube tip position.
--- NOTE | ~2024-08-10 | CT_ITS ---
EXAMINATION: CT brain wo con DATE: 08/10/2024 22:16 INDICATION: fall, +LOC . TECHNIQUE: Computed tomography (CT) of the head was performed without intravenous contrast. The mA wa s adjusted according to patient size. Iterative reconstruction technique was employed. The dose-lengt h product was 605.33 mGy-cm. COMPARISON: 06/12/2024. FINDINGS: No acute intracranial hemorrhage or extra-axial fluid collection. No hydrocephalus, mass, or herniation. No acute ischemic infarct. Unremarkable dural venous sinus attenuation. No acute osseous abnormality. Air-fluid level and aerated secretions in the left maxillary sinus. Retention cyst/polyp in the right sphenoid sinus. Mucosal thickening in the bilateral maxillary and ethmoid sinuses. Trace right masto id fluid. Mild atrophy and chronic white matter change. Atherosclerotic intracranial calcification. Old right b samantha ganglia lacunar infarct. IMPRESSION: No acute intracranial process. Left maxillary sinus findings may represent acute sinusitis or mucosal hemorrhage in the setting of t rauma. Reviewed, dictated and finalized at location K. IMPRESSION: No acute intracranial process. Left maxillary sinus findings may represent acute sinusitis or mucosal hemorrha ge in the setting of trauma.
--- NOTE | ~2024-08-10 | CT_ITS ---
EXAMINATION: CT cervical spine wo con DATE: 08/10/2024 22:16 INDICATION: fall, pain on L side of body TECHNIQUE: Computed tomography (CT) of the cervical spine was performed without intravenous contrast. Automated exposure control and iterative reconstruction technique were employed. The dose-length pro duct was 399.26 mGy-cm. COMPARISON: 06/12/2024. FINDINGS: Vertebral Body Alignment: Stable reversal of the normal cervical lordosis. Stable multilevel grade 1 listheses. Craniocervical and atlantoaxial alignment: Moderate degenerative change. Alignment intact. Osseous structures/fracture: No evidence of a lytic or blastic process in the visualized spine. No e vidence of acute fracture. Osseous C3-4 vertebral body and bilateral facet fusion Cervical soft tissues: The paraspinal soft tissues planes are maintained. 2.1 cm left thyroid nodule. Degenerative changes: Multilevel severe degenerative disc disease. Multilevel facet arthropathy. Nery re right neural foraminal narrowing at C3-4 secondary to degenerative facet and uncovertebral joint c hanges. No severe central canal narrowing. IMPRESSION: No acute fracture or traumatic malalignment in the cervical spine. 2.1 cm left thyroid nodule, consider outpatient thyroid ultrasound for further evaluation Reviewed, dictated and finalized at location K.
--- NOTE | 2024-08-10 21:47 | ED.FALL ---
HPI - Fall General Chief Complaint: Fall Stated Complaint: fall out of w/c Source: patient Mode of arrival: EMS Limitations: physical limitation History of Present Illness HPI Narrative: Patient is a 74-year-old female who presents the ED via EMS with report of a fall earlier this afternoon. She is A&O X 3.. Patient has hx of L hip replacement with chronic left hip wound for the last several years that she receives wound care with at the facility. She is nonambulatory, wheelchair bound at baseline. Pt reports she was being transferred from a chair to the bed when she had a ground level floor. She endorses + LOC. Pt endorses pain in her cervical spine, L shoulder, L ribcage, L upper and lower abdominal pain, L hip pain, L leg pain and pain in the back of her head. She denies vomiting, fevers, chest pain, shortness of breath, but also reports she has UTI symptoms that started this morning. MD complaint: fall Onset (ago): hour(s) Fall from: chair Fall witnessed: yes, by living facility staff Place fall occurred: longterm/SNF Loss of consciousness: yes Length of LOC: minutes(s) ( 1 minute black out ) Symptoms prior to fall: none Location of injury: head, neck, back, abdomen and pelvis Location of injury - extremities: Left: shoulder, arm, thigh and lower leg Associated symptoms (after fall): headache, neck pain and abdominal pain Related Data Home Medications Medication Instructions Recorded Confirmed acetaminophen 325 mg capsule 650 mg PO Q6H PRN Pain (Scale 11/14/21 06/30/24 (Tylenol) Score 1-3) albuterol sulfate 90 mcg/actuation 2 inh inhalation QID PRN Shortness 11/14/21 06/30/24 aerosol inhaler (ProAir HFA) Of Breath aspirin 81 mg chewable tablet 81 mg PO DAILY 11/14/21 06/30/24 atorvastatin 10 mg tablet (Lipitor) 10 mg PO HS 11/14/21 06/30/24 diltiazem HCl 180 mg capsule,24 180 mg PO DAILY 11/14/21 06/30/24 hr,extended release (Tiazac) paroxetine HCl 20 mg tablet 20 mg PO DAILY 11/14/21 06/30/24 tiotropium bromide 18 mcg capsule 1 cap inhalation DAILY 11/14/21 06/30/24 with inhalation device (Spiriva with HandiHaler) apixaban 5 mg tablet (Eliquis) 5 mg PO BID 03/26/23 06/30/24 buspirone 5 mg tablet 5 mg PO TID 03/26/23 06/30/24 multivitamin o-bjkkvtak-tbttyoq 1 tablet PO DAILY 03/26/23 06/30/24 fumarate 18 mg-vitamin K 25 mcg tablet nystatin 100,000 unit/gram topical 1 applic topical BID 03/26/23 06/30/24 powder sucralfate 1 gram tablet 1 g PO QID 03/26/23 06/30/24 glucagon 1 mg solution for 1 mg IM Q15M PRN Hypoglycemia 05/12/23 06/30/24 injection (Glucagon Emergency Kit) guaifenesin 100 mg/5 mL oral liquid 200 mg PO Q6H PRN Cough 05/12/23 06/30/24 naloxone 4 mg/actuation nasal spray 1 spray intranasal ONCE PRN Opioid 05/12/23 06/30/24 Overdose nitroglycerin 0.4 mg sublingual 0.4 mg sublingual Q5M PRN Chest 05/12/23 06/30/24 tablet Pain ondansetron 4 mg disintegrating 4 mg PO Q8H PRN Nausea And Vomiting 05/12/23 06/30/24 tablet sennosides 8.6 mg-docusate sodium 1 tab-cap PO BID 05/12/23 06/30/24 50 mg capsule (Senna Plus) levetiracetam 500 mg tablet 500 mg PO BID 07/27/23 06/30/24 loperamide 2 mg tablet 4 mg PO Q8H PRN Diarrhea 11/20/23 06/30/24 nystatin 100,000 unit/gram topical 1 applic topical PRN PRN reddened 11/20/23 06/30/24 cream skin oxycodone 5 mg tablet 5 mg PO Q8H PRN Pain (Scale Score 11/20/23 06/30/24 4-6) diclofenac sodium 1 % topical gel 2 g topical QID 05/10/24 06/30/24 (Voltaren Arthritis Pain) trazodone 50 mg tablet 50 mg PO HS 05/10/24 06/30/24 Allergies Allergy/AdvReac Type Severity Reaction Status Date / Time iodine Allergy Unknown Verified 06/30/24 13:07 latex Allergy Unknown Verified 06/30/24 13:07 meperidine Allergy Unknown Verified 06/30/24 13:07 Penicillins Allergy Unknown Verified 06/30/24 13:07 piperacillin [From Zosyn] Allergy Unknown Verified 06/30/24 13:07 tazobactam [From Zosyn] Allergy Unknown Verified 06/30/24 13:07 Review of Sys
[2024-08-10] MEDS: HYDROmorphone HCL INJ (*CRX) 1 MG/ML SYR 0.5 MG IV PUSH (22:26)
[2024-08-10 22:33] LABS: Basophils Absolute Auto 0.1 K/mm3 (0.0-0.1); Basophils Percent Auto 0.6 % (0.2-1.2); Eosinophils Absolute Auto 0.3 K/mm3 (0-0.3); Eosinophils Percent Auto 2.1 % (0-4.4); Hematocrit 43.7 % (37.0-47.0); Immature Granulocyte Absolute 0.05 K/mm3 (0.00-0.031); Immature Granulocyte Percent A 0.4 % (0-0.5); Lymphocytes Absolute Auto 2.81 K/mm3 (0.9-3.2); Lymphocytes Percent Auto 22.7 % (18.3-44.2); Mean Corpuscular Hemoglobin 27.2 pg (26-34); Mean Corpuscular Volume 84.9 fl (80-100); Mean Platelet Volume 10.4 fl (7.4-10.4); Monocytes Absolute Auto 1.1 K/mm3 (0.1-0.6); Neutrophils Absolute Auto 8.1 K/mm3 (1.3-6.7); Neutrophils Percent Auto 65.2 % (45.5-73.1); Platelet Count Result 365 k/mm3 (150-375); Red Blood Count 5.15 M/mm3 (4.2-5.4); Red Cell Distribution Width 15.8 % (11.5-14.5); White Blood Count 12.4 K/mm3 (4.5-10.0)
[2024-08-10 22:51] LABS: Lipase 67 U/L (23-300)
[2024-08-10 23:06] LABS: Add Urine Microscopic? YES; Appearance Urine Clear (Clear); Bacteria Urine 1+ /hpf; Bilirubin Urine Negative (Negative); Blood Urine Negative (Negative); Budding Yeast Urine Present /hpf; Color Urine Yellow (Yellow); Glucose Urine UA Negative (Negative); Ketones Urine Negative (Negative); Leukocyte Esterase Ur 1+ LEU/UL (Negative); Need Manual Microscopic Reviewed; Nitrate Urine Positive (Negative); Non Pathogenic Casts 0-2; Protein Urine Negative (Negative); RBC Urine 0-2 /hpf (0-2); Specific Grav Ur 1.017 (1.001-1.035); Squamous Epithelial Cell Urine Occasional /hpf (Few); Urobilinogen Urine 0.2 mg/dL (<2.0); pH Urine 5.5 (5.0-9.0)
[2024-08-10 23:21] LABS: INR 1.4; Prothrombin Time 17.9 Seconds (11.1-14.7)
[2024-08-10 23:22] LABS: Partial Thromboplastin Time 39.6 Seconds (22.3-36.8)
[2024-08-10 23:39] LABS: Alanine Aminotransferase 16 U/L (6-35); Albumin Level 3.7 g/dL (3.5-5.1); Alkaline Phosphatase 194 U/L (38-126); Anion Gap 8 mmol/L (4-12); Aspartate Amino Transferase 28 U/L (14-36); Bilirubin,Total 0.2 mg/dL (0.2-1.3); Blood Urea Nitrogen 19 mg/dL (7-17); Calcium 9.1 mg/dL (8.4-10.2); Carbon Dioxide 28 mmol/L (22-30); Chloride 101 mmol/L (98-107); Estimated CRCL calculation 62 ml/min; Estimated Glomerular Filt Rate > 60; Glucose 118 mg/dL (65-110); Sodium 137 mmol/L (137-145)
[2024-08-11] VITALS (12 sets, daily range): BP systolic 108–137; BP diastolic 71–84; PULSE 61–79; RESP 12–20; O2SAT 90–100
[2024-08-11 00:33] LABS: Creatine Kinase 49 U/L (30-135)
[2024-08-11] MEDS: HYDROmorphone HCL INJ (*CRX) 1 MG/ML SYR IV PUSH (02:32)
[2024-08-11] MEDS: FLUCONAZOLE 100 MG TABLET PO (02:32)
--- NOTE | 2024-08-11 07:20 | PC.NURSE ---
Report called to shelter with full discharge instructions for pt.
== END 2024-08-11 07:25 ==
PROVIDERS: Emergency Provider Registered Nurse; PCP Family Medicine
DX: N39.0 Urinary tract infection, site not specified (principal); F41.9 Anxiety disorder, unspecified; I48.91 Unspecified atrial fibrillation; Z79.01 Long term (current) use of anticoagulants; J44.9 Chronic obstructive pulmonary disease, unspecified; G89.29 Other chronic pain; F32.A Depression, unspecified; E11.9 Type 2 diabetes mellitus without complications; I10 Essential (primary) hypertension; K21.9 Gastro-esophageal reflux disease without esophagitis; G47.30 Sleep apnea, unspecified; W05.0XXA Fall from non-moving wheelchair, initial encounter
CPT/HCPCS: 36415; 70450; 72125; 73030; 74176; 80053; 81001; 82550; 83690; 85025; 85610; 85730; 87077; 87086; 87088; 87186; 96365; 96375; 96376; 99284; A9270; J0696; J1170

== ENCOUNTER 2024-09-08 08:59 | Emergency (ER) | payer MEDICARE, MEDICAID, SELFPAY ==
--- NOTE | ~2024-09-08 | XR_ITS ---
HISTORY: fall, chronic hip wound, pain COMPARISON: Reference is made to a CT examination of the abdomen and pelvis dated 08/10/2024 TECHNIQUE: Multiple views of the left hip were performed along with a frontal view of the pelvis. FINDINGS: Left hip prosthetic is identified. The femoral component is vertically oriented, without the typical medial tilt towards the acetabulum. These findings are unchanged from CT examination performed almost a month earlier. Redemonstration of extra-articular bone formation, disorganized and chronic appearing. Indeterminate lucency medial and caudal to what would be the lesser trochanter. Diffuse bony demineralization is otherwise detected. Osteoarthritic change within the right femoral acetabular joint, pubic symphysis and bilateral SI chi nts. Degenerative disease is present within the lower lumbar spine. 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 Reviewed, dictated and finalized at location A. 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
--- NOTE | ~2024-09-08 | CT_ITS ---
EXAMINATION: CT cervical spine wo con DATE: 09/08/2024 10:03 INDICATION: Neck injury. Fall. TECHNIQUE: Computed tomography (CT) of the cervical spine was performed without intravenous contrast. Automated exposure control and iterative reconstruction technique were employed. The dose-length pro duct was 586.98 mGy-cm. COMPARISON: CT cervical spine 08/10/2024 FINDINGS: There is a posterior scalp soft tissue swelling. There is a 1.9 cm nodule in left thyroid l obe. Partially visualized is a left subclavian port. C1 ring is ununited posteriorly, a normal varian t. There is 5 degrees dextrocurvature of cervical spine. There is kyphosis of cervical spine. There i s 2 mm anterolisthesis of C3 on C4 and C7 on T1. Vertebral body heights are normal. There is severely decreased disc height at C3-C4 with interbody fusion. There is severely decreased disc height from C 4-C5 through C7-T1. The following disc levels are specifically discussed: C2-C3: There is moderate bilateral uncovertebral joint osteoarthritis. There is severe bilateral face t joint osteoarthritis. There is mild bilateral neural foraminal stenosis. There is mild central valentino l stenosis. C3-C4: There is mild bilateral uncovertebral joint hypertrophy. There is mild right facet joint hyper trophy. There is mild bilateral neural foraminal stenosis. There is mild central canal stenosis. C4-C5: There is severe bilateral uncovertebral joint osteoarthritis. There is severe bilateral facet joint osteoarthritis. There is moderate right and mild left neural foraminal stenosis. There is moder ate central canal stenosis. C5-C6: There is severe bilateral uncovertebral joint osteoarthritis. There is moderate bilateral face t joint osteoarthritis. There is mild bilateral neural foraminal stenosis. There is mild central valentino l stenosis. C6-C7: There is severe bilateral uncovertebral joint osteoarthritis. There is severe bilateral facet joint osteoarthritis. There is mild bilateral neural foraminal stenosis. There is mild central canal stenosis. C7-T1: There is severe bilateral uncovertebral joint osteoarthritis. There is severe bilateral facet joint osteoarthritis. There is mild bilateral neural foraminal stenosis. There is mild central canal stenosis. IMPRESSION: 1. No fracture. 2. Severe cervical spondylosis. 3. Thyroid nodule. Consider thyroid ultrasound for risk stratification. Reviewed, dictated and finalized at location A.
--- NOTE | ~2024-09-08 | CT_ITS ---
EXAMINATION: CT brain wo con DATE: 09/08/2024 10:02 INDICATION: Head injury. Fall. TECHNIQUE: Computed tomography (CT) of the head was performed without intravenous contrast. The mA wa s adjusted according to patient size. Iterative reconstruction technique was employed. The dose-lengt h product was 756.67 mGy-cm. COMPARISON: Head CT 08/10/2024 FINDINGS: There are scattered areas of low attenuation in the cerebral white matter. There is no intr acranial hemorrhage, acute infarction, or abnormal intracranial mass lesion. The ventricles are mohan l in size. There are likely changes of ocular lens replacement surgeries. There is mucosal thickening in the paranasal sinuses. There is a trace right mastoid effusion. There is multifocal dental diseas e. IMPRESSION: 1. Stable mild nonspecific cerebral white matter disease, which likely represents chronic small vesse l ischemic disease. Reviewed, dictated and finalized at location A. IMPRESSION: 1. Stable mild nonspecific cerebral white matter disease, which likely represen ts chronic small vessel ischemic disease.
[2024-09-08 08:55] VITALS: BP 130/84; PULSE 83; RESP 20; TEMP 36.5; O2SAT 100
--- NOTE | 2024-09-08 09:18 | ED.FALL ---
HPI - Fall General Chief Complaint: Fall Stated Complaint: fall Time Seen by Provider: 09/08/24 09:05 Source: patient and old records reviewed Mode of arrival: EMS Limitations: no limitations History of Present Illness HPI Narrative: Patient is a 74-year-old female, with past medical history of DM, AFIB on eliquis, HTN, L hip replacement w/ chronic wound, who presents to the ED via EMS with report of a fall. Patient is a resident of [facility]. Per MI report, patient had a fall in the shower today, hitting her head. Denied LOC. Sustained laceration to posterior scalp. Sent here for further evaluation. Patient also complains of chronic pain to her left hip. She is receiving wound care for her chronic wound. Denies dizziness, vision changes, focal weakness. Related Data Home Medications Medication Instructions Recorded Confirmed acetaminophen 325 mg capsule 650 mg PO Q6H PRN Pain (Scale 11/14/21 06/30/24 (Tylenol) Score 1-3) albuterol sulfate 90 mcg/actuation 2 inh inhalation QID PRN Shortness 11/14/21 06/30/24 aerosol inhaler (ProAir HFA) Of Breath aspirin 81 mg chewable tablet 81 mg PO DAILY 11/14/21 06/30/24 atorvastatin 10 mg tablet (Lipitor) 10 mg PO HS 11/14/21 06/30/24 diltiazem HCl 180 mg capsule,24 180 mg PO DAILY 11/14/21 06/30/24 hr,extended release (Tiazac) paroxetine HCl 20 mg tablet 20 mg PO DAILY 11/14/21 06/30/24 tiotropium bromide 18 mcg capsule 1 cap inhalation DAILY 11/14/21 06/30/24 with inhalation device (Spiriva with HandiHaler) apixaban 5 mg tablet (Eliquis) 5 mg PO BID 03/26/23 06/30/24 buspirone 5 mg tablet 5 mg PO TID 03/26/23 06/30/24 multivitamin o-viwxzarf-zobmwln 1 tablet PO DAILY 03/26/23 06/30/24 fumarate 18 mg-vitamin K 25 mcg tablet nystatin 100,000 unit/gram topical 1 applic topical BID 03/26/23 06/30/24 powder sucralfate 1 gram tablet 1 g PO QID 03/26/23 06/30/24 glucagon 1 mg solution for 1 mg IM Q15M PRN Hypoglycemia 05/12/23 06/30/24 injection (Glucagon Emergency Kit) guaifenesin 100 mg/5 mL oral liquid 200 mg PO Q6H PRN Cough 05/12/23 06/30/24 naloxone 4 mg/actuation nasal spray 1 spray intranasal ONCE PRN Opioid 05/12/23 06/30/24 Overdose nitroglycerin 0.4 mg sublingual 0.4 mg sublingual Q5M PRN Chest 05/12/23 06/30/24 tablet Pain ondansetron 4 mg disintegrating 4 mg PO Q8H PRN Nausea And Vomiting 05/12/23 06/30/24 tablet sennosides 8.6 mg-docusate sodium 1 tab-cap PO BID 05/12/23 06/30/24 50 mg capsule (Senna Plus) levetiracetam 500 mg tablet 500 mg PO BID 07/27/23 06/30/24 loperamide 2 mg tablet 4 mg PO Q8H PRN Diarrhea 11/20/23 06/30/24 nystatin 100,000 unit/gram topical 1 applic topical PRN PRN reddened 11/20/23 06/30/24 cream skin oxycodone 5 mg tablet 5 mg PO Q8H PRN Pain (Scale Score 11/20/23 06/30/24 4-6) diclofenac sodium 1 % topical gel 2 g topical QID 05/10/24 06/30/24 (Voltaren Arthritis Pain) trazodone 50 mg tablet 50 mg PO HS 05/10/24 06/30/24 Allergies Allergy/AdvReac Type Severity Reaction Status Date / Time iodine Allergy Unknown Verified 09/08/24 09:04 latex Allergy Unknown Verified 09/08/24 09:04 meperidine Allergy Unknown Verified 09/08/24 09:04 Penicillins Allergy Unknown Verified 09/08/24 09:04 piperacillin [From Zosyn] Allergy Unknown Verified 09/08/24 09:04 tazobactam [From Zosyn] Allergy Unknown Verified 09/08/24 09:04 Review of Systems Review of Systems: All systems reviewed & are unremarkable except as noted in HPI. All systems reviewed & are unremarkable except as noted in HPI and below PMFSH Past Medical History Medical History Anxiety Atrial fibrillation Chronic anticoagulation Chronic obstructive pulmonary disease Chronic pain disorder Depression Diabetic peripheral neuropathy Gastroesophageal reflux disease Hypertension Obstructive sleep apnea Pneumonia due to COVID-19 virus (01/2023) Seizure-like activity (05/2023
--- NOTE | 2024-09-08 09:54 | PC.NURSE ---
patient to cat scan
[2024-09-08] MEDS: TETANUS,DIPHTHERIA,AC PERTUSSIS ADULT (0.5 ML) BOOSTRIX IM (10:19)
[2024-09-08 11:03] VITALS: BP 129/97; PULSE 76; RESP 25; TEMP 36.5; O2SAT 98
--- NOTE | 2024-09-08 11:20 | PC.NURSE ---
EMS called for transport back to [facility]. [facility] with report.
[2024-09-08 12:27] VITALS: BP 153/62; PULSE 74; RESP 13; O2SAT 100
--- NOTE | 2024-09-08 12:28 | PC.NURSE ---
patient refused tylenol offered for pain. patient states that is not going to do anything for me provider aware. no new orders
--- NOTE | 2024-09-08 12:39 | PC.NURSE ---
Patient cleaned up and new depend placed on patient prior to leaving. patient transported back to facility by [facility]. patient in no distress and at baseline upon discharge.
== END 2024-09-08 12:48 ==
PROVIDERS: Emergency Provider Physician Assistant; PCP Family Medicine
DX: S01.01XA Laceration without foreign body of scalp, initial encounter (principal); F41.9 Anxiety disorder, unspecified; I48.91 Unspecified atrial fibrillation; Z79.01 Long term (current) use of anticoagulants; J44.9 Chronic obstructive pulmonary disease, unspecified; K21.9 Gastro-esophageal reflux disease without esophagitis; I10 Essential (primary) hypertension; G47.30 Sleep apnea, unspecified; E11.9 Type 2 diabetes mellitus without complications; W18.2XXA Fall in (into) shower or empty bathtub, initial encounter; Z23 Encounter for immunization
CPT/HCPCS: 12001; 70450; 72125; 73502; 90471; 90715; 99284; A9270

== ENCOUNTER 2025-03-29 07:44 | Outpatient (CLI) | payer MEDICARE, MEDICAID, SELFPAY ==
--- NOTE | ~2025-03-29 | CT_ITS ---
Non-contrast CT scan of the Abdomen and Pelvis Clinical indication: Abdominal pain Technique: 2.5 mm axial scans were obtained through the abdomen and pelvis without intravenous or or al contrast. Dose reduction technique was used on this scan by utilizing automated exposure control a nd iterative reconstruction technique. The dose-length product (DLP) was 1049.09 mGy-cm. COMPARISON: 08/10/2024 Findings: Images through the lung bases reveal no abnormalities. Small nonobstructing left renal stones measuring up to 2 mm. No right renal stone. No ureteral stone or hydronephrosis on either side. Right renal cysts are present. The liver, spleen, pancreas, and adrenals appear normal. Cholecystectomy clips are present. There is no aortic aneurysm. There is no evidence of bowel obstruction. Images through the pelvis were performed. There is no evidence of ascites or lymphadenopathy. Urinary bladder unremarkable. No pelvic mass seen. Diffuse degenerative spondylosis of the spine noted. Impression: No acute abnormality. 2 mm nonobstructing left renal stones. Reviewed, dictated and finalized at [facility]. Impression: No acute abnormality. 2 mm nonobstructing left renal stones.
--- OUTSIDE RECORDS SUMMARY | 2025-03-29 07:47 | XMS_ITS | Clinical Summary ---
Author Organization [facility] Address [address] [place] [address] Care Team Providers Care Banquet Kitchen Supervisor Name Role Phone Leroy Cortés MD Primary Care Provider [phone] Allergies Active Allergy Reactions Criticality Noted Date Comments Ceftriaxone Ciprofloxacin Iodinated Contrast Media Other (See comments) Low 0 04/21/2020 Reaction: Iodine Unknown 09/01/2016 Latex Rash Medium 10/26/2015 Meperidine Other (See comments) Low 04/21/2020 Reaction: Morphine Stomach upset Low 09/01/2016 Oxycodone-Acetaminophen Other (See comments) Low Reaction: Penicillins Other (See comments),Rash Medium 10/26/2015 Reaction: Gwsleyfrdkur-Ujwuajydiu-Ips trs Angioedema High 11/28/2020 Propoxyphene Nausea only Low 09/01/2016 Medications acetaminophen-cod eine (TYLENOL with CODEINE #3) 300-30 mg per tablet 03/23/20 20 Active acyclovir (ZOVIRAX) 400 mg tablet 03/22/20 20 Active ProAir HFA 90 mcg/actuation inhaler 01/18/20 20 Active aspirin 81 mg chewable tablet 1 tablet (81 mg total) daily Active buPROPion SR (WELLBUTRIN SR) 150 mg 12 hr tablet 03/17/20 20 Active gabapentin (NEURONTIN) 400 mg capsule 04/07/20 20 Active isosorbide mononitrate ER (IMDUR) 30 mg 24 hr tablet 03/22/20 20 Active lidocaine jelly (XYLOCAINE) 2 % 03/17/20 20 Active metoprolol (LOPRESSOR) 100 mg tablet 03/22/20 20 Active nitroglycerin (NITROSTAT) 0.[address] 1 tablet (0.4 mg total) under the tongue Active potassium chloride ER 20 mEq CR tablet 04/07/20 20 Active rifAMPin (RIFADIN) 300 mg capsule 1 capsule (300 mg total) Active valACYclovir (VALTREX) 1 gram tablet daily Active Jantoven 2 mg tablet 04/19/20 20 Active doxycycline (VIBRAMYCIN) 100 mg capsule Take 1 tablet/capsule (100 mg total) by mouth 2 (two) times a day Active cefuroxime (CEFTIN) 250 mg tablet Take 250 mg by mouth 2 (two) times a day Active lisinopriL (PRINIVIL,ZESTRIL ) 5 mg tablet TAKE 1 TABLET BY MOUTH DAILY FOR HIGH BLOOD PRESSURE 10/20/20 20 Active diltiazem (TIAZAC) 180 mg 24 hr capsule Take 1 capsule (180 mg total) by mouth daily 10/20/20 20 Active atorvastatin (LIPITOR) 10 mg tablet 01/10/20 21 Active cholecalciferol (VITAMIN D-3) 25 mcg (1,000 unit) tablet Take 1,000 Units by mouth daily Active furosemide (LASIX) 40 mg tablet 12/06/19 21 Active insulin aspart U-100 (NovoLOG) 100 unit/mL injection Unsure of dose 12/30/19 21 Active Combivent Respimat 20-100 mcg/actuation inhaler 01/10/20 21 Active Lacto.acidophilus -Bif.animalis 32 billion cell capsule Take 1 capsule by mouth daily Active levoFLOXacin (LEVAQUIN) 750 mg tablet 12/06/19 21 Active methocarbamoL (ROBAXIN) 750 mg tablet 12/06/19 21 Active nortriptyline (PAMELOR) 25 mg capsule Take 1 capsule (25 mg total) by mouth nightly 12/15/19 21 Active nystatin cream 01/25/20 21 Active omeprazole (PriLOSEC) 20 mg capsule Take 1 capsule (20 mg total) by mouth daily 12/06/19 21 Active ondansetron ODT (ZOFRAN-ODT) 4 mg disintegrating tablet Take 1 tablet (4 mg total) by mouth every 8 (eight) hours as needed 01/10/20 21 Active PARoxetine (PAXIL) 20 mg tablet 01/10/20 21 Active phenol-phenolate sodium (phenol-phenolate ) aerosol,spray 1 spray as needed 12/06/19 21 Active polyethylene glycol (MIRALAX) 17 gram/dose powder Take 17 g by mouth daily Active zinc gluconate 50 mg tablet Take 1 tablet (50 mg total) by mouth daily Active warfarin (COUMADIN) 1 mg tablet Take 1 tablet (1 mg total) by mouth Active bisacodyL (DULCOLAX) 10 mg suppositoryIndica tions:constipatio n Insert 1 suppository (10 mg total) into the rectum daily as needed for constipation (If no results 24 hours after polyethylene glycol (MIRALAX). May give bisacodyl tablet if tolerating PO.) 12 suppository 11 09/27/20 21 Active Additional Information Patient not taking.Reported on 03/25/2025 Eliquis 5 mg tablet 05/19/20 22 Active budesonide-formot Geeta (SYMBICORT) 160-4.5 mcg/actuation inhaler 05/07/20 22 Active fentaNYL (DURAGESIC) 12 mcg/hr 05/21/20 22 Active oxyCODONE (ROXICODONE) 5 mg immediate release tablet 05/01/[address] (PROTONIX) 40 mg EC tablet 05/14/20 22 Active sodium phosphates 19-7 gram/197 mL enema Insert 133 mL into the rectum daily as needed 04/19/20 22 Active glycerin suppository Insert 1 suppository into the rectum daily as needed 04/19/20 22 Active Active Problems Problem Noted Date Diagnosed Date Atrial fibrillation with RVR 09/21/2021 Altered mental status 09/21/2021 Chronic atrial fibrillation 08/04/2020 Hypertension 08/04/2020 Overview (08/04/2020): Last Assessment & Plan: Chronic, stable - patient home regimen of antihypertensives restarted at discharge Palpitations 08/04/2020 Precordial pain 09/03/2019 Sepsis 11/01/2018 Overview (08/04/2020): Last Assessment & Plan: Patient with s/p surgery with hardware and chronic left hip wound with purulent drainage. Afebrile, tachycardic, tachypnic, hypertensive. Symptoms can be explained by COPD history and pain. Lower concern for sepsis. Lactate wnl. The drainage from the hip wound became clear/serosanguineous. -Fluids: 1L bolus. 150ml/hr. Conservative hydration given stable vitals and history of HF. Not indicated for fluid bolus with sepsis protocol. - LA, UA-unremarkable -BCx-no growth at 2 day -Wound wr-opfc-qilulizd rods with some growth at 1 day -Blood gas and urine culture not indicated Stroke 11/01/2018 Overview (08/04/2020): Last Assessment & Plan: History of stroke with residual symptoms of left upper extremity weakness. New symptoms of aphasia at this admission. CT negative for stroke. Ddx includes TIA, with subtherapeutic warfarin vs septic emboli. -regular diet -Neurology consult-recommending MRI and KRISTAL but the patient denied these studies, and nortriptyline at bedtime -PT/OT at home Wound abscess 11/01/2018 Overview (08/04/2020): Last Assessment & Plan: Chronic left lateral hip wound. Unknown duration but follows with ID. Documentation in january 2018 states wound as chronic. Concern for abscess vs osteo. Wound is a possible source of sepsis. -ID consult (Noe) -cefepime 1g Q8, pharmacy recommend changing this to -Vancomycin -Discharge home on IV antibiotics per above for total 2 weeks -CT left lateral femur-negative for osteomyelitis with possible evidence of cellulitis Hyperglycemia 08/05/2018 Overview (08/04/2020): Last Assessment & Plan: Glucose of 149 fasting. Differentials include side effects from steroid, patient's diet of sugary drinks while inpatient. Denies any history of diabetes. -Tight change from cardiac to diabetic. Counseled patient on limiting pops. Leukocytosis 08/05/2018 Overview (08/04/2020): Last Assessment & Plan: WBC of 13 on 08/05 now increased to 17.3 No new symptoms. UA was negative so likely due to steroid use -Trend CBC daily, watch for peak and decrease. Consider respiratory cause if it continues to rise V-tach 08/04/2018 Overview (08/04/2020): Last Assessment & Plan: 1 run of V. tach, 15 beats. Patient clinically asymptomatic and once asleep during the episode -Continue to monitor for more runs of V. tach and clinical symptoms. No medications indicated at this time. Respiratory alkalosis 08/04/2018 Overview (08/04/2020): Last Assessment & Plan: Alkalosis and hypocapnia likely respiratory alkalosis secondary to tachypnea. -Continue to monitor. No intervention indicated at this time aside from treating her shortness of breath. SOB (shortness of breath) 08/04/2018 Overview (08/04/2020): Last Assessment & Plan: History of COPD, heart failure although concern for sepsis. Low concern for DVT/PE Chronic pain 07/31/2018 Overview (08/04/2020): Last Assessment & Plan: 2/2 chronic infected hardware of left hip with open purulent draining wound. Not a surgical candidate. Epigastric/lower chest pain likely related to pleuritic pain or MSK secondary to cough. - Held home pain medications - Continued home cyclobenzaprine due to concern for side effects from abrupt stoppage -Continue home tramadol - Continue home gabapentin Chronic infection of left hi p, currently on antibiotics ([facility]) 07/31/2018 Overview (08/04/2020): Last Assessment & Plan: Chronic stable, infected hardware of left hip with open purulent draining wound. Wound care performed at home weekly. Patient changes at home every other day. - Wound needs more aggressive management, rec increase frequency of wound care as outpatient. -No indication for wound care inpt consult -Nursing to change dressing every other day Anxiety 07/30/2018 Overview (08/04/2020): Last Assessment & Plan: Chronic, uncontrolled. Pt starts coughing becoming short of breath when anxious. -Switch her Vistaril from every 6 hours as needed to 3 times daily scheduled - Continue home citalopram -Withhold ativan and morphine COPD (chronic obstructive pulmonary disease) ([facility]) 07/30/2018 Overview (08/04/2020): Last Assessment & Plan: Hx of 120 pk years -Avoid duoneb treats due to A fib with RVR after last treatment -Continue Bipap/CPAP Heart failure with preserved ejection fraction ( CMS/HCC) 07/30/2018 Overview (08/04/2020): Last Assessment & Plan: Echocardiogram ejection fraction 50-55% on 07/31/2018. BNP of 398. CXR significant for diffuse congestion. Diuresed well with 2 days of Lasix with improvement of respiratory symptoms -No further diuresis needed at this time Pneumonia 07/30/2018 Overview (08/04/2020): Last Assessment & Plan: Nonproductive cough. Negative blood cultures after 4 days of growth. Bilateral expiratory wheezing and rales on physical examination. Coughing significantly while on oxygen and BiPAP. -Omnicef 300 mg twice daily, Day 7 of 10 of Omnicef, continue until 08/08. 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, initial encounter 10/26/2015 Encounters Date Type Department Care Team Description 03/25/2025 2:30 PM CDT Office Visit [facility] Infectious Disease [address] [place] [address] [place] [id number] Tomi Powell MD Chronic infection of left hip, currently on antibiotics (CMS/HCC) (HCC) (Primary Dx); Other abnormal glucose from Last 3 Months Surgical History Surgery Date Site/Laterality Comments HIP PROSTHESIS REMOVAL VASCULAR SURGERY PORTACATH PLACEMENT x2 Medical History Medical History Date Comments Chronic osteomyelitis (HCC) Cardiomyopathy (HCC) Hypertension Stasis dermatitis Chronic obstructive lung disease (HCC) Diabetes (HCC) Atrial fibrillation (HCC) Acute bronchitis RUPAL (obstructive sleep apnea) Asthma Osteomyelitis hip (HCC) Cutaneous fistula Anxiety and depression Hypertension Hyperlipidemia GERD (gastroesophageal reflux disease) Family History Medical History Relation Name Comments Hypertension Father Hypertension, coronary artery disease Mother Relation Name Status Comments Father Mother Social History Tobacco Use Types Packs/Day Years Used Date Smoking Tobacco: Former Smokeless Tobacco: Never Comments Unknown Sex and Gender Information Value Date Recorded Sex Assigned at Not on file Legal Sex Female 7:49 PM PROGRAM MEDICAL DIRECTOR Gender Identity Not on file Sexual Orientation Not on file Obstetrics History Last Filed Vital Signs Vital Sign Reading Time Taken Comments Blood Pressure 106/74 03/25/2025 2:43 PM CDT Pulse 60 03/25/2025 2:43 PM CDT Temperature 36.2 C (97.2 F) 03/25/2025 2:43 PM CDT Respiratory Rate 18 03/25/2025 2:43 PM CDT Oxygen Saturation 98% 03/25/2025 2:43 PM CDT Inhaled Oxygen Concentration - - Weight 88 kg (194 lb) 03/25/2025 2:43 PM CDT Height 176 cm (5' 9.29 ) 03/25/2025 2:43 PM CDT Body Mass Index 28.41 03/25/2025 2:43 PM CDT Plan of Treatment Health Maintenance Due Date Last Done Comments Colon Cancer Screening-Colonoscopy 1950 Depression Screening 1950 Hepatitis C Screening 1950 Osteoporosis Screening-Bone Density Scan 1950 Hepatitis B Screening 1968 Zoster Vaccine (1 of 2) 2000 Breast Cancer Screening-Mammogram 04/07/2014 013 Well Visit 65+ 2015 Pneumococcal vaccine 65+ (3 of 3 - PCV20 or PCV21) 08/29/2022 08/29/2017, 04/21/2015 Fall Risk Assessment 09/27/2022 09/27/2021 DTaP/Tdap/Td Vaccine (2 - Td or Tdap) 01/27/2025 01/27/2015 Influenza Vaccine (Season Ended) 2025 09/12/2020, 12/31/2019, 08/21/2018, Additional history exists Procedures Procedure Name Priority Date/Time Associated Diagnosis Comments SCREENING MAMMOGRAM 2D BILATERAL Routine 04/07/2013 12:23 PM CDT from Last 3 Months or Most Recently Relevant to Health Maintenance Results * Screening Mammogram 2D Bilateral (04/07/2013 12:23 PM CDT) Anatomical Region Laterality Modality Breast Bilateral Mammography 04/07/2013 12:2 3 PM CDT Impressions 04/07/2013 2:05 PM CDT No mammographic evidence of malignancy. Routine annual screening mammography is recommended. ASSESSMENT: BI-RADS: 1 NEGATIVE. Routine annual mammography is recommended in 12 months. THIS IS AN ELECTRONICALLY VERIFIED REPORT 04/07/2013 2:01 PM: Kj Maynard M.D. Kj Maynard M.D. [place]:jonathan 02:01 PM 02:01 PM [EOD] Narrative 04/07/2013 2:05 PM CDT EXAMINATION: BILATERAL DIGITAL SCREENING MAMMOGRAM HISTORY: Routine screening. Family history of mother with breast cancer at age 28. COMPARISON: 04/19/2008 FINDINGS: There has been no suspicious interval change. There are scattered fibroglandular densities. There is no dominant mass, suspicious calcification or architectural distortion. CAD was utilized to evaluate this mammogram. Procedure Note Provider, MD Dominic - 04/19/2021 EXAMINATION: BILATERAL DIGITAL SCREENING MAMMOGRAM HISTORY: Routine screening. Family history of mother with breast cancerat age 28. COMPARISON: 04/19/2008 FINDINGS: There has been no suspicious interval change. There are scattered fibroglandular densities. There is no dominant mass, suspicious calcification or architectural distortion. CAD was utilized to evaluate this mammogram. IMPRESSION: No mammographic evidence of malignancy. Routine annual screeningmammography is recommended. ASSESSMENT: BI-RADS: 1 NEGATIVE. Routine annual mammography isrecommended in 12 months. THIS IS AN ELECTRONICALLY VERIFIED REPORT 04/07/2013 2:01 PM: Kj Maynard M.D. Kj Maynard M.D. NH:jonathan 02:01 PM 02:01 PM [EOD] Bill Da Silva MD IMG MAMMO PROCEDURES Final Re sult from Last 3 Months or Most Recently Relevant to Health Maintenance [place] [address] [place] [address] [facility] MEDICARE [facility] Address: [address] [address] [place] [address] MEDICARE [facility] Address: [address] [address] [place] [address] [place] Advance Directives For more information, please contact: [phone] Documents on File Type Date Recorded Patient Lathe Hand Expl anation Power of Pantry Goods Maker 09/28/2021 3:17 PM ADVANCE DIRECTIVE 09/28/2021 1:55 PM Janice r of Pantry Goods Maker-Medical ADVANCE DIRECTIVE 09/28/2021 1:53 PM POLS T - Phys Order for PT Preferences * Full Code (Latest Code Status on File) Date Activated Date Inactivated Comments 09/21/2021 4:25 AM 09/28/2021 3:29 AM Care Teams Banquet Kitchen Supervisor Relationship Specialty Start Date End Date Leroy Cortés MD [address] [place] [address] PCP - General Internal Medicine 03/25/25
--- OUTSIDE RECORDS SUMMARY | 2025-03-29 07:47 | XMS_ITS | Encounter Summary ---
Author Organization [facility] Address [address] [place] [address] Care Team Providers Care Electronic Publishing Specialist Name Role Phone Bill Da Silva MD Primary Care Provider [phone] Encounter Details Date Type Department Care Team (Late st Contact Info) Description 08/30/2021 Telephone [facility] Care [facility] [address] [place] [address] Giles Wheeler MD [address] [facility] [address] DIV OF PULMONARY/[place] [address] Social History Tobacco Use Types Packs/Day Years Used Date Smoking Tobacco: Former Alcohol Use Standard Drinks/Week Comments Not Asked 0 (1 standard drink = 0.6 oz pur e alcohol) Comments Unknown Sex and Gender Information Value Date Recorded Sex Assigned at Female 11/15/2021 7:16 AM SAP BUSINESS OBJECTS DEVELOPER Legal Sex Female 8:02 AM SAP BUSINESS OBJECTS DEVELOPER Gender Identity Not on file Sexual Orientation Not on file documented as of this encounter Functional Status * Is person deaf or have serious hearing difficulty? Answer Date of Assessment Author No 03/07/2021 6:12 PM Sakina Bruno RN * Is person blind or have serious difficulty seeing? Answer Date of Assessment Author No 03/07/2021 6:12 PM Sakina Bruno RN * Does person have serious difficulty walking/climbing stairs? Answer Date of Assessment Author Yes 03/07/2021 6:12 PM CDT Sakina Barger RN * Does person have difficulty dressing/bathing? Answer Date of Assessment Author Yes 03/07/2021 6:12 PM CDT Sakina Barger RN * Does person have difficulty doing errands alone? Answer Date of Assessment Author Yes 03/07/2021 6:12 PM CDT Sakina Barger RN documented as of this encounter Mental Status * Does person have difficulty concentrating/remembering/making decisions? Answer Entry Date Author Yes 03/07/2021 6:12 PM CDT Sakina Barger RN documented in this encounter Patient Instructions * Patient Instructions* Julio Rhodes - 08/30/2021 10:20 AM CDT adoption worker from rehab center called in to [facility] in regards to patient's appointment withDr. Wheeler. Patient currently has an appointment with Dr. Wheeler for 09/05 at 9:00AM. Case workerwas asking to reschedule the appointment for a later time as the patient would be unable to make the appointment on 09/05. The only available appointment was another appointment with Dr. Wheeler at 9:00AM, however they were looking for a later appointment time. Patient's manager of case was asking for someone in the office to call them back in regards to getting a later appointment. Best contact number is [phone]. 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 Source: [facility] [place] 11/24/2020 MRSA 02/15/2021 02/15/2021 10/17/2023 11:1 2 AM SAP BUSINESS OBJECTS DEVELOPER ESBL GNR 11/15/2021 11/15/2021 10/17/2023 11:1 2 AM SAP BUSINESS OBJECTS DEVELOPER MDRO 11/15/2021 11/15/2021 10/17/2023 11:1 2 AM SAP BUSINESS OBJECTS DEVELOPER MDRO Hx Comment:11/15/21 - urine culture 10/17/2023 10/17/2023 ESBL Hx Comment:11/15/21 - urine culture 10/17/2023 10/17/2023 MRSA Hx Comment:02/15/21 - sputum culture 10/17/2023 10/17/2023 documented as of this encounter Care Teams Electronic Publishing Specialist Relationship Specialty Start Date End Date Bill D aSilva MD PCP - General 12/21/09 documented as of this encounter
--- OUTSIDE RECORDS SUMMARY | 2025-03-29 07:47 | XMS_ITS | Encounter Summary ---
Author Organization [facility] Address [address] [place] [address] Care Team Providers Care Chainstitch Felled Seam Operator Name Role Phone Bill Da Silva MD Primary Care Provider [phone] Encounter Details Date Type Department Care Team (Late st Contact Info) Description 03/03/2021 Ophth Exam [facility] Ophthalmology [address] [place] [id number] Miquel Tavares MD [address] [place] [address] Social History Tobacco Use Types Packs/Day Years Used Date Smoking Tobacco: Former Alcohol Use Standard Drinks/Week Comments Not Asked 0 (1 standard drink = 0.6 oz pur e alcohol) Comments Unknown Sex and Gender Information Value Date Recorded Sex Assigned at Female 11/15/2021 7:16 AM ADMINISTRATIVE NURSING SUPERVISOR Legal Sex Female 8:02 AM ADMINISTRATIVE NURSING SUPERVISOR Gender Identity Not on file Sexual Orientation Not on file documented as of this encounter Functional Status * Is person deaf or have serious hearing difficulty? Answer Date of Assessment Author No 02/11/2021 10:47 PM Kathy Guido RN * Is person blind or have serious difficulty seeing? Answer Date of Assessment Author No 02/11/2021 10:47 PM Kathy Guido RN * Does person have serious difficulty walking/climbing stairs? Answer Date of Assessment Author No 02/11/2021 10:47 PM Kathy Guido RN * Does person have difficulty dressing/bathing? Answer Date of Assessment Author No 02/11/2021 10:47 PM ADMINISTRATIVE NURSING SUPERVISOR Kathy Talbert RN * Does person have difficulty doing errands alone? Answer Date of Assessment Author No 02/11/2021 10:47 PM Kathy Guido RN documented as of this encounter Mental Status * Does person have difficulty concentrating/remembering/making decisions? 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 Source: [facility]. 11/24/2020 MRSA 02/15/2021 02/15/2021 10/17/2023 11:1 2 AM ADMINISTRATIVE NURSING SUPERVISOR ESBL GNR 11/15/2021 11/15/2021 10/17/2023 11:1 2 AM ADMINISTRATIVE NURSING SUPERVISOR MDRO 11/15/2021 11/15/2021 10/17/2023 11:1 2 AM ADMINISTRATIVE NURSING SUPERVISOR MDRO Hx Comment:11/15/21 - urine culture 10/17/2023 10/17/2023 ESBL Hx Comment:11/15/21 - urine culture 10/17/2023 10/17/2023 MRSA Hx Comment:02/15/21 - sputum culture 10/17/2023 10/17/2023 documented as of this encounter Care Teams Chainstitch Felled Seam Operator Relationship Specialty Start Date End Date Bill Da Silva MD PCP - General 12/21/09 documented as of this encounter
--- OUTSIDE RECORDS SUMMARY | 2025-03-29 07:47 | XMS_ITS | Clinical Summary ---
Author Organization [facility] Address [address] [place] [address] Care Team Providers Care Oil And Gas Exploration Technician Name Role Phone Bill Da Silva MD Primary Care Provider [phone] [facility],non-owned Affiliates and Associated Physician Practices is amultiple site organization consisting of ambulatory clinics and hospital sitesin [place], [place], [place] and [place]. This disclosure is being madepursuant to the Care Everywhere program and may not contain all information available regarding this patient. Last updated 18.[facility] Allergies Active Allergy Reactions Criticality Noted Date Comments Contrast-Iodinated Agents Fo r Ct/Other Urticaria Medium 02/11/2021 Kdc:Acetaminophen+Oxycodone+ Ta rtrazine Nausea and/or Vomiting Low 10/26/2015 Latex Rash Medium 10/26/2015 Meperidine Rash Medium 02/11/2021 Penicillins Rash Medium 10/26/2015 Piperacillin Sod-Tazobactam So Angioedema High 03/02 Medications * Be aware that medications may not be up to date on this document. Alwaysverify current medications with the patient. tiotropium (SPIRIVA) 18 MCG inhalation capsule Inhale 1 (one) capsule by mouth once daily 1 Active PARoxetine (PAXIL) 20 MG tablet Take 1 (one) tablet by mouth once daily 1 Active acetaminophen (TYLENOL) 325 MG tablet Take 2 (two) tablets by mouth every 6 hours Maximum allowable Acetaminophen amount = 4 Grams (4000 mg) / 24 hours. 1 Active aspirin (ASPIRIN) 81 MG chew tablet Take 1 (one) tablet by mouth once daily 1 Active apixaban (ELIQUIS) 5 MG tablet Take 1 (one) tablet by mouth 2 times daily 1 Active vitamin D3 (CHOLECALCIFER OL) 25 MCG (1000 UNITS) tablet Take 1 (one) tablet by mouth once daily Active atorvastatin (LIPITOR) 10 MG tablet Take 1 (one) tablet by mouth at bedtime Active multivitamin daily tablet Take 1 (one) tablet by mouth daily with food Active nystatin (MYCOSTATIN) 009445 UNIT/GM cream Apply to affected area as needed Active dilTIAZem ER 24hr (TIAZAC) 180 MG capsule Take 1 (one) capsule by mouth once daily Active senna-docusate (SENOKOT-S) 8.6-50 MG tablet Take 1 (one) tablet by mouth 2 times daily Active pantoprazole EC (PROTONIX) 40 MG tablet Take 1 (one) tablet by mouth once daily 1 Active albuterol HFA (PROAIR HFA) 108 (90 Base) MCG/ACT inhaler Inhale 2 (two) puffs by mouth every 6 hours as needed 8.5 g 3 2 Active sucralfate (Carafate) 1 GM tablet Take 1 (one) tablet by mouth 4 times daily - before meals & nightly Active tolnaftate (Tinactin) 1 % powder Apply to affected area 2 times daily Active busPIRone (Buspar) 5 MG tablet Take 1 (one) tablet by mouth 3 times daily Active oxyCODONE, immediate release, (Roxicodone) 5 MG tablet Take 1 (one) tablet by mouth every 8 hours as needed for Pain Active guaiFENesin (Robitussin) 100 MG/5ML solution Take 10 mL by mouth every 6 hours as needed for Cough 3 Active levETIRAcetam (Keppra) 500 MG tablet Take 1 (one) tablet by mouth 2 times daily Active doxycycline hyclate 100 MG tablet Take 1 (one) tablet by mouth 2 times daily 3 Active Active Problems Problem Noted Date Diagnosed Date Transient alteration of awareness 10/16/2023 Recurrent UTI 10/16/2023 Complicated open wound of left hip, initial enco unter 10/16/2023 Encephalopathy, metabolic 03/29/2023 Acute hypoxemic respiratory failure 03/29/2023 Atrial fibrillation 03/29/2023 Altered mental status, unspe cified altered mental status type 03/26/2023 Coronary artery disease 07/10/2022 Hx of arterial ischemic stroke 11/15/2021 Overview (11/15/2021): W/ residual L weakness Neuropathy 11/15/2021 Hx of fracture of left hip 11/15/2021 Longstanding persistent atrial fibrillation 01/30 Diabetes mellitus type II, uncontrolled 02/12/20 Mood disorder 02/11/2021 Diabetes mellitus, type 2 12/06/2020 Gastro-esophageal reflux disease without esophag itis 12/06/2020 Hemiplegia and hemiparesis f ollowing cerebral infarction affecting left non-dominant side 12/06/2020 Major depressive disorder, recurrent, unspecifie d 12/06/2020 Type 2 diabetes mellitus wit h diabetic neuropathy, unspecified 12/06/2020 Venous insufficiency (chronic) (peripheral) 04/2021 Hypertension 08/04/2020 Overview (11/27/2022): Last Assessment & Plan: Chronic, stable - patient home regimen of antihypertensives restarted at discharge Palpitations 08/04/2020 Precordial pain 09/03/2019 Hyperglycemia 08/05/2018 Overview (07/10/2022): Last Assessment & Plan: Glucose of 149 fasting. Differentials include side effects from steroid, patient's diet of sugary drinks while inpatient. Denies any history of diabetes. -Tight change from cardiac to diabetic. Counseled patient on limiting pops. Last Assessment & Plan: Glucose of 149 fasting. Differentials include side effects from steroid, patient's diet of sugary drinks while inpatient. Denies any history of diabetes. -Tight change from cardiac to diabetic. Counseled patient on limiting pops. Respiratory alkalosis 08/04/2018 Overview (07/10/2022): Last Assessment & Plan: Alkalosis and hypocapnia likely respiratory alkalosis secondary to tachypnea. -Continue to monitor. No intervention indicated at this time aside from treating her shortness of breath. Last Assessment & Plan: Alkalosis and hypocapnia likely respiratory alkalosis secondary to tachypnea. -Continue to monitor. No intervention indicated at this time aside from treating her shortness of breath. SOB (shortness of breath) 08/04/2018 Overview (07/10/2022): Last Assessment & Plan: History of COPD, heart failure although concern for sepsis. Low concern for DVT/PE Last Assessment & Plan: History of COPD, heart failure although concern for sepsis. 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 Not a surgical candidate. Epigastric/lower chest pain likely related to pleuritic pain or MSK secondary to cough. 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 Not a surgical candidate. Epigastric/lower chest pain likely related to pleuritic pain or MSK secondary to cough. - Held home pain medications - Continued home cyclobenzaprine due to concern for side effects from abrupt stoppage -Continue home tramadol - Continue home gabapentin COPD (chronic obstructive pulmonary disease) Overview (07/10/2022): Last Assessment & Plan: Hx of 120 pk years -Avoid duoneb treats due to A fib with RVR after last treatment -Continue Bipap/CPAP Last Assessment & Plan: Hx of 120 pk years -Avoid duoneb treats due to A fib with RVR after last treatment -Continue Bipap/CPAP Heart failure with preserved ejection fraction 0 07/30/2018 Overview (07/10/2022): Last Assessment & Plan: Echocardiogram ejection fraction 50-55% on 07/31/2018. BNP of 398. CXR significant for diffuse congestion. Diuresed well with 2 days of Lasix with improvement of respiratory symptoms -No further diuresis needed at this time Last Assessment & Plan: Echocardiogram ejection fraction 50-55% on 07/31/2018. BNP of 398. CXR significant for diffuse congestion. Diuresed well with 2 days of Lasix with improvement of respiratory symptoms -No further diuresis needed at this time Anxiety 07/30/2018 Overview (07/10/2022): Last Assessment & Plan: Chronic, uncontrolled. Pt starts coughing becoming short of breath when anxious. -Switch her Vistaril from every 6 hours as needed to 3 times daily scheduled - Continue home citalopram -Withhold ativan and morphine Last Assessment & Plan: Chronic, uncontrolled. Pt starts coughing becoming short of breath when anxious. -Switch her Vistaril from every 6 hours as needed to 3 times daily scheduled - Continue home citalopram -Withhold ativan and morphine Secondary lymphedema 04/10/2018 Mixed hyperlipidemia 09/06/2016 Lumbar spondylosis 04/19/2016 Cerebrovascular accident (CVA) 12/02/2014 Overview (07/10/2022): Last Assessment & Plan: History of stroke with residual symptoms of left upper extremity weakness. New symptoms of aphasia at this admission. CT negative for stroke. Ddx includes TIA, with subtherapeutic warfarin vs septic emboli. -regular diet -Neurology consult-recommending MRI and KRISTAL but the patient denied these studies, and nortriptyline at bedtime -PT/OT at home Affected speech. Left arm and left leg weak. In a wheelchair. Last Assessment & Plan: History of stroke with residual symptoms of left upper extremity weakness. New symptoms of aphasia at this admission. CT negative for stroke. Ddx includes TIA, with subtherapeutic warfarin vs septic emboli. -regular diet -Neurology consult-recommending MRI and KIRSTAL but the patient denied these studies, and nortriptyline at bedtime -PT/OT at home Duodenal ulcer Resolved Problems Problem Noted Date Diagnosed Date Resolved Date UTI (urinary tract infection) 03/29/2023 04/12/2023 UTI (urinary tract infection) 01/05/2021 07/24/2022 Wound abscess 11/01/2018 07/10/2022 Overview (07/10/2022): Last Assessment & Plan: Chronic left lateral hip wound. Unknown duration but follows with ID. Documentation in january 2018 states wound as chronic. Concern for abscess vs osteo. Wound is a possible source of sepsis. -ID consult (Mera) -cefepime 1g Q8, pharmacy recommend changing this to -Vancomycin -Discharge home on IV antibiotics per above for total 2 weeks -CT left lateral femur-negative for osteomyelitis with possible evidence of cellulitis Last Assessment & Plan: Chronic left lateral hip wound. Unknown duration but follows with ID. Documentation in january 2018 states wound as chronic. Concern for abscess vs osteo. Wound is a possible source of sepsis. 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 Wound care performed at home weekly. Patient changes at home every other day. - Wound needs more aggressive management, rec increase frequency of wound care as outpatient. -No indication for wound care inpt consult -Nursing to change dressing every other day Immunizations Immunization Administration Dates Next Due INFLUENZA VACCINE, HIGH-DOSE , QUADR. (FLUZONE HIGH-DOSE QUADRIVALENT; 65Y+), 0.7 ML (HD-IIV4) 02/12/2021(Deferred: Patient Refused - per pt had flu vac this season) Family History Medical History Relation Name Comments CAD (Coronary Artery Disease) Father [place] at age 62 CVA Mother Cancer - Colon Mother Cancer - Pancreatic Mother Relation Name Status Comments Father Mother Social History Tobacco Use Types Packs/Day Years Used Date Smoking Tobacco: Former Smokeless Tobacco: Never Tobacco Cessation:Counseling Given: Not Answered Alcohol Use Standard Drinks/Week Comments Not Currently 0 (1 standard drink = 0.6 oz pur e alcohol) AUDIT-C Answer Date Recorded Q1: How often do you have a drink containing alcohol? Never 10/17/2023 Q2: How many drinks containi ng alcohol do you have on a typical day when you are drinking? Patient does not drink Q3: How often do you have si x or more drinks on one occasion? Never 10/17/2023 Overall Financial Resource Strain (CARDIA) Answe r Date Recorded How hard is it for you to pa y for the very basics like food, housing, medical care, and heating? Not hard at all 10/21/2023 PHQ-2 Answer Date Recorded PHQ2 TOTAL SCORE 0 06/12/2022 [facility] - Occupational Stress Questionnaire Answer Date Recorded Do you feel stress - tense, restless, nervous, or anxious, or unable to sleep at night because your mind is troubled all the time - these days? Only a little 10/21/2023 Hunger Vital Sign Answer Date Recorded Within the past 12 months, y ou worried that your food would run out before you got the money to buy more. Never true 10/21/20 23 Within the past 12 months, t he food you bought just didn't last and you didn't have money to get more. Never true 10/21/2023 PRAPARE - Transportation Answer Date Re corded In the past 12 months, has l ack of transportation kept you from medical appointments or from getting medications? Yes 10/03 In the past 12 months, has l ack of transportation kept you from meetings, work, or from getting things needed for daily living? Yes 10/21/2023 Housing Stability Vital Sign Answer Ahsan e Recorded In the last 12 months, was t here a time when you were not able to pay the mortgage or rent on time? No 10/21/2023 In the last 12 months, how many places have you lived? 1 10/21/2023 In the last 12 months, was t here a time when you did not have a steady place to sleep or slept in a penitentiary (including now)? No 10/21/2023 Comments Unknown Sex and Gender Information Value Date Recorded Sex Assigned at Female 11/15/2021 7:16 AM C[facility] Legal Sex Female 8:02 AM C[employer]ESSMAN Gender Identity Not on file Sexual Orientation Not on file Last Filed Vital Signs Vital Sign Reading Time Taken Comments Blood Pressure 122/83 10/23/2023 7:23 AM CUT PRESSMAN Pulse 84 10/23/2023 8:35 AM CUT PRESSMAN Temperature 36.8 C (98.2 F) 10/23/2023 7:23 AM CUT PRESSMAN Respiratory Rate 16 10/23/2023 8:35 AM CUT PRESSMAN Oxygen Saturation 98% 10/23/2023 7:23 AM CUT PRESSMAN Inhaled Oxygen Concentration 28% 10/18/2023 8 :37 AM CUT PRESSMAN Weight 91.6 kg (202 lb) 10/21/2023 7:37 AM CUT PRESSMAN Height 172.7 cm (5' 8 ) 10/17/2023 12:00 AM CUT PRESSMAN Body Mass Index 30.71 10/17/2023 12:00 AM CUT PRESSMAN Plan of Treatment Health Maintenance Due Date Last Done Comments BONE DENSITY TESTING 1950 COLOGUARD (AGES 45-75) - COLON CA SCREENING 1950 COLON MONITORING 1950 COLONOSCOPY - COLON CA SCREENING 1950 CT COLONOGRAPHY - COLON CA SCREENING 1950 Colorectal Cancer Screening 1950 FIT - COLON CA SCREENING 1950 FLEX SIG - COLON CA SCREENING 1950 MAMMOGRAM 1950 MEDICARE AWV 12 MONTHS 1950 DTAP/TDAP/TD VACCINES (1 - Tdap) 1969 PNEUMOCOCCAL VACCINE 50+ (1 of 2 - PCV) 1969 ZOSTER VACCINE (1 of 2) 2000 Respiratory Syncytial Virus (RSV) Vaccine Pt: or over 60 yrs (1 - Risk 60-74 years 1-dose series) 2010 DIABETES-FOOT EXAM WITH MONOFILAMENT 02/11/2021 DIABETES RETINOPATHY SCREENING 03/03/2023 03/03/2021 DIABETES-HGB A1C 04/17/2024 10/18/2023, , 09/21/2021, Additional history exists COVID-19 VACCINE ( season) 2024 04/27/2021 DIABETES-SERUM CREATININE 10/23/20242022, 10/22/2023, 10/21/2023, Additional history exists DEPRESSION SCREENING 12/02/2024 10/29/2022, 09/27/2022, 06/12/2022 DIABETES - URINE PROTEIN SCREENING 12/02/2024 INFLUENZA VACCINE (Season Ended) 2025 12/31/2019, 08/21/2018, 08/29/2017, Additional history exists HEPATITIS C SCREENING Completed 03/02/2021, 021 HEPATITIS B VACCINE Aged Out No longe r eligible based on patient's age to complete this topic HIB VACCINE Aged Out No longer eligi ble based on patient's age to complete this topic HPV VACCINE Aged Out No longer eligi ble based on patient's age to complete this topic MENINGOCOCCAL (Group B) VACCINE SHARED DECISION-MAKING Aged Out No longer eligible based on patient's age to complete this topic MENINGOCOCCAL GROUPS A/C/Y/W VACCINE Aged Out No longer eligible based on patient's age to complete this topic Goals Goal Patient Goal Type Associated Problems Recent Progress Patient-Stated? Author Medication Management General No Makenzie You, RN Note: Expected end date: on-going Interventions: Take all medications as prescribed Let your doctor know right away about any changes in your medications Make sure to request a refill of your medication at least one week prior to your last dose Procedures Procedure Name Priority Date/Time Associated Diagnosis Comments CREATININE BLOOD AM Draw 10/23/2023 7:49 AM CUT PRESSMAN HEMOGLOBIN A1C Routine 10/18/2023 2:51 AM CUT PRESSMAN HEPATITIS C AB W RFLX VERIFICATION Routine 03/02/2021 7:33 PM CDT from Last 3 Months or Most Recently Relevant to Health Maintenance Results * CREATININE BLOOD (10/23/2023 7:49 AM CUT PRESSMAN) Creatinine 0.69 0.57 - 1.11 mg/dL 10/23/2023 8:22 AM CUT PRESSMAN [facility] eGFR by CKD-EPI >90 >=90 mL/min/1.7 3 m2 10/23/2023 8:22 AM CUT PRESSMAN [facility] Blood BLOOD SPECIMEN / Unknown Lab Venipuncture / Unknown 10/23/2023 7:49 AM CUT PRESSMAN 10/23/2023 7:59 AM CUT PRESSMAN Beckie Rodriguez MD LAB - CHEMISTRY ORDERABLES nal Result Performing Organization Address City/State/[facility] Co de Phone Number [facility] [address] [place] [phone] * (ABNORMAL) HEMOGLOBIN A1C (10/18/2023 2:51 AM CUT PRESSMAN) Hemoglobin A1c 5.9(H) <5.7 % 10/18/2023 4:11 AM CUT PRESSMAN [facility] Estimated Average Glucose 123 mg/dL 10/18/2023 4:11 AM [facility] Blood BLOOD SPECIMEN / Unknown Lab Venipuncture / Unknown 10/18/2023 2:51 AM CUT PRESSMAN 10/18/2023 3:42 AM CUT PRESSMAN Narrative [facility] - 10/18/2023 4:11 AM CUT PRESSMAN HbA1c Interpretation: Normal: < 5.7% Pre-diabetes: 5.7-6.4% Diabetes: Equal to or greater than 6.5% Test results diagnostic of diabetes should be repeated for confirmation. Treatment target values recommended by ADA and other clinical organizations should be used to evaluate metabolic control in patients. This test should not replace glucose testing for patients with Type 1 diabetes, pediatric patients, or women. Falsely low HbA1c results may be observed in patients with clinical conditions that shorten erythrocyte life span or decrease mean erythrocyte age such as the presence of unstable hemoglobin variants, elevated hemoglobin F level or other causes of hemolytic anemia. HbA1c may not accurately reflect glycemic control when clinical conditions that affect erythrocyte survival are present. Severe Iron deficiency anemia may yield falsely high results. Hemoglobin A1c assay should not be used to diagnose or monitor diabetes in patients with malignancy, recent blood transfusion, chronic kidney or liver disease. This method may yield falsely low results when hemoglobin (HbF) exceeds 5% in the specimen. The Lindsay Alinity assay for the measurement of HbA1c is a National Glycohemoglobin Standardization Program (NGSP) certified method. us Wilmer Rosen MD LAB - CHEMISTRY ORDERABLES Edith l Result Performing Organization Address City/[facility]/ZIP Co de Phone Number [facility] [address] [phone] * HEPATITIS C AB W RFLX VERIFICATION (03/02/2021 7:33 PM CDT) Hepatitis C Antibody <0.1 0.0 - 0.9 s/co ratio 03/04/2021 8:12 AM CDT [facility] ([facility] Blood BLOOD SPECIMEN / Unknown Lab Venipuncture / Unknown 03/02/2021 7:33 PM CDT 03/02/2021 8:12 PM CDT Narrative [facility] ([facility]) - 03/04/2021 8:12 AM CDT Performed at: [address] [place] [address] [address] [place], [place] [id number] Retail Equipment Associate: Rome Bean PhD, Phone: [phone] us Giles Wheeler MD LAB - CHEMISTRY ORDERAB LES Final Result Performing Organization Address City/[facility]/ZIP Co de Phone Number [facility] [address] [place] [address], [facility] from Last 3 Months or Most Recently Relevant to Health Maintenance Additional Health Concerns Infection Onset Date 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 Source: [facility]. 11/24/2020 MDRO Hx Comment:11/15/21 - urine culture 10/17/2023 10/17/2023 ESBL Hx Comment:11/15/21 - urine culture 10/17/2023 10/17/2023 MRSA Hx Comment:02/15/21 - sputum culture 10/17/2023 10/17/2023 Insurance MEDICARE MEDICAID - [place] MEDICARE MEDICAID [facility] MEDICARE MEDICAID - [employer] Member Subscriber Plan / Payer (Ef fective for All Dates) Name:Lexus Brizuela Relation to Subscriber:Self Name:Lexus Brizuela Payer ID:Not on file Group ID:Not on file Type:Medicaid Address: [place] [id number] [place]ICARE [place] Advance Directives * Full Code (Latest Code Status on File) Date Activated Date Inactivated Comments 10/17/2023 7:13 AM 10/23/2023 11:23 AM * Full Code Date Activated Date Inactivated Comments 10/16/2023 12:06 PM 10/16/2023 9:14 PM * Full Code Date Activated Date Inactivated Comments 03/29/2023 1:34 AM 04/06/2023 8:35 PM * Full Code Date Activated Date Inactivated Comments 11/15/2021 3:48 AM 11/17/2021 1:36 PM * Full Code Date Activated Date Inactivated Comments 02/11/2021 5:11 AM 03/07/2021 8:53 PM Care Teams Oil And Gas Exploration Technician Relationship Specialty Start Date End Date Bill Da Silva MD PCP - General 12/21/09
--- OUTSIDE RECORDS SUMMARY | 2025-03-29 07:47 | XMS_ITS | Referral Summary ---
Author Organization [facility] Address [address] [place] [address] Care Team Providers Care Local Sales Manager Name Role Phone Leroy Cortés MD Primary Care Provider [phone] Encounters Date Type Department Care Team Description 03/25/2025 2:30 PM CDT Office Visit 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 ([facility]/HCC) ([facility]) (Primary Dx); Other abnormal glucose from Last 3 Months Allergies Active Allergy Reactions Criticality Noted Date Comments Ceftriaxone Ciprofloxacin Iodinated Contrast Media Other (See comments) Low 0 04/21/2020 Reaction: Iodine Unknown 09/01/2016 Latex Rash Medium 10/26/2015 Meperidine Other (See comments) Low 04/21/2020 Reaction: Morphine Stomach upset Low 09/01/2016 Oxycodone-Acetaminophen Other (See comments) Low Reaction: Penicillins Other (See comments),Rash Medium 10/26/2015 Reaction: Jgcvqhykgtot-Voxbrguepq-Kdo trs Angioedema High 11/28/2020 Propoxyphene Nausea only Low 09/01/2016 Medications acetaminophen-cod eine (TYLENOL with CODEINE #3) 300-30 mg per tablet 03/23/20 20 Active acyclovir (ZOVIRAX) 400 mg tablet 03/22/20 20 Active ProAir HFA 90 mcg/actuation inhaler 01/18/20 20 Active aspirin 81 mg chewable tablet 1 tablet (81 mg total) daily Active buPROPion SR (WELLBUTRIN SR) 150 mg 12 hr tablet 03/17/20 Active gabapentin (NEURONTIN) 400 mg capsule 04/07/20 20 Active isosorbide mononitrate ER (IMDUR) 30 mg 24 hr tablet 03/22/20 20 Active lidocaine jelly (XYLOCAINE) 2 % 03/17/20 Active metoprolol (LOPRESSOR) 100 mg tablet 03/22/20 20 Active nitroglycerin (NITROSTAT) 0.[address] 1 tablet (0.4 mg total) under the tongue Active potassium chloride ER 20 mEq CR tablet 04/07/20 Active rifAMPin (RIFADIN) 300 mg capsule 1 capsule (300 mg total) Active valACYclovir (VALTREX) 1 gram tablet daily Active Jantoven 2 mg tablet 04/19/20 Active doxycycline (VIBRAMYCIN) 100 mg capsule Take [...] UA-unremarkable -BCx-no growth at 2 day -Wound fj-hhgr-daijfvob rods with some growth at 1 day [...] a possible source of sepsis. -ID consult ([place]) -cefepime 1g Q8, pharmacy recommend changing this [...] of left hi p, currently on antibiotics ([facility]) 07/31/2018 Overview (08/04/2020): Last Assessment & Plan: [...] morphine COPD (chronic obstructive pulmonary disease) ([facility]/HCC) 07/30/2018 Overview (08/04/2020): Last Assessment & Plan: [...] internal left hip prosthesis, initial encounter 10/26/2015 Social History Tobacco Use Types Packs/Day Years Used Date Smoking Tobacco: Former Smokeless Tobacco: Never Comments Unknown Sex and Gender Information Value Date Recorded Sex Assigned at Not on file Legal Sex Female 7:49 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 Kj Maynard M.D. [place]:al 02:01 PM 02:01 PM [EOD] Bill Da Silva MD IMG MAMMO PROCEDURES Final Re sult from Last 3 Months or Most Recently Relevant to Health Maintenance Insurance [employer] [facility] MED[facility] MEDICARE [facility] Advance Directives For more information, please contact: [phone] Documents on File Type Date Recorded Patient Bed Spring Maker Expl anation Power of Motion Picture Scene Builder 09/28/2021 3:17 PM ADVANCE DIRECTIVE 09/28/2021 1:55 PM Janice r of Motion Picture Scene Builder-Medical ADVANCE DIRECTIVE 09/28/2021 1:53 PM POLS T - Phys Order for PT Preferences * Full Code (Latest Code Status on File) Date Activated Date Inactivated Comments 09/21/2021 4:25 AM 09/28/2021 3:29 AM Care Teams Local Sales Manager Relationship Specialty Start Date End Date Leroy Cortés MD [address] [place] [address] PCP - General Internal Medicine 03/25/25
--- OUTSIDE RECORDS SUMMARY | 2025-03-29 07:47 | XMS_ITS | Data Portability ---
Author Organization [facility] Ninfa [facility] Address [address] [place] [address] Care Team Providers Care Superintendent Mechanical Name Role Phone AMBER DAVIS Primary Care Provider TIEN EARLY Vascular Surgeon JORI MARTINEZ Infectious Disease NATALIIA MELGAR Experienced Truck Driver CRISTOPHER SMYTH Paste Mixer Assessment No assessment recorded. Plan of Treatment Reminders Order Date Submit Date Provider Last Modified By Organization Details Last Modified Time Details Appointments None recorded. Lab HbA1c (hemoglobi n A1c), blood 2020 021 [facility] (Lab), [address], [place], [address], 1 06:11:17 CMP, serum or plasma 2020 021 [facility] (Lab), [address], [place], [address], 1 21:22:03 microalbum in/creatin ine, mass ratio, urine 2020 021 [facility] (Lab), [address], [place], [address], 1 22:42:09 lipid panel w/ direct LDL, serum 2020 021 [facility] (Lab), [address], [place], [address], 1 21:21:34 glucose, fingerstic k, blood 2019 020 [email or web address] In-Office Order, Internal Use Only DO Not Attach Compendium DO Not Attach Compendium, Do Not Delete/merge, [id number] 0 17:25:27 HbA1c (hemoglobi n A1c), blood 2019 020 [facility] (Lab), [address], [place], [address], 0 05:08:35 CMP, serum or plasma 2019 020 [facility] (Lab), [address], [place], [address], 0 20:29:11 lipid panel w/ direct LDL, serum 2019 020 [facility] (Lab), [address], [place], [address], 0 20:30:19 microalbum in/creatin ine, mass ratio, urine 2019 020 [facility] [address], [place], [address], 0 05:01:55 HbA1c (hemoglobi n A1c), blood 2018 019 [place] [address] [facility] (Lab), [address], [place], [address], 9 12:26:25 CMP, serum or plasma 2018 019 [email or web address] [address], [place], [address], 9 12:26:25 lipid panel w/ direct LDL, serum 2018 019 [facility] [address], [place], [address], 9 12:26:25 microalbum in/creatin ine, mass ratio, urine 2018 019 [email or web address] ([facility] [address] [place], [address], 9 17:23:17 glucose, fingerstic k, blood 2018 019 [email or web address] In-Office Order, Internal Use Only DO Not Attach Compendium DO Not Attach Compendium, Do Not Delete/merge, [id number] 9 10:53:16 Referral home health referral 2020 021 [facility], [address], [facility] [address], [place], [address], 1 10:10:13 Procedures None recorded. Surgeries None recorded. Imaging None recorded. Medication Orders Probiotic (B. coagulans) 10 billion cell capsule,de layed release 2018 019 [facility] [id number] In [facility], [address], [place], [address], 9 17:39:02 Patient TargetsNo targets recorded. Patient Instructions Encounter Date Encounter Id Patient Instructions Last Modified By Organization Details Last Modified Time 06/11/2019 [id number] learning about h igh blood pressure [email or web address] Not available 06/16/2019 10:53:16 gastroesophageal reflux disease (GERD): care instructions [email or web address] Not available 06/16/2019 10:53:16 learning about m ood disorders dlebeau Not available 06/16/2019 10:53:16 07/16/2019 [id number] When You Want to Lose Weight: Care Instructions [email or web address] Not available 07/16/2019 17:38:59 type 2 diabetes: care instructions [email or web address] Not available 07/16/2019 17:38:59 12/31/2019 [id number] influenza (flu) vaccine: care instructions [email or web address] Not available 12/31/2019 17:25:26 learning about t ype 2 diabetes dlebeau Not available 12/31/2019 17:25:27 type 2 diabetes: care instructions dlebeau Not available 12/31/2019 17:25:27 learning about h igh blood pressure dlebeau Not available 12/31/2019 17:25:26 gastroesophageal reflux disease (GERD): care instructions dlebeau Not available 12/31/2019 17:25:27 10/13/2020 [id number] learning about h igh blood pressure dlebeau Not available 10/13/2020 15:53:00 Follow up in 2 months for diabetic labs. [email or web address] Not available 10/13/2020 15:53:00 10/02/2021 [id number] learning about t ype 2 diabetes dlebeau Not available 10/02/2021 13:36:55 type 2 diabetes: care instructions [email or web address] Not available 10/02/2021 13:36:55 learning about h igh blood pressure dlebeau Not available 10/02/2021 13:36:55 Reason for Referral Home Health Referral for Ost eomyelitis Patient living in a rehab facility and needs assistance with arrangements to come home. Referring Physician: Amber Davis, Family Medicine, Encounter Date: 10/02/2021 Results Created Date Observation Date Name Description Value Unit Range Abnormal Flag Note LastModifiedBy Organization Detail LastModifiedTime 12/31/19 20 12/31/2019 gluckj bernal se k, blood Blood Glucose: mg/dl 93 Not Available In-Off ice Order Internal Use Only DO Not Attach Compendium DO Not Attach Compendium, Do Not Delete/merge, [id number] 12/31/2019 16:54:00 06/11/20 19 06/11/2019 gluckj bernal se rstic k, blood Blood Glucose: mg/dl 132 Not Available In-Off ice Order Internal Use Only DO Not Attach Compendium DO Not Attach Compendium, Do Not Delete/merge, [id number] 06/11/2019 17:18:24 12/31/19 20 12/31/2019 CMP, serum or plasm a glucose, serum 90 mg/dL 65-99 Not Available [facility] ([facility]) [address] [place], [address], 12/31/2019 20:29:11 12/31/19 20 12/31/2019 CMP, serum or plasm a BUN 11 mg/dL 8-26 Not Available [facility] (Lab) [address] [place], [address], 12/31/2019 20:29:11 12/31/19 20 12/31/2019 CMP, serum or plasm a creatinine, serum 0.80 mg/dL 0.50-1 .40 Not Available [facility] (Lab) [address] [place], [address], 12/31/2019 20:29:11 12/31/19 20 12/31/2019 CMP, serum or plasm a BUN/creatnin e ratio 13.8 Not Available [facility] (Lab) [address], [place], [address], 12/31/2019 20:29:11 12/31/19 20 12/31/2019 CMP, serum or plasm a sodium, serum 143.2 mEq/L 136.0- 144.0 Not Available [facility] (Lab) [address], [place], [address], 12/31/2019 20:29:11 12/31/19 20 12/31/2019 CMP, serum or plasm a potassium, serum 4.4 mmol/ L 3.5-5. 3 Not Available [facility] (Lab) [address] [place], [address], 12/31/2019 20:29:11 12/31/19 20 12/31/2019 CMP, serum or plasm a chloride, serum 104 mmol/ l 101-11 1 Not Available [facility] (Lab) [address] [place], [address], 12/31/2019 20:29:11 12/31/19 20 12/31/2019 CMP, serum or plasm a carbon dioxide total 23.1 mmol/ L 21.0-3 2.0 Not Available [facility] (Lab) [address] [place], [address], 12/31/2019 20:29:11 12/31/19 20 12/31/2019 CMP, serum or plasm a aniongp 21.0 mmol/ L Not Available [facility] (Lab) [address] [place], [address], 12/31/2019 20:29:11 12/31/19 20 12/31/2019 CMP, serum or plasm a calcium, serum 10.3 mg/dL 8.2-10 .0 high Not Available [facility] (Lab) [address], [place], [address], 12/31/2019 20:29:11 12/31/19 20 12/31/2019 CMP, serum or plasm a total protein 7.6 g/dL 6.7-8. 2 Not Available [facility] (Lab) [address], [place], [address], 12/31/2019 20:29:11 12/31/19 20 12/31/2019 CMP, serum or plasm a albumin, serum 4.4 g/dL 3.5-5. 5 Not Available [facility] (Lab) [address] [place], [address], 12/31/2019 20:29:11 12/31/19 20 12/31/2019 CMP, serum or plasm a agratio 1.4 Not Available [facility] (Lab) [address] [place], [address], 12/31/2019 20:29:11 12/31/19 20 12/31/2019 CMP, serum or plasm a bilt 0.4 mg/dL 0.0-1. 2 Not Available [facility] (Lab) [address] [place], [address], 12/31/2019 20:29:11 12/31/19 20 12/31/2019 CMP, serum or plasm a AST 23.8 U/L 10.0-4 2.0 Not Available [facility] (Lab) [address] [place], [address], 12/31/2019 20:29:11 12/31/19 20 12/31/2019 CMP, serum or plasm a ALT 17.0 U/L 10.0-6 0.0 Not Available [facility] (Lab) [address] [place], [address], 12/31/2019 20:29:11 12/31/19 20 12/31/2019 CMP, serum or plasm a alk phos 185.3 IU/L 42.0-1 21.0 high Not Available [facility] (Lab) [address] [place], [address], 12/31/2019 20:29:11 12/31/19 20 12/31/2019 CMP, serum or plasm a osmol 284.0 mOsm/ L 275.0- 301.0 Not Available [facility] (Lab) [address] [place], [address], 12/31/2019 20:29:11 12/31/19 20 12/31/2019 CMP, serum or plasm a eGFR, non- AM 76 mL/mi n/1.7 3/m >=60 Not Available [facility] (Lab) [address] [place], [address], 12/31/2019 20:29:11 12/31/19 20 12/31/2019 lipid panel w/ direc t LDL, serum cholesterol 188.6 mg/dL 140.0- 200.0 Not Available [facility] (Lab) [address] [place], [address], 12/31/2019 20:30:19 12/31/19 20 12/31/2019 lipid panel w/ direc t LDL, serum triglyceride s 127 mg/dL <=150 Not Available [facility] (Lab) [address] [place], [address], 12/31/2019 20:30:19 12/31/19 20 12/31/2019 lipid panel w/ direc t LDL, serum HDL cholesterol 48.7 mg/dL 40.0-1 00.0 Not Available [facility] (Lab) [address], [place], [address], 12/31/2019 20:30:19 12/31/19 20 12/31/2019 lipid panel w/ direc t LDL, serum LDL 129 mg/dL <=100 high Not Available [facility] (Lab) [address], [place], [address], 12/31/2019 20:30:19 12/31/19 20 12/31/2019 lipid panel w/ direc t LDL, serum cholhdl 3.90 mg/dL 0.00-4 .98 Not Available [facility] (Lab) [address], [place], [address], 12/31/2019 20:30:19 12/31/19 20 01/01/2020 HbA1c (hemo globi n A1c), blood hemoglobin A1C 6.2 % 4.8-5. 6 high . Predi abete s: 5.7 - 6.4 Diabe irineo: >6.4 Glyce boby contr ol for adult s with diabe irineo: <7.0 Not Available [facility] ([facility]) [address], [place], [address], 01/01/2020 05:08:34 10/02/20 21 10/02/2021 LIPID PANEL cholesterol 131.6 mg/dL 140.0- 200.0 low Not Available [facility] (Lab) [address], [place], [address], 10/02/2021 21:21:34 10/02/20 21 10/02/2021 LIPID PANEL triglyceride s 87 mg/dL <=150 Not Available [facility] ([facility]) [address], [place], [address], 10/02/2021 21:21:34 10/02/20 21 10/02/2021 LIPID PANEL HDL cholesterol 50.7 mg/dL 40.0-1 00.0 Not Available [facility] (Lab) [address], [place], [address], 10/02/2021 21:21:34 10/02/20 21 10/02/2021 LIPID PANEL LDL 66 mg/dL <=100 Not Available [facility] (Lab) [address] [place], [address], 10/02/2021 21:21:34 10/02/20 21 10/02/2021 LIPID PANEL cholhdl 2.60 mg/dL 0.00-4 .98 Not Available [facility] (Lab) [address] [place], [address], 10/02/2021 21:21:34 10/02/20 21 10/02/2021 COMPR EHENS ANAIS METAB OLIC PANEL glucose, serum 111 mg/dL 65-99 high Not Available [facility] (Lab) [address] [place], [address], 10/02/2021 21:22:03 10/02/20 21 10/02/2021 COMPR EHENS ANAIS METAB OLIC PANEL BUN 13 mg/dL 8-26 Not Available [facility] (Lab) [address] [place], [address], 10/02/2021 21:22:03 10/02/20 21 10/02/2021 COMPR EHENS ANAIS METAB OLIC PANEL creatinine, serum 0.67 mg/dL 0.50-1 .40 Not Available [facility] (Lab) [address] [place], [address], 10/02/2021 21:22:03 10/02/20 21 10/02/2021 COMPR EHENS ANAIS METAB OLIC PANEL BUN/creatnin e ratio 18.8 Not Available [facility] (Lab) [address] [place], [address], 10/02/2021 21:22:03 10/02/20 21 10/02/2021 COMPR EHENS ANAIS METAB OLIC PANEL sodium, serum 142.9 mmol/ L 136.0- 144.0 Not Available [facility] (Lab) [address] [place], [address], 10/02/2021 21:22:03 10/02/20 21 10/02/2021 COMPR EHENS ANAIS METAB OLIC PANEL potassium, serum 4.4 mmol/ L 3.5-5. 3 Not Available [facility] (Lab) [address], [place], [address], 10/02/2021 21:22:03 10/02/20 21 10/02/2021 COMPR EHENS ANAIS METAB OLIC PANEL chloride, serum 102 mmol/ l 101-11 1 Not Available [facility] (Lab) [address], [place], [address], 10/02/2021 21:22:03 10/02/20 21 10/02/2021 COMPR EHENS ANAIS METAB OLIC PANEL carbon dioxide total 25.0 mmol/ L 21.0-3 2.0 Not Available [facility] (Lab) [address], [place], [address], 10/02/2021 21:22:03 10/02/20 21 10/02/2021 COMPR EHENS ANAIS METAB OLIC PANEL aniongp 21.0 mmol/ L Not Available [facility] (Lab) [address], [place], [address], 10/02/2021 21:22:03 10/02/20 21 10/02/2021 COMPR EHENS ANAIS METAB OLIC PANEL calcium, serum 9.6 mg/dL 8.2-10 .0 Not Available [facility] (Lab) [address], [place], [address], 10/02/2021 21:22:03 10/02/20 21 10/02/2021 COMPR EHENS ANAIS METAB OLIC PANEL total protein 6.5 g/dL 6.7-8. 2 low Not Available [facility] (Lab) [address] [place], [address], 10/02/2021 21:22:03 10/02/20 21 10/02/2021 COMPR EHENS ANAIS METAB OLIC PANEL albumin, serum 3.8 g/dL 3.5-5. 5 Not Available [facility] (Lab) [address] [place], [address], 10/02/2021 21:22:03 10/02/20 21 10/02/2021 COMPR EHENS ANAIS METAB OLIC PANEL agratio 1.4 Not Available [facility] (Lab) [address] [place], [address], 10/02/2021 21:22:03 10/02/20 21 10/02/2021 COMPR EHENS ANAIS METAB OLIC PANEL bilt 0.6 mg/dL 0.0-1. 2 Not Available [facility] (Lab) [address], [place], [address], 10/02/2021 21:22:03 10/02/20 21 10/02/2021 COMPR EHENS ANAIS METAB OLIC PANEL AST 18.2 U/L 10.0-4 2.0 Not Available [facility] (Lab) [address] [place], [address], 10/02/2021 21:22:03 10/02/20 21 10/02/2021 COMPR EHENS ANAIS METAB OLIC PANEL ALT 8.2 U/L 10.0-6 0.0 low Not Available [facility] (Lab) [address] [place], [address], 10/02/2021 21:22:03 10/02/20 21 10/02/2021 COMPR EHENS ANAIS METAB OLIC PANEL alk phos 142.2 IU/L 42.0-1 21.0 high Not Available [facility] (Lab) [address] [place], [address], 10/02/2021 21:22:03 10/02/20 21 10/02/2021 COMPR EHENS ANAIS METAB OLIC PANEL osmol 285.0 mOsm/ L 275.0- 301.0 Not Available [facility] (Lab) [address], [place], [address], 10/02/2021 21:22:03 10/02/20 21 10/02/2021 COMPR EHENS ANAIS METAB OLIC PANEL eGFR, non- AM 92 mL/mi n/1.7 3/m >=60 Not Available [facility] (Lab) [address], [place], [address], 10/02/2021 21:22:03 10/02/20 21 10/03/2021 HEMOG LOBIN A1C hemoglobin A1C 6.0 % 4.8-5. 6 high . Predi abete s: 5.7 - 6.4 Diabe irineo: >6.4 Glyce boby contr ol for adult s with diabe irineo: <7.0 Not Available [facility] (Lab) [address], [place], [address], 10/03/2021 06:11:17 10/11/2010/11/2021 URINE ,MICR OALB/ CREAT RATIO ,RAND urine creatnine 38.9 Not Available [facility] (Lab) [address], [place], [address], 10/11/2021 22:42:09 10/11/20 21 10/11/2021 URINE ,MICR OALB/ CREAT RATIO ,RAND urine microalbumin <1.2 mg/dL Not Available [facility] (Lab) [address] [place], [address], 10/11/2021 22:42:09 10/11/20 21 10/11/2021 URINE ,MICR OALB/ CREAT RATIO ,RAND ur micalb/cre ratio 3.1 Not Available [facility] (Lab) [address], [place], [address], 10/11/2021 22:42:09 10/11/20 21 10/11/2021 URINE ,MICR OALB/ CREAT RATIO ,RAND comment No estab lishe d refer ence range s for rando m urine gianfranco irineo, 24 hour urine colle ction is prefe rred speci men Not Available [facility] (Lab) [address], [place], [address], 10/11/2021 22:42:09 05/28/20 19 05/28/2019 (DONAVAN) ankle brach ial index * No observ ation record ed. [facility], [place], [address], 06/07/2019 15:22:18 05/28/20 19 05/28/2019 US, nalini brewer s, lower extre mity [place], [address], 06/07/2019 15:22:09 06/02/20 19 05/28/2019 US, nalini brewer s, lower extre mity [place], [address], 06/08/2019 15:22:28 06/02/20 19 05/28/2019 US, doppl er, arter ial No observ ation record ed. [facility] [place], [address], 06/08/2019 15:22:57 11/19/20 19 11/19/2019 XR, lumba r spine No observ ation record ed. [email or web address] [place], [address], 11/27/2019 10:38:30 11/19/20 19 11/19/2019 XR, ribs, unila teral , 3 or more view No observ ation record ed. [email or web address] [place] [address] [facility], [place], [address], 11/27/2019 10:39:01 11/20/20 20 11/20/2020 XR, ankle No observ ation record ed. [facility] [place] [address] [facility], [place], [address], 10/02/2021 13:19:25 11/24/20 20 11/24/2020 CT, head + brain , w/o contr ast No observ ation record ed. [facility] [place], [address], 10/02/2021 13:19:25 11/26/20 20 11/26/2020 MRI, brain + brain stem, w/o contr ast No observ ation record ed. [facility] [place] [facility], [place], [address], 10/02/2021 13:19:25 11/27/20 20 11/27/2020 XR, chest No observ ation record ed. [facility], [address], 10/02/2021 13:19:25 11/27/20 20 11/27/2020 CT, neck, soft tissu e, w/o contr ast No observ ation record ed. [facility] [place], [address], 10/02/2021 13:19:25 11/27/20 20 11/27/2020 XR, chest No observ ation record ed. [facility], [address], 10/02/2021 13:19:25 11/28/20 20 11/28/2020 XR, chest No observ ation record ed. [facility] [place] [address] [facility], [place], [address], 10/02/2021 13:19:25 11/28/20 20 11/28/2020 US, head + neck, soft tissu e No observ ation record ed. [facility] [place], [address], 10/02/2021 13:19:25 11/28/20 20 11/28/2020 stres s echoc ardio gram with doppl er color flow (PROC ) No observ ation record ed. [facility] [place], [address], 10/02/2021 13:19:25 11/29/20 20 11/29/2020 XR, chest No observ ation record ed. [facility] [place], [address], 10/02/2021 13:19:24 12/04/19 21 12/04/2020 XR, chest No observ ation record ed. [facility], [address], 10/02/2021 13:19:24 12/28/19 21 12/28/2020 imagi ng/di agnos tic resul t No observ ation record ed. [facility] [place] [facility], [place], [address], 10/02/2021 13:19:24 01/05/20 21 01/05/2021 XR, forea rm No observ ation record ed. [facility] [place] [address] [facility], [place], [address], 10/02/2021 13:19:24 01/05/2001/05/2021 XR, humer us, 2 or more view No observ ation record ed. [facility] [place] [facility], [place], [address], 10/02/2021 13:19:24 01/05/20 21 01/05/2021 US, duple x, venou s, upper extre mity No observ ation record ed. [facility] [place], [address], 10/02/2021 13:19:24 01/06/2001/05/2021 US, duple x, venou s, upper extre mity No observ ation record ed. [facility], [address], 10/02/2021 13:19:24 01/31/2001/30/2021 XR, chest No observ ation record ed. [facility], [address], 10/02/2021 13:19:24 01/31/20 21 01/30/2021 CT, abdom en + pelvi s, w/o contr ast No observ ation record ed. [facility] [place] [facility], [place], [address], 10/02/2021 13:19:23 08/16/20 21 08/15/2021 XR, hip + pelvi s, unila teral , 2 or 3 view No observ ation record ed. [facility], [place], [address], 10/02/2021 13:19:23 10/02/20 21 09/20/2021 CT, brain , w/o contr ast No observ ation record ed. [email or web address] Not Available 2020 20:31:38 10/02/20 21 09/20/2021 XR, chest No observ ation record ed. [email or web address] Not Available 2020 20:31:38 11/21/20 21 11/14/2021 CT, brain , w/o contr ast No observ ation record ed. [email or web address] Not Available 2020 22:53:58 11/21/20 21 11/14/2021 XR, chest No observ ation record ed. [email or web address] Not Available 2020 22:53:58 03/27/20 23 03/26/2023 CT, brain , w/o contr ast No observ ation record ed. [address] [facility], [place], [address], 03/29/2023 15:51:06 04/20/20 23 04/20/2023 XR, ankle , 2 view No observ ation record ed. [address], [place], [address], 04/24/2023 13:25:03 05/13/20 23 05/12/2023 XR, chest No observ ation record ed. [address], [place], [address], 05/16/2023 09:10:32 05/13/20 23 05/13/2023 MRI, brain , w/wo contr ast No observ ation record ed. [address] [address], [place], [address], 05/16/2023 09:11:44 07/27/20 23 07/27/2023 XR, chest , 2 view No observ ation record ed. [address] [address], [place], [address], 08/02/2023 09:09:28 07/27/20 23 07/27/2023 CT, brain , w/o contr ast No observ ation record ed. [address] [address], [place], [address], 08/02/2023 09:34:03 08/24/20 23 08/24/2023 CT, cervi rishabh spine , w/o contr ast No observ ation record ed. [address] [address], [place], [address], 08/26/2023 12:10:51 08/24/2008/24/2023 XR, hip + pelvi s, unila teral , 2 or 3 view No observ ation record ed. [address], [address], 08/26/2023 12:11:37 08/24/20 23 08/24/2023 CT, brain , w/o contr ast No observ ation record ed. [address] [address], [place], [address], 08/26/2023 12:12:09 11/20/20 23 11/20/2023 CT, chest + abdom en + pelvi s, w/ contr ast No observ ation record ed. [address], [place], [address], 11/22/2023 15:35:24 11/22/20 23 11/22/2023 CT, abdom en + pelvi s, w/o contr ast No observ ation record ed. [address] [facility], [place], [address], 11/27/2023 13:11:26 11/24/20 23 11/24/2023 XR, abdom en No observ ation record ed. [address] [address], [place], [address], 11/27/2023 13:11:38 11/25/20 23 11/25/2023 XR, abdom en No observ ation record ed. [address] [facility], [place], [address], 11/27/2023 13:11:49 05/10/20 24 05/10/2024 CT, abdom en + pelvi s, w/o contr ast No observ ation record ed. [address] [facility], [place], [address], 05/12/2024 13:51:42 05/10/20 24 05/10/2024 XR, chest No observ ation record ed. [address] [facility], [place], [address], 05/12/2024 13:52:27 06/12/20 24 06/12/2024 XR, hand, 3 or more view No observ ation record ed. [address] [facility], [place], [address], 06/12/2024 16:52:11 06/12/20 24 06/12/2024 XR, wrist , 2 view No observ ation record ed. [address] [address], [place], [address], 06/15/2024 09:24:55 06/12/20 24 06/12/2024 CT, head, w/o contr ast No observ ation record ed. [address] [id number], [place], [address], 06/15/2024 09:25:42 06/12/20 24 06/12/2024 CT, cervi rishabh spine , w/o contr ast No observ ation record ed. [address] [address], [place], [address], 06/15/2024 09:32:47 06/12/20 24 06/12/2024 CT, thora colum bar spine , w/o contr ast No observ ation record ed. [address] [id number], [place], [address], 06/15/2024 09:44:17 07/04/20 24 07/04/2024 XR, hip + pelvi s, unila teral , 2 or 3 view No observ ation record ed. [address] [address], [place], [address], 07/07/2024 11:49:30 07/04/20 24 07/04/2024 CT, abdom en + pelvi s, w/o contr ast No observ ation record ed. [address] [address], [place], [address], 07/07/2024 11:49:59 07/04/20 24 07/04/2024 XR, hip + pelvi s, unila teral , 2 or 3 view No observ ation record ed. [address], [place], [address], 07/07/2024 11:50:31 08/10/20 24 08/10/2024 CT, brain , w/o contr ast No observ ation record ed. [address], [place], [address], 08/13/2024 09:12:22 08/10/20 24 08/10/2024 CT, cervi rishabh spine , w/o contr ast No observ ation record ed. [address], [place], [address], 08/13/2024 09:12:39 08/10/20 24 08/10/2024 XR, shoul dillon, 2 or more view No observ ation record ed. [address], [place], [address], 08/14/2024 11:35:09 08/10/20 24 08/10/2024 CT, abdom en + pelvi s, w/o contr ast No observ ation record ed. [address], [place], [address], 08/14/2024 11:35:41 09/08/20 24 09/08/2024 CT, brain , w/o contr ast No observ ation record ed. [address], [place], [address], 09/09/2024 11:51:42 09/08/2009/08/2024 CT, cervi rishabh spine , w/o contr ast No observ ation record ed. [address], [place], [address], 09/09/2024 11:51:57 09/08/2009/08/2024 XR, hip + pelvi s, unila teral No observ ation record ed. [facility] [address], [place], [address], 09/09/2024 11:53:03 Result Notes None recorded. Problems Name Problem SNOMED Code Status Onset Date Resolution Date Notes Provider Name and Address Organization Details Recorded Time Snoring 32884021 Active 2017 Amber Davis MD Attn: Thutree fregoso,[address] [facility], [place], [place], [address] [place] [address] 2, [facility] 1 18:33:43 Home oxygen therapy Active 2018 Amber Davis MD Attn: Susi ildefonso,[address] [facility], [place], [address] [place] [address] 2, [facility] 1 18:33:43 Peripheral arterial occlusive disease 303413704 Active 2018 Amber Davis MD Attn: Susi ildefonso,[address] [facility], [place], [address] [place] [address] 2, [facility] 1 18:33:42 Diabetes mellitus 75111492 Active Amber Davis MD Attn: Susi ildefonso,2040 [facility], [place], [address] [place] [address], [facility] 1 18:33:42 Osteomyelit is 69592402 Active Amber Davis MD Attn: Susi ildefonso,20[address] [facility], [place], [address] [place] [address] 2, [facility] 18:33:43 Neuropathy due to diabetes mellitus 277776887 Active Amber Davis MD Attn: Susi g,20[address] [facility], [place], [address] [place] [address], [facility] 18:33:42 Respiratory alkalosis 778816673 Active 2017 Amber Davis MD Attn: Susi ildefonso,20[address] [facility], [place], [address] [place] [address] 2, [facility] 1 13:37:12 Dyspnea 718934157 Active 2017 Amber Davis MD Attn: Susi fregoso,[address] [facility], [place], [address], [place] [facility] 1 13:37:12 Open wound of hip and/or thigh Active 2017 Amber Davis MD Attn: Susi fregoso,[address] [facility], [place], [address], [place] [facility] 1 18:33:42 Chronic pain 70095764 Active 2017 Amber Davis MD Attn: Susi fregoso,[address] [facility], [place], [address], [place] [facility] 1 13:37:12 Pneumonia 847791611 Active 2017 Amber Davis MD Attn: Susi fregoso,[address] [facility], [place], [address], [place] [facility] 1 13:37:12 Mixed hyperlipide juan josé 461151680 Active 2015 Amber Davis MD Attn: Susi fregoso,[address] [facility], [place], [address], [place] [facility] 13:37:12 Precordial pain 33810988 Active 2018 Amber Davis MD Attn: Susi fregoso,[address] [facility], [place], [address], [place] [facility] 1 13:37:12 Sepsis 81912480 Active 2017 Amber Davis MD Attn: Susi fregoso,[address] [facility], [place], [address], [place] [facility] 13:37:12 Hypertensiv e disorder 83119668 Active 2019 Amber Davis MD Attn: Susi fregoso,[address] [facility], [place], [address], [place] [facility] 1 18:32:14 Hyperglycem ia 24952406 Active 2017 Amber Davis MD Attn: Accountin g,[address] [facility], [place], [address], [place] [facility] 1 13:37:13 Wound abscess 913851853 Active 2017 Amber Davis MD Attn: Accountin g,[address] [facility], [place], [address], [place] [facility] 1 13:37:13 Heart failure with normal ejection fraction 632222870 Active 2017 Amber Davis MD Attn: Accountin g,[address] [facility], [place], [address], [place] [facility] 1 13:37:13 Chronic obstructive pulmonary disease 73079974 Active 2017 Amber Davis MD Attn: Accountin g,[address] [facility], [place], [address], [place] [facility] 13:37:13 Palpitation s 17832532 Active 2019 Amber Davis MD Attn: Accountin g,[address] [facility], [place], [address], [place] [facility] 1 18:32:14 Ventricular tachycardia 68184629 Active 2017 Amber Davis MD Attn: Accountin g,[address] [facility], [place], [address], [place] [facility] 1 13:37:13 Leukocytosi s 523240728 Active 2017 Amber Davis MD Attn: Accountin g,[address] [facility], [place], [address], [place] [facility] 13:37:13 Anxiety 69245259 Active 2017 Amber Davis MD Attn: Accountin g,[address] [facility], [place], [address], [place] [facility] 1 13:37:13 Cerebrovasc ular accident 511539585 Active 2017 Amber Davis MD Attn: Accountin g,[address] [facility], [place], [address], [place] [facility] 1 18:33:43 Chronic acquired lymphedema 16871424 Active 2017 Amber Davis MD Attn: Accountin g,[address] [facility], [place], [address], [place] [facility] 1 13:37:13 Chronic atrial fibrillatio n 050524881 Active 2019 Amber Davis MD Attn: Accountin g,[address] [facility], [place], [address], [place] [facility] 1 18:32:14 Internation al normalized ratio above reference range 870175072 Active 2020 Amber Davis MD Attn: Accountin g,[address] [facility], [place], [address], [place] [facility] 18:33:42 Coronary arterioscle rosis 50924559 Active Amber Davis MD Attn: Accountin g,[address] [facility], [place], [address], [place] [facility] 18:33:42 Urinary tract infectious disease 84623360 Active 2020 Amber Davis MD Attn: Accountin g,[address] [facility], [place], [address], [place] [facility] 18:33:42 Lumbar spondylosis 470757643 Active 2015 Amber Davis MD Attn: Accountin g,[address] [facility], [place], [address], [place] [facility] 18:30:59 COVID-19 230369895 Active 2020 Amber Davis MD Attn: Accountin g,[address] [facility], [place], [address], [place] [facility] 11/01/202 1 18:33:42 Open wound of lower limb 42482896 Active 2017 Amber Davis MD Attn: Susi fregoso,[address] [facility], [place], [address], [place] [facility] 1 18:33:43 Chronic infectious disease 681336020 Active 2017 Amber Davis MD Attn: Susi fregoso,[address] [facility], [place], [address], [place] [facility] 1 18:33:42 Altered mental status 696775723 Active 2020 Amber Davis MD Attn: Susi fregoso,[address] [facility], [place], [address], [place] [facility] 1 18:33:42 Atrial fibrillatio n with rapid ventricular response 2660077991567 09 Active 2020 Amber Davis MD Attn: Susi fregoso,[address] [facility], [place], [address], [place] [facility] 1 18:33:42 Infection AND/OR inflammator y reaction due to internal prosthetic device, implant AND/OR graft 89257989 Active 2014 Amber Davis MD Attn: Susi fregoso,[address] [facility], [place], [address], [place] [facility] 1 18:33:43 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 08328300 Active Amber Davis MD Attn: Susi g,[address] [facility], [place], [address], [place] [facility] 1 18:33:42 Obesity 111952368 Active Amber Davis MD Attn: Accounttree g,[address] [facility], [place], [address], [place] [facility] 1 18:33:42 Shoulder strain 902065954 Active Amber Davis MD Attn: Accounttree g,[address] [facility], [place], [address], [place] [facility] 1 18:33:42 Depressive disorder 34354649 Active Amber Davis MD Attn: Accountin g,[address] [facility], [place], [address], [place] [facility] 1 18:33:42 Abdominal pain 34858007 Active Amber Davis MD Attn: Accountin g,[address] [facility], [place], [address], [place] [facility] 1 18:33:43 Muscle pain 98194112 Active Amber Davis MD Attn: Accountin g,[address] [facility], [place], [address], [place] [facility] 1 18:33:42 Pleuritic pain 9441455 Active Amber Davis MD Attn: Accountin g,[address] [employer], [place], [address] [place] [address], [place] [facility] 1 18:33:42 Cellulitis 550645235 Active 2017 Amber Davis MD Attn: Accountin g,20[address] [facility], [place], [address] [place] [address], [place] [facility] 1 13:37:13 Nausea and vomiting 02674118 Active Amber Davis MD Attn: Accountin g,20[address] [facility], [place], [address] [place] [address], [place] [facility] 1 18:33:42 Gastroesoph ageal reflux disease 861304755 Active Amber Davis MD Attn: Accountin g,[address] [facility], [place], [address], [place] [facility] 1 18:33:43 Essential hypertensio n 67473673 Active Amber Davis MD Attn: Accountin g,[address] [place], [address], [place] [facility] 1 18:33:42 Genital herpes simplex 34690289 Active Amber Davis MD Attn: Accountin g,[address] [facility] [place], [address], [place] [facility] 1 18:33:42 Type 2 diabetes mellitus 29624971 Active Amber Davis MD Attn: Susi fregoso,[address] [facility], [place], [address], [place] [facility] 1 18:33:42 Upper abdominal pain 25308440 Active Amber Davis MD Attn: Susi fregoso,[address] [facility], [place], [address], [place] [facility] 1 18:33:42 Lymphedema of lower extremity 612224642 Active Amber Davis MD Attn: Susi fregoso,[address] [facility], [place], [address], [place] [facility] 18:33:42 Nausea 974999460 Active Amber Davis MD Attn: Susi fregoso,[address] [facility], [place], [address], [place] [facility] 18:33:43 Problem Notes None recorded. Procedures Surgical History Date Name Laterality Status Provider Name and Address Organization Details Recorded Time Hysterectomy completed Amber Davis MD Attn: Accounting, [facility], [place], [address], [place] [facility] 04/21/2015 16:24:13 Imaging Results Imaging Date Name Status LastModified by Organization Details LastModified Time 05/28/2019 (DONAVAN) ankle brachial index* [place], [address], 06/07/2019 15:22:18 05/28/2019 US, duplex, venous, [place], [address], 06/07/2019 15:22:09 05/28/2019 US, duplex, venous, [facility], [place], [address], 06/08/2019 15:22:28 05/28/2019 [facility] doppler, [facility], [place], [address], 06/08/2019 15:22:57 11/19/2019 XR, lumbar spine completed [address] [facility], [place], [address], 11/27/2019 10:38:30 11/19/2019 XR, ribs, unilateral, 3 or more view completed [address] [facility], [place], [address], 11/27/2019 10:39:01 11/20/2020 XR, ankle completed [facility], [place], [address], 10/02/2021 13:19:25 11/24/2020 CT, head + brain, w/o contrast completed [facility], [place], [address], 10/02/2021 13:19:25 11/26/2020 MRI, brain + brain stem, w/o contrast completed [facility], [place], [address], 10/02/2021 13:19:25 11/27/2020 XR, chest completed [facility], [place], [address], 10/02/2021 13:19:25 11/27/2020 CT, neck, soft tissue, w/o contrast completed [facility], [place], [address], 10/02/2021 13:19:25 11/27/2020 XR, chest completed [facility], [place], [address], 10/02/2021 13:19:25 11/28/2020 XR, chest completed [facility], [place], [address], 10/02/2021 13:19:25 11/28/2020 US, head + neck, soft tissue completed [facility], [place], [address], 10/02/2021 13:19:25 11/28/2020 stress echocardiogram with doppler color flow (PROC) completed [facility], [place], [address], 10/02/2021 13:19:25 11/29/2020 XR, chest completed [facility], [place], [address], 10/02/2021 13:19:24 12/04/2020 XR, chest completed [facility] [address], [place], [address], 10/02/2021 13:19:24 12/28/2020 imaging/diagnostic result completed [facility], [place], [address], 10/02/2021 13:19:24 01/05/2021 XR, forearm completed [facility], [place], [address], 10/02/2021 13:19:24 01/05/2021 XR, humerus, 2 or more view completed [facility], [place], [address], 10/02/2021 13:19:24 01/05/2021 US, duplex, venous, upper extremity completed [facility], [place], [address], 10/02/2021 13:19:24 01/05/2021 US, duplex, venous, upper extremity completed [facility], [place], [address], 10/02/2021 13:19:24 01/30/2021 XR, chest completed [facility], [place], [address], 10/02/2021 13:19:24 01/30/2021 CT, abdomen + pelvis, w/o contrast completed [facility], [place], [address], 10/02/2021 13:19:23 08/15/2021 XR, hip + pelvis, unilateral, 2 or 3 view completed [facility], [place], [address], 10/02/2021 13:19:23 09/20/2021 CT, brain, w/o contrast completed Information not available 10/02/2021 20:31:38 09/20/2021 XR, chest completed Information no t available 10/02/2021 20:31:38 11/14/2021 CT, brain, w/o contrast completed Information not available 11/22/2021 22:53:58 11/14/2021 XR, chest completed Information no t available 11/22/2021 22:53:58 03/26/2023 CT, brain, w/o contrast completed [address], [address], 03/29/2023 15:51:06 04/20/2023 XR, ankle, [address], [address], 04/24/2023 13:25:03 05/12/2023 XR, chest completed [address], [address], 05/16/2023 09:10:32 05/13/2023 MRI, brain, w/wo contrast completed [address], [address], 05/16/2023 09:11:44 07/27/2023 XR, chest, 2 view completed [email or web address], [place], [address], 08/02/2023 09:09:28 07/27/2023 CT, brain, w/o contrast completed [address], [place], [address], 08/02/2023 09:34:03 08/24/2023 CT, cervical spine, w/o contrast completed [address] [facility] [facility], [place], [address], 08/26/2023 12:10:51 08/24/2023 XR, hip + pelvis, unilateral, 2 or 3 view completed [address] [address], [place], [address], 08/26/2023 12:11:37 08/24/2023 CT, brain, w/o contrast completed [address] [facility], [place], [address], 08/26/2023 12:12:09 11/20/2023 CT, chest + abdomen + pelvis, w/ contrast completed [address] [address], [place], [address], 11/22/2023 15:35:24 11/22/2023 CT, abdomen + pelvis, w/o contrast completed [address] [facility] [facility], [place], [address], 11/27/2023 13:11:26 11/24/2023 XR, abdomen completed [address], [address], 11/27/2023 13:11:38 11/25/2023 XR, abdomen completed [address], [address], 11/27/2023 13:11:49 05/10/2024 CT, abdomen + pelvis, w/o contrast completed [address], [address], 05/12/2024 13:51:42 05/10/2024 XR, chest completed [address], [address], 05/12/2024 13:52:27 06/12/2024 XR, hand, 3 or more view completed [address], [address], 06/12/2024 16:52:11 06/12/2024 XR, wrist, 2 view completed [address], [address], 06/15/2024 09:24:55 06/12/2024 CT, head, w/o contrast completed [address], [address], 06/15/2024 09:25:42 06/12/2024 CT, cervical spine, w/o contrast completed [address], [address], 06/15/2024 09:32:47 06/12/2024 CT, thoracolumbar spine, w/o contrast completed [address], [address], 06/15/2024 09:44:17 07/04/2024 XR, hip + pelvis, unilateral, 2 or 3 view completed [address], [address], 07/07/2024 11:49:30 07/04/2024 CT, abdomen + pelvis, w/o contrast completed [address] [facility], [place], [address], 07/07/2024 11:49:59 07/04/2024 XR, hip + pelvis, unilateral, 2 or 3 view completed [address], [address], 07/07/2024 11:50:31 08/10/2024 CT, brain, w/o contrast completed [address], [address], 08/13/2024 09:12:22 08/10/2024 CT, cervical spine, w/o contrast completed [address], [address], 08/13/2024 09:12:39 08/10/2024 XR, shoulder, 2 or more view completed [address], [address], 08/14/2024 11:35:09 08/10/2024 CT, abdomen + pelvis, w/o contrast completed [address], [address], 08/14/2024 11:35:41 09/08/2024 CT, brain, w/o contrast completed [address], [address], 09/09/2024 11:51:42 09/08/2024 CT, cervical spine, w/o contrast completed [address], [address], 09/09/2024 11:51:57 09/08/2024 XR, hip + pelvis, unilateral completed [address], [address], 09/09/2024 11:53:03 Procedure Notes None recorded. Medical Equipment None Reported. Allergies Allergen ID Allergen Name Allergen Category Reaction Reaction Severity Criticality Documentation Date Start Date Code Code System Note Provider Name and Address Organization Details Recorded Time 934997 morphine medicatio n Not available Not available Not available 10/02/20212015 7052 RxNorm Other react ions and sever ities : 'Stom ach upset - Mild' . Not Available Not Available Not Available 735815 iodine medicatio n Not available Not available Not available 10/02/20212015 5933 RxNorm Other react ions and sever ities : 'Unkn own'. Not Available Not Available Not Available 128636 oxycodone medicatio n Not available Not available Not available 10/02/20212015 7804 RxNorm Other react ions and sever ities : 'GI Upset '. Not Available Not Available Not Available 397869 meperidin e medicatio n other mild Not available 10/02/20212019 6754 RxNorm Not Available Not Available Not Available 142691 tositumom ab Not available Not available Not available Not available 10/02/20212020 78126 0 RxNorm Other react ions and sever ities : 'Unkn own'. Not Available Not Available Not Available 909074 ceftriaxo ne medicatio n Not available Not available Not available 10/02/2021 2193 RxNorm Not Available Not Available Not Available 045099 ciproflox acin medicatio n Not available Not available Not available 10/02/2021 2551 RxNorm Not Available Not Available Not Available 3505 latex environme nt,medica tion rash moderate Not available 10/27/20142014 82009 91 RxNorm Not Available Not Available Not Available 3506 propoxyph gene medicatio n nausea mild Not available 10/27/20142015 8785 RxNorm Not Available Not Available Not Available 3507 acetamino phen medicatio n Not available Not available Not available 10/27/2014 161 RxNorm Pt state s she is not aller gic, curre ntly on Tylen ol 3 Not Available Not Available Not Available 3508 Product containin g penicilli n (product) medicatio n Not available Not available Not available 10/27/2014 97371 8001 SNOMED Not Available Not Available Not Available 55086 acetamino phen / oxycodone medicatio n vomiting Not available Not available 07/07/2015 59888 3 RxNorm Not Available Not Available Not Available Medications Name Sig Start Date Stop Date Status Note LastModified by Organization Details LastModified Time verapamil ER (SR) 120 mg tablet,exte nded release active Not Available Not Available Not Available Santyl 250 unit/gram topical ointment apply daily to wound active Not Available Not Available No t Available cyclobenzap rine 10 mg tablet 07/11 completed Not Available Not Available Not Available furosemide 40 mg tablet TAKE ONE TABLET BY MOUTH ONCE DAILY active Not Available Not Available No t Available latanoprost 0.005 % eye drops 10/13 completed Not Available Not Available Not Available fluconazole 100 mg tablet active Not Available Not Available Not Available methocarbam ol 500 mg tablet TAKE ONE TABLET BY MOUTH THREE TIMES A DAY NEEDED active Not Available Not Available No t Available silver sulfadiazin e 1 % topical cream active Not Available Not Available Not Available ivermectin 3 mg tablet active Not Available Not Available Not Available lidocaine HCl 10 mg/mL (1 %) injection solution active Not Available Not Available Not Available valganciclo vir 450 mg tablet active Not Available Not Available Not Available bupropion HCl SR 150 mg tablet,12 hr sustained-r elease TAKE ONE TABLET BY MOUTH TWICE A DAY active Not Available Not Available No t Available prednisone 10 mg tablet active Not Available Not Available Not Available gabapentin 600 mg tablet active Not Available Not Available Not Available doxycycline hyclate 100 mg capsule 10/02 completed Not Available Not Available Not Available paroxetine 10 mg tablet active Not Available Not Available Not Available cefuroxime axetil 250 mg tablet active Not Available Not Available No t Available diltiazem ER 180 mg capsule,24 hr,extended release active Not Available Not Available Not Available albuterol sulfate 2.5 mg/3 mL (0.083 %) solution for nebulizatio n Inhale 3 mL 6 times a day by nebulizat ion route. active Not Available Not Available No t Available citalopram 40 mg tablet TAKE ONE TABLET BY MOUTH ONCE DAILY 07/01 completed Not Available Not Available Not Available Normal Saline Flush 0.9 % injection syringe 03/12 completed Not Available Not Available Not Available atorvastati n 10 mg tablet TAKE 1/2 TABLET (5 MG TOTAL) BY MOUTH DAILY active Not Available Not Available No t Available azithromyci n 250 mg tablet Take 1 tablet every day by oral route for 10 days. active Not Available Not Available No t Available pravastatin 40 mg tablet Take 1 tablet(s) every day by oral route. 01/16 completed Not Available Not Available Not Available ibuprofen 800 mg tablet active Not Available Not Available Not Available diltiazem CD 180 mg capsule,ext ended release 24 hr TAKE 1 CAPSULE (180 MG TOTAL) BY MOUTH DAILY. INDICATIO NS ATRIAL FIBRILLAT ION active Not Available Not Available No t Available metoprolol tartrate 100 mg tablet TAKE 1 TABLET (100 MG TOTAL) BY MOUTH 2 (TWO) TIMES DAILY. CALL TO MAKE AN APPOINTME NT. active Not Available Not Available No t Available nystatin 100,000 unit/gram topical ointment 03/12 completed Not Available Not Available Not Available fluconazole 150 mg tablet active Not Available Not Available Not Available valacyclovi r 1 gram tablet active Not Available Not Available Not Available clarithromy chauncey 500 mg tablet active Not Available Not Available Not Available hydrocodone 5 mg-acetamin ophen 325 mg tablet TAKE 1 TO 2 TABLETS BY MOUTH EVERY 4 HOURS NEEDED FOR PAIN active Not Available Not Available No t Available minocycline 100 mg capsule active Not Available Not Available Not Available fluconazole 200 mg tablet active Not Available Not Available Not Available cefepime 2 gram solution for injection 03/12 completed Not Available Not Available Not Available ondansetron HCl 4 mg tablet active Not Available Not Available Not Available famotidine 40 mg tablet Take 1 tablet every day by oral route. 03/12 completed Not Available Not Available Not Available prednisone 20 mg tablet active Not Available Not Available Not Available isosorbide mononitrate ER 30 mg tablet,exte nded release 24 hr take 1 tablet by mouthe daily active Not Available Not Available No t Available gabapentin 400 mg capsule TAKE ONE CAPSULE BY MOUTH THREE TIMES A DAY active Not Available Not Available No t Available metronidazo le 250 mg tablet active Not Available Not Available Not Available clindamycin HCl 150 mg capsule active Not Available Not Available Not Available warfarin 2.5 mg tablet active Not Available Not Available Not Available vancomycin 5 gram intravenous solution 06/30 completed Not Available Not Available Not Available acetaminoph en 300 mg-codeine 15 mg tablet Take 1 tab as needed every 6 hours 05/07 completed Not Available Not Available Not Available lidocaine HCl 2 % mucosal jelly active Not Available Not Available Not Available acetaminoph en 300 mg-codeine 30 mg tablet TAKE 1 TABLET BY MOUTH EVERY 6 HOURS NEEDED active Not Available Not Available No t Available prochlorper azine maleate 10 mg tablet active Not Available Not Available No t Available acyclovir 400 mg tablet TAKE ONE TABLET BY MOUTH TWICE A DAY 2020 active Not Available Not Available Not Avai lable sulfamethox azole 800 mg-trimetho prim 160 mg tablet TAKE 1 TABLET BY MOUTH TWICE A DAY active Not Available Not Available No t Available hydrocodone 10 mg-acetamin ophen 325 mg tablet active Not Available Not Available No t Available omeprazole 40 mg capsule,del ayed release 03/12 completed Not Available Not Available Not Available tramadol 50 mg tablet Take 1 tab by mouth 3 times daily as needed. 07/11 completed Not Available Not Available Not Available vancomycin 1,000 mg intravenous injection 06/30 completed Not Available Not Available Not Available triamcinolo ne acetonide 0.1 % topical cream 06/30 completed Not Available Not Available Not Available acyclovir 800 mg tablet Take 1 tablet 5 times a day by oral route for 10 days. 07/11 completed Not Available Not Available Not Available baclofen 20 mg tablet active Not Available Not Available No t Available warfarin 3 mg tablet active Not Available Not Available No t Available nortriptyli ne 25 mg capsule active Not Available Not Available Not Available verapamil 120 mg tablet Take 1 tablet every day by oral route. active Not Available Not Available No t Available rifampin 300 mg capsule active Not Available Not Available Not Available citalopram 20 mg tablet TAKE ONE TABLET BY MOUTH ONCE DAILY 07/11 completed Not Available Not Available Not Available potassium chloride ER 20 mEq tablet,exte nded release(par t/cryst) TAKE 1 TABLET BY MOUTH EVERY DAY active Not Available Not Available No t Available famotidine 20 mg tablet TAKE ONE TABLET BY MOUTH TWICE A DAY 06/30 completed Not Available Not Available Not Available methocarbam ol 750 mg tablet active Not Available Not Available Not Available baclofen 10 mg tablet Take 1 tablet 4 times a day by oral route. active Not Available Not Available No t Available doxycycline monohydrate 100 mg capsule TAKE 1 CAPSULE BY MOUTH TWICE A DAY FOR ANTIBIOTI CS active Not Available Not Available No t Available insulin aspart U-100 100 unit/mL subcutaneou s solution active Not Available Not Available N ot Available cephalexin 500 mg capsule Take 1 capsule every 6 hours by oral route around the clock. active Not Available Not Available No t Available paroxetine 20 mg tablet active Not Available Not Available Not Available pantoprazol e 40 mg tablet,kirsten yed release active Not Available Not Available Not Available triamcinolo ne acetonide 0.1 % topical ointment 06/30 completed Not Available Not Available Not Available nystatin 100,000 unit/gram topical cream active Not Available Not Available Not Available warfarin 2 mg tablet TAKE 1 TABLET (2 MG TOTAL) BY MOUTH DAILY. INDICATIO NS: ATRIAL FIBRILLAT ION active Not Available Not Available No t Available warfarin 5 mg tablet Take 1 tablet every day by oral route. active Not Available Not Available No t Available bupropion HCl 75 mg tablet active Not Available Not Available Not Available metoprolol tartrate 50 mg tablet take 1 tablet by mouth BID active Not Available Not Available No t Available Combivent 18 mcg-103 mcg/actuati on aerosol inhaler Inhale 2 puffs 4 times a day by inhalatio n route. active Not Available Not Available No t Available nitroglycer in 0.[address] 1 TABLET UNDER TONGUE EVERY 5 MINS, UP TO 3 DOSES NEEDED FOR CHEST PAIN active Not Available Not Available No t Available gabapentin 300 mg capsule Take 1 capsule 3 times a day by oral route. active Not Available Not Available No t Available omeprazole 20 mg capsule,del ayed release active Not Available Not Available Not Available vancomycin 500 mg intravenous solution active Not Available Not Available Not Available aspirin 81 mg chewable tablet CHEW 1 TABLET (81 MG TOTAL) BY MOUTH DAILY. CALL TO MAKE AN APPOINTME NT. active Not Available Not Available No t Available Tylenol 325 mg tablet Take 2 tablets every 6 hours by oral route as needed. active Not Available Not Available No t Available diltiazem CD 120 mg capsule,ext ended release 24 hr 03/12 completed Not Available Not Available Not Available verapamil ER (SR) 240 mg tablet,exte nded release 06/30 completed Not Available Not Available Not Available lisinopril 5 mg tablet TAKE 1 TABLET BY MOUTH DAILY FOR HIGH BLOOD PRESSURE active Not Available Not Available No t Available mupirocin 2 % topical ointment active Not Available Not Available Not Available digoxin 125 mcg (0.125 mg) tablet Take 1 tablet every day by oral route. active Not Available Not Available No t Available furosemide 20 mg tablet Take 1 tablet every day by oral route. active Not Available Not Available No t Available gabapentin 100 mg capsule active Not Available Not Available Not Available sodium chloride 0.9 % intravenous solution active Not Available Not Available Not Available warfarin 1 mg tablet active Not Available Not Available No t Available ibuprofen 600 mg tablet active Not Available Not Available Not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
== END 2025-03-29 07:45 | disposition home or self-care (01) ==
PROVIDERS: PCP Internal Medicine; Visit Provider Nurse Practitioner Family
DX: R10.32 Left lower quadrant pain (principal); K59.03 Drug induced constipation; Z85.038 Personal history of other malignant neoplasm of large intestine; N20.0 Calculus of kidney
CPT/HCPCS: 74176

== ENCOUNTER 2025-07-12 11:42 | Inpatient (IN) | payer MEDICARE, MEDICAID, SELFPAY ==
[2025-03-26 11:18] VITALS: BMI 30.2
--- OUTSIDE RECORDS SUMMARY | 2025-03-30 01:03 | XMS_ITS | Encounter Summary ---
Author Organization [facility] Address [address] [place] [address] Care Team Providers Care Marine Insurance Claim Examiner Name Role Phone Bill Da Silva MD Primary Care Provider [phone] Encounter Details Date Type Department Care Team (Late st Contact Info) Description 03/03/2021 Ophth Exam [facility] [address] [place] [id number] Miquel Tavares MD [address] [place] [address] Social History Tobacco Use Types Packs/Day Years Used Date Smoking Tobacco: Former Alcohol Use Standard Drinks/Week Comments Not Asked 0 (1 standard drink = 0.6 oz pur e alcohol) Comments Unknown Sex and Gender Information Value Date Recorded Sex Assigned at Female 11/15/2021 7:16 AM FRONTLOAD DRIVER Legal Sex Female 8:02 AM FRONTLOAD DRIVER Gender Identity Not on file Sexual Orientation [...] of Assessment Author No 02/11/2021 10:47 PM FRONTLOAD DRIVER Kathy Talbert RN * Does person have difficulty doing errands alone? Answer Date of Assessment Author No 02/11/2021 10:47 PM Kathy Guido RN documented as of this encounter Mental Status * Does person have difficulty concentrating/remembering/making decisions? 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 Source: [facility]. 11/24/2020 MRSA 02/15/2021 02/15/2021 10/17/2023 11:1 2 AM FRONTLOAD DRIVER ESBL GNR 11/15/2021 11/15/2021 10/17/2023 11:1 2 AM FRONTLOAD DRIVER MDRO 11/15/2021 11/15/2021 10/17/2023 11:1 2 AM FRONTLOAD DRIVER MDRO Hx Comment:11/15/21 - urine culture 10/17/2023 10/17/2023 ESBL Hx Comment:11/15/21 - urine culture 10/17/2023 10/17/2023 MRSA Hx Comment:02/15/21 - sputum culture 10/17/2023 10/17/2023 documented as of this encounter Care Teams Marine Insurance Claim Examiner Relationship Specialty Start Date End Date Bill Da Silva MD PCP - General 12/21/09 documented as of this encounter
--- OUTSIDE RECORDS SUMMARY | 2025-03-30 01:03 | XMS_ITS | Encounter Summary ---
Author Organization [facility] Address [address] [place] [address] Care Team Providers Care Geospatial Specialist Name Role Phone Bill Da Silva MD Primary Care Provider [phone] Encounter Details Date Type Department Care Team (Late st Contact Info) Description 08/30/2021 Telephone [facility] [address] [place] [address] Giles Wheeler MD [address] [facility] [address] DIV OF PULMONARY/[place] [address] Social History Tobacco Use Types Packs/Day Years Used Date Smoking Tobacco: Former Alcohol Use Standard Drinks/Week Comments Not Asked 0 (1 standard drink = 0.6 oz pur e alcohol) Comments Unknown Sex and Gender Information Value Date Recorded Sex Assigned at Female 11/15/2021 7:16 AM MELTER SUPERVISOR Legal Sex Female 8:02 AM MELTER SUPERVISOR Gender Identity Not on file Sexual [...] Julio Rhodes - 08/30/2021 10:20 AM CDT cooler worker from rehab center called in to [facility] in regards to patient's appointment withDr. [...] looking for a later appointment time. Patient's assistant case manager was asking for someone in the office to call them back in regards to getting a later appointment. Best contact number is [phone]. 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 Source: [facility]. 11/24/2020 MRSA 02/15/2021 02/15/2021 10/17/2023 11:1 2 AM MELTER SUPERVISOR ESBL GNR 11/15/2021 11/15/2021 10/17/2023 11:1 2 AM MELTER SUPERVISOR MDRO 11/15/2021 11/15/2021 10/17/2023 11:1 2 AM MELTER SUPERVISOR MDRO Hx Comment:11/15/21 - urine culture 10/17/2023 10/17/2023 ESBL Hx Comment:11/15/21 - urine culture 10/17/2023 10/17/2023 MRSA Hx Comment:02/15/21 - sputum culture 10/17/2023 10/17/2023 documented as of this encounter Care Teams Geospatial Specialist Relationship Specialty Start Date End Date Bill Da Silva MD PCP - General 12/21/09 documented as of this encounter
--- OUTSIDE RECORDS SUMMARY | 2025-03-30 01:04 | XMS_ITS | Referral Summary ---
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 ([facility]) ([facility]) (Primary Dx); Other abnormal glucose from Last 3 Months Allergies Active Allergy Reactions Criticality Noted Date Comments Ceftriaxone Ciprofloxacin Iodinated Contrast Media Other (See comments) Low 0 04/21/2020 Reaction: Iodine Unknown 09/01/2016 Latex Rash Medium 10/26/2015 Meperidine Other (See comments) Low 04/21/2020 Reaction: Morphine Stomach upset Low 09/01/2016 Oxycodone-Acetaminophen Other (See comments) Low Reaction: Penicillins Other (See comments),Rash Medium 10/26/2015 Reaction: Meohcbmwinkt-Cqsenynctx-Ocn trs Angioedema High 11/28/2020 Propoxyphene Nausea only [...] UA-unremarkable -BCx-no growth at 2 day -Wound ql-ldxj-gpytwlry rods with some growth at 1 day [...] of left hi p, currently on antibiotics ([facility]) 07/31/2018 Overview (08/04/2020): Last Assessment [...] on file Legal Sex Female 7:49 PM CONTROL ROOM OPERATOR Gender Identity Not on file Sexual Orientation [...] 2:43 PM CDT Height 176 cm (5' 9.29) 03/25/2025 2:43 PM CDT Body Mass Index [...] PM: Kj Maynard M.D. Kj Maynard M.D. NH:md 02:01 PM 02:01 PM [EOD] Bill Da Silva MD IMG MAMMO PROCEDURES Final Re sult from Last 3 Months or Most Recently Relevant to Health Maintenance Insurance [facility] MEDICARE MEDICARE [facility] Advance Directives For more information, please contact: [phone] Documents on File Type Date Recorded Patient Lunchroom Operator Expl anation Power of Lime Plant Operator 09/28/2021 3:17 PM ADVANCE DIRECTIVE 09/28/2021 1:55 PM Janice r of Lime Plant Operator-Medical ADVANCE DIRECTIVE 09/28/2021 1:53 PM POLS T - Phys Order for PT Preferences * Full Code (Latest Code Status on File) Date Activated Date Inactivated Comments 09/21/2021 4:25 AM 09/28/2021 3:29 AM Care Teams Store Warehouse Associate Relationship Specialty Start Date End Date Leroy Cortés MD [address] [place] [address] PCP - General Internal Medicine 03/25/25
--- OUTSIDE RECORDS SUMMARY | 2025-03-30 01:04 | XMS_ITS | Clinical Summary ---
Author Organization [facility] Address [address] [place] [address] Care Team Providers Care Reel Stripper Name Role Phone Leroy Cortés MD Primary Care Provider [phone] Allergies Active Allergy Reactions Criticality Noted Date Comments Ceftriaxone Ciprofloxacin Iodinated Contrast Media Other (See comments) Low 0 04/21/2020 Reaction: Iodine Unknown 09/01/2016 Latex Rash Medium 10/26/2015 Meperidine Other (See comments) Low 04/21/2020 Reaction: Morphine Stomach upset Low 09/01/2016 Oxycodone-Acetaminophen Other (See comments) Low Reaction: Penicillins Other (See comments),Rash Medium 10/26/2015 Reaction: Chomnioarllp-Kybcgbimgy-Yzh trs Angioedema High 11/28/2020 Propoxyphene Nausea only [...] UA-unremarkable -BCx-no growth at 2 day -Wound kw-hdai-kxgutwjy rods with some growth at 1 day [...] of left hi p, currently on antibiotics ([facility]) 07/31/2018 Overview (08/04/2020): Last Assessment [...] morphine COPD (chronic obstructive pulmonary disease) ([facility]) 07/30/2018 Overview (08/04/2020): Last Assessment [...] Description 03/25/2025 2:30 PM CDT Office Visit [facility] Infectious Disease [address] [place] [address] [place] [address] Tomi Powell MD Chronic infection of [...] on file Legal Sex Female 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 Kj Maynard M.D. NH:ojnathan 02:01 PM 02:01 PM [EOD] Bill Da Silva MD IMG MAMMO PROCEDURES Final Re sult from Last 3 Months or Most Recently Relevant to Health Maintenance [place] [address] [place] [address] [facility] MEDICARE MEDICARE [employer] Advance Directives For more information, please contact: [phone] Documents on File Type Date Recorded Patient Keypuncher Expl anation Power of Bung Driver 09/28/2021 3:17 PM ADVANCE DIRECTIVE 09/28/2021 1:55 PM Janice r of Bung Driver-Medical ADVANCE DIRECTIVE 09/28/2021 1:53 PM POLS T - Phys Order for PT Preferences * Full Code (Latest Code Status on File) Date Activated Date Inactivated Comments 09/21/2021 4:25 AM 09/28/2021 3:29 AM Care Teams Reel Stripper Relationship Specialty Start Date End Date Leroy Cortés MD [address] [place] [address] PCP - General Internal Medicine 03/25/25
--- OUTSIDE RECORDS SUMMARY | 2025-03-30 01:04 | XMS_ITS | Clinical Summary ---
Author Organization [facility] Address [address] [place] [address] Care Team Providers Care Lead Sewage Plant Operator Name Role Phone Bill Da Silva MD Primary Care Provider [phone] Source Comments [facility],non-owned Affiliates and Associated Physician Practices is amultiple site organization consisting of ambulatory clinics and hospital sitesin [place], [place], [place]. This disclosure is being madepursuant to the Care Everywhere program and may not contain all information available regarding this patient. Last updated 18.[facility] Allergies Active Allergy Reactions Criticality Noted Date [...] mouth daily with food Active nystatin (MYCOSTATIN) 543310 UNIT/GM cream Apply to affected area as [...] Date Recorded PHQ2 TOTAL SCORE 0 06/12/2022 [facility] - Occupational Stress [...] place to sleep or slept in a residential (including now)? No 10/21/2023 Comments Unknown Sex and Gender Information Value Date Recorded Sex Assigned at Female 11/15/2021 7:16 AM CAR RENTAL SALES ASSISTANT Legal Sex Female 8:02 AM CAR RENTAL SALES ASSISTANT Gender Identity Not on file Sexual Orientation Not on file Last Filed Vital Signs Vital Sign Reading Time Taken Comments Blood Pressure 122/83 10/23/2023 7:23 AM CAR RENTAL SALES ASSISTANT Pulse 84 10/23/2023 8:35 AM CAR RENTAL SALES ASSISTANT Temperature 36.8 C (98.2 F) 10/23/2023 7:23 AM CAR RENTAL SALES ASSISTANT Respiratory Rate 16 10/23/2023 8:35 AM CAR RENTAL SALES ASSISTANT Oxygen Saturation 98% 10/23/2023 7:23 AM CAR RENTAL SALES ASSISTANT Inhaled Oxygen Concentration 28% 10/18/2023 8 :37 AM CAR RENTAL SALES ASSISTANT Weight 91.6 kg (202 lb) 10/21/2023 7:37 AM CAR RENTAL SALES ASSISTANT Height 172.7 cm (5' 8) 10/17/2023 12:00 AM CAR RENTAL SALES ASSISTANT Body Mass Index 30.71 10/17/2023 12:00 AM CAR RENTAL SALES ASSISTANT Plan of Treatment Health Maintenance Due Date [...] CREATININE BLOOD AM Draw 10/23/2023 7:49 AM CAR RENTAL SALES ASSISTANT HEMOGLOBIN A1C Routine 10/18/2023 2:51 AM CAR RENTAL SALES ASSISTANT HEPATITIS C AB W RFLX VERIFICATION Routine 03/02/2021 7:33 PM CDT from Last 3 Months or Most Recently Relevant to Health Maintenance Results * CREATININE BLOOD (10/23/2023 7:49 AM CAR RENTAL SALES ASSISTANT) Creatinine 0.69 0.57 - 1.11 mg/dL 10/23/2023 8:22 AM CAR RENTAL SALES ASSISTANT [facility] eGFR by CKD-EPI >90 >=90 mL/min/1.7 3 m2 10/23/2023 8:22 AM CAR RENTAL SALES ASSISTANT [facility] Blood BLOOD SPECIMEN / Unknown Lab Venipuncture / Unknown 10/23/2023 7:49 AM CAR RENTAL SALES ASSISTANT 10/23/2023 7:59 AM CAR RENTAL SALES ASSISTANT Beckie Rodriguez MD LAB - CHEMISTRY ORDERABLES nal Result Performing Organization Address City/State/[facility] Co de Phone Number [facility] [address] [place] [phone] * (ABNORMAL) HEMOGLOBIN A1C (10/18/2023 2:51 AM CAR RENTAL SALES ASSISTANT) Hemoglobin A1c 5.9(H) <5.7 % 10/18/2023 4:11 AM CAR RENTAL SALES ASSISTANT [facility] Estimated Average Glucose 123 mg/dL 10/18/2023 4:[address] [facility] Blood BLOOD SPECIMEN / Unknown Lab Venipuncture / Unknown 10/18/2023 2:51 AM CAR RENTAL SALES ASSISTANT 10/18/2023 3:42 AM CAR RENTAL SALES ASSISTANT Narrative [facility] - 10/18/2023 4:11 AM CAR RENTAL SALES ASSISTANT HbA1c Interpretation: Normal: < 5.7% Pre-diabetes: 5.7-6.4% [...] ORDERABLES Edith l Result Performing Organization Address City/[facility]/ZIP Co de Phone Number [facility] [address] [place] [place] [phone] * HEPATITIS C AB W RFLX VERIFICATION (03/02/2021 7:33 PM CDT) Hepatitis C Antibody <0.1 0.0 - 0.9 s/co ratio 03/04/2021 8:12 AM CDT [facility] ([facility]) Blood BLOOD SPECIMEN / Unknown Lab Venipuncture / Unknown 03/02/2021 7:33 PM CDT 03/02/2021 8:12 PM CDT Narrative [facility] ([facility]) - 03/04/2021 8:12 AM CDT Performed at: [address] [place] [address] [address] [place], [place] [id number] Reception Specialist: Rome Bean PhD, Phone: [phone] us Giles Wheeler MD LAB - CHEMISTRY ORDERAB LES Final Result Performing Organization Address City/[facility]/ZIP Co de Phone Number [facility] [address] [place] [address], [facility] from Last 3 Months or Most Recently Relevant to Health Maintenance Additional Health Concerns Infection Onset Date 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 Source: [facility]. 11/24/2020 MDRO Hx Comment:11/15/21 - urine culture 10/17/2023 10/17/2023 ESBL Hx Comment:11/15/21 - urine culture 10/17/2023 10/17/2023 MRSA Hx Comment:02/15/21 - sputum culture 10/17/2023 10/17/2023 Insurance MEDICARE MEDICAID - [place] MEDICARE MEDICAID [facility] MEDICARE MEDICAID - [facility] Member Subscriber Plan / Payer (Ef fective for All Dates) Name:Lexus Brizuela Relation to Subscriber:Self Name:Lexus Brizuela Payer ID:Not on file Group ID:Not on file Type:Medicaid Address: [place] [id number] MEDICARE MEDICAID - [place] MEDICARE MEDICAID - [...] 5:11 AM 03/07/2021 8:53 PM Care Teams Lead Sewage Plant Operator Relationship Specialty Start Date End Date Bill Da Silva MD PCP - General 12/21/09
[2025-07-12] VITALS (22 sets, daily range): BP systolic 108–138; BP diastolic 49–95; PULSE 58–87; RESP 12–20; TEMP 36.2–36.6; O2SAT 92–100; BMI 31.1
--- NOTE | ~2025-07-12 | CT_ITS ---
EXAMINATION: CT abdomen pelvis wo con DATE: 07/12/2025 14:09 INDICATION: Lower abdominal pain TECHNIQUE: Computed tomography (CT) of the abdomen and pelvis was performed without intravenous contr ast. The dose-length product was 1327.69 mGy-cm. COMPARISON: CT abdomen and pelvis 05/10/2024. FINDINGS: Small opacities in the lower lungs. Cholecystectomy. Noncontrast images of the liver are unremarkable. There are a few too small to characterize low-atten uation regions in the spleen. Adrenal glands are unremarkable. There is a 4.2 cm cyst in the right kidney. There are a few nonobstructing left renal stones. There is a 6 mm nonobstructing calcification in the proximal left ureter. No hydronephrosis at this time. Left hip arthroplasty with surrounding artifact which limits evaluation. There is a 1.0 cm low density lesion in the tail of the pancreas. No CT evidence for colitis or acute appendicitis. Bones appear osteopenic which lowers sensitivity of the study. Multilevel degenerative change through out the visualized spine. There is a nonspecific 6.2 x 2.5 cm fluid collection lateral to the left proximal femur. Correlate cl inically. There is a left hip arthroplasty with extensive adjacent bony irregularity. Thickening of the de la o of the rectum. Differential includes incomplete rectal wall distention, proct itis or mass. IMPRESSION: 1. Thickening of the de la o of the rectum. Differential includes incomplete rectal wall distention, pr octitis or mass. 2. There is a left hip arthroplasty with extensive adjacent bony irregularity. Differential includes but is not limited to postsurgical change, loosening, trauma of indeterminate or infection. Correlate clinically. If of concern, consider an MRI for further assessment. 3. Nonspecific 6.2 x 2.5 cm fluid collection lateral to the proximal left femur. Correlate clinically . 4. There are a few nonobstructing left renal stones. There is a 6 mm nonobstructing calcification in the proximal left ureter. No hydronephrosis at this time. 5. There is a 1.0 cm low density lesion in the tail of the pancreas. The finding was not seen in the CT study from 05/10/2024. A pancreatic mass CT is recommended Reviewed, dictated and finalized at location A. IMPRESSION: 1. Thickening of the de la o of the rectum. Differential includes incomplete rect al wall distention, proctitis or mass. 2. There is a left hip arthroplasty with extensive adjacent bony irregularity. Differential includes but is not limited to postsurgical change, loosening, tra jennifer of indeterminate or infection. Correlate clinically. If of concern, conside r an MRI for further assessment. 3. Nonspecific 6.2 x 2.5 cm fluid collection lateral to the proximal left femur . Correlate clinically. 4. There are a few nonobstructing left renal stones. There is a 6 mm nonobstruc ting calcification in the proximal left ureter. No hydronephrosis at this time. 5. There is a 1.0 cm low density lesion in the tail of the pancreas. The findin g was not seen in the CT study from 05/10/2024. A pancreatic mass CT is recommend ed
--- NOTE | ~2025-07-12 | XR_ITS ---
Exam: Abdomen 1V HISTORY: left ureteral stone COMPARISON: Reference is made to a CT examination of the abdomen and pelvis dated 07/12/2025 TECHNIQUE: Supine images of the abdomen FINDINGS: Bowel gas pattern is non-obstructive. There is no free air or deep sulci. Adjacent to the L3 vertebral body is a 9.9 mm vertically oriented calculus, corresponding to the prev iously identified multilobulated horizontally oriented 6 mm calculus detected within the left renal p renyn on CT examination dated 07/12/2025. Significant degenerative disease within the lumbosacral spine. Clips projecting over the right upper quadrant. Prosthetic left hip. IMPRESSION: Redemonstration of a calculus within the proximal left ureter, as detailed above. Reviewed, dictated and finalized at location A. IMPRESSION: Redemonstration of a calculus within the proximal left ureter, as detailed bernadine evans
--- NOTE | ~2025-07-12 | CT_ITS ---
EXAMINATION: CT abdomen pelvis wo con DATE: 07/15/2025 11:39 INDICATION: Worsening left abdominal/flank pain. Reevaluate stone. TECHNIQUE: Computed tomography (CT) of the abdomen and pelvis was performed without intravenous contr ast. The dose-length product was 1417.71 mGy-cm. COMPARISON: CT abdomen and pelvis 10/21/2025 FINDINGS: Small opacities in the lower lungs. Cholecystectomy clips. The liver, spleen, adrenal glands are unremarkable. Pancreas is grossly unchanged. Right renal cyst is grossly unchanged. The previously described calcification in the proximal left ureter is grossly unchanged. No hydroneph rosis is identified. Grossly stable bilateral nonobstructing renal stones. No enlarged lymph nodes in the abdomen or pelvis. Osseous structures are grossly stable. Left hip arthroplasty similar to the prior study. Grossly stab le fluid collection lateral to the left proximal femur. Correlate clinically. Bladder is not distended. IMPRESSION: 1. Grossly stable calcification in the proximal left ureter. No hydronephrosis identified this time. Please see above for full details Reviewed, dictated and finalized at location A.
--- NOTE | ~2025-07-12 | XR_ITS ---
XR abdomen/kub 1V 07/15/2025 11:22 Indication: Stone evaluation Procedure: KUB Comparison: 07/13/2025 Findings: There is a left renal stone. Bowel gas pattern nonobstructive. Moderate-severe lumbar spond ylosis. There is a left total hip arthroplasty. Impression: 1: Left nephrolithiasis. Reviewed, dictated and finalized at location A. Impression: 1: Left nephrolithiasis.
--- NOTE | ~2025-07-12 | MR_ITS ---
EXAMINATION: MR MRCP wo/w con/w 3D wo ind DATE: 07/14/2025 14:24 INDICATION: Pancreatic lesion on prior CT TECHNIQUE: Magnetic resonance imaging (MRI) of the abdomen was performed without and with 20 mL Multi irene intravenous contrast. Sequences included coronal T2-weighted SS-FSE, coronal T2-weighted FS SS- FSE, coronal T2-weighted FS FIESTA, axial T2-weighted FS FIESTA, axial T2-weighted FIESTA, sagittal T 2-weighted SS-FSE, axial T1-weighted dual-echo FSPGR, axial T2-weighted SS-FSE, axial T1-weighted LAV A, axial T2-weighted STIR FSE. Thick-slab T2-weighted FRFSE-XL images were obtained for magnetic reso nance cholangiopancreatography (MRCP). Rotating maximum intensity projection 3-D reconstructions of t he volumetric data were created by the technologist. Postcontrast sequences included a time course of axial T1-weighted LAVA. COMPARISON: None. FINDINGS: Heart size is normal. No pericardial effusion. Very small small bilateral pleural effusions with mild dependent atelectasis in the bilateral lower lobes. There are few scattered subcentimeter T2 hyperin tense nonenhancing hepatic cysts. Mild dilation the common hepatic duct which measures up to 7 mm and mild intrahepatic biliary ductal dilation likely related to prior cholecystectomy with surgical clip s at the gallbladder fossa. The common bile duct tapers to 4-5 mm with no evident distal obstructing stone or mass. There is an 11 mm homogeneous T2 hyperintense cystic lesion at the tail of the pancrea s which appears to communicate with the pancreatic duct. No abnormal enhancing soft tissue component. Spleen and bilateral adrenal glands are normal. There are bilateral T2 hyperintense nonenhancing harmeet al cysts measuring up to 4.0 cm. Additional there is a 6 mm T1 hyperintense T2 hypointense proteinace ous/hemorrhagic cyst in the right kidney. Visualized portions of bowels are unremarkable. No patholog ically enlarged abdominal or upper pelvic lymphadenopathy. Moderate to severe lumbar spondylosis. No pathologic marrow replacing process. IMPRESSION: 1. 11 mm simple appearing cystic lesion in the tail of the pancreas with tiny ductal communication to the main pancreatic duct which could represent either a pseudocyst/dilated sidebranch related to chr onic pancreatitis or intraductal papillary mucinous neoplasm (IPMN). No abnormal enhancing soft tissu e component. This appears to been subtly present on CT studies dating back to 11/20/2023. Recommend s ix-month follow-up pre and postcontrast MRI. 2. Very small bilateral pleural effusions. Reviewed, dictated and finalized at location A. IMPRESSION: 1. 11 mm simple appearing cystic lesion in the tail of the pancreas with tiny d uctal communication to the main pancreatic duct which could represent either a pseudocyst/dilated sidebranch related to chronic pancreatitis or intraductal pa pillary mucinous neoplasm (IPMN). No abnormal enhancing soft tissue component. This appears to been subtly present on CT studies dating back to 11/20/2023. Re commend six-month follow-up pre and postcontrast MRI. 2. Very small bilateral pleural effusions.
--- NOTE | ~2025-07-12 | XR_ITS ---
Exam: X-ray chest one view portable CLINICAL HISTORY: Shortness of breath TECHNIQUE: A single AP semiupright portable frontal image of the chest was obtained. COMPARISON: 05/10/2024. FINDINGS: Cardiomediastinal silhouette is enlarged, unchanged. No pneumothorax. No pleural effusion. No free ai r in the diaphragm. No focal pulmonary consolidation. Grossly stable left-sided central venous catheter with its tip projecting over the junction between t he superior vena cava and left brachiocephalic vein. IMPRESSION: 1. No acute pulmonary process identified. Reviewed, dictated and finalized at location A.
--- NOTE | ~2025-07-12 | CT_ITS ---
EXAMINATION: CT brain wo con DATE: 07/12/2025 14:09 INDICATION: Dizziness TECHNIQUE: Computed tomography (CT) of the head was performed without intravenous contrast. The dose- length product was 605.33 mGy-cm. Automated exposure control and iterative reconstruction technique w ere employed. COMPARISON: CT dated 09/08/2024 FINDINGS: Mild generalized brain parenchymal volume loss. Chronic right lacunar infarction. There are scattered mild periventricular and subcortical white matter changes, most likely related to small ve ssel ischemic disease (microangiopathy). There is intracranial atherosclerosis. Mild mucosal thickeni ng ethmoid sinuses. Mastoids are pneumatized. No depressed skull fractures. No acute intracranial hem orrhage, infarction, mass or mass effect. IMPRESSION: 1. No acute intracranial abnormality. Reviewed, dictated and finalized at location A.
--- NOTE | 2025-07-12 13:47 | ED_ITS ---
HPI - General Adult General Chief complaint: Abdominal Pain Stated complaint: Abd pain Time Seen by Provider: 07/12/25 13:29 History of Present Illness HPI narrative: 75-year-old female with history of hysterectomy, atrial fibrillation, hypertension presents to the emergency department for evaluation for lower abdominal pain has been worsening over the last few days. Patient reports she has had worsening nausea and vomiting today with 3 episodes emesis. Patient describes left lower quadrant suprapubic abdominal tenderness to palpation. Patient denies any pain with urination. Related Data Home Medications ?Medication ?Instructions ?Recorded ?Confirmed ?Last Taken ?Type acetaminophen 325 mg capsule 650 mg PO Q6H PRN Pain (Scale 11/14/21 07/12/25 Unknown History (Tylenol) Score 1-3) albuterol sulfate 90 mcg/actuation 2 inh inhalation QID PRN Shortness 11/14/21 07/12/25 Unknown History aerosol inhaler (ProAir HFA) Of Breath aspirin 81 mg chewable tablet 81 mg PO DAILY 11/14/21 07/12/25 11/20/23 History atorvastatin 10 mg tablet (Lipitor) 10 mg PO HS 11/14/21 07/12/25 11/19/23 History diltiazem HCl 180 mg capsule,24 180 mg PO DAILY 11/14/21 07/12/25 11/20/23 History hr,extended release (Tiazac) paroxetine HCl 20 mg tablet 40 mg PO DAILY 11/14/21 07/12/25 11/20/23 History apixaban 5 mg tablet (Eliquis) 5 mg PO BID 03/26/23 07/12/25 11/20/23 History buspirone 5 mg tablet 15 mg PO TID 03/26/23 07/12/25 11/20/23 History glucagon 1 mg solution for 1 mg IM Q15M PRN Hypoglycemia 05/12/23 07/12/25 Unknown History injection (Glucagon Emergency Kit) guaifenesin 100 mg/5 mL oral liquid 200 mg PO Q6H PRN Cough 05/12/23 07/12/25 Unknown History naloxone 4 mg/actuation nasal spray 1 spray intranasal ONCE PRN Opioid 05/12/23 07/12/25 Unknown History Overdose nitroglycerin 0.4 mg sublingual 0.4 mg sublingual Q5M PRN Chest 05/12/23 07/12/25 Unknown History tablet Pain ondansetron 4 mg disintegrating 4 mg PO Q8H PRN Nausea And Vomiting 05/12/23 07/12/25 Unknown History tablet levetiracetam 500 mg tablet 500 mg PO BID 07/27/23 07/12/25 11/20/23 History nystatin 100,000 unit/gram topical 1 applic topical TID PRN reddened 11/20/23 07/12/25 Unknown History cream skin oxycodone 5 mg tablet 5 mg PO BID 11/20/23 07/12/25 Unknown History diclofenac sodium 1 % topical gel 2 g topical QID PRN pain 05/10/24 07/12/25 Unknown History (Voltaren Arthritis Pain) trazodone 50 mg tablet 50 mg PO HS 05/10/24 07/12/25 Unknown History doxycycline hyclate 100 mg capsule 100 mg PO Q12H 03/26/25 07/12/25 Unknown History pantoprazole 40 mg tablet,delayed 40 mg PO DAILY 03/26/25 07/12/25 Unknown History release sucralfate 1 gram tablet 1 g PO QID 03/26/25 07/12/25 Unknown History cefuroxime axetil 250 mg tablet 250 mg PO Q12H 07/12/25 07/12/25 Unknown History cetirizine 10 mg tablet (All Day 10 mg PO DAILY 07/12/25 07/12/25 Unknown History Allergy (cetirizine)) dextran 70-hypromellose eye drops 1 drp EACH EYE HS 07/12/25 07/12/25 Unknown History (Artificial Tears (dextran 70-hypromellose) eye drops) dorzolamide 22.3 mg-timolol 6.8 1 drp EACH EYE TID 07/12/25 07/12/25 Unknown History mg/mL eye drops (Cosopt) fluticasone furoate 100 1 inh inhalation DAILY 07/12/25 07/12/25 Unknown History mcg-vilanterol 25 mcg/dose inhalation powder (Breo Ellipta) gabapentin 300 mg capsule 300 mg PO BID 07/12/25 07/12/25 Unknown History lidocaine 4 % topical patch 1 patch topical Q24H 07/12/25 07/12/25 Unknown History linaclotide 290 mcg capsule 290 mcg PO DAILY 07/12/25 07/12/25 Unknown History (Linzess) loperamide 2 mg capsule 4 mg PO Q8H PRN loose stool 07/12/25 07/12/25 Unknown History (Anti-Diarrheal (loperamide)) meclizine 25 mg tablet 25 mg PO TID PRN dizziness 07/12/25 07/12/25 Unknown History mirtazapine 7.5 mg tablet 7.5 mg PO HS 07/12/25 07/12/25 Unknown History multivitamin with minerals-ferrous 1 tablet PO DAILY 07/12/25 07/12/25 Unknown History sulfate 4.5 mg iron tablet (One Daily Multivitamins with Minerals) prochlorperazine maleate 5 mg 5 mg PO BID PRN anxiety 07/12/25 07/12/25 Unknown History tablet sennosides 8.6 mg-docusate sodium 1 tab-cap PO BID 07/12/25 07/12/25 Unknown History 50 mg capsule (Senna Plus) sertraline 25 mg tablet 25 mg PO DAILY 07/12/25 07/12/25 Unknown History sertraline 50 mg tablet 50 mg PO DAILY 07/12/25 07/12/25 Unknown History Allergies Allergy/AdvReac Type Severity Reaction Status Date / Time iodine Allergy Unknown Verified 07/12/25 12:16 latex Allergy Unknown Verified 07/12/25 12:16 meperidine Allergy Unknown Verified 07/12/25 12:16 Penicillins Allergy Unknown Verified 07/12/25 12:16 piperacillin (From Zosyn) Allergy Unknown Verified 07/12/25 12:16 tazobactam (From Zosyn) Allergy Unknown Verified 07/12/25 12:16 Review of Systems 2 Review of Systems: All systems reviewed & are unremarkable except as noted in HPI and below PMFSH Past Medical History Medical History Anxiety Atrial fibrillation Chronic anticoagulation Chronic obstructive pulmonary disease Chronic pain disorder Depression Diabetic peripheral neuropathy Gastroesophageal reflux disease Hypertension Obstructive sleep apnea Pneumonia due to COVID-19 virus (01/2023) Seizure-like activity (05/2023) Type 2 diabetes mellitus Vasculitis determined by biopsy of skin Vitamin D deficiency Surgical History Surgical History History of colonoscopy with polypectomy History of hysterectomy History of left hip replacement Family History Family History Sibling Heart disease Son COPD (chronic obstructive pulmonary disease) Daughter Sleep apnea Father Colon polyp Mother Colon polyp Colon cancer Social History Social History Social History: Healthcare power of deputy 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 Code status: Full code. Smoking packs per day: 2 Smoking cigarettes per day: 40.0 Years smoked: 25 Smoking pack-years: 50.00 Smoking status: Former smoker Tobacco type: cigarettes Alcohol intake: never Substance use: never Substance use type: does not use Do You Feel Safe in your Home?: Yes Lack of Transportation: No Lack of Food: Never True Current Housing: I Have Housing Concerned About Future Housing: No Difficulty Paying Gas/Electric Bills: No Difficulty Paying for Meds: No Currently Unemployed: No Education: Grade School Difficulty w/ Childcare or Family Care: No Living arrangements: group home Additional living arrangements comments: [facility] Spiritual care concerns: No Exam 2 Narrative: APPEARANCE: Uncomfortable appearing HEAD: normocephalic, atraumatic. EYES: PERRLA/EOMI, conjunctivae clear. NOSE: Normal no drainage EARS:TMS clear with good light reflex. THROAT: Pharynx clear, no exudate. NECK: Supple. No adenopathy, no masses. RESPIRATORY: Airway patent, respirations nonlabored. Clear to auscultation bilaterally, no rales, rhonchi, wheezing. CARDIOVASCULAR: Regular rate and rhythm without murmurs rubs or gallops. ABDOMINAL: Left lower quadrant and suprapubic tenderness to palpation MUSCULOSKELETAL: Moves all extremities. Strength/ROM intact, No edema, No calf tenderness. NEURO: Alert. Cranial nerves II through XII intact. Good gait. Good coordination SKIN: Warm, dry. Normal Color Course Vital Signs Vital signs: Vital Signs Temperature 97.9 F 07/12/25 11:44 Pulse Rate 87 07/12/25 11:44 Respiratory Rate 20 07/12/25 11:44 Blood Pressure 138/82 07/12/25 11:44 Pulse Oximetry 97 07/12/25 11:44 Oxygen Delivery Room Air 07/12/25 11:44 Temperature 97.2 F L 07/12/25 17:47 Pulse Rate 62 07/12/25 17:47 Respiratory Rate 18 07/12/25 17:47 Blood Pressure 129/69 07/12/25 17:47 Pulse Oximetry 96 07/12/25 18:27 Oxygen Delivery Nasal Cannula 07/12/25 18:27 Oxygen Flow Rate 2 07/12/25 18:27 Medical Decision Making MDM Narrative Medical decision making narrative: 75-year-old female presents to the emergency department for evaluation lower abdominal pain. Patient is afebrile but does have a leukocytosis 11.0 hemoglobin of 13.9. Patient has no significant acute abnormalities on her CMP was complaining of headache and dizziness head CT was negative. Patient does have thickening of the de [place] of the rectum on her CT scan concerning for proctitis or mass. Patient does have a left hip arthroplasty with extensive irregularity patient does have a nonspecific 6.2 x 2.5 cm fluid collection lateral to the proximal left femur. 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 She has had evaluations for this previously she states that because her heart is too weak they are unable to take out the naun. Patient does have some nonobstructing kidney stones with no hydronephrosis. There is a low-density lesion in the tail of the pancreas that is new since 05/10/2020 for any pancreatic mass CT is recommended. UA was significant for urinary tract infection. Previous urine cultures do show multiple resistances, patient was sensitive to meropenem. Initially Levaquin was ordered this was canceled and patient was started on meropenem. Case was discussed with hospitalist patient was accepted for admission. Differential Diagnosis Differential Diagnosis: Colitis, diverticulitis, cystitis, pyelonephritis, hip abscess, hip fracture, subdural hematoma, subarachnoid hemorrhage Vital Signs Vital Signs: Vital Signs Temperature 97.9 F 07/12/25 11:44 Pulse Rate 87 07/12/25 11:44 Respiratory Rate 20 07/12/25 11:44 Blood Pressure 138/82 07/12/25 11:44 Pulse Oximetry 97 07/12/25 11:44 Oxygen Delivery Room Air 07/12/25 11:44 Temperature 97.2 F L 07/12/25 17:47 Pulse Rate 62 07/12/25 17:47 Respiratory Rate 18 07/12/25 17:47 Blood Pressure 129/69 07/12/25 17:47 Pulse Oximetry 96 07/12/25 18:27 Oxygen Delivery Nasal Cannula 07/12/25 18:27 Oxygen Flow Rate 2 07/12/25 18:27 Lab Data Lab results reviewed: Yes I reviewed the patient's lab results. 07/12/25 14:29 07/12/25 14:29 Labs: Lab Results 07/12/25 07/12/25 Range/Units 14:29 15:37 WBC 11.0 H (4.5-10.0) K/mm3 RBC 4.74 (4.2-5.4) M/mm3 Hgb 13.9 (12.0-15.0) g/dL Hct 44.3 (37.0-47.0) % MCV 93.5 (80-100) fl MCH 29.3 (26-34) pg MCHC 31.4 L (32-36) g/dl RDW 14.3 (11.5-14.5) % Plt Count 239 (150-375) k/mm3 MPV 10.9 H (7.4-10.4) fl Immature Gran % (Auto) 0.4 (0-0.5) % Neut % (Auto) 62.7 (45.5-73.1) % Lymph % (Auto) 24.7 (18.3-44.2) % Terrell % (Auto) 9.3 H (2.6-8.5) % Eos % (Auto) 2.3 (0-4.4) % Baso % (Auto) 0.6 (0.2-1.2) % Lymph # (Auto) 2.72 (0.9-3.2) K/mm3 Terrell # (Auto) 1.0 H (0.1-0.6) K/mm3 Eos # (Auto) 0.3 (0-0.3) K/mm3 Baso # (Auto) 0.1 (0.0-0.1) K/mm3 Abs Immat Gran (auto) 0.04 H (0.00-0.031) K/mm3 Absolute Neuts (auto) 6.9 H (1.3-6.7) K/mm3 Absolute Nucleated RBC 0.000 (0.0-0.012) K/mm3 Nucleated RBC % 0.0 (0.0-0.2) % PT 17.8 H (11.1-14.7) Seconds INR 1.5 APTT 35.6 (22.3-36.8) Seconds Sodium 141 (137-145) mmol/L Potassium 4.2 (3.4-5.0) mmol/L Chloride 104 (98-107) mmol/L Carbon Dioxide 31 H (22-30) mmol/L Anion Gap 6 (4-12) mmol/L BUN 14 D (7-17) mg/dL Creatinine 0.73 (0.7-1.0) mg/dL Estim Creat Clear Calc 84 ml/min Estimated GFR > 60 (59 - ) Glucose 85 (65-110) mg/dL Lactic Acid 1.5 (0.7-2.0) mmol/L Calcium 8.9 (8.4-10.2) mg/dL Total Bilirubin 0.3 (0.2-1.3) mg/dL AST 27 (14-36) U/L ALT 17 (6-35) U/L Alkaline Phosphatase 141 H (38-126) U/L Total Protein 6.3 (6.3-8.2) g/dL Albumin 3.4 L (3.5-5.1) g/dL Lipase 51 (23-300) U/L Urine Color Yellow (Yellow) Urine Appearance Clear (Clear) Urine pH 6.5 (5.0-9.0) Ur Specific [place] 1.019 (1.001-1.035) Urine Protein Negative (Negative) mg/dL Urine Glucose (UA) Negative (Negative) mg/dL Urine Ketones Negative (Negative) mg/dL Ur Blood (Man) 1+ H (Negative) Urine Nitrate Positive H (Negative) Urine Bilirubin Negative (Negative) Urine Urobilinogen 1.0 (<2.0) mg/dL Add Ur Microanalysis Reviewed Leukocyte Esterase Rfl 2+ H (Negative) MARGARET/UL Urine RBC 11-20 H (0-2) /hpf Urine WBC >100 H (0-3) /hpf Ur Squamous Epith Cells None seen (Few) /hpf Urine Bacteria 3+ H /hpf Urine Casts 0-2 Urine Mucus Present /lpf Imaging Data Radiologist's impression: Impressions Abdomen/Pelvis CT 07/12/25 14:23 IMPRESSION: 1. Thickening of the de la o of the rectum. Differential includes incomplete rectal wall distention, proctitis or mass. 2. There is a left hip arthroplasty with extensive adjacent bony irregularity. Differential includes but is not limited to postsurgical change, loosening, trauma of indeterminate or infection. Correlate clinically. If of concern, consider an MRI for further assessment. 3. Nonspecific 6.2 x 2.5 cm fluid collection lateral to the proximal left femur. Correlate clinically. 4. There are a few nonobstructing left renal stones. There is a 6 mm nonobstructing calcification in the proximal left ureter. No hydronephrosis at this time. 5. There is a 1.0 cm low density lesion in the tail of the pancreas. The finding was not seen in the CT study from 05/10/2024. A pancreatic mass CT is recommended Head CT 07/12/25 14:33 IMPRESSION: 1. No acute intracranial abnormality. Discharge Plan Discharge Clinical Impression: Lower abdominal pain, Acute UTI Patient Disposition: Still a Patient Condition: Stable
[2025-07-12] MEDS: ONDANSETRON INJ 4 MG/2 ML VIAL IV PUSH (14:34)
[2025-07-12] MEDS: LACTATED RINGERS 1,000 ML 999 ML IV CONT (14:34)
[2025-07-12] MEDS: HYDROmorphone HCL INJ (*CRX) 2 MG/ML VIAL 0.5 MG IV PUSH (14:34)
[2025-07-12 14:38] LABS: Hematocrit 44.3 % (37.0-47.0); Hemoglobin 13.9 g/dL (12.0-15.0); Immature Granulocyte Percent A 0.4 % (0-0.5); Lymphocytes Absolute Auto 2.72 K/mm3 (0.9-3.2); Mean Corpuscular HGB Conc 31.4 g/dl (32-36); Mean Corpuscular Hemoglobin 29.3 pg (26-34); Mean Corpuscular Volume 93.5 fl (80-100); Nucleated Red Blood Cells Absolute Auto 0.000 K/mm3 (0.0-0.012); Nucleated Red Blood Cells Perc 0.0 % (0.0-0.2); Platelet Count Result 239 k/mm3 (150-375); Red Blood Count 4.74 M/mm3 (4.2-5.4); White Blood Count 11.0 K/mm3 (4.5-10.0)
[2025-07-12 14:47] LABS: Alanine Aminotransferase 17 U/L (6-35); Albumin Level 3.4 g/dL (3.5-5.1); Alkaline Phosphatase 141 U/L (38-126); Anion Gap 6 mmol/L (4-12); Aspartate Amino Transferase 27 U/L (14-36); Bilirubin,Total 0.3 mg/dL (0.2-1.3); Blood Urea Nitrogen 14 mg/dL (7-17); Calcium 8.9 mg/dL (8.4-10.2); Carbon Dioxide 31 mmol/L (22-30); Chloride 104 mmol/L (98-107); Estimated CRCL calculation 84 ml/min; Estimated Glomerular Filt Rate > 60; Glucose 85 mg/dL (65-110); Lipase 51 U/L (23-300); Potassium 4.2 mmol/L (3.4-5.0); Sodium 141 mmol/L (137-145); Total Protein 6.3 g/dL (6.3-8.2)
[2025-07-12 14:55] LABS: INR 1.5; Partial Thromboplastin Time 35.6 Seconds (22.3-36.8); Prothrombin Time 17.8 Seconds (11.1-14.7)
[2025-07-12 16:24] LABS: Add Urine Microscopic? YES; Appearance Urine Clear (Clear); Glucose Urine UA Negative (Negative); Leukocyte Esterase Ur 2+ LEU/UL (Negative); Need Manual Microscopic Reviewed; Nitrate Urine Positive (Negative); Non Pathogenic Casts 0-2; Specific Grav Ur 1.019 (1.001-1.035)
[2025-07-12] MEDS: MEROPENEM 1 GM in SODIUM CHLORIDE 0.9% IV 100 ML 200 ML IVPB (17:10)
--- NOTE | 2025-07-12 19:10 | P.HP_ITS ---
H&P: HPI History of Present Illness Date/Time: 07/12/25 19:10 Chief Complaint: Abdominal pain Narrative: 75-year-old female past medical history of AFib, diabetes, COPD, hypertension presents the emergency room with abdominal pain. She states that is being ongoing for few days shows as nausea and vomiting. Patient states that the pain started in her back and went to her abdomen and down into her pelvis. Patient denies fevers or chills. Lab work shows leukocytosis at 11, carbon dioxide 31, alkaline phos of 141, UA shows positive for nitrates, 2+ leukocyte esterase, over 100 wbc's, 3+ bacteria. Chest x-ray shows no acute process. Head CT shows no acute process. Thickening of the rectal de la o, left kidney stones 6 mm nonobstructing calcification left ureter, 1 cm lesion of tail pancreas. Patient states that the edge findings on her left hip arthroplasty and proximal left femur are chronic and she has no acute pain there. Review of Systems Review of Systems: 12 systems were reviewed and are negativ e except for as per HPI. [facility] Past Medical History Medical History Anxiety Atrial fibrillation Chronic anticoagulation Chronic obstructive pulmonary disease Chronic pain disorder Depression Diabetic peripheral neuropathy Gastroesophageal reflux disease Hypertension Obstructive sleep apnea Pneumonia due to COVID-19 virus (01/2023) Seizure-like activity (05/2023) Type 2 diabetes mellitus Vasculitis determined by biopsy of skin Vitamin D deficiency Surgical History Surgical History History of colonoscopy with polypectomy History of hysterectomy History of left hip replacement Family History Family History Sibling Heart disease Son COPD (chronic obstructive pulmonary disease) Daughter Sleep apnea Father Colon polyp Mother Colon polyp Colon cancer Social History Social History Social History: Healthcare power of erisa attorney: Karina Veliz. Code status: Full code. Smoking packs per day: 2 Smoking cigarettes per day: 40.0 Years smoked: 25 Smoking pack-years: 50.00 Smoking status: Former smoker Tobacco type: cigarettes Alcohol intake: never Substance use: never Substance use type: does not use Do You Feel Safe in your Home?: Yes Lack of Transportation: No Lack of Food: Never True Current Housing: I Have Housing Concerned About Future Housing: No Difficulty Paying Gas/Electric Bills: No Difficulty Paying for Meds: No Currently Unemployed: No Education: Grade School Difficulty w/ Childcare or Family Care: No Living arrangements: custodial Additional living arrangements comments: [facility] custodial Spiritual care concerns: No Meds Home Medications and Allergies Home Medications ?Medication ?Instructions ?Recorded ?Confirmed ?Type acetaminophen 325 mg capsule 650 mg PO Q6H PRN Pain (Scale 11/14/21 07/12/25 History (Tylenol) Score 1-3) albuterol sulfate 90 mcg/actuation 2 inh inhalation QID PRN Shortness 11/14/21 07/12/25 History aerosol inhaler (ProAir HFA) Of Breath aspirin 81 mg chewable tablet 81 mg PO DAILY 11/14/21 07/12/25 History atorvastatin 10 mg tablet (Lipitor) 10 mg PO HS 11/14/21 07/12/25 History diltiazem HCl 180 mg capsule,24 180 mg PO DAILY 11/14/21 07/12/25 History hr,extended release (Tiazac) paroxetine HCl 20 mg tablet 40 mg PO DAILY 11/14/21 07/12/25 History apixaban 5 mg tablet (Eliquis) 5 mg PO BID 03/26/23 07/12/25 History buspirone 5 mg tablet 15 mg PO TID 03/26/23 07/12/25 History glucagon 1 mg solution for 1 mg IM Q15M PRN Hypoglycemia 05/12/23 07/12/25 History injection (Glucagon Emergency Kit) guaifenesin 100 mg/5 mL oral liquid 200 mg PO Q6H PRN Cough 05/12/23 07/12/25 History naloxone 4 mg/actuation nasal spray 1 spray intranasal ONCE PRN Opioid 05/12/23 07/12/25 History Overdose nitroglycerin 0.4 mg sublingual 0.4 mg sublingual Q5M PRN Chest 05/12/23 07/12/25 History tablet Pain ondansetron 4 mg disintegrating 4 mg PO Q8H PRN Nausea And Vomiting 05/12/23 07/12/25 History tablet levetiracetam 500 mg tablet 500 mg PO BID 07/27/23 07/12/25 History nystatin 100,000 unit/gram topical 1 applic topical TID PRN reddened 11/20/23 07/12/25 History cream skin oxycodone 5 mg tablet 5 mg PO BID 11/20/23 07/12/25 History polyethylene glycol 3350 17 gram 17 g PO QAM #30 ea 11/27/23 07/12/25 Rx oral powder packet (Miralax) diclofenac sodium 1 % topical gel 2 g topical QID PRN pain 05/10/24 07/12/25 History (Voltaren Arthritis Pain) trazodone 50 mg tablet 50 mg PO HS 05/10/24 07/12/25 History doxycycline hyclate 100 mg capsule 100 mg PO Q12H 03/26/25 07/12/25 History pantoprazole 40 mg tablet,delayed 40 mg PO DAILY 03/26/25 07/12/25 History release sucralfate 1 gram tablet 1 g PO QID 03/26/25 07/12/25 History cefuroxime axetil 250 mg tablet 250 mg PO Q12H 07/12/25 07/12/25 History cetirizine 10 mg tablet (All Day 10 mg PO DAILY 07/12/25 07/12/25 History Allergy (cetirizine)) dextran 70-hypromellose eye drops 1 drp EACH EYE HS 07/12/25 07/12/25 History (Artificial Tears (dextran 70-hypromellose) eye drops) dorzolamide 22.3 mg-timolol 6.8 1 drp EACH EYE TID 07/12/25 07/12/25 History mg/mL eye drops (Cosopt) fluticasone furoate 100 1 inh inhalation DAILY 07/12/25 07/12/25 History mcg-vilanterol 25 mcg/dose inhalation powder (Breo Ellipta) gabapentin 300 mg capsule 300 mg PO BID 07/12/25 07/12/25 History lidocaine 4 % topical patch 1 patch topical Q24H 07/12/25 07/12/25 History linaclotide 290 mcg capsule 290 mcg PO DAILY 07/12/25 07/12/25 History (Linzess) loperamide 2 mg capsule 4 mg PO Q8H PRN loose stool 07/12/25 07/12/25 History (Anti-Diarrheal (loperamide)) meclizine 25 mg tablet 25 mg PO TID PRN dizziness 07/12/25 07/12/25 History mirtazapine 7.5 mg tablet 7.5 mg PO HS 07/12/25 07/12/25 History multivitamin with minerals-ferrous 1 tablet PO DAILY 07/12/25 07/12/25 History sulfate 4.5 mg iron tablet (One Daily Multivitamins with Minerals) prochlorperazine maleate 5 mg 5 mg PO BID PRN anxiety 07/12/25 07/12/25 History tablet sennosides 8.6 mg-docusate sodium 1 tab-cap PO BID 07/12/25 07/12/25 History 50 mg capsule (Senna Plus) sertraline 25 mg tablet 25 mg PO DAILY 07/12/25 07/12/25 History sertraline 50 mg tablet 50 mg PO DAILY 07/12/25 07/12/25 History Allergies Allergy/AdvReac Type Severity Reaction Status Date / Time iodine Allergy Unknown Verified 07/12/25 12:16 latex Allergy Unknown Verified 07/12/25 12:16 meperidine Allergy Unknown Verified 07/12/25 12:16 Penicillins Allergy Unknown Verified 07/12/25 12:16 piperacillin (From Zosyn) Allergy Unknown Verified 07/12/25 12:16 tazobactam (From Zosyn) Allergy Unknown Verified 07/12/25 12:16 Vital Signs Vital Signs - 24 hr 07/12/25 11:44 07/12/25 12:16 07/12/25 14:38 Temperature 97.9 F Pulse Rate 87 71 73 Respiratory Rate 20 16 15 Blood Pressure 138/82 128/74 Pulse Oximetry 97 96 95 Oxygen Delivery Room Air Oxygen Flow Rate 07/12/25 14:39 07/12/25 14:45 07/12/25 14:47 Temperature Pulse Rate 64 75 73 Respiratory Rate 16 17 16 Blood Pressure 133/95 H 119/71 Pulse Oximetry 96 95 96 Oxygen Delivery Oxygen Flow Rate 07/12/25 15:00 07/12/25 15:02 07/12/25 15:18 Temperature Pulse Rate 66 72 66 Respiratory Rate 18 16 14 Blood Pressure 114/49 L Pulse Oximetry 96 96 93 Oxygen Delivery Oxygen Flow Rate 07/12/25 15:49 07/12/25 16:00 07/12/25 16:02 Temperature Pulse Rate 71 71 72 Respiratory Rate 17 18 12 Blood Pressure 131/75 Pulse Oximetry 98 95 96 Oxygen Delivery Oxygen Flow Rate 07/12/25 16:43 07/12/25 16:45 07/12/25 16:54 Temperature Pulse Rate 61 Respiratory Rate 16 18 15 Blood Pressure 124/72 Pulse Oximetry 95 92 94 Oxygen Delivery Oxygen Flow Rate 07/12/25 17:00 07/12/25 17:02 07/12/25 17:47 Temperature 97.2 F L Pulse Rate 58 L 59 L 62 Respiratory Rate 16 15 18 Blood Pressure 108/66 129/69 Pulse Oximetry 96 94 96 Oxygen Delivery Oxygen Flow Rate 07/12/25 18:27 Temperature Pulse Rate Respiratory Rate Blood Pressure Pulse Oximetry 96 Oxygen Delivery Nasal Cannula Oxygen Flow Rate 2 Exam Narrative: General: well appearing, appears stated age. HEENT: normocephalic, atraumatic. Mucous membranes moist. EOMI, PERRLA, bilateral sclera anicteric, no conjunctival injection. Neck supple without JVD, lymphadenopathy, or bruit. Respiratory: clear to ascultation bilaterally. No rales/rhonic/wheezes. Cardiovascular: Regular rate and rhythm, normal S1-S2 upon ascultation. No murmurs, rubs, or clicks. PMI is nondisplaced, capillary refill less than 3 second. Abdomen: Obese, Soft, round, no pulsatile masses, nondistended and nontender. No rebound, no guarding. No CVA tenderness, no hepatosplenomegaly. Bowel sounds present to all four quadrants. No high pitch or tinkling sounds, resonant to percussion. Extremities: No cyanosis, clubbing, or edema present. Pulses are palpable 2/2. Active ROM to all four extremities. Neuro: Alert and orientated x 4. PERRLA. Cranial nerves 2-12 intact without focal deficit. Skin: Warm, dry, and intact, without rash, erythema, or lesion. Psych: pleasant, cooperative, normal speech, normal affect, no hallucinations, no dysarthia H&P: Results Labs Labs: Short CBC 07/12/25 Range/Units 14:29 WBC 11.0 H (4.5-10.0) K/mm3 Hgb 13.9 (12.0-15.0) g/dL Hct 44.3 (37.0-47.0) % Plt Count 239 (150-375) k/mm3 BMP 07/12/25 14:29 Sodium 141 Potassium 4.2 Chloride 104 Carbon Dioxide 31 H BUN 14 D Creatinine 0.73 Glucose 85 Calcium 8.9 Liver Function 07/12/25 Range/Units 14:29 Total Bilirubin 0.3 (0.2-1.3) mg/dL AST 27 (14-36) U/L ALT 17 (6-35) U/L Alkaline Phosphatase 141 H (38-126) U/L Albumin 3.4 L (3.5-5.1) g/dL Urine 07/12/25 Range/Units 15:37 Urine Color Yellow (Yellow) Urine Appearance Clear (Clear) Urine pH 6.5 (5.0-9.0) Ur Specific [place] 1.019 (1.001-1.035) Urine Protein Negative (Negative) mg/dL Urine Glucose (UA) Negative (Negative) mg/dL Assessment and Plan Assessment and plan (1) Kidney stone: Code(s): N20.0 - Calculus of kidney Status: Acute Assessment and Plan: There are a few nonobstructing left renal stones. There is a 6 mm nonobstructing calcification in the proximal left ureter. No hydronephrosis at this time. Consult urology (2) Urinary tract infection: Qualifiers: Hematuria presence: without hematuria Urinary tract infection type: acute cystitis Qualified Code(s): N30.00 - Acute cystitis without hematuria Code(s): N39.0 - Urinary tract infection, site not specified Status: Acute Assessment and Plan: Change levofloxacin to meropenem IVF Culture and sensitivity pending (3) Ureteral stone: Code(s): N20.1 - Calculus of ureter Status: Acute Assessment and Plan: See plan above (4) Abnormal CT scan, colon: Code(s): R93.3 - Abnormal findings on diagnostic imaging of other parts of digestive tract Status: Acute Assessment and Plan: There is a 1.0 cm low density lesion in the tail of the pancreas. The finding was not seen in the CT study from 05/10/2024. A pancreatic mass CT is recommended. Thickening of the de la o of the rectum. Differential includes incomplete rectal wall distention, proctitis or mass. GI consulted pending recommendations Tried to call POA however there was no answer (5) Seizure: Code(s): R56.9 - Unspecified convulsions Status: Acute Assessment and Plan: Continue Keppra (6) COPD (chronic obstructive pulmonary disease): Code(s): J44.9 - Chronic obstructive pulmonary disease, unspecified Status: Acute Assessment and Plan: Continue home inhaler (7) Atrial fibrillation: Code(s): I48.91 - Unspecified atrial fibrillation Status: Acute Assessment and Plan: Continue Eliquis and diltiazem Quality VTE Prophylaxis VTE prophylaxis: mechanical ordered and pharmacologic ordered Hospitalist MIPS Advance Care Plan I have confirmed that the patient's Advanced Care Plan is present, code status is documented, or surrogate decision maker is listed in patient medical record.: Yes Medication Reconciliation I have utilized all available resources to obtain, update and review the patients current medications (includes all prescriptions, OTC, herbals, cannabis, and nutritional supplements).: Yes
[2025-07-12] MEDS: SODIUM CHLORIDE 0.9% IV 1,000 ML 125 ML IV CONT (20:20)
[2025-07-12] MEDS: KETOROLAC 15 MG/ML VIAL (*BKC) IV PUSH (20:22)
[2025-07-12] MEDS: GABAPENTIN 300 MG CAPSULE PO (20:23)
[2025-07-12] MEDS: SUCRALFATE 1 GM TABLET PO (20:23)
[2025-07-12] MEDS: APIXABAN 5 MG TABLET PO (20:23)
[2025-07-12] MEDS: MIRTAZAPINE 7.5 MG TABLET PO (20:23)
[2025-07-12] MEDS: ATORVASTATIN 10 MG TABLET PO (20:24)
[2025-07-13] VITALS (12 sets, daily range): BP systolic 100–135; BP diastolic 60–74; PULSE 53–79; RESP 20; TEMP 36.1–36.5; O2SAT 93–100
[2025-07-13] MEDS: MEROPENEM 1 GM in SODIUM CHLORIDE 0.9% IV 100 ML 200 ML IVPB ×4 (01:50→23:52)
[2025-07-13] MEDS: ARTIFICIAL TEARS OPHTH SOLN 15 ML BOTTLE 1 DROP EACH EYE ×2 (01:51→21:45)
--- NOTE | 2025-07-13 05:38 | PCRTNOTE ---
RT not aware of pt moving rooms and [place]
[2025-07-13] MEDS: FLUTICASONE/SALMETEROL 115-21 MCG INHALER 1 PUFF 2 PUFF INHALATION ×2 (07:22→20:04)
--- NOTE | 2025-07-13 07:30 | P.PNIM_ITS ---
Progress Note: A&P Assessment and Plan (1) Kidney stone: Code(s): N20.0 - Calculus of kidney Status: Acute Assessment and Plan: -There are a few nonobstructing left renal stones. There is a 6 mm nonobstructing calcification in the proximal left ureter. No hydronephrosis at this time. - patient complained of abdominal pain on admission -Consult urology (2) Urinary tract infection: Qualifiers: Hematuria presence: without hematuria Urinary tract infection type: acute cystitis Qualified Code(s): N30.00 - Acute cystitis without hematuria Code(s): N39.0 - Urinary tract infection, site not specified Status: Acute Assessment and Plan: -UA with 1+ blood, positive nitrates, 2+ LE, >100 WBC, 3+ bacteria - WBC 11 - previous cultures with ESBL E coli -continue meropenem - s/p IVF -Culture and sensitivity pending (3) Abnormal CT scan, colon: Code(s): R93.3 - Abnormal findings on diagnostic imaging of other parts of digestive tract Status: Acute Assessment and Plan: -There is a 1.0 cm low density lesion in the tail of the pancreas. The finding was not seen in the CT study from 05/10/2024. A pancreatic mass CT is recommended. Thickening of the de [place] of the rectum. Differential includes incomplete rectal wall distention, proctitis or mass. -GI consulted, recommended MRCP. Patient is having diarrhea. Ordered stool studies. (4) Seizure: Code(s): R56.9 - Unspecified convulsions Status: Acute Assessment and Plan: -Continue Keppra (5) COPD (chronic obstructive pulmonary disease): Code(s): J44.9 - Chronic obstructive pulmonary disease, unspecified Status: Acute Assessment and Plan: -Continue home inhaler (6) Atrial fibrillation: Code(s): I48.91 - Unspecified atrial fibrillation Status: Acute Assessment and Plan: -Continue Eliquis and diltiazem Subjective Date/time seen: 07/13/25 07:30 Interval history: 75-year-old female past medical history of AFib, diabetes, COPD, hypertension presents the emergency room with abdominal pain. Patient seen examined at bedside this morning. This morning patient was drowsy, arouses to name and follows some commands. Patient denies pain. Otherwise, history is difficult to obtain. Attempted to call POA to obtain info about baseline mental status and medical history, no answer. Review of Systems Review of Systems: All systems reviewed & are unremarkable except as noted in HPI and below Exam Narrative: General: NAD, obese Eyes: EOMI ENT: neck supple Cardiovascular: Regular rate and rhythm Respiratory: Clear to auscultation, respirations even and unlabored on RA Gastrointestinal: Soft, non tender Genitourinary: no suprapubic tenderness Musculoskeletal: No edema, left hip surgical scar with some edema, no erythema or drainage noted. Skin: warm, dry Neuro: Sleeping, awakens to name and falls back asleep. Moves all extremities. Psych: Mood appropriate Objective Data Vital Signs Vital Signs: Vital Signs - 24 hr 07/12/25 11:44 07/12/25 12:16 07/12/25 14:38 Temperature 97.9 F Pulse Rate 87 71 73 Respiratory Rate 20 16 15 Blood Pressure 138/82 128/74 Pulse Oximetry 97 96 95 Oxygen Delivery Room Air Oxygen Flow Rate Fraction of Inspired Oxygen 07/12/25 14:39 07/12/25 14:45 07/12/25 14:47 Temperature Pulse Rate 64 75 73 Respiratory Rate 16 17 16 Blood Pressure 133/95 H 119/71 Pulse Oximetry 96 95 96 Oxygen Delivery Oxygen Flow Rate Fraction of Inspired Oxygen 07/12/25 15:00 07/12/25 15:02 07/12/25 15:18 Temperature Pulse Rate 66 72 66 Respiratory Rate 18 16 14 Blood Pressure 114/49 L Pulse Oximetry 96 96 93 Oxygen Delivery Oxygen Flow Rate Fraction of Inspired Oxygen 07/12/25 15:49 07/12/25 16:00 07/12/25 16:02 Temperature Pulse Rate 71 71 72 Respiratory Rate 17 18 12 Blood Pressure 131/75 Pulse Oximetry 98 95 96 Oxygen Delivery Oxygen Flow Rate Fraction of Inspired Oxygen 07/12/25 16:43 07/12/25 16:45 07/12/25 16:54 Temperature Pulse Rate 61 Respiratory Rate 16 18 15 Blood Pressure 124/72 Pulse Oximetry 95 92 94 Oxygen Delivery Oxygen Flow Rate Fraction of Inspired Oxygen 07/12/25 17:00 07/12/25 17:02 07/12/25 17:47 Temperature 97.2 F L Pulse Rate 58 L 59 L 62 Respiratory Rate 16 15 18 Blood Pressure 108/66 129/69 Pulse Oximetry 96 94 96 Oxygen Delivery Oxygen Flow Rate Fraction of Inspired Oxygen 07/12/25 18:27 07/12/25 20:00 07/12/25 20:00 Temperature Pulse Rate 78 75 Respiratory Rate 20 Blood Pressure Pulse Oximetry 96 100 Oxygen Delivery Nasal Cannula Nasal Cannula Oxygen Flow Rate 2 2 Fraction of Inspired Oxygen 07/12/25 20:38 07/12/25 21:35 07/13/25 00:00 Temperature 97.7 F Pulse Rate 78 67 Respiratory Rate 20 Blood Pressure 128/70 Pulse Oximetry 100 95 Oxygen Delivery Nasal Cannula Oxygen Flow Rate 2 Fraction of Inspired Oxygen 28 07/13/25 03:57 07/13/25 04:00 Temperature 97.6 F Pulse Rate 76 73 Respiratory Rate 20 Blood Pressure 135/74 Pulse Oximetry 100 Oxygen Delivery Oxygen Flow Rate Fraction of Inspired Oxygen Intake/Output Intake/Output: Intake & Output 07/10/25 07/11/25 07/12/25 07/13/25 23:59 23:59 23:59 23:59 Intake Total 1000 290 Output Total 400 Balance 1000 -110 Meds/Results Medications: Active Medications Generic Name Dose Route Start Last Admin Trade Name Freq PRN Reason Stop Dose Admin Albuterol 2 puff 07/12/25 18:33 Albuterol Sulfate (*Sp) Aerosol 1 Puff INHALATION QIDRT PRN Shortness Of Breath Apixaban 5 mg 07/12/25 21:00 07/12/25 20:23 Apixaban 5 Mg Tablet PO 5 mg Q12HR DEVAUGHN Administration Artificial Tears 1 drop 07/12/25 21:00 07/13/25 01:51 Artificial Tears Ophth Soln 15 Ml Bottle EACH EYE 1 drop HS DEVAUGHN Administration Aspirin 81 mg 07/13/25 09:00 Aspirin 81 Mg Chewable Tablet PO DAILY DEVAUGHN Atorvastatin Calcium 10 mg 07/12/25 21:00 07/12/25 20:24 Atorvastatin 10 Mg Tablet PO 10 mg HS DEVAUGHN Administration Buspirone HCl 15 mg 07/12/25 21:00 07/12/25 20:23 Buspirone Hcl 5 Mg Tablet PO 15 mg TID DEVAUGHN Administration Diltiazem HCl 180 mg 07/13/25 09:00 Diltiazem Hcl Cd 180 Mg Cap.24hr PO DAILY DEVAUGHN Dorzolamide/Timolol 1 drop 07/13/25 09:00 Dorzolamide/Timolol Ophth Lizzie 10 Ml Bottle EACH EYE TID DEVAUGHN Gabapentin 300 mg 07/12/25 21:00 07/12/25 20:23 Gabapentin 300 Mg Capsule PO 300 mg BID DEVAUGHN Administration Hydromorphone HCl 0.5 mg 07/12/25 19:19 Hydromorphone Hcl Inj (*Crx) 2 Mg/Ml Vial IV PUSH Q3H PRN Pain Rated 7-10 Meropenem 1 gm/ Sodium 100 mls @ 200 mls/hr 07/13/25 00:00 07/13/25 01:50 Chloride IVPB 200 mls/hr Q8H DEVAUGHN Administration Sodium Chloride 1,000 mls @ 125 mls/hr 07/12/25 19:20 07/12/25 20:20 Normal Saline Iv IV CONT 125 mls/hr .Q8H DEVAUGHN Administration Ketorolac Tromethamine 15 mg 07/12/25 20:00 07/13/25 04:01 Ketorolac 15 Mg/Ml Vial (*Bkc) IV PUSH Not Given Q6H DEVAUGHN Levetiracetam 500 mg 07/12/25 21:00 07/12/25 20:23 Levetiracetam 500 Mg Tablet PO 500 mg Q12HR DEVAUGHN Administration Linaclotide 290 mcg 07/13/25 09:00 Linaclotide 145 Mcg Capsule PO DAILY [facility] Loratadine 10 mg 07/13/25 09:00 Loratadine 10 Mg Tablet PO DAILY [facility] Meclizine HCl 25 mg 07/12/25 18:33 Meclizine Hcl 25 Mg Tablet PO TID PRN dizziness Mirtazapine 7.5 mg 07/12/25 21:00 07/12/25 20:23 Mirtazapine 7.5 Mg Tablet PO 7.5 mg HS DEVAUGHN Administration Nitroglycerin 0.4 mg 07/12/25 18:33 Nitroglycerin Sl 0.4 Mg Tablet SUBLINGUAL Q5M PRN Chest Pain Oxycodone HCl 5 mg 07/12/25 18:33 Oxycodone Hcl (*Crx) 5 Mg Tab Ir PO BID PRN pain 7-10 Pantoprazole Sodium 40 mg 07/13/25 09:00 Pantoprazole 40 Mg Tablet PO DAILY [facility] Paroxetine HCl 40 mg 07/13/25 09:00 Paroxetine 20 Mg Tablet PO DAILY [facility] Fluticasone/Salmeterol 2 puff 07/12/25 20:00 07/13/25 07:22 Fluticasone/Salmeterol 115-21 Mcg Inhaler 1 Puff INHALATION 2 puff Q12HRT DEVAUGHN Administration Sertraline HCl 25 mg 07/13/25 09:00 Sertraline Hcl 25 Mg Tablet PO DAILY DEVAUGHN Sertraline HCl 50 mg 07/13/25 09:00 Sertraline Hcl 50 Mg Tablet PO DAILY DEVAUGHN Sucralfate 1 gm 07/12/25 21:00 07/12/25 20:23 Sucralfate 1 Gm Tablet PO 1 gm QID DEVAUGHN Administration Trazodone HCl 50 mg 07/12/25 21:00 07/12/25 20:23 Trazodone Hcl 50 Mg Tablet PO 50 mg HS DEVAUGHN Administration Radiology Results: ITS Impressions Abdomen/Pelvis CT 07/12/25 14:23 IMPRESSION: 1. Thickening of the de la o of the rectum. Differential includes incomplete rectal wall distention, proctitis or mass. 2. There is a left hip arthroplasty with extensive adjacent bony irregularity. Differential includes but is not limited to postsurgical change, loosening, trauma of indeterminate or infection. Correlate clinically. If of concern, consider an MRI for further assessment. 3. Nonspecific 6.2 x 2.5 cm fluid collection lateral to the proximal left femur. Correlate clinically. 4. There are a few nonobstructing left renal stones. There is a 6 mm nonobstructing calcification in the proximal left ureter. No hydronephrosis at this time. 5. There is a 1.0 cm low density lesion in the tail of the pancreas. The finding was not seen in the CT study from 05/10/2024. A pancreatic mass CT is recommended Head CT 07/12/25 14:33 IMPRESSION: 1. No acute intracranial abnormality. Chest X-Ray 07/12/25 17:02 IMPRESSION: 1. No acute pulmonary process identified. Labs Labs: Laboratory Results - last 24 hr 07/12/25 07/12/25 14:29 15:37 WBC 11.0 H RBC 4.74 Hgb 13.9 Hct 44.3 MCV 93.5 MCH 29.3 MCHC 31.4 L RDW 14.3 Plt Count 239 MPV 10.9 H Immature Gran % (Auto) 0.4 Neut % (Auto) 62.7 Lymph % (Auto) 24.7 [place] % (Auto) 9.3 H Eos % (Auto) 2.3 Baso % (Auto) 0.6 Lymph # (Auto) 2.72 [place] # (Auto) 1.0 H Eos # (Auto) 0.3 Baso # (Auto) 0.1 Abs Immat Gran (auto) 0.04 H Absolute Neuts (auto) 6.9 H Absolute Nucleated RBC 0.000 Nucleated RBC % 0.0 PT 17.8 H INR 1.5 APTT 35.6 Sodium 141 Potassium 4.2 Chloride 104 Carbon Dioxide 31 H Anion Gap 6 BUN 14 D Creatinine 0.73 Estim Creat Clear Calc 84 Estimated GFR > 60 Glucose 85 Lactic Acid 1.5 Calcium 8.9 Total Bilirubin 0.3 AST 27 ALT 17 Alkaline Phosphatase 141 H Total Protein 6.3 Albumin 3.4 L Lipase 51 Urine Color Yellow Urine Appearance Clear Urine pH 6.5 Ur Specific [place] 1.019 Urine Protein Negative Urine Glucose (UA) Negative Urine Ketones Negative Ur Blood (Man) 1+ H Urine Nitrate Positive H Urine Bilirubin Negative Urine Urobilinogen 1.0 Add Ur Microanalysis Reviewed Leukocyte Esterase Rfl 2+ H Urine RBC 11-20 H Urine WBC >100 H Ur Squamous Epith Cells None seen Urine Bacteria 3+ H Urine Casts 0-2 Urine Mucus Present Quality VTE Prophylaxis VTE prophylaxis: pharmacologic ordered
--- NOTE | 2025-07-13 08:06 | WPDGICN ---
Assessment and Plan Assessment and plan (1) Pancreatic lesion: Code(s): K86.9 - Disease of pancreas, unspecified Status: Acute (2) Abnormal CT scan, colon: Code(s): R93.3 - Abnormal findings on diagnostic imaging of other parts of digestive tract Status: Acute (3) Constipation: Qualifiers: Constipation type: drug induced constipation Qualified Code(s): K59.03 - Drug induced constipation Code(s): K59.00 - Constipation, unspecified Status: Acute (4) Diarrhea: Qualifiers: Diarrhea type: unspecified type Qualified Code(s): R19.7 - Diarrhea, unspecified Code(s): R19.7 - Diarrhea, unspecified Status: Acute (5) Generalized abdominal pain: Code(s): R10.84 - Generalized abdominal pain Status: Acute Plan 1. Pancreatic mass: CT this admission revealed a 1.0 cm low density lesion in the tail of the pancreas. Pancreatic finding was not noted on CT done in March. Lipase normal at 51. LFT's normal except chronic Alk Phos elevation. Patient admits to left sided abdominal pain. Given that the patient has possible iodine allergy, MRCP order to further evaluate 2. Chronic constipation/diarrhea/abnormal CT-rectal wall thickening/personal Hx of colon polyps: Last colonoscopy 05/11/2023 revealed diverticulosis but was otherwise unremarkable. Hx of weight loss but her weight has increased since her last office visit with me in March when her weight was 195 lbs and this admission her weight is 205 lbs. She was previously on Linzess 72 and 290 mcg but in March was changed to Amitiza 24 mcg BID and was advised to avoid antidiarrheals. Patient on senior care narcotics. CT in March also done without contrast showed no abnormal GI findings. CT yesterday revealed thickening of the de [place] o of the rectum. Differential includes incomplete rectal wall distention, proctitis or mass. No signs of constipation or retained stool on CT. Patient unable to say if she was having constipation or diarrhea prior to admission but has been having diarrhea since admission. Unclear what medications she was taking for her bowels RADIO RECORDER. She complains of left sided abdominal and pelvic pain and has tenderness with palpation. DDX: Acute infectious/inflammatory process versus IBD versus under distention due to lack of contrast Stool studies ordered to rule out infectious etiology. Calprotectin and elastase also ordered no antidiarrheal until infection has been ruled out T/C colonoscopy if workup is unremarkable pelvic pain likely secondary to UTI that the patient is currently being treated for (received levofloxacin which was D/C and she is currently on Meropenem) 3. GERD/gastritis: Last EGD 11/26/2023 revealed gastritis. Patient denies upper GI complaints other than generalized abdominal pain. Currently on Protonix 40 mg daily and carafate, continue 4. Elevated alkaline phosphatase: Chronic elevation since 2020. Labs today show normal LFT's except Alk Phos at 141. Further work up can be done outpatient Thank you very much for allowing me to share in the care of this very nice patient. This report may have been done utilizing a voice recognition system. Attempts have been made to correct errors. However, there may be uncorrected grammatical, spelling, and recognition errors present. GI Consult Note Consult date/time: 07/13/25 08:06 Reason for consult: pancreatic mass and rectal wall thickening HPI: This is a pleasant 74-year-old female with a past medical surgical history of anxiety, AFib on Eliquis, COPD, depression, peripheral neuropathy, GERD, HTN, RUPAL, diabetes, personal history of colon polyps, and hysterectomy. She presented to the ER yesterday with complaints of abdominal pain. GI has been consulted for pancreatic mass and rectal wall thickening noted on CT. Patient was last seen in the office by myself 03/08/[address] was ordered and she was changed from Linzess 290 mcg to Amitiza 24 mcg BID for complaints of constipation and she was advised to avoid antidiarrheals. Unclear of her bowel frequency prior to admission as the patient is a poor historian but since admission she has been having diarrhea and left sided abdominal pain and pelvic pain. Denies swallowing difficulty or appetite loss. Patient otherwise not able to provide any additional subjective information. ENDOSCOPY HISTORY: EGD: 11/26/[address] Howard for abdominal pain and history of gastric ulcer Findings: - Normal esophageal mucosa, Z-line at 36 cm from incisors - No esophagitis, Gonzalez's, or varices - Gastritis in body and antrum, erythematous and edematous changes, no ulcers or bleeding - Normal duodenum Biopsy results: - Chronic nonspecific gastritis without intestinal metaplasia - No Helicobacter organisms COLONOSCOPY: 11/26/[address] Howard for constipation, lower abdominal pain, and history of colon polyps Findings: - Small diverticula in sigmoid colon, not actively bleeding - Otherwise normal colon, no colitis or polyps - Repeat colonoscopy recommended in 5 years LABS AND STOOL STUDIES: Labs 07/12/2025: Sodium 141, potassium 4.2, BUN 14, creatinine 0.73, GFR >60, calcium 8.9 WBC 11, Hgb 14, Hct 44, MCV 94, platelets 239, INR 1.5 Total bilirubin 0.3, AST 27, ALT 17, Alkaline Phos 141, albumin 3.4, lipase 51 IMAGING: CT abd/pelvis w/o contrast 07/12/2025: IMPRESSION: 1. Thickening of the de la o of the rectum. Differential includes incomplete rectal wall distention, proctitis or mass. 2. There is a left hip arthroplasty with extensive adjacent bony irregularity. Differential includes but is not limited to postsurgical change, loosening, trauma of indeterminate or infection. Correlate clinically. If of concern, consider an MRI for further assessment. 3. Nonspecific 6.2 x 2.5 cm fluid collection lateral to the proximal left femur. Correlate clinically. 4. There are a few nonobstructing left renal stones. There is a 6 mm nonobstructing calcification in the proximal left ureter. No hydronephrosis at this time. 5. There is a 1.0 cm low density lesion in the tail of the pancreas. The finding was not seen in the CT study from 05/10/2024. A pancreatic mass CT is recommended CT abd/pelvis w/o contrast 03/30/2025: Impression: No acute abnormality. 2 mm nonobstructing left renal stones. Review of Systems Review of Systems: ROS unobtainable: Yes unobtainable due to medical condition and unobtainable due to mental status [facility] [place] Past Medical History Medical History Anxiety Atrial fibrillation Chronic anticoagulation Chronic obstructive pulmonary disease Chronic pain disorder Depression Diabetic peripheral neuropathy Gastroesophageal reflux disease Hypertension Obstructive sleep apnea Pneumonia due to COVID-19 virus (01/2023) Seizure-like activity (05/2023) Type 2 diabetes mellitus Vasculitis determined by biopsy of skin Vitamin D deficiency Surgical History Surgical History History of colonoscopy with polypectomy History of hysterectomy History of left hip replacement Family History Family History Sibling Heart disease Son COPD (chronic obstructive pulmonary disease) Daughter Sleep apnea Father Colon polyp Mother Colon polyp Colon cancer Social History Social History Social History: Healthcare power of criminal attorney: Karina Veliz. Code status: Full code. Smoking packs per day: 2 Smoking cigarettes per day: 40.0 Years smoked: 25 Smoking pack-years: 50.00 Smoking status: Former smoker Tobacco type: cigarettes Alcohol intake: never Substance use: never Substance use type: does not use Do You Feel Safe in your Home?: Yes Lack of Transportation: No Lack of Food: Never True Current Housing: I Have Housing Concerned About Future Housing: No Difficulty Paying Gas/Electric Bills: No Difficulty Paying for Meds: No Currently Unemployed: No Education: Grade School Difficulty w/ Childcare or Family Care: No Living arrangements: shelter Additional living arrangements comments: [facility] Spiritual care concerns: No Meds Home Medications and Allergies Home Medications ?Medication ?Instructions ?Recorded ?Confirmed ?Type acetaminophen 325 mg capsule 650 mg PO Q6H PRN Pain (Scale 11/14/21 07/12/25 History (Tylenol) Score 1-3) albuterol sulfate 90 mcg/actuation 2 inh inhalation QID PRN Shortness 11/14/21 07/12/25 History aerosol inhaler (ProAir HFA) Of Breath aspirin 81 mg chewable tablet 81 mg PO DAILY 11/14/21 07/12/25 History atorvastatin 10 mg tablet (Lipitor) 10 mg PO HS 11/14/21 07/12/25 History diltiazem HCl 180 mg capsule,24 180 mg PO DAILY 11/14/21 07/12/25 History hr,extended release (Tiazac) paroxetine HCl 20 mg tablet 40 mg PO DAILY 11/14/21 07/12/25 History apixaban 5 mg tablet (Eliquis) 5 mg PO BID 03/26/23 07/12/25 History buspirone 5 mg tablet 15 mg PO TID 03/26/23 07/12/25 History glucagon 1 mg solution for 1 mg IM Q15M PRN Hypoglycemia 05/12/23 07/12/25 History injection (Glucagon Emergency Kit) guaifenesin 100 mg/5 mL oral liquid 200 mg PO Q6H PRN Cough 05/12/23 07/12/25 History naloxone 4 mg/actuation nasal spray 1 spray intranasal ONCE PRN Opioid 05/12/23 07/12/25 History Overdose nitroglycerin 0.4 mg sublingual 0.4 mg sublingual Q5M PRN Chest 05/12/23 07/12/25 History tablet Pain ondansetron 4 mg disintegrating 4 mg PO Q8H PRN Nausea And Vomiting 05/12/23 07/12/25 History tablet levetiracetam 500 mg tablet 500 mg PO BID 07/27/23 07/12/25 History nystatin 100,000 unit/gram topical 1 applic topical TID PRN reddened 11/20/23 07/12/25 History cream skin oxycodone 5 mg tablet 5 mg PO BID 11/20/23 07/12/25 History polyethylene glycol 3350 17 gram 17 g PO QAM #30 ea 11/27/23 07/12/25 Rx oral powder packet (Miralax) diclofenac sodium 1 % topical gel 2 g topical QID PRN pain 05/10/24 07/12/25 History (Voltaren Arthritis Pain) trazodone 50 mg tablet 50 mg PO HS 05/10/24 07/12/25 History doxycycline hyclate 100 mg capsule 100 mg PO Q12H 03/26/25 07/12/25 History pantoprazole 40 mg tablet,delayed 40 mg PO DAILY 03/26/25 07/12/25 History release sucralfate 1 gram tablet 1 g PO QID 03/26/25 07/12/25 History cefuroxime axetil 250 mg tablet 250 mg PO Q12H 07/12/25 07/12/25 History cetirizine 10 mg tablet (All Day 10 mg PO DAILY 07/12/25 07/12/25 History Allergy (cetirizine)) dextran 70-hypromellose eye drops 1 drp EACH EYE HS 07/12/25 07/12/25 History (Artificial Tears (dextran 70-hypromellose) eye drops) dorzolamide 22.3 mg-timolol 6.8 1 drp EACH EYE TID 07/12/25 07/12/25 History mg/mL eye drops (Cosopt) fluticasone furoate 100 1 inh inhalation DAILY 07/12/25 07/12/25 History mcg-vilanterol 25 mcg/dose inhalation powder (Breo Ellipta) gabapentin 300 mg capsule 300 mg PO BID 07/12/25 07/12/25 History lidocaine 4 % topical patch 1 patch topical Q24H 07/12/25 07/12/25 History linaclotide 290 mcg capsule 290 mcg PO DAILY 07/12/25 07/12/25 History (Linzess) loperamide 2 mg capsule 4 mg PO Q8H PRN loose stool 07/12/25 07/12/25 History (Anti-Diarrheal (loperamide)) meclizine 25 mg tablet 25 mg PO TID PRN dizziness 07/12/25 07/12/25 History mirtazapine 7.5 mg tablet 7.5 mg PO HS 07/12/25 07/12/25 History multivitamin with minerals-ferrous 1 tablet PO DAILY 07/12/25 07/12/25 History sulfate 4.5 mg iron tablet (One Daily Multivitamins with Minerals) prochlorperazine maleate 5 mg 5 mg PO BID PRN anxiety 07/12/25 07/12/25 History tablet sennosides 8.6 mg-docusate sodium 1 tab-cap PO BID 07/12/25 07/12/25 History 50 mg capsule (Senna Plus) sertraline 25 mg tablet 25 mg PO DAILY 07/12/25 07/12/25 History sertraline 50 mg tablet 50 mg PO DAILY 07/12/25 07/12/25 History Allergies Allergy/AdvReac Type Severity Reaction Status Date / Time iodine Allergy Unknown Verified 07/12/25 12:16 latex Allergy Unknown Verified 07/12/25 12:16 meperidine Allergy Unknown Verified 07/12/25 12:16 Penicillins Allergy Unknown Verified 07/12/25 12:16 piperacillin (From Zosyn) Allergy Unknown Verified 07/12/25 12:16 tazobactam (From Zosyn) Allergy Unknown Verified 07/12/25 12:16 Vital Signs Vital Signs - 24 hr 07/12/25 11:44 07/12/25 12:16 07/12/25 14:38 Temperature 97.9 F Pulse Rate 87 71 73 Respiratory Rate 20 16 15 Blood Pressure 138/82 128/74 Pulse Oximetry 97 96 95 Oxygen Delivery Room Air Oxygen Flow Rate Fraction of Inspired Oxygen 07/12/25 14:39 07/12/25 14:45 07/12/25 14:47 Temperature Pulse Rate 64 75 73 Respiratory Rate 16 17 16 Blood Pressure 133/95 H 119/71 Pulse Oximetry 96 95 96 Oxygen Delivery Oxygen Flow Rate Fraction of Inspired Oxygen 07/12/25 15:00 07/12/25 15:02 07/12/25 15:18 Temperature Pulse Rate 66 72 66 Respiratory Rate 18 16 14 Blood Pressure 114/49 L Pulse Oximetry 96 96 93 Oxygen Delivery Oxygen Flow Rate Fraction of Inspired Oxygen 07/12/25 15:49 07/12/25 16:00 07/12/25 16:02 Temperature Pulse Rate 71 71 72 Respiratory Rate 17 18 12 Blood Pressure 131/75 Pulse Oximetry 98 95 96 Oxygen Delivery Oxygen Flow Rate Fraction of Inspired Oxygen 07/12/25 16:43 07/12/25 16:45 07/12/25 16:54 Temperature Pulse Rate 61 Respiratory Rate 16 18 15 Blood Pressure 124/72 Pulse Oximetry 95 92 94 Oxygen Delivery Oxygen Flow Rate Fraction of Inspired Oxygen 07/12/25 17:00 07/12/25 17:02 07/12/25 17:47 Temperature 97.2 F L Pulse Rate 58 L 59 L 62 Respiratory Rate 16 15 18 Blood Pressure 108/66 129/69 Pulse Oximetry 96 94 96 Oxygen Delivery Oxygen Flow Rate Fraction of Inspired Oxygen 07/12/25 18:27 07/12/25 20:00 07/12/25 20:00 Temperature Pulse Rate 78 75 Respiratory Rate 20 Blood Pressure Pulse Oximetry 96 100 Oxygen Delivery Nasal Cannula Nasal Cannula Oxygen Flow Rate 2 2 Fraction of Inspired Oxygen 07/12/25 20:38 07/12/25 21:35 07/13/25 00:00 Temperature 97.7 F Pulse Rate 78 67 Respiratory Rate 20 Blood Pressure 128/70 Pulse Oximetry 100 95 Oxygen Delivery Nasal Cannula Oxygen Flow Rate 2 Fraction of Inspired Oxygen 28 07/13/25 03:57 07/13/25 04:00 Temperature 97.6 F Pulse Rate 76 73 Respiratory Rate 20 Blood Pressure 135/74 Pulse Oximetry 100 Oxygen Delivery Oxygen Flow Rate Fraction of Inspired Oxygen Exam Const: General: comfortable and no acute distress HENMT: Ears: TM's normal bilaterally Mouth: Yes moist mucous membranes Eyes: General: appearance normal, both eyes and all related structures Sclera: sclerae normal Pupils: Equal, round and reactive pupils present Neck: Neck: supple and no JVD Resp: Effort & Inspection: normal respiratory effort Auscultation: clear to auscultation bilaterally Cardio: Rate: regular rate Rhythm: regular rhythm Other: A-fib Hx GI: Inspection: non-distended GI Palp: Yes Soft to palpation and Yes Tenderness to palpation present (GI) (generalized tenderness with palpation ) Auscultation: normal bowel sounds Urinary Catheter: Urinary Catheter: patent and draining (purewick to suction) Skin: General skin exam: normal color Wounds: no wounds Neuro: Speech: normal speech Motor exam (neuro): 5/5 motor strength present throughout Sensory Exam: normal sensation Extrem: General: abnormal to inspection Other: tenderness with palpation bilateral legs Psych: Mental Status: mental status grossly abnormal (confusion ) Affect: normal affect Results Labs 07/12/25 14:29 07/12/25 14:29 Labs: Short CBC 07/12/25 Range/Units 14:29 WBC 11.0 H (4.5-10.0) K/mm3 Hgb 13.9 (12.0-15.0) g/dL Hct 44.3 (37.0-47.0) % Plt Count 239 (150-375) k/mm3 BMP 07/12/25 14:29 Sodium 141 Potassium 4.2 Chloride 104 Carbon Dioxide 31 H BUN 14 D Creatinine 0.73 Glucose 85 Calcium 8.9 Liver Function 07/12/25 Range/Units 14:29 Total Bilirubin 0.3 (0.2-1.3) mg/dL AST 27 (14-36) U/L ALT 17 (6-35) U/L Alkaline Phosphatase 141 H (38-126) U/L Albumin 3.4 L (3.5-5.1) g/dL Urine 07/12/25 Range/Units 15:37 Urine Color Yellow (Yellow) Urine Appearance Clear (Clear) Urine pH 6.5 (5.0-9.0) Ur Specific [place] 1.019 (1.001-1.035) Urine Protein Negative (Negative) mg/dL Urine Glucose (UA) Negative (Negative) mg/dL
[2025-07-13] MEDS: KETOROLAC 15 MG/ML VIAL (*BKC) IV PUSH (09:22)
[2025-07-13] MEDS: SODIUM CHLORIDE 0.9% IV 1,000 ML 125 ML IV CONT (09:24)
[2025-07-13] MEDS: APIXABAN 5 MG TABLET PO ×2 (11:09→21:45)
[2025-07-13] MEDS: dilTIAZem HCL CD 180 MG CAP.24HR PO (11:10)
[2025-07-13] MEDS: ASPIRIN 81 MG CHEWABLE TABLET PO (11:10)
[2025-07-13] MEDS: SERTRALINE HCL 25 MG TABLET PO (11:11)
[2025-07-13] MEDS: LINACLOTIDE 145 MCG CAPSULE 290 MCG PO (11:11)
[2025-07-13] MEDS: SERTRALINE HCL 50 MG TABLET PO (11:11)
[2025-07-13] MEDS: LORATADINE 10 MG TABLET PO (11:11)
[2025-07-13] MEDS: PANTOPRAZOLE 40 MG TABLET PO (11:11)
[2025-07-13] MEDS: SUCRALFATE 1 GM TABLET PO ×3 (11:11→21:45)
[2025-07-13] MEDS: DORZOLAMIDE/TIMOLOL OPHTH SOL 10 ML BOTTLE 1 DROP EACH EYE ×2 (11:12→17:22)
--- NOTE | 2025-07-13 13:01 | WPDURCON ---
Assessment and Plan Assessment and plan (1) Urinary tract infection: Qualifiers: Urinary tract infection type: acute cystitis Hematuria presence: without hematuria Qualified Code(s): N30.00 - Acute cystitis without hematuria Code(s): N39.0 - Urinary tract infection, site not specified Status: Acute Assessment and Plan: Present on admission (2) Ureteral stone: Code(s): N20.1 - Calculus of ureter Status: Acute (3) Diarrhea: Qualifiers: Diarrhea type: unspecified type Qualified Code(s): R19.7 - Diarrhea, unspecified Code(s): R19.7 - Diarrhea, unspecified Status: Acute Plan This is a 75-year-old female admitted with left-sided abdominal pain. Findings are consistent with a 6 mm nonobstructing left ureteral stone and a concurrent urinary tract infection. The leukocytosis and presenting symptoms of nausea, vomiting, and dysuria are likely attributable to the UTI, which may be secondary to her chronic diarrhea. Renal function is currently stable and there is no evidence of hydronephrosis or urinary obstruction requiring urgent surgical intervention. The pain is localized to the left side, consistent with the location of the ureteral stone and associated inflammation. Other significant findings on imaging include a new pancreatic lesion and rectal wall thickening, which are being evaluated by Gastroenterology. Bedside staff report diarrheal stool is being sent for C.Diff testing. - Agree with inpatient admission for treatment of urinary tract infection with IV Meropenem, based on previous culture sensitivities. - Symptomatic management for pain and nausea. - Strain all urine to attempt to capture the stone for analysis. - KUB to be obtained today to monitor stone position. - Defer definitive surgical management of the ureteral stone until the active infection has resolved. If she develops signs of obstruction such as uncontrolled pain, nausea, or vomiting, will proceed with left ureteral stent placement. She is comfortable on my exam this afternoon. - Plan for outpatient urology follow-up upon discharge to discuss further management of nephrolithiasis. - Primary team to continue management of other comorbidities. GI following for pancreatic and rectal findings. Case discussed with Dr. Caro Urology Consult Note HPI Date Seen: 07/13/25 Requesting Physician: Christoph Mancini MD Primary Care Provider: Leroy Cortés, Consult Narrative Reason for consult: Left ureteral stone Narrative: This is a 75-year-old female with a past medical history significant for atrial fibrillation, hypertension, COPD, type 2 diabetes mellitus, and a history of hysterectomy, who was admitted for worsening lower abdominal pain over the last few days. The pain is described as being on the left side, radiating from the back to the abdomen and down into the pelvis, and is associated with waves of sharp pain and nausea. She reports three episodes of emesis on 07/12/2025. She also reports a long history of diarrhea, which has been present during this admission, and a burning sensation with urination. Physical exam in the ED noted left lower quadrant and suprapubic tenderness. She has a known history of left hip arthroplasty with a chronic recurring abscess that spontaneously drains. -PERTINENT LABS: 07/13/25: WBC 11, HGB 13.9, Cr 0.73; Urinalysis: 2+ LE, +nitrate, 1+ blood, WBC >100, RBC 11-20 -PERTINENT IMAGIN07/12/2025 CT abdomen pelvis wo con - A few nonobstructing left renal stones. A 6 mm nonobstructing calcification in the proximal left ureter. No hydronephrosis. Findings also include a 4.2 cm right renal cyst, cholecystectomy, osteopenia, degenerative spinal changes, left hip arthroplasty with adjacent bony irregularity and a 6.2 x 2.5 cm lateral fluid collection. A new 1.0 cm low-density lesion in the tail of the pancreas and thickening of the rectal de la o were also noted. Review of Systems Constitutional: Constitutional: Reports fatigue Cardiovascular: Cardiovascular: Denies chest pain Respiratory: Respiratory: Denies dyspnea Gastrointestinal: Gastrointestinal: Reports as per HPI Genitourinary: Genitourinary: Reports as per HPI [facility] Past Medical History Medical History Anxiety Atrial fibrillation Chronic anticoagulation Chronic obstructive pulmonary disease Chronic pain disorder Depression Diabetic peripheral neuropathy Gastroesophageal reflux disease Hypertension Obstructive sleep apnea Pneumonia due to COVID-19 virus (01/2023) Seizure-like activity (05/2023) Type 2 diabetes mellitus Vasculitis determined by biopsy of skin Vitamin D deficiency Surgical History Surgical History History of colonoscopy with polypectomy History of hysterectomy History of left hip replacement Family History Family History Sibling Heart disease Son COPD (chronic obstructive pulmonary disease) Daughter Sleep apnea Father Colon polyp Mother Colon polyp Colon cancer Social History Social History Social History: Healthcare power of trade mark attorney: Karina Veliz. Code status: Full code. Smoking packs per day: 2 Smoking cigarettes per day: 40.0 Years smoked: 25 Smoking pack-years: 50.00 Smoking status: Former smoker Tobacco type: cigarettes Alcohol intake: never Substance use: never Substance use type: does not use Do You Feel Safe in your Home?: Yes Lack of Transportation: No Lack of Food: Never True Current Housing: I Have Housing Concerned About Future Housing: No Difficulty Paying Gas/Electric Bills: No Difficulty Paying for Meds: No Currently Unemployed: No Education: Grade School Difficulty w/ Childcare or Family Care: No Living arrangements: correction Additional living arrangements comments: [facility] correction Spiritual care concerns: No Meds Home Medications and Allergies Home Medications ?Medication ?Instructions ?Recorded ?Confirmed ?Type acetaminophen 325 mg capsule 650 mg PO Q6H PRN Pain (Scale 11/14/21 07/12/25 History (Tylenol) Score 1-3) albuterol sulfate 90 mcg/actuation 2 inh inhalation QID PRN Shortness 11/14/21 07/12/25 History aerosol inhaler (ProAir HFA) Of Breath aspirin 81 mg chewable tablet 81 mg PO DAILY 11/14/21 07/12/25 History atorvastatin 10 mg tablet (Lipitor) 10 mg PO HS 11/14/21 07/12/25 History diltiazem HCl 180 mg capsule,24 180 mg PO DAILY 11/14/21 07/12/25 History hr,extended release (Tiazac) paroxetine HCl 20 mg tablet 40 mg PO DAILY 11/14/21 07/12/25 History apixaban 5 mg tablet (Eliquis) 5 mg PO BID 03/26/23 07/12/25 History buspirone 5 mg tablet 15 mg PO TID 03/26/23 07/12/25 History glucagon 1 mg solution for 1 mg IM Q15M PRN Hypoglycemia 05/12/23 07/12/25 History injection (Glucagon Emergency Kit) guaifenesin 100 mg/5 mL oral liquid 200 mg PO Q6H PRN Cough 05/12/23 07/12/25 History naloxone 4 mg/actuation nasal spray 1 spray intranasal ONCE PRN Opioid 05/12/23 07/12/25 History Overdose nitroglycerin 0.4 mg sublingual 0.4 mg sublingual Q5M PRN Chest 05/12/23 07/12/25 History tablet Pain ondansetron 4 mg disintegrating 4 mg PO Q8H PRN Nausea And Vomiting 05/12/23 07/12/25 History tablet levetiracetam 500 mg tablet 500 mg PO BID 07/27/23 07/12/25 History nystatin 100,000 unit/gram topical 1 applic topical TID PRN reddened 11/20/23 07/12/25 History cream skin oxycodone 5 mg tablet 5 mg PO BID 11/20/23 07/12/25 History polyethylene glycol 3350 17 gram 17 g PO QAM #30 ea 11/27/23 07/12/25 Rx oral powder packet (Miralax) diclofenac sodium 1 % topical gel 2 g topical QID PRN pain 05/10/24 07/12/25 History (Voltaren Arthritis Pain) trazodone 50 mg tablet 50 mg PO HS 05/10/24 07/12/25 History doxycycline hyclate 100 mg capsule 100 mg PO Q12H 03/26/25 07/12/25 History pantoprazole 40 mg tablet,delayed 40 mg PO DAILY 03/26/25 07/12/25 History release sucralfate 1 gram tablet 1 g PO QID 03/26/25 07/12/25 History cefuroxime axetil 250 mg tablet 250 mg PO Q12H 07/12/25 07/12/25 History cetirizine 10 mg tablet (All Day 10 mg PO DAILY 07/12/25 07/12/25 History Allergy (cetirizine)) dextran 70-hypromellose eye drops 1 drp EACH EYE HS 07/12/25 07/12/25 History (Artificial Tears (dextran 70-hypromellose) eye drops) dorzolamide 22.3 mg-timolol 6.8 1 drp EACH EYE TID 07/12/25 07/12/25 History mg/mL eye drops (Cosopt) fluticasone furoate 100 1 inh inhalation DAILY 07/12/25 07/12/25 History mcg-vilanterol 25 mcg/dose inhalation powder (Breo Ellipta) gabapentin 300 mg capsule 300 mg PO BID 07/12/25 07/12/25 History lidocaine 4 % topical patch 1 patch topical Q24H 07/12/25 07/12/25 History linaclotide 290 mcg capsule 290 mcg PO DAILY 07/12/25 07/12/25 History (Linzess) loperamide 2 mg capsule 4 mg PO Q8H PRN loose stool 07/12/25 07/12/25 History (Anti-Diarrheal (loperamide)) meclizine 25 mg tablet 25 mg PO TID PRN dizziness 07/12/25 07/12/25 History mirtazapine 7.5 mg tablet 7.5 mg PO HS 07/12/25 07/12/25 History multivitamin with minerals-ferrous 1 tablet PO DAILY 07/12/25 07/12/25 History sulfate 4.5 mg iron tablet (One Daily Multivitamins with Minerals) prochlorperazine maleate 5 mg 5 mg PO BID PRN anxiety 07/12/25 07/12/25 History tablet sennosides 8.6 mg-docusate sodium 1 tab-cap PO BID 07/12/25 07/12/25 History 50 mg capsule (Senna Plus) sertraline 25 mg tablet 25 mg PO DAILY 07/12/25 07/12/25 History sertraline 50 mg tablet 50 mg PO DAILY 07/12/25 07/12/25 History Allergies Allergy/AdvReac Type Severity Reaction Status Date / Time iodine Allergy Unknown Verified 07/12/25 12:16 latex Allergy Unknown Verified 07/12/25 12:16 meperidine Allergy Unknown Verified 07/12/25 12:16 Penicillins Allergy Unknown Verified 07/12/25 12:16 piperacillin (From Zosyn) Allergy Unknown Verified 07/12/25 12:16 tazobactam (From Zosyn) Allergy Unknown Verified 07/12/25 12:16 Vital Signs Vital Signs - 24 hr 07/12/25 14:38 07/12/25 14:39 07/12/25 14:45 Temperature Pulse Rate 73 64 75 Respiratory Rate 15 16 17 Blood Pressure 133/95 H Pulse Oximetry 95 96 95 Oxygen Delivery Oxygen Flow Rate Fraction of Inspired Oxygen 07/12/25 14:47 07/12/25 15:00 07/12/25 15:02 Temperature Pulse Rate 73 66 72 Respiratory Rate 16 18 16 Blood Pressure 119/71 114/49 L Pulse Oximetry 96 96 96 Oxygen Delivery Oxygen Flow Rate Fraction of Inspired Oxygen 07/12/25 15:18 07/12/25 15:49 07/12/25 16:00 Temperature Pulse Rate 66 71 71 Respiratory Rate 14 17 18 Blood Pressure Pulse Oximetry 93 98 95 Oxygen Delivery Oxygen Flow Rate Fraction of Inspired Oxygen 07/12/25 16:02 07/12/25 16:43 07/12/25 16:45 Temperature Pulse Rate 72 Respiratory Rate 12 16 18 Blood Pressure 131/75 Pulse Oximetry 96 95 92 Oxygen Delivery Oxygen Flow Rate Fraction of Inspired Oxygen 07/12/25 16:54 07/12/25 17:00 07/12/25 17:02 Temperature Pulse Rate 61 58 L 59 L Respiratory Rate 15 16 15 Blood Pressure 124/72 108/66 Pulse Oximetry 94 96 94 Oxygen Delivery Oxygen Flow Rate Fraction of Inspired Oxygen 07/12/25 17:47 07/12/25 18:27 07/12/25 20:00 Temperature 97.2 F L Pulse Rate 62 78 Respiratory Rate 18 20 Blood Pressure 129/69 Pulse Oximetry 96 96 100 Oxygen Delivery Nasal Cannula Nasal Cannula Oxygen Flow Rate 2 2 Fraction of Inspired Oxygen 07/12/25 20:00 07/12/25 20:38 07/12/25 21:35 Temperature 97.7 F Pulse Rate 75 78 Respiratory Rate 20 Blood Pressure 128/70 Pulse Oximetry 100 95 Oxygen Delivery Nasal Cannula Oxygen Flow Rate 2 Fraction of Inspired Oxygen 28 07/13/25 00:00 07/13/25 03:57 07/13/25 04:00 Temperature 97.6 F Pulse Rate 67 76 73 Respiratory Rate 20 Blood Pressure 135/74 Pulse Oximetry 100 Oxygen Delivery Oxygen Flow Rate Fraction of Inspired Oxygen 07/13/25 09:20 07/13/25 10:30 Temperature Pulse Rate 66 Respiratory Rate Blood Pressure Pulse Oximetry 100 100 Oxygen Delivery Nasal Cannula Room Air Oxygen Flow Rate 2 Fraction of Inspired Oxygen Exam Const: General: comfortable and no acute distress HENMT: Face/Nose/Sinus: Normal nares present Resp: Effort & Inspection: normal respiratory effort Urinary Catheter: Urinary Catheter: urine cloudy Skin: General skin exam: normal color Neuro: Speech: normal speech Psych: Speech and movement: Normal speech and movement present Affect: normal affect Results Labs 07/12/25 14:29 07/12/25 14:29 Labs: Short CBC 07/12/25 Range/Units 14:29 WBC 11.0 H (4.5-10.0) K/mm3 Hgb 13.9 (12.0-15.0) g/dL Hct 44.3 (37.0-47.0) % Plt Count 239 (150-375) k/mm3 BMP 07/12/25 14:29 Sodium 141 Potassium 4.2 Chloride 104 Carbon Dioxide 31 H BUN 14 D Creatinine 0.73 Glucose 85 Calcium 8.9 Liver Function 07/12/25 Range/Units 14:29 Total Bilirubin 0.3 (0.2-1.3) mg/dL AST 27 (14-36) U/L ALT 17 (6-35) U/L Alkaline Phosphatase 141 H (38-126) U/L Albumin 3.4 L (3.5-5.1) g/dL Urine 07/12/25 Range/Units 15:37 Urine Color Yellow (Yellow) Urine Appearance Clear (Clear) Urine pH 6.5 (5.0-9.0) Ur Specific [place] 1.019 (1.001-1.035) Urine Protein Negative (Negative) mg/dL Urine Glucose (UA) Negative (Negative) mg/dL
--- NOTE | 2025-07-13 14:36 | P.CONOP_ITS ---
Assessment and Plan Assessment and plan (1) History of left hip replacement: Code(s): Z96.642 - Presence of left artificial hip joint Status: Acute Assessment and Plan: 75-year-old female with a history of a left total hip arthroplasty for which she has had a chronic wound per the medical records as far back as 2020. Per the medical record, at 1 point she was brought in to the emergency room for altered mental status was transferred to [facility] where she was being treated with Infectious Disease for a chronic left hip wound related to the hip replacement. New CT scan of the abdomen/pelvis today reveals a left hip arthroplasty with extensive adjacent bony irregularity and a nonspecific 6.2 x 2.5 cm fluid collection lateral to the proximal left femur. This is new from March 2025. Radiographs of the left hip from September of 2024 reveal redemonstration of extra-articular bone formation, disorganized and chronic appearing, indeterminate lucency medial and caudal to what would be the lesser trochanter and indeterminate lucency cranial to the acetabular cup is also noted. Based on medical records and previous imaging, the patient has had chronic postoperative complications from a left total hip arthroplasty with subsequent wound for which is currently well healed. On exam today, there is no redness, warmth or swelling around the left hip. Mild suspected tenderness at the left femur with patient wincing with palpation. Recommended continued monitoring of the left hip at this time. If symptoms arise with redness or warmth, swelling or active drainage or new wounds, would recommend further exploration. No surgical indication at this time. Continue to monitor. Plan Reviewed history, exam, radiographs and current labs with attending MD and covering surgeon, Dr. Hanson, who agrees with current plan as indicated above. No further recommendations from Dr. Hanson at this time. History of Present Illness HPI Consult date: 07/13/25 Chief complaint: uti,abdominal pain Narrative: 75-year-old female admitted from her long-term care facility due to Abdominal pain, nausea and vomiting. According to the medical record, the pain started initially in her back and went to her abdomen and down into her pelvis. A CT scan of the abdomen revealed a left hip arthroplasty with extensive adjacent bony irregularity and a nonspecific 6.2 x 2.5 cm fluid collection lateral to the proximal left femur. Orthopedic consult requested. Patient is resting comfortably at the time of exam. She does not appear to be in pain. She is awaiting further POA clearance for more testing per the RN at the bedside. Review of Systems 2 Review of Systems: All systems reviewed & are unremarkable except as noted in HPI and below ROS unobtainable: Yes unobtainable due to medical condition [facility] Past Medical History Medical History (Updated 07/13/25 @ 10:35 by Adina Mckeon APRN) Atrial fibrillation Chronic anticoagulation Gastroesophageal reflux disease Chronic obstructive pulmonary disease Anxiety Obstructive sleep apnea Seizure-like activity (05/2023) Type 2 diabetes mellitus Diabetic peripheral neuropathy Chronic pain disorder Vitamin D deficiency Vasculitis determined by biopsy of skin Pneumonia due to COVID-19 virus (01/2023) Hypertension Depression Surgical History Surgical History (Updated 07/13/25 @ 15:38 by LUCILLE Jade) History of hysterectomy History of left hip replacement History of colonoscopy with polypectomy Family History Family History Sibling Heart disease Son COPD (chronic obstructive pulmonary disease) Daughter Sleep apnea Father Colon polyp Mother Colon polyp Colon cancer Social History Social History Social History: Healthcare power of assistant district attorney: Karina Veliz. Code status: Full code. Smoking packs per day: 2 Smoking cigarettes per day: 40.0 Years smoked: 25 Smoking pack-years: 50.00 Smoking status: Former smoker Tobacco type: cigarettes Alcohol intake: never Substance use: never Substance use type: does not use Do You Feel Safe in your Home?: Yes Lack of Transportation: No Lack of Food: Never True Current Housing: I Have Housing Concerned About Future Housing: No Difficulty Paying Gas/Electric Bills: No Difficulty Paying for Meds: No Currently Unemployed: No Education: Grade School Difficulty w/ Childcare or Family Care: No Living arrangements: alf Additional living arrangements comments: [facility] Spiritual care concerns: No Meds Home Medications and Allergies Home Medications ?Medication ?Instructions ?Recorded ?Confirmed ?Type acetaminophen 325 mg capsule 650 mg PO Q6H PRN Pain (Scale 11/14/21 07/12/25 History (Tylenol) Score 1-3) albuterol sulfate 90 mcg/actuation 2 inh inhalation QID PRN Shortness 11/14/21 07/12/25 History aerosol inhaler (ProAir HFA) Of Breath aspirin 81 mg chewable tablet 81 mg PO DAILY 11/14/21 07/12/25 History atorvastatin 10 mg tablet (Lipitor) 10 mg PO HS 11/14/21 07/12/25 History diltiazem HCl 180 mg capsule,24 180 mg PO DAILY 11/14/21 07/12/25 History hr,extended release (Tiazac) paroxetine HCl 20 mg tablet 40 mg PO DAILY 11/14/21 07/12/25 History apixaban 5 mg tablet (Eliquis) 5 mg PO BID 03/26/23 07/12/25 History buspirone 5 mg tablet 15 mg PO TID 03/26/23 07/12/25 History glucagon 1 mg solution for 1 mg IM Q15M PRN Hypoglycemia 05/12/23 07/12/25 History injection (Glucagon Emergency Kit) guaifenesin 100 mg/5 mL oral liquid 200 mg PO Q6H PRN Cough 05/12/23 07/12/25 History naloxone 4 mg/actuation nasal spray 1 spray intranasal ONCE PRN Opioid 05/12/23 07/12/25 History Overdose nitroglycerin 0.4 mg sublingual 0.4 mg sublingual Q5M PRN Chest 05/12/23 07/12/25 History tablet Pain ondansetron 4 mg disintegrating 4 mg PO Q8H PRN Nausea And Vomiting 05/12/23 07/12/25 History tablet levetiracetam 500 mg tablet 500 mg PO BID 07/27/23 07/12/25 History nystatin 100,000 unit/gram topical 1 applic topical TID PRN reddened 11/20/23 07/12/25 History cream skin oxycodone 5 mg tablet 5 mg PO BID 11/20/23 07/12/25 History polyethylene glycol 3350 17 gram 17 g PO QAM #30 ea 11/27/23 07/12/25 Rx oral powder packet (Miralax) diclofenac sodium 1 % topical gel 2 g topical QID PRN pain 05/10/24 07/12/25 History (Voltaren Arthritis Pain) trazodone 50 mg tablet 50 mg PO HS 05/10/24 07/12/25 History doxycycline hyclate 100 mg capsule 100 mg PO Q12H 03/26/25 07/12/25 History pantoprazole 40 mg tablet,delayed 40 mg PO DAILY 03/26/25 07/12/25 History release sucralfate 1 gram tablet 1 g PO QID 03/26/25 07/12/25 History cefuroxime axetil 250 mg tablet 250 mg PO Q12H 07/12/25 07/12/25 History cetirizine 10 mg tablet (All Day 10 mg PO DAILY 07/12/25 07/12/25 History Allergy (cetirizine)) dextran 70-hypromellose eye drops 1 drp EACH EYE HS 07/12/25 07/12/25 History (Artificial Tears (dextran 70-hypromellose) eye drops) dorzolamide 22.3 mg-timolol 6.8 1 drp EACH EYE TID 07/12/25 07/12/25 History mg/mL eye drops (Cosopt) fluticasone furoate 100 1 inh inhalation DAILY 07/12/25 07/12/25 History mcg-vilanterol 25 mcg/dose inhalation powder (Breo Ellipta) gabapentin 300 mg capsule 300 mg PO BID 07/12/25 07/12/25 History lidocaine 4 % topical patch 1 patch topical Q24H 07/12/25 07/12/25 History linaclotide 290 mcg capsule 290 mcg PO DAILY 07/12/25 07/12/25 History (Linzess) loperamide 2 mg capsule 4 mg PO Q8H PRN loose stool 07/12/25 07/12/25 History (Anti-Diarrheal (loperamide)) meclizine 25 mg tablet 25 mg PO TID PRN dizziness 07/12/25 07/12/25 History mirtazapine 7.5 mg tablet 7.5 mg PO HS 07/12/25 07/12/25 History multivitamin with minerals-ferrous 1 tablet PO DAILY 07/12/25 07/12/25 History sulfate 4.5 mg iron tablet (One Daily Multivitamins with Minerals) prochlorperazine maleate 5 mg 5 mg PO BID PRN anxiety 07/12/25 07/12/25 History tablet sennosides 8.6 mg-docusate sodium 1 tab-cap PO BID 07/12/25 07/12/25 History 50 mg capsule (Senna Plus) sertraline 25 mg tablet 25 mg PO DAILY 07/12/25 07/12/25 History sertraline 50 mg tablet 50 mg PO DAILY 07/12/25 07/12/25 History Allergies Allergy/AdvReac Type Severity Reaction Status Date / Time iodine Allergy Unknown Verified 07/12/25 12:16 latex Allergy Unknown Verified 07/12/25 12:16 meperidine Allergy Unknown Verified 07/12/25 12:16 Penicillins Allergy Unknown Verified 07/12/25 12:16 piperacillin (From Zosyn) Allergy Unknown Verified 07/12/25 12:16 tazobactam (From Zosyn) Allergy Unknown Verified 07/12/25 12:16 Vital Signs Vital Signs - 24 hr 07/12/25 14:38 07/12/25 14:39 07/12/25 14:45 Temperature Pulse Rate 73 64 75 Respiratory Rate 15 16 17 Blood Pressure 133/95 H Pulse Oximetry 95 96 95 Oxygen Delivery Oxygen Flow Rate Fraction of Inspired Oxygen 07/12/25 14:47 07/12/25 15:00 07/12/25 15:02 Temperature Pulse Rate 73 66 72 Respiratory Rate 16 18 16 Blood Pressure 119/71 114/49 L Pulse Oximetry 96 96 96 Oxygen Delivery Oxygen Flow Rate Fraction of Inspired Oxygen 07/12/25 15:18 07/12/25 15:49 07/12/25 16:00 Temperature Pulse Rate 66 71 71 Respiratory Rate 14 17 18 Blood Pressure Pulse Oximetry 93 98 95 Oxygen Delivery Oxygen Flow Rate Fraction of Inspired Oxygen 07/12/25 16:02 07/12/25 16:43 07/12/25 16:45 Temperature Pulse Rate 72 Respiratory Rate 12 16 18 Blood Pressure 131/75 Pulse Oximetry 96 95 92 Oxygen Delivery Oxygen Flow Rate Fraction of Inspired Oxygen 07/12/25 16:54 07/12/25 17:00 07/12/25 17:02 Temperature Pulse Rate 61 58 L 59 L Respiratory Rate 15 16 15 Blood Pressure 124/72 108/66 Pulse Oximetry 94 96 94 Oxygen Delivery Oxygen Flow Rate Fraction of Inspired Oxygen 07/12/25 17:47 07/12/25 18:27 07/12/25 20:00 Temperature 36.2 C L Pulse Rate 62 78 Respiratory Rate 18 20 Blood Pressure 129/69 Pulse Oximetry 96 96 100 Oxygen Delivery Nasal Cannula Nasal Cannula Oxygen Flow Rate 2 2 Fraction of Inspired Oxygen 07/12/25 20:00 07/12/25 20:38 07/12/25 21:35 Temperature 36.5 C Pulse Rate 75 78 Respiratory Rate 20 Blood Pressure 128/70 Pulse Oximetry 100 95 Oxygen Delivery Nasal Cannula Oxygen Flow Rate 2 Fraction of Inspired Oxygen 28 07/13/25 00:00 07/13/25 03:57 07/13/25 04:00 Temperature 36.4 C Pulse Rate 67 76 73 Respiratory Rate 20 Blood Pressure 135/74 Pulse Oximetry 100 Oxygen Delivery Oxygen Flow Rate Fraction of Inspired Oxygen 07/13/25 08:00 07/13/25 09:20 07/13/25 10:30 Temperature Pulse Rate 74 66 Respiratory Rate Blood Pressure Pulse Oximetry 100 100 Oxygen Delivery Nasal Cannula Room Air Oxygen Flow Rate 2 Fraction of Inspired Oxygen 07/13/25 12:00 07/13/25 13:47 Temperature 36.1 C L Pulse Rate 71 74 Respiratory Rate 20 Blood Pressure 127/63 Pulse Oximetry 95 Oxygen Delivery Oxygen Flow Rate Fraction of Inspired Oxygen Exam 2 Const: General: comfortable and no acute distress HENMT: Mouth: Yes moist mucous membranes Eyes: General: appearance normal, both eyes and all related structures S clera: sclerae normal Pupils: Equal, round and reactive pupils present Neck: Neck: supple and no JVD Resp: Effort & Inspection: normal respiratory effort Auscultation: clear to auscultation bilaterally Cardio: Rate: regular rate Rhythm: regular rhythm Other: A-fib Hx Urinary Catheter: Urinary Catheter: patent and draining (purewick to suction) Skin: General skin exam: normal color Wounds: no wounds Neuro: Speech: normal speech Motor exam (neuro): 5/5 motor strength present throughout Sensory Exam: normal sensation Extrem: General: abnormal to inspection Left lower extremity: hip/thigh Details: tenderness Location: of the hip Location: laterally (mild ), normal ROM (No pain with IR/ER ) and other (healed, closed incisional wound on the lateral hip ); no swelling, no abrasions, no lacerations, no crepitus and no unusual warmth, knee Details: normal to inspection, lower leg Details: normal to inspection, ankle Details: abnormal to inspection (foot drop, stiffness ) and foot (foot drop ) Details: vascular exam Details: dorsalis pedis pulse present; motor-sensory exam not performed Psych: Mental Status: mental status grossly abnormal (confusion ) Affect: n ormal affect Results Labs 07/12/25 14:29 07/12/25 14:29 Labs: Abnormal lab results 07/12/25 07/12/25 Range/Units 14:29 15:37 WBC 11.0 H (4.5-10.0) K/mm3 MCHC 31.4 L (32-36) g/dl MPV 10.9 H (7.4-10.4) fl Slope % (Auto) 9.3 H (2.6-8.5) % Slope # (Auto) 1.0 H (0.1-0.6) K/mm3 Abs Immat Gran (auto) 0.04 H (0.00-0.031) K/mm3 Absolute Neuts (auto) 6.9 H (1.3-6.7) K/mm3 PT 17.8 H (11.1-14.7) Seconds Carbon Dioxide 31 H (22-30) mmol/L Alkaline Phosphatase 141 H (38-126) U/L Albumin 3.4 L (3.5-5.1) g/dL Ur Blood (Man) 1+ H (Negative) Urine Nitrate Positive H (Negative) Leukocyte Esterase Rfl 2+ H (Negative) MARGARET/UL Urine RBC 11-20 H (0-2) /hpf Urine WBC >100 H (0-3) /hpf Urine Bacteria 3+ H /hpf H & H 07/12/25 Range/Units 14:29 Hgb 13.9 (12.0-15.0) g/dL Hct 44.3 (37.0-47.0) % Coagulation 07/12/25 Range/Units 14:29 INR 1.5 All other labs normal.
[2025-07-13] MEDS: oxyCODONE HCL (*CRX) 5 MG TAB IR PO ×2 (15:46→21:49)
[2025-07-13 16:14] LABS: Toxigenic C. Diff NEGATIVE (NEGATIVE)
[2025-07-13] MEDS: GABAPENTIN 300 MG CAPSULE PO (17:21)
[2025-07-13] MEDS: MIRTAZAPINE 7.5 MG TABLET PO (21:45)
[2025-07-13] MEDS: ATORVASTATIN 10 MG TABLET PO (21:45)
[2025-07-14] VITALS (12 sets, daily range): BP systolic 105–108; BP diastolic 56–63; PULSE 51–73; RESP 18–20; TEMP 36.4–36.5; O2SAT 92–95
[2025-07-14 05:56] LABS: Hematocrit 42.0 % (37.0-47.0); Hemoglobin 13.1 g/dL (12.0-15.0); Immature Granulocyte Percent A 0.3 % (0-0.5); Lymphocytes Absolute Auto 2.03 K/mm3 (0.9-3.2); Mean Corpuscular HGB Conc 31.2 g/dl (32-36); Mean Corpuscular Hemoglobin 29.1 pg (26-34); Mean Corpuscular Volume 93.3 fl (80-100); Nucleated Red Blood Cells Absolute Auto 0.000 K/mm3 (0.0-0.012); Nucleated Red Blood Cells Perc 0.0 % (0.0-0.2); Platelet Count Result 233 k/mm3 (150-375); Red Blood Count 4.50 M/mm3 (4.2-5.4); White Blood Count 9.4 K/mm3 (4.5-10.0)
[2025-07-14 06:14] LABS: Anion Gap 4 mmol/L (4-12); Blood Urea Nitrogen 19 mg/dL (7-17); Calcium 8.8 mg/dL (8.4-10.2); Carbon Dioxide 29 mmol/L (22-30); Chloride 108 mmol/L (98-107); Estimated CRCL calculation 60 ml/min; Estimated Glomerular Filt Rate > 60; Glucose 112 mg/dL (65-110); Potassium 3.8 mmol/L (3.4-5.0); Sodium 141 mmol/L (137-145)
[2025-07-14] MEDS: MEROPENEM 1 GM in SODIUM CHLORIDE 0.9% IV 100 ML 200 ML IVPB ×2 (08:42→15:32)
[2025-07-14] MEDS: dilTIAZem HCL CD 180 MG CAP.24HR PO (08:44)
[2025-07-14] MEDS: APIXABAN 5 MG TABLET PO ×2 (08:44→21:29)
[2025-07-14] MEDS: ASPIRIN 81 MG CHEWABLE TABLET PO (08:44)
[2025-07-14] MEDS: LORATADINE 10 MG TABLET PO (08:44)
[2025-07-14] MEDS: GABAPENTIN 300 MG CAPSULE PO ×2 (08:44→16:17)
[2025-07-14] MEDS: SERTRALINE HCL 50 MG TABLET PO (08:44)
[2025-07-14] MEDS: SUCRALFATE 1 GM TABLET PO ×3 (08:45→21:29)
[2025-07-14] MEDS: PANTOPRAZOLE 40 MG TABLET PO (08:48)
[2025-07-14] MEDS: SERTRALINE HCL 25 MG TABLET PO (08:48)
[2025-07-14] MEDS: LINACLOTIDE 145 MCG CAPSULE 290 MCG PO (08:48)
[2025-07-14] MEDS: DORZOLAMIDE/TIMOLOL OPHTH SOL 10 ML BOTTLE 1 DROP EACH EYE ×3 (08:49→16:18)
[2025-07-14] MEDS: oxyCODONE HCL (*CRX) 5 MG TAB IR PO ×2 (09:03→14:51)
[2025-07-14] MEDS: FLUTICASONE/SALMETEROL 115-21 MCG INHALER 1 PUFF 2 PUFF INHALATION ×2 (09:29→19:59)
--- NOTE | 2025-07-14 12:35 | WPDUROPN2 ---
Progress Note: A&P Assessment and Plan (1) Ureteral stone: Code(s): N20.1 - Calculus of ureter Status: Acute Assessment and Plan: Appears nonobstructive on CT scan at this point time. Would prefer to simply schedule outpatient lithotripsy once gets over acute UTI and symptoms. If becomes febrile, creatinine rising, or develops severe left flank pain then would need a stent in the interim time. If the stone moves to a location which is not amenable to lithotripsy then would require ureteroscopy with laser of the stone. (2) Urinary tract infection: Qualifiers: Urinary tract infection type: acute cystitis Hematuria presence: without hematuria Qualified Code(s): N30.00 - Acute cystitis without hematuria Code(s): N39.0 - Urinary tract infection, site not specified Status: Acute Assessment and Plan: Cultures pending Subjective Subjective Date/Time Seen: 07/14/25 12:35 Interval history: 6 mm nonobstructing left proximal ureteral calculus. No hypertensive hydronephrosis on recent CT scan. The stone is KUB positive at this time. Urine culture is pending as she may have a ongoing UTI. She remains afebrile with normal white count. Creatinine also normal at 0.85. Difficult to really elicit any pain from this nonobstructive stone Review of Systems Review of Systems: All systems reviewed & are unremarkable except as noted in HPI and below Exam Const: General: cooperative and comfortable (Appears comfortable Although states that she is uncomfortable) Resp: Effort & Inspection: normal respiratory effort Cardio: Rate: regular rate Rhythm: regular rhythm Objective Data Vital Signs Vital Signs: Vital Signs - 24 hr 07/13/25 13:47 07/13/25 16:00 07/13/25 20:00 Temperature 36.1 C L Pulse Rate 74 53 L 61 Respiratory Rate 20 Blood Pressure 127/63 Pulse Oximetry 95 Oxygen Delivery Fraction of Inspired Oxygen 07/13/25 20:13 07/13/25 20:29 07/13/25 21:30 Temperature 36.5 C Pulse Rate 79 73 Respiratory Rate 20 Blood Pressure 100/60 Pulse Oximetry 93 93 Oxygen Delivery Room Air Room Air Fraction of Inspired Oxygen 21 07/14/25 00:00 07/14/25 03:49 07/14/25 04:00 Temperature 36.5 C Pulse Rate 70 73 71 Respiratory Rate 20 Blood Pressure 105/63 Pulse Oximetry 94 Oxygen Delivery Fraction of Inspired Oxygen 07/14/25 08:03 07/14/25 08:48 07/14/25 09:29 Temperature Pulse Rate 55 L 58 L Respiratory Rate 20 20 Blood Pressure Pulse Oximetry 95 95 Oxygen Delivery Room Air Room Air Fraction of Inspired Oxygen 21 07/14/25 09:29 Temperature Pulse Rate 58 L Respiratory Rate 20 Blood Pressure Pulse Oximetry Oxygen Delivery Fraction of Inspired Oxygen Intake/Output Intake/Output: Intake & Output 07/11/25 07/12/25 07/13/25 07/14/25 23:59 23:59 23:59 23:59 Intake Total 1000 1950 200 Output Total 1200 400 Balance 1000 750 -200 Meds/Results Medications: Active Medications Generic Name Dose Route Start Last Admin Trade Name Freq PRN Reason Stop Dose Admin Albuterol 2 puff 07/12/25 18:33 Albuterol Sulfate (*Sp) Aerosol 1 Puff INHALATION QIDRT PRN Shortness Of Breath Apixaban 5 mg 07/12/25 21:00 07/14/25 08:44 Apixaban 5 Mg Tablet PO 5 mg Q12HR DEVAUGHN Administration Artificial Tears 1 drop 07/12/25 21:00 07/13/25 21:45 Artificial Tears Ophth Soln 15 Ml Bottle EACH EYE 1 drop HS DEVAUGHN Administration Aspirin 81 mg 07/13/25 09:00 07/14/25 08:44 Aspirin 81 Mg Chewable Tablet PO 81 mg DAILY DEVAUGHN Administration Atorvastatin Calcium 10 mg 07/12/25 21:00 07/13/25 21:45 Atorvastatin 10 Mg Tablet PO 10 mg HS DEVAUGHN Administration Buspirone HCl 15 mg 07/12/25 21:00 07/14/25 12:14 Buspirone Hcl 5 Mg Tablet PO Not Given TID DEVAUGHN Diltiazem HCl 180 mg 07/13/25 09:00 07/14/25 08:44 Diltiazem Hcl Cd 180 Mg Cap.24hr PO 180 mg DAILY DEVAUGHN Administration Dorzolamide/Timolol 1 drop 07/13/25 09:00 07/14/25 12:15 Dorzolamide/Timolol Ophth Lizzie 10 Ml Bottle EACH EYE 1 drop TID DEVAUGHN Administration Gabapentin 300 mg 07/12/25 21:00 07/14/25 08:44 Gabapentin 300 Mg Capsule PO 300 mg BID DEVAUGHN Administration Meropenem 1 gm/ Sodium 100 mls @ 200 mls/hr 08/12/25 00:00 07/14/25 09:13 Chloride IVPB Infused Q8H DEVAUGHN Infusion Levetiracetam 500 mg 07/12/25 21:00 07/14/25 08:48 Levetiracetam 500 Mg Tablet PO 500 mg Q12HR DEVAUGHN Administration Linaclotide 290 mcg 07/13/25 09:00 07/14/25 08:48 Linaclotide 145 Mcg Capsule PO 290 mcg DAILY DEVAUGHN Administration Loratadine 10 mg 07/13/25 09:00 07/14/25 08:44 Loratadine 10 Mg Tablet PO 10 mg DAILY DEVAUGHN Administration Meclizine HCl 25 mg 07/12/25 18:33 Meclizine Hcl 25 Mg Tablet PO TID PRN dizziness Mirtazapine 7.5 mg 07/12/25 21:00 07/13/25 21:45 Mirtazapine 7.5 Mg Tablet PO 7.5 mg HS DEVAUGHN Administration Nitroglycerin 0.4 mg 07/12/25 18:33 Nitroglycerin Sl 0.4 Mg Tablet SUBLINGUAL Q5M PRN Chest Pain Oxycodone HCl 5 mg 07/12/25 18:33 07/14/25 09:03 Oxycodone Hcl (*Crx) 5 Mg Tab Ir PO 5 mg BID PRN Administration pain 7-10 Pantoprazole Sodium 40 mg 07/13/25 09:00 07/14/25 08:48 Pantoprazole 40 Mg Tablet PO 40 mg DAILY DEVAUGHN Administration Paroxetine HCl 40 mg 07/13/25 09:00 07/14/25 08:48 Paroxetine 20 Mg Tablet PO 40 mg DAILY DEVAUGHN Administration Fluticasone/Salmeterol 2 puff 07/12/25 20:00 07/14/25 09:29 Fluticasone/Salmeterol 115-21 Mcg Inhaler 1 Puff INHALATION 2 puff Q12HRT DEVAUGHN Administration Sertraline HCl 25 mg 07/13/25 09:00 07/14/25 08:48 Sertraline Hcl 25 Mg Tablet PO 25 mg DAILY DEVAUGHN Administration Sertraline HCl 50 mg 07/13/25 09:00 07/14/25 08:44 Sertraline Hcl 50 Mg Tablet PO 50 mg DAILY DEVAUGHN Administration Sucralfate 1 gm 07/12/25 21:00 07/14/25 12:14 Sucralfate 1 Gm Tablet PO Not Given QID DEVAUGHN Trazodone HCl 50 mg 07/12/25 21:00 07/12/25 20:23 Trazodone Hcl 50 Mg Tablet PO 50 mg HS DEVAUGHN Administration Radiology Results: ITS Impressions Abdomen/Pelvis CT 07/12/25 14:23 IMPRESSION: 1. Thickening of the [place] of the rectum. Differential includes incomplete rectal wall distention, proctitis or mass. 2. There is a left hip arthroplasty with extensive adjacent bony irregularity. Differential includes but is not limited to postsurgical change, loosening, trauma of indeterminate or infection. Correlate clinically. If of concern, consider an MRI for further assessment. 3. Nonspecific 6.2 x 2.5 cm fluid collection lateral to the proximal left femur. Correlate clinically. 4. There are a few nonobstructing left renal stones. There is a 6 mm nonobstructing calcification in the proximal left ureter. No hydronephrosis at this time. 5. There is a 1.0 cm low density lesion in the tail of the pancreas. The finding was not seen in the CT study from 05/10/2024. A pancreatic mass CT is recommended Head CT 07/12/25 14:33 IMPRESSION: 1. No acute intracranial abnormality. Chest X-Ray 07/12/25 17:02 IMPRESSION: 1. No acute pulmonary process identified. Abdomen X-Ray 07/13/25 16:59 IMPRESSION: Redemonstration of a calculus within the proximal left ureter, as detailed above. Labs Labs: Laboratory Results - last 24 hr 07/13/25 07/14/25 15:13 05:38 WBC 9.4 RBC 4.50 Hgb 13.1 Hct 42.0 MCV 93.3 MCH 29.1 MCHC 31.2 L RDW 14.5 Plt Count 233 MPV 10.9 H Immature Gran % (Auto) 0.3 Neut % (Auto) 62.9 Lymph % (Auto) 21.5 [place] % (Auto) 11.0 H Eos % (Auto) 3.8 Baso % (Auto) 0.5 Lymph # (Auto) 2.03 [place] # (Auto) 1.0 H Eos # (Auto) 0.4 H Baso # (Auto) 0.1 Abs Immat Gran (auto) 0.03 Absolute Neuts (auto) 5.9 Absolute Nucleated RBC 0.000 Nucleated RBC % 0.0 Sodium 141 Potassium 3.8 Chloride 108 H Carbon Dioxide 29 Anion Gap 4 BUN 19 H Creatinine 0.85 Estim Creat Clear Calc 60 Estimated GFR > 60 Glucose 112 H Calcium 8.8 C. difficile (PCR) Negative
--- NOTE | 2025-07-14 14:40 | P.PNIM_ITS ---
Progress Note: A&P Assessment and Plan (1) Kidney stone: Code(s): N20.0 - Calculus of kidney Status: Acute Assessment and Plan: There are a few nonobstructing left renal stones. There is a 6 mm nonobstructing calcification in the proximal left ureter. No hydronephrosis at this time. Patient complained of abdominal pain on admission. * Urology consulted * F/U KUB still nonobstructing * antiemetics * strain all urine * pain management * urology plans to defer any surgical intervention during infectious phase unless stone becomes obstructive (2) Urinary tract infection: Qualifiers: Hematuria presence: without hematuria Urinary tract infection type: acute cystitis Qualified Code(s): N30.00 - Acute cystitis without hematuria Code(s): N39.0 - Urinary tract infection, site not specified Status: Acute Assessment and Plan: UA with 1+ blood, positive nitrates, 2+ LE, >100 WBC, 3+ bacteria, previous cultures with ESBL E coli * continue meropenem * s/p IVF * Culture and sensitivity pending (3) Abnormal CT scan, colon: Code(s): R93.3 - Abnormal findings on diagnostic imaging of other parts of digestive tract Status: Acute Assessment and Plan: There is a 1.0 cm low density lesion in the tail of the pancreas. The finding was not seen in the CT study from 05/10/2024. A pancreatic mass CT is recommended. Thickening of the de la o of the rectum. Differential includes incomplete rectal wall distention, proctitis or mass. * GI consulted * MRCP. * Patient is having diarrhea. Ordered stool studies. C diff negative (4) Pancreatic mass: Code(s): K86.89 - Other specified diseases of pancreas Status: Acute Assessment and Plan: CT abdomen showing a low-density lesion at the tail the pancreas with elevated alk-phos * GI consulted * MRCP pending (5) Seizure: Code(s): R56.9 - Unspecified convulsions Status: Acute Assessment and Plan: * Continue Keppra (6) COPD (chronic obstructive pulmonary disease): Code(s): J44.9 - Chronic obstructive pulmonary disease, unspecified Status: Acute Assessment and Plan: * Continue home inhaler (7) Atrial fibrillation: Code(s): I48.91 - Unspecified atrial fibrillation Status: Acute Assessment and Plan: * Continue Eliquis and diltiazem (8) Gastritis: Qualifiers: Chronicity: chronic Gastritis bleeding: without bleeding Gastritis type: superficial Qualified Code(s): K29.30 - Chronic superficial gastritis without bleeding Code(s): K29.70 - Gastritis, unspecified, without bleeding Status: Acute Assessment and Plan: * continue Carafate and Protonix daily Plan Code status: Full code per patient DVT prophylaxis: Eliquis Stress ulcer prophylaxis: Protonix 40 daily PT/OT notes: return to [facility] Disposition: patient was admitted to the medical unit continues admission plans for MRCP today for further evaluation of abdominal pain with possible pancreatic lesion continue with symptomatic management plan to return back to [facility] facility at discharge once medically stable. Time Spent With Patient Time with patient: 15 - 25 minutes Subjective Date/time seen: 07/14/25 14:40 Interval history: 75-year-old female past medical history of AFib, diabetes, COPD, hypertension presents the emergency room with abdominal pain. 07/14/2025: Patient still reporting ABD pain midline, Patient alert and oriented x 2. Denied SOB or CP. Review of Systems Review of Systems: 12 systems were reviewed and are negativ e except for as per HPI. All systems reviewed & are unremarkable except as noted in HPI and below Exam Narrative: General: NAD, obese Eyes: EOMI ENT: neck supple Cardiovascular: RRR Respiratory: Clear to auscultation, respirations even and unlabored on RA Gastrointestinal: Soft, midline tenderness, BS present all 4 quadrants Genitourinary: no suprapubic tenderness Musculoskeletal: No edema, left hip surgical scar with some edema, no erythema or drainage noted. Skin: warm, dry Neuro: Moves all extremities. Alert and oriented x2 Psych: tearful due to ABD pain appropriate Objective Data Vital Signs Vital Signs: Vital Signs - 24 hr 07/13/25 16:00 07/13/25 20:00 07/13/25 20:13 Temperature Pulse Rate 53 L 61 79 Respiratory Rate Blood Pressure Pulse Oximetry 93 Oxygen Delivery Room Air Fraction of Inspired Oxygen 21 07/13/25 20:29 07/13/25 21:30 07/14/25 00:00 Temperature 97.7 F Pulse Rate 73 70 Respiratory Rate 20 Blood Pressure 100/60 Pulse Oximetry 93 Oxygen Delivery Room Air Fraction of Inspired Oxygen 07/14/25 03:49 07/14/25 04:00 07/14/25 08:03 Temperature 97.7 F Pulse Rate 73 71 55 L Respiratory Rate 20 Blood Pressure 105/63 Pulse Oximetry 94 Oxygen Delivery Fraction of Inspired Oxygen 07/14/25 08:48 07/14/25 09:29 07/14/25 09:29 Temperature Pulse Rate 58 L 58 L Respiratory Rate 20 20 20 Blood Pressure Pulse Oximetry 95 95 Oxygen Delivery Room Air Room Air Fraction of Inspired Oxygen 21 07/14/25 12:03 Temperature Pulse Rate 57 L Respiratory Rate Blood Pressure Pulse Oximetry Oxygen Delivery Fraction of Inspired Oxygen Intake/Output Intake/Output: Intake & Output 07/11/25 07/12/25 07/13/25 07/14/25 23:59 23:59 23:59 23:59 Intake Total 1000 1950 200 Output Total 1200 400 Balance 1000 750 -200 Meds/Results Medications: Active Medications Generic Name Dose Route Start Last Admin Trade Name Freq PRN Reason Stop Dose Admin Albuterol 2 puff 07/12/25 18:33 Albuterol Sulfate (*Sp) Aerosol 1 Puff INHALATION QIDRT PRN Shortness Of Breath Apixaban 5 mg 07/12/25 21:00 07/14/25 08:44 Apixaban 5 Mg Tablet PO 5 mg Q12HR DEVAUGHN Administration Artificial Tears 1 drop 07/12/25 21:00 07/13/25 21:45 Artificial Tears Ophth Soln 15 Ml Bottle EACH EYE 1 drop HS DEVAUGHN Administration Aspirin 81 mg 07/13/25 09:00 07/14/25 08:44 Aspirin 81 Mg Chewable Tablet PO 81 mg DAILY DEVAUGHN Administration Atorvastatin Calcium 10 mg 07/12/25 21:00 07/13/25 21:45 Atorvastatin 10 Mg Tablet PO 10 mg HS DEVAUGHN Administration Buspirone HCl 15 mg 07/12/25 21:00 07/14/25 12:14 Buspirone Hcl 5 Mg Tablet PO Not Given TID DEVAUGHN Diltiazem HCl 180 mg 07/13/25 09:00 07/14/25 08:44 Diltiazem Hcl Cd 180 Mg Cap.24hr PO 180 mg DAILY DEVAUGHN Administration Dorzolamide/Timolol 1 drop 07/13/25 09:00 07/14/25 12:15 Dorzolamide/Timolol Ophth Lizzie 10 Ml Bottle EACH EYE 1 drop TID DEVAUGHN Administration Gabapentin 300 mg 07/12/25 21:00 07/14/25 08:44 Gabapentin 300 Mg Capsule PO 300 mg BID DEVAUGHN Administration Meropenem 1 gm/ Sodium 100 mls @ 200 mls/hr 07/13/25 00:00 07/14/25 09:13 Chloride IVPB Infused Q8H DEVAUGHN Infusion Levetiracetam 500 mg 07/12/25 21:00 07/14/25 08:48 Levetiracetam 500 Mg Tablet PO 500 mg Q12HR DEVAUGHN Administration Linaclotide 290 mcg 07/13/25 09:00 07/14/25 08:48 Linaclotide 145 Mcg Capsule PO 290 mcg DAILY DEVAUGHN Administration Loratadine 10 mg 07/13/25 09:00 07/14/25 08:44 Loratadine 10 Mg Tablet PO 10 mg DAILY DEVAUGHN Administration Meclizine HCl 25 mg 07/12/25 18:33 Meclizine Hcl 25 Mg Tablet PO TID PRN dizziness Mirtazapine 7.5 mg 07/12/25 21:00 07/13/25 21:45 Mirtazapine 7.5 Mg Tablet PO 7.5 mg HS DEVAUGHN Administration Nitroglycerin 0.4 mg 07/12/25 18:33 Nitroglycerin Sl 0.4 Mg Tablet SUBLINGUAL Q5M PRN Chest Pain Oxycodone HCl 5 mg 07/12/25 18:33 07/14/25 09:03 Oxycodone Hcl (*Crx) 5 Mg Tab Ir PO 5 mg BID PRN Administration pain 7-10 Pantoprazole Sodium 40 mg 07/13/25 09:00 07/14/25 08:48 Pantoprazole 40 Mg Tablet PO 40 mg DAILY DEVAUGHN Administration Paroxetine HCl 40 mg 07/13/25 09:00 07/14/25 08:48 Paroxetine 20 Mg Tablet PO 40 mg DAILY DEVAUGHN Administration Fluticasone/Salmeterol 2 puff 07/12/25 20:00 07/14/25 09:29 Fluticasone/Salmeterol 115-21 Mcg Inhaler 1 Puff INHALATION 2 puff Q12HRT DEVAUGHN Administration Sertraline HCl 25 mg 07/13/25 09:00 07/14/25 08:48 Sertraline Hcl 25 Mg Tablet PO 25 mg DAILY DEVAUGHN Administration Sertraline HCl 50 mg 07/13/25 09:00 07/14/25 08:44 Sertraline Hcl 50 Mg Tablet PO 50 mg DAILY DEVAUGHN Administration Sucralfate 1 gm 07/12/25 21:00 07/14/25 12:14 Sucralfate 1 Gm Tablet PO Not Given QID DEVAUGHN Trazodone HCl 50 mg 07/12/25 21:00 07/12/25 20:23 Trazodone Hcl 50 Mg Tablet PO 50 mg HS DEVAUGHN Administration Radiology Results: ITS Impressions Abdomen/Pelvis CT 07/12/25 14:23 IMPRESSION: 1. Thickening of the de la o of the rectum. Differential includes incomplete rectal wall distention, proctitis or mass. 2. There is a left hip arthroplasty with extensive adjacent bony irregularity. Differential includes but is not limited to postsurgical change, loosening, trauma of indeterminate or infection. Correlate clinically. If of concern, consider an MRI for further assessment. 3. Nonspecific 6.2 x 2.5 cm fluid collection lateral to the proximal left femur. Correlate clinically. 4. There are a few nonobstructing left renal stones. There is a 6 mm nonobstructing calcification in the proximal left ureter. No hydronephrosis at this time. 5. There is a 1.0 cm low density lesion in the tail of the pancreas. The finding was not seen in the CT study from 05/10/2024. A pancreatic mass CT is recommended Head CT 07/12/25 14:33 IMPRESSION: 1. No acute intracranial abnormality. Chest X-Ray 07/12/25 17:02 IMPRESSION: 1. No acute pulmonary process identified. Abdomen X-Ray 07/13/25 16:59 IMPRESSION: Redemonstration of a calculus within the proximal left ureter, as detailed above. Labs Labs: Laboratory Results - last 24 hr 07/13/25 07/14/25 15:13 05:38 WBC 9.4 RBC 4.50 Hgb 13.1 Hct 42.0 MCV 93.3 MCH 29.1 MCHC 31.2 L RDW 14.5 Plt Count 233 MPV 10.9 H Immature Gran % (Auto) 0.3 Neut % (Auto) 62.9 Lymph % (Auto) 21.5 [place] % (Auto) 11.0 H Eos % (Auto) 3.8 Baso % (Auto) 0.5 Lymph # (Auto) 2.03 [place] # (Auto) 1.0 H Eos # (Auto) 0.4 H Baso # (Auto) 0.1 Abs Immat Gran (auto) 0.03 Absolute Neuts (auto) 5.9 Absolute Nucleated RBC 0.000 Nucleated RBC % 0.0 Sodium 141 Potassium 3.8 Chloride 108 H Carbon Dioxide 29 Anion Gap 4 BUN 19 H Creatinine 0.85 Estim Creat Clear Calc 60 Estimated GFR > 60 Glucose 112 H Calcium 8.8 C. difficile (PCR) Negative Quality VTE Prophylaxis VTE prophylaxis: pharmacologic ordered -Patient's previous records reviewed on admission -ER notes reviewed in detail on admission -discussed all findings and current treatment plan with patient/Family/POA -Consultations reviewed for recommendations -Patient's disposition for safe discharge discussed with caser in Dictation performed by [employer] direct speech recognition software, therefore kayaking instructor variants and typographical errors may occur. Hospitalist MIPS Advance Care Plan I have confirmed that the patient's Advanced Care Plan is present, code status is documented, or surrogate decision maker is listed in patient medical record.: Yes Medication Reconciliation I have utilized all available resources to obtain, update and review the patients current medications (includes all prescriptions, OTC, herbals, cannabis, and nutritional supplements).: Yes The patient is not eligible for med reconciliation; the patient is in a emergent medical situation where delaying treatment would jeopardize the patients health.: No
[2025-07-14] MEDS: MIRTAZAPINE 7.5 MG TABLET PO (21:29)
[2025-07-14] MEDS: ATORVASTATIN 10 MG TABLET PO (21:29)
[2025-07-14] MEDS: ARTIFICIAL TEARS OPHTH SOLN 15 ML BOTTLE 1 DROP EACH EYE (21:29)
[2025-07-15] VITALS (12 sets, daily range): BP systolic 111–123; BP diastolic 58–63; PULSE 47–70; RESP 16–20; TEMP 36–36.6; O2SAT 92–97
[2025-07-15] MEDS: MEROPENEM 1 GM in SODIUM CHLORIDE 0.9% IV 100 ML 200 ML IVPB ×4 (00:37→23:14)
--- NOTE | 2025-07-15 07:30 | WPDGIPROGNO ---
Progress Note: A&P Assessment and Plan (1) Pancreatic cyst: Code(s): K86.2 - Cyst of pancreas Status: Acute Assessment and Plan: MRCP results reviewed. There is a benign small cyst in the distal pancreas. Pancreatic cancer has been ruled out. The patient has multiple chronic issues regarding her bowel habits, alternating between constipation and diarrhea. Is difficult to assess her abdominal pain since she is using narcotics at home. Given the fact that there are no acute issues to be dealt with during this admission, she can be discharged home and follow up with us in our clinic. Subjective Date/time seen: 07/15/25 07:30 Objective Data Vital Signs Vital Signs: Vital Signs - 24 hr 07/14/25 08:03 07/14/25 08:48 07/14/25 09:29 Temperature Pulse Rate 55 L 58 L Respiratory Rate 20 20 Blood Pressure Pulse Oximetry 95 95 Oxygen Delivery Room Air Room Air Fraction of Inspired Oxygen 21 07/14/25 09:29 07/14/25 12:03 07/14/25 16:04 Temperature Pulse Rate 58 L 57 L 51 L Respiratory Rate 20 Blood Pressure Pulse Oximetry Oxygen Delivery Fraction of Inspired Oxygen 07/14/25 20:00 07/14/25 20:00 07/14/25 20:01 Temperature Pulse Rate 57 L Respiratory Rate Blood Pressure Pulse Oximetry 92 Oxygen Delivery Room Air Room Air Fraction of Inspired Oxygen 07/14/25 20:02 07/14/25 22:00 07/15/25 00:00 Temperature 97.6 F Pulse Rate 55 L 56 L 56 L Respiratory Rate 20 18 Blood Pressure 108/56 L Pulse Oximetry 94 Oxygen Delivery Fraction of Inspired Oxygen 07/15/25 04:00 07/15/25 06:00 Temperature 97.8 F Pulse Rate 47 L 59 L Respiratory Rate 16 Blood Pressure 111/61 Pulse Oximetry 92 Oxygen Delivery Fraction of Inspired Oxygen Intake/Output Intake/Output: Intake & Output 07/12/25 07/13/25 07/14/25 07/15/25 23:59 23:59 23:59 23:59 Intake Total 1000 1950 780 200 Output Total 1200 600 100 Balance 1000 750 180 100 Meds/Results Medications: Active Medications Generic Name Dose Route Start Last Admin Trade Name Freq PRN Reason Stop Dose Admin Albuterol 2 puff 07/12/25 18:33 Albuterol Sulfate (*Sp) Aerosol 1 Puff INHALATION QIDRT PRN Shortness Of Breath Apixaban 5 mg 07/12/25 21:00 07/14/25 21:29 Apixaban 5 Mg Tablet PO 5 mg Q12HR DEVAUGHN Administration Artificial Tears 1 drop 07/12/25 21:00 07/14/25 21:29 Artificial Tears Ophth Soln 15 Ml Bottle EACH EYE 1 drop HS DEVAUGHN Administration Aspirin 81 mg 07/13/25 09:00 07/14/25 08:44 Aspirin 81 Mg Chewable Tablet PO 81 mg DAILY DEVAUGHN Administration Atorvastatin Calcium 10 mg 07/12/25 21:00 07/14/25 21:29 Atorvastatin 10 Mg Tablet PO 10 mg HS DEVAUGHN Administration Buspirone HCl 15 mg 07/12/25 21:00 07/14/25 16:18 Buspirone Hcl 5 Mg Tablet PO 15 mg TID DEVAUGHN Administration Diltiazem HCl 180 mg 07/13/25 09:00 07/14/25 08:44 Diltiazem Hcl Cd 180 Mg Cap.24hr PO 180 mg DAILY DEVAUGHN Administration Dorzolamide/Timolol 1 drop 07/13/25 09:00 07/14/25 16:18 Dorzolamide/Timolol Ophth Lizzie 10 Ml Bottle EACH EYE 1 drop TID DEVAUGHN Administration Gabapentin 300 mg 07/12/25 21:00 07/14/25 16:17 Gabapentin 300 Mg Capsule PO 300 mg BID DEVAUGHN Administration Meropenem 1 gm/ Sodium 100 mls @ 200 mls/hr 07/13/25 00:00 07/15/25 01:07 Chloride IVPB Infused Q8H DEVAUGHN Infusion Levetiracetam 500 mg 07/12/25 21:00 07/14/25 21:29 Levetiracetam 500 Mg Tablet PO 500 mg Q12HR DEVAUGHN Administration Linaclotide 290 mcg 07/13/25 09:00 07/14/25 08:48 Linaclotide 145 Mcg Capsule PO 290 mcg DAILY DEVAUGHN Administration Loratadine 10 mg 07/13/25 09:00 07/14/25 08:44 Loratadine 10 Mg Tablet PO 10 mg DAILY DEVAUGHN Administration Meclizine HCl 25 mg 07/12/25 18:33 Meclizine Hcl 25 Mg Tablet PO TID PRN dizziness Mirtazapine 7.5 mg 07/12/25 21:00 07/14/25 21:29 Mirtazapine 7.5 Mg Tablet PO 7.5 mg HS DEVAUGHN Administration Nitroglycerin 0.4 mg 07/12/25 18:33 Nitroglycerin Sl 0.4 Mg Tablet SUBLINGUAL Q5M PRN Chest Pain Oxycodone HCl 5 mg 07/12/25 18:33 07/14/25 14:51 Oxycodone Hcl (*Crx) 5 Mg Tab Ir PO 5 mg BID PRN Administration pain 7-10 Pantoprazole Sodium 40 mg 07/13/25 09:00 07/14/25 08:48 Pantoprazole 40 Mg Tablet PO 40 mg DAILY DEVAUGHN Administration Paroxetine HCl 40 mg 07/13/25 09:00 07/14/25 08:48 Paroxetine 20 Mg Tablet PO 40 mg DAILY DEVAUGHN Administration Fluticasone/Salmeterol 2 puff 07/12/25 20:00 07/14/25 19:59 Fluticasone/Salmeterol 115-21 Mcg Inhaler 1 Puff INHALATION 2 puff Q12HRT DEVAUGHN Administration Sertraline HCl 25 mg 07/13/25 09:00 07/14/25 08:48 Sertraline Hcl 25 Mg Tablet PO 25 mg DAILY DEVAUGHN Administration Sertraline HCl 50 mg 07/13/25 09:00 07/14/25 08:44 Sertraline Hcl 50 Mg Tablet PO 50 mg DAILY DEVAUGHN Administration Sucralfate 1 gm 07/12/25 21:00 07/14/25 21:29 Sucralfate 1 Gm Tablet PO 1 gm QID DEVAUGHN Administration Trazodone HCl 50 mg 07/12/25 21:00 07/12/25 20:23 Trazodone Hcl 50 Mg Tablet PO 50 mg HS DEVAUGHN Administration Radiology Results: ITS Impressions Abdomen/Pelvis CT 07/12/25 14:23 IMPRESSION: 1. Thickening of the de la o of the rectum. Differential includes incomplete rectal wall distention, proctitis or mass. 2. There is a left hip arthroplasty with extensive adjacent bony irregularity. Differential includes but is not limited to postsurgical change, loosening, trauma of indeterminate or infection. Correlate clinically. If of concern, consider an MRI for further assessment. 3. Nonspecific 6.2 x 2.5 cm fluid collection lateral to the proximal left femur. Correlate clinically. 4. There are a few nonobstructing left renal stones. There is a 6 mm nonobstructing calcification in the proximal left ureter. No hydronephrosis at this time. 5. There is a 1.0 cm low density lesion in the tail of the pancreas. The finding was not seen in the CT study from 05/10/2024. A pancreatic mass CT is recommended Head CT 07/12/25 14:33 IMPRESSION: 1. No acute intracranial abnormality. Chest X-Ray 07/12/25 17:02 IMPRESSION: 1. No acute pulmonary process identified. Abdomen X-Ray 07/13/25 16:59 IMPRESSION: Redemonstration of a calculus within the proximal left ureter, as detailed above. MRCP 07/14/25 15:50 IMPRESSION: 1. 11 mm simple appearing cystic lesion in the tail of the pancreas with tiny ductal communication to the main pancreatic duct which could represent either a pseudocyst/dilated sidebranch related to chronic pancreatitis or intraductal papillary mucinous neoplasm (IPMN). No abnormal enhancing soft tissue component. This appears to been subtly present on CT studies dating back to 11/20/2023. Recommend six-month follow-up pre and postcontrast MRI. 2. Very small bilateral pleural effusions.
[2025-07-15] MEDS: FLUTICASONE/SALMETEROL 115-21 MCG INHALER 1 PUFF 2 PUFF INHALATION ×2 (07:52→21:44)
[2025-07-15] MEDS: APIXABAN 5 MG TABLET PO ×2 (08:54→21:04)
[2025-07-15] MEDS: GABAPENTIN 300 MG CAPSULE PO ×2 (08:54→16:16)
[2025-07-15] MEDS: SUCRALFATE 1 GM TABLET PO ×4 (08:54→21:04)
[2025-07-15] MEDS: ASPIRIN 81 MG CHEWABLE TABLET PO (08:54)
[2025-07-15] MEDS: DORZOLAMIDE/TIMOLOL OPHTH SOL 10 ML BOTTLE 1 DROP EACH EYE ×3 (08:54→16:16)
[2025-07-15] MEDS: SERTRALINE HCL 25 MG TABLET PO (08:55)
[2025-07-15] MEDS: LORATADINE 10 MG TABLET PO (08:56)
[2025-07-15] MEDS: SERTRALINE HCL 50 MG TABLET PO (08:56)
[2025-07-15] MEDS: LINACLOTIDE 145 MCG CAPSULE 290 MCG PO (08:56)
[2025-07-15] MEDS: PANTOPRAZOLE 40 MG TABLET PO (08:56)
[2025-07-15] MEDS: oxyCODONE HCL (*CRX) 5 MG TAB IR PO ×2 (09:09→16:24)
--- NOTE | 2025-07-15 10:05 | P.PNUR_ITS ---
Progress Note: A&P Assessment and Plan (1) Ureteral stone: Code(s): N20.1 - Calculus of ureter Status: Acute Assessment and Plan: Appears nonobstructive on prior CT scan. KUB from 07/[address] Patient p ain is worse today than yesterday on exam. -will get CT AP WO CON and KUB today to reevaluate stone. -Cr remains stable wnl. -WBC wnl -Urine culture reveals gram negative bacilli. culture driven antibiotic therapy per primary service. -Patient c/o worsening/continued pain on the left abd/flank. -Would prefer outpatient lithotripsy once gets over acute UTI and symptoms. However, if becomes febrile, creatinine rising, or continues severe left flank pain then would need a stent in the interim. If the stone moves to a location which is not amenable to lithotripsy then would require ureteroscopy with laser of the stone. (2) Urinary tract infection: Qualifiers: Urinary tract infection type: acute cystitis Hematuria presence: without hematuria Qualified Code(s): N30.00 - Acute cystitis without hematuria Code(s): N39.0 - Urinary tract infection, site not specified Status: Acute Subjective Subjective Date/Time Seen: 07/15/25 10:05 Interval history: patinet uncomfortable and reports ongoing left abdominal/flank pain. Review of Systems Review of Systems: All systems reviewed & are unremarkable except as noted in HPI and below Constitutional: Comments: reports left abdominal pain Cardiovascular: Cardiovascular: Denies chest pain and Denies dyspnea Respiratory: Respiratory: Denies dyspnea Gastrointestinal: Gastrointestinal: Reports as per HPI Genitourinary: Genitourinary: Reports as per HPI Endocrine: Endocrine: Reports fatigue Exam Const: General: cooperative; No comfortable HENMT: Face/Nose/Sinus: Normal nares present Resp: Effort & Inspection: normal respiratory effort Urinary Catheter: Urinary Catheter: urine cloudy Skin: General skin exam: normal color Neuro: Speech: normal speech Psych: Speech and movement: Normal speech and movement present Affect: normal affect Objective Data Vital Signs Vital Signs: Vital Signs - 24 hr 07/14/25 12:03 07/14/25 16:04 07/14/25 20:00 Temperature Pulse Rate 57 L 51 L 57 L Respiratory Rate Blood Pressure Pulse Oximetry Oxygen Delivery 07/14/25 20:00 07/14/25 20:01 07/14/25 20:02 Temperature Pulse Rate 55 L Respiratory Rate 20 Blood Pressure Pulse Oximetry 92 Oxygen Delivery Room Air Room Air 07/14/25 22:00 07/15/25 00:00 07/15/25 04:00 Temperature 97.6 F Pulse Rate 56 L 56 L 47 L Respiratory Rate 18 Blood Pressure 108/56 L Pulse Oximetry 94 Oxygen Delivery 07/15/25 06:00 07/15/25 07:55 Temperature 97.8 F Pulse Rate 59 L 70 Respiratory Rate 16 20 Blood Pressure 111/61 Pulse Oximetry 92 Oxygen Delivery Intake/Output Intake/Output: Intake & Output 07/12/25 07/13/25 07/14/25 07/15/25 23:59 23:59 23:59 23:59 Intake Total 1000 1950 780 200 Output Total 1200 600 100 Balance 1000 750 180 100 Meds/Results Medications: Active Medications Generic Name Dose Route Start Last Admin Trade Name Freq PRN Reason Stop Dose Admin Albuterol 2 puff 07/12/25 18:33 Albuterol Sulfate (*Sp) Aerosol 1 Puff INHALATION QIDRT PRN Shortness Of Breath Apixaban 5 mg 07/12/25 21:00 07/15/25 08:54 Apixaban 5 Mg Tablet PO 5 mg Q12HR DEVAUGHN Administration Artificial Tears 1 drop 07/12/25 21:00 07/14/25 21:29 Artificial Tears Ophth Soln 15 Ml Bottle EACH EYE 1 drop HS DEVAUGHN Administration Aspirin 81 mg 07/13/25 09:00 07/15/25 08:54 Aspirin 81 Mg Chewable Tablet PO 81 mg DAILY DEVAUGHN Administration Atorvastatin Calcium 10 mg 07/12/25 21:00 07/14/25 21:29 Atorvastatin 10 Mg Tablet PO 10 mg HS DEVAUGHN Administration Buspirone HCl 15 mg 07/12/25 21:00 07/15/25 08:56 Buspirone Hcl 5 Mg Tablet PO 15 mg TID DEVAUGHN Administration Diltiazem HCl 180 mg 07/13/25 09:00 07/15/25 08:55 Diltiazem Hcl Cd 180 Mg Cap.24hr PO Not Given DAILY DEVAUGHN Dorzolamide/Timolol 1 drop 07/13/25 09:00 07/15/25 08:54 Dorzolamide/Timolol Ophth Lizzie 10 Ml Bottle EACH EYE 1 drop TID DEVAUGHN Administration Gabapentin 300 mg 07/12/25 21:00 07/15/25 08:54 Gabapentin 300 Mg Capsule PO 300 mg BID DEVAUGHN Administration Meropenem 1 gm/ Sodium 100 mls @ 200 mls/hr 07/13/25 00:00 07/15/25 08:51 Chloride IVPB 200 mls/hr Q8H DEVAUGHN Administration Levetiracetam 500 mg 07/12/25 21:00 07/15/25 08:56 Levetiracetam 500 Mg Tablet PO 500 mg Q12HR DEVAUGHN Administration Linaclotide 290 mcg 07/13/25 09:00 07/15/25 08:56 Linaclotide 145 Mcg Capsule PO 290 mcg DAILY DEVAUGHN Administration Loratadine 10 mg 07/13/25 09:00 07/15/25 08:56 Loratadine 10 Mg Tablet PO 10 mg DAILY DEVAUGHN Administration Meclizine HCl 25 mg 07/12/25 18:33 Meclizine Hcl 25 Mg Tablet PO TID PRN dizziness Mirtazapine 7.5 mg 07/12/25 21:00 07/14/25 21:29 Mirtazapine 7.5 Mg Tablet PO 7.5 mg HS DEVAUGHN Administration Nitroglycerin 0.4 mg 07/12/25 18:33 Nitroglycerin Sl 0.4 Mg Tablet SUBLINGUAL Q5M PRN Chest Pain Oxycodone HCl 5 mg 07/12/25 18:33 07/15/25 09:09 Oxycodone Hcl (*Crx) 5 Mg Tab Ir PO 5 mg BID PRN Administration pain 7-10 Pantoprazole Sodium 40 mg 07/13/25 09:00 07/15/25 08:56 Pantoprazole 40 Mg Tablet PO 40 mg DAILY DEVAUGHN Administration Paroxetine HCl 40 mg 07/13/25 09:00 07/15/25 08:54 Paroxetine 20 Mg Tablet PO 40 mg DAILY DEVAUGHN Administration Fluticasone/Salmeterol 2 puff 07/12/25 20:00 07/15/25 07:52 Fluticasone/Salmeterol 115-21 Mcg Inhaler 1 Puff INHALATION 2 puff Q12HRT DEVAUGHN Administration Sertraline HCl 25 mg 07/13/25 09:00 07/15/25 08:55 Sertraline Hcl 25 Mg Tablet PO 25 mg DAILY DEVAUGHN Administration Sertraline HCl 50 mg 07/13/25 09:00 07/15/25 08:56 Sertraline Hcl 50 Mg Tablet PO 50 mg DAILY DEVAUGHN Administration Sucralfate 1 gm 07/12/25 21:00 07/15/25 08:54 Sucralfate 1 Gm Tablet PO 1 gm QID DEVAUGHN Administration Trazodone HCl 50 mg 07/12/25 21:00 07/12/25 20:23 Trazodone Hcl 50 Mg Tablet PO 50 mg HS DEVAUGHN Administration Radiology Results: ITS Impressions Abdomen/Pelvis CT 07/12/25 14:23 IMPRESSION: 1. Thickening of the de la o of the rectum. Differential includes incomplete rectal wall distention, proctitis or mass. 2. There is a left hip arthroplasty with extensive adjacent bony irregularity. Differential includes but is not limited to postsurgical change, loosening, trauma of indeterminate or infection. Correlate clinically. If of concern, consider an MRI for further assessment. 3. Nonspecific 6.2 x 2.5 cm fluid collection lateral to the proximal left femur. Correlate clinically. 4. There are a few nonobstructing left renal stones. There is a 6 mm nonobstructing calcification in the proximal left ureter. No hydronephrosis at this time. 5. There is a 1.0 cm low density lesion in the tail of the pancreas. The finding was not seen in the CT study from 05/10/2024. A pancreatic mass CT is recommended Head CT 07/12/25 14:33 IMPRESSION: 1. No acute intracranial abnormality. Chest X-Ray 07/12/25 17:02 IMPRESSION: 1. No acute pulmonary process identified. Abdomen X-Ray 07/13/25 16:59 IMPRESSION: Redemonstration of a calculus within the proximal left ureter, as detailed above. MRCP 07/14/25 15:50 IMPRESSION: 1. 11 mm simple appearing cystic lesion in the tail of the pancreas with tiny ductal communication to the main pancreatic duct which could represent either a pseudocyst/dilated sidebranch related to chronic pancreatitis or intraductal papillary mucinous neoplasm (IPMN). No abnormal enhancing soft tissue component. This appears to been subtly present on CT studies dating back to 11/20/2023. Re commend six-month follow-up pre and postcontrast MRI. 2. Very small bilateral pleural effusions.
[2025-07-15 12:09] LABS: H. pylori Stool Ag, EIA Negative (Negative)
--- NOTE | 2025-07-15 13:15 | P.PNIM_ITS ---
Progress Note: A&P Assessment and Plan (1) Kidney stone: Code(s): N20.0 - Calculus of kidney Status: Acute Assessment and Plan: There are a few nonobstructing left renal stones. There is a 6 mm nonobstructing calcification in the proximal left ureter. No hydronephrosis at this time. Patient complained of abdominal pain on admission. * Urology consulted * F/U KUB still nonobstructing * antiemetics * strain all urine * pain management * urology plans to defer any surgical intervention during infectious phase unless stone becomes obstructive (2) Urinary tract infection: Qualifiers: Urinary tract infection type: acute cystitis Hematuria presence: without hematuria Qualified Code(s): N30.00 - Acute cystitis without hematuria Code(s): N39.0 - Urinary tract infection, site not specified Status: Acute Assessment and Plan: UA with 1+ blood, positive nitrates, 2+ LE, >100 WBC, 3+ bacteria, previous cultures with ESBL E coli * continue meropenem * s/p IVF * Culture and sensitivity pending * Will need to continue IV ABX previous ESBL waiting on UA sensitivities culture (3) Abnormal CT scan, colon: Code(s): R93.3 - Abnormal findings on diagnostic imaging of other parts of digestive tract Status: Acute Assessment and Plan: There is a 1.0 cm low density lesion in the tail of the pancreas. The finding was not seen in the CT study from 05/10/2024. A pancreatic mass CT is recommended. Thickening of the de la o of the rectum. Differential includes incomplete rectal wall distention, proctitis or mass. * GI consulted * MRCP. * Patient is having diarrhea. * Ordered stool studies. * C diff negative * IBS patient currently on Linzess (4) Pancreatic mass: Code(s): K86.89 - Other specified diseases of pancreas Status: Acute Assessment and Plan: CT abdomen showing a low-density lesion at the tail the pancreas with elevated alk-phos * GI consulted * MRCP benign cyst (5) Seizure: Code(s): R56.9 - Unspecified convulsions Status: Acute Assessment and Plan: * Continue Keppra (6) COPD (chronic obstructive pulmonary disease): Code(s): J44.9 - Chronic obstructive pulmonary disease, unspecified Status: Acute Assessment and Plan: * Continue home inhaler (7) Atrial fibrillation: Code(s): I48.91 - Unspecified atrial fibrillation Status: Acute Assessment and Plan: * Continue Eliquis and diltiazem (8) Gastritis: Qualifiers: Gastritis type: superficial Chronicity: chronic Gastritis bleeding: without bleeding Qualified Code(s): K29.30 - Chronic superficial gastritis without bleeding Code(s): K29.70 - Gastritis, unspecified, without bleeding Status: Acute Assessment and Plan: * continue Carafate and Protonix daily L Plan Code status: Full code per patient DVT prophylaxis: Eliquis Stress ulcer prophylaxis: Protonix 40 daily PT/OT notes: return to [facility] Disposition: patient was admitted to the medical unit continues admission plans for MRCP today for further evaluation of abdominal pain with possible pancreatic lesion continue with symptomatic management plan to return back to [facility] at discharge once medically stable patient will continue hospitalization pending final UA culture and sensitivity due to previous ESBL history.. Time Spent With Patient Time with patient: 15 - 25 minutes Subjective Date/time seen: 07/15/25 13:15 Interval history: 75-year-old female past medical history of AFib, diabetes, COPD, hypertension presents the emergency room with abdominal pain. 07/15/2025: Patient still with intermittent abdominal pain MRCP showed benign cyst likely due to patient's chronic IBS GI signed sign off this time and can follow up out patient, patient follow-up KUB and CT with no hydronephrosis or obstruction initial plan was to discharge back however patient's urine culture has resulted patient with previous ESBL requiring meropenem will need to continue Hospitalization until resulted with sensitivities Review of Systems Review of Systems: 12 systems were reviewed and are negativ e except for as per HPI. All systems reviewed & are unremarkable except as noted in HPI and below Exam Narrative: General: NAD, obese Eyes: EOMI ENT: neck supple Cardiovascular: RRR Respiratory: Clear to auscultation, respirations even and unlabored on RA Gastrointestinal: Soft, midline tenderness, BS present all 4 quadrants Genitourinary: no suprapubic tenderness Musculoskeletal: No edema, left hip surgical scar with some edema, no erythema or drainage noted. Skin: warm, dry Neuro: Moves all extremities. Alert and oriented x2 Psych: tearful due to ABD pain appropriate Objective Data Vital Signs Vital Signs: Vital Signs - 24 hr 07/14/25 16:04 07/14/25 20:00 07/14/25 20:00 Temperature Pulse Rate 51 L 57 L Respiratory Rate Blood Pressure Pulse Oximetry Oxygen Delivery Room Air 07/14/25 20:01 07/14/25 20:02 07/14/25 22:00 Temperature 97.6 F Pulse Rate 55 L 56 L Respiratory Rate 20 18 Blood Pressure 108/56 L Pulse Oximetry 92 94 Oxygen Delivery Room Air 07/15/25 00:00 07/15/25 04:00 07/15/25 06:00 Temperature 97.8 F Pulse Rate 56 L 47 L 59 L Respiratory Rate 16 Blood Pressure 111/61 Pulse Oximetry 92 Oxygen Delivery 07/15/25 07:55 07/15/25 08:03 07/15/25 08:56 Temperature Pulse Rate 70 48 L 48 L Respiratory Rate 20 20 Blood Pressure Pulse Oximetry 92 Oxygen Delivery Room Air 07/15/25 12:03 Temperature Pulse Rate 60 Respiratory Rate Blood Pressure Pulse Oximetry Oxygen Delivery Intake/Output Intake/Output: Intake & Output 07/12/25 07/13/25 07/14/25 07/15/25 23:59 23:59 23:59 23:59 Intake Total 1000 1950 780 900 Output Total 1200 600 100 Balance 1000 750 180 800 Meds/Results Medications: Active Medications Generic Name Dose Route Start Last Admin Trade Name Freq PRN Reason Stop Dose Admin Albuterol 2 puff 07/12/25 18:33 Albuterol Sulfate (*Sp) Aerosol 1 Puff INHALATION QIDRT PRN Shortness Of Breath Apixaban 5 mg 07/12/25 21:00 07/15/25 08:54 Apixaban 5 Mg Tablet PO 5 mg Q12HR DEVAUGHN Administration Artificial Tears 1 drop 07/12/25 21:00 07/14/25 21:29 Artificial Tears Ophth Soln 15 Ml Bottle EACH EYE 1 drop HS DEVAUGHN Administration Aspirin 81 mg 07/13/25 09:00 07/15/25 08:54 Aspirin 81 Mg Chewable Tablet PO 81 mg DAILY DEVAUGHN Administration Atorvastatin Calcium 10 mg 07/12/25 21:00 07/14/25 21:29 Atorvastatin 10 Mg Tablet PO 10 mg HS DEVAUGHN Administration Buspirone HCl 15 mg 07/12/25 21:00 07/15/25 12:50 Buspirone Hcl 5 Mg Tablet PO 15 mg TID DEVAUGHN Administration Diltiazem HCl 180 mg 07/13/25 09:00 07/15/25 08:55 Diltiazem Hcl Cd 180 Mg Cap.24hr PO Not Given DAILY DEVAUGHN Dorzolamide/Timolol 1 drop 07/13/25 09:00 07/15/25 12:52 Dorzolamide/Timolol Ophth Lizzie 10 Ml Bottle EACH EYE 1 drop TID DEVAUGHN Administration Gabapentin 300 mg 07/12/25 21:00 07/15/25 08:54 Gabapentin 300 Mg Capsule PO 300 mg BID DEVAUGHN Administration Meropenem 1 gm/ Sodium 100 mls @ 200 mls/hr 07/13/25 00:00 07/15/25 09:20 Chloride IVPB Infused Q8H DEVAUGHN Infusion Levetiracetam 500 mg 07/12/25 21:00 07/15/25 08:56 Levetiracetam 500 Mg Tablet PO 500 mg Q12HR DEVAUGHN Administration Linaclotide 290 mcg 07/13/25 09:00 07/15/25 08:56 Linaclotide 145 Mcg Capsule PO 290 mcg DAILY DEVAUGHN Administration Loratadine 10 mg 07/13/25 09:00 07/15/25 08:56 Loratadine 10 Mg Tablet PO 10 mg DAILY DEVAUGHN Administration Meclizine HCl 25 mg 07/12/25 18:33 Meclizine Hcl 25 Mg Tablet PO TID PRN dizziness Mirtazapine 7.5 mg 07/12/25 21:00 07/14/25 21:29 Mirtazapine 7.5 Mg Tablet PO 7.5 mg HS DEVAUGHN Administration Nitroglycerin 0.4 mg 07/12/25 18:33 Nitroglycerin Sl 0.4 Mg Tablet SUBLINGUAL Q5M PRN Chest Pain Oxycodone HCl 5 mg 07/12/25 18:33 07/15/25 09:09 Oxycodone Hcl (*Crx) 5 Mg Tab Ir PO 5 mg BID PRN Administration pain 7-10 Pantoprazole Sodium 40 mg 07/13/25 09:00 07/15/25 08:56 Pantoprazole 40 Mg Tablet PO 40 mg DAILY DEVAUGHN Administration Paroxetine HCl 40 mg 07/13/25 09:00 07/15/25 08:54 Paroxetine 20 Mg Tablet PO 40 mg DAILY DEVAUGHN Administration Fluticasone/Salmeterol 2 puff 07/12/25 20:00 07/15/25 07:52 Fluticasone/Salmeterol 115-21 Mcg Inhaler 1 Puff INHALATION 2 puff Q12HRT DEVAUGHN Administration Sertraline HCl 25 mg 07/13/25 09:00 07/15/25 08:55 Sertraline Hcl 25 Mg Tablet PO 25 mg DAILY DEVAUGHN Administration Sertraline HCl 50 mg 07/13/25 09:00 07/15/25 08:56 Sertraline Hcl 50 Mg Tablet PO 50 mg DAILY DEVAUGHN Administration Sucralfate 1 gm 07/12/25 21:00 07/15/25 12:50 Sucralfate 1 Gm Tablet PO 1 gm QID DEVAUGHN Administration Trazodone HCl 50 mg 07/12/25 21:00 07/12/25 20:23 Trazodone Hcl 50 Mg Tablet PO 50 mg HS DEVAUGHN Administration Radiology Results: ITS Impressions Head CT 07/12/25 14:33 IMPRESSION: 1. No acute intracranial abnormality. Chest X-Ray 07/12/25 17:02 IMPRESSION: 1. No acute pulmonary process identified. MRCP 07/14/25 15:50 IMPRESSION: 1. 11 mm simple appearing cystic lesion in the tail of the pancreas with tiny ductal communication to the main pancreatic duct which could represent either a pseudocyst/dilated sidebranch related to chronic pancreatitis or intraductal papillary mucinous neoplasm (IPMN). No abnormal enhancing soft tissue component. This appears to been subtly present on CT studies dating back to 11/20/2023. Recommend six-month follow-up pre and postcontrast MRI. 2. Very small bilateral pleural effusions. Abdomen X-Ray 07/15/25 11:37 Impression: 1: Left nephrolithiasis. Abdomen/Pelvis CT 07/15/25 12:05 IMPRESSION: 1. Grossly stable calcification in the proximal left ureter. No hydronephrosis identified this time. Please see above for full details Labs Labs: Laboratory Results - last 24 hr 07/13/25 15:13 Stool H.pylori Ag (EIA) Negative Quality VTE Prophylaxis VTE prophylaxis: pharmacologic ordered -Patient's previous records reviewed on admission -ER notes reviewed in detail on admission -discussed all findings and current treatment plan with patient/Family/POA -Consultations reviewed for recommendations -Patient's disposition for safe discharge discussed with case briefer Dictation performed by [employer] direct speech recognition software, therefore test engineer nuclear equipment variants and typographical errors may occur. Hospitalist MIPS Advance Care Plan I have confirmed that the patient's Advanced Care Plan is present, code status is documented, or surrogate decision maker is listed in patient medical record.: Yes Medication Reconciliation I have utilized all available resources to obtain, update and review the patients current medications (includes all prescriptions, OTC, herbals, cannabis, and nutritional supplements).: Yes The patient is not eligible for med reconciliation; the patient is in a emergent medical situation where delaying treatment would jeopardize the patients health.: No
[2025-07-15] MEDS: MIRTAZAPINE 7.5 MG TABLET PO (21:04)
[2025-07-15] MEDS: ATORVASTATIN 10 MG TABLET PO (21:04)
[2025-07-15] MEDS: ARTIFICIAL TEARS OPHTH SOLN 15 ML BOTTLE 1 DROP EACH EYE (21:05)
[2025-07-16] VITALS (8 sets, daily range): BP systolic 124–129; BP diastolic 63–67; PULSE 60–79; RESP 16–18; TEMP 36.1–36.2; O2SAT 93–100
[2025-07-16] MEDS: MEROPENEM 1 GM in SODIUM CHLORIDE 0.9% IV 100 ML 200 ML IVPB (08:04)
[2025-07-16] MEDS: FLUTICASONE/SALMETEROL 115-21 MCG INHALER 1 PUFF 2 PUFF INHALATION (08:11)
[2025-07-16] MEDS: LINACLOTIDE 145 MCG CAPSULE 290 MCG PO (09:12)
[2025-07-16] MEDS: SERTRALINE HCL 25 MG TABLET PO (09:12)
[2025-07-16] MEDS: dilTIAZem HCL CD 180 MG CAP.24HR PO (09:12)
[2025-07-16] MEDS: LORATADINE 10 MG TABLET PO (09:13)
[2025-07-16] MEDS: SUCRALFATE 1 GM TABLET PO ×2 (09:13→12:15)
[2025-07-16] MEDS: GABAPENTIN 300 MG CAPSULE PO (09:13)
[2025-07-16] MEDS: SERTRALINE HCL 50 MG TABLET PO (09:13)
[2025-07-16] MEDS: PANTOPRAZOLE 40 MG TABLET PO (09:13)
[2025-07-16] MEDS: APIXABAN 5 MG TABLET PO (09:13)
[2025-07-16] MEDS: ASPIRIN 81 MG CHEWABLE TABLET PO (09:14)
[2025-07-16] MEDS: DORZOLAMIDE/TIMOLOL OPHTH SOL 10 ML BOTTLE 1 DROP EACH EYE ×2 (09:14→12:15)
--- NOTE | 2025-07-16 09:24 | P.PNOP_ITS ---
Progress Note: A&P Assessment and Plan (1) History of left hip replacement: Code(s): Z96.642 - Presence of left artificial hip joint Status: Acute Assessment and Plan: CT scan of the abdomen/pelvis today reveals a left hip arthroplasty with extensive adjacent bony irregularity and a nonspecific 6.2 x 2.5 cm fluid collection lateral to the proximal left femur. This is new from March 2025. Radiographs of the left hip from September of 2024 reveal redemonstration of extra-articular bone formation, disorganized and chronic appearing, indeterminate lucency medial and caudal to what would be the lesser trochanter and indeterminate lucency cranial to the acetabular cup is also noted. Based on medical records and previous imaging, the patient has had chronic postoperative complications from a left total hip arthroplasty with subsequent wound for which is currently well healed. On exam, there continues to be no redness, warmth or swelling around the left hip. Further discussion with the patient today confirms that she has established care for this hip and recurrent infections for which she sees a physician in [place]. Recommend close follow-up with her physician upon discharge. No surgical intervention needs indicated during this hospitalization. We will sign off for now. Please feel free to contact our service if other orthopedic needs arise. (2) Lower abdominal pain: Code(s): R10.30 - Lower abdominal pain, unspecified Status: Acute Plan Reviewed history, exam, radiographs and current labs with attending MD and covering surgeon, Dr. Hanson, who agrees with current plan as indicated above. No further recommendations from Dr. Hanson at this time. Subjective Subjective Date/Time Seen: 07/16/25 09:24 Interval history: Patient is sitting up in bed today. Denies left hip pain. Does report more history regarding her left hip in chronic recurrent infections for which she is actively being treated by Dr. Powell in [place], [place]. Review of Systems Review of Systems: All systems reviewed & are unremarkable except as noted in HPI and below Exam Const: General: comfortable and no acute distress HENMT: Mouth: Yes moist mucous membranes Eyes: General: appearance normal, both eyes and all related structures Sclera: sclerae normal Pupils: Equal, round and reactive pupils present Neck: Neck: supple and no JVD Resp: Effort & Inspection: normal respiratory effort Auscultation: clear to auscultation bilaterally Cardio: Rate: regular rate Rhythm: regular rhythm Other: A-fib Hx Urinary Catheter: Urinary Catheter: patent and draining (purewick to suction) Skin: General skin exam: normal color Wounds: no wounds Neuro: Speech: normal speech Motor exam (neuro): 5/5 motor strength present throughout Sensory Exam: normal sensation Extrem: General: abnormal to inspection Left lower extremity: hip/thigh Details: tenderness Location: of the hip Location: laterally (mild ), normal ROM (No pain with IR/ER ) and other (healed, closed incisional wound on the lateral hip ); no swelling, no abrasions, no lacerations, no crepitus and no unusual warmth, knee Details: normal to inspection, lower leg Details: normal to inspection, ankle Details: abnormal to inspection (foot drop, stiffness ) and foot (foot drop ) Details: vascular exam Details: dorsalis pedis pulse present; motor-sensory exam not performed Psych: Mental Status: mental status grossly abnormal (confusion ) Affect: normal affect Objective Data Vital Signs Vital Signs: Vital Signs - 24 hr 07/15/25 12:03 07/15/25 14:00 07/15/25 16:03 Temperature 36.4 C Pulse Rate 60 64 60 Respiratory Rate 16 Blood Pressure 118/58 L Pulse Oximetry 97 Oxygen Delivery 07/15/25 20:00 07/15/25 20:00 07/15/25 21:44 Temperature Pulse Rate 65 61 Respiratory Rate 18 Blood Pressure Pulse Oximetry 92 Oxygen Delivery Room Air Room Air 07/15/25 21:44 07/15/25 22:00 07/16/25 00:00 Temperature 36.0 C L Pulse Rate 61 64 66 Respiratory Rate 18 18 Blood Pressure 123/63 Pulse Oximetry 94 Oxygen Delivery 07/16/25 04:00 07/16/25 06:00 07/16/25 08:13 Temperature 36.2 C L Pulse Rate 61 69 66 Respiratory Rate 18 16 Blood Pressure 129/67 Pulse Oximetry 93 Oxygen Delivery Intake/Output Intake/Output: Intake & Output 07/13/25 07/14/25 07/15/25 07/16/25 23:59 23:59 23:59 23:59 Intake Total 0364 981 2147 300 Output Total 1200 600 500 600 Balance 204 590 6030 -300 Meds/Results Medications: Active Medications Generic Name Dose Route Start Last Admin Trade Name Freq PRN Reason Stop Dose Admin Albuterol 2 puff 07/12/25 18:33 Albuterol Sulfate (*Sp) Aerosol 1 Puff INHALATION QIDRT PRN Shortness Of Breath Apixaban 5 mg 07/12/25 21:00 07/16/25 09:13 Apixaban 5 Mg Tablet PO 5 mg Q12HR DEVAUGHN Administration Artificial Tears 1 drop 07/12/25 21:00 07/15/25 21:05 Artificial Tears Ophth Soln 15 Ml Bottle EACH EYE 1 drop HS DEVAUGHN Administration Aspirin 81 mg 07/13/25 09:00 07/16/25 09:14 Aspirin 81 Mg Chewable Tablet PO 81 mg DAILY DEVAUGHN Administration Atorvastatin Calcium 10 mg 07/12/25 21:00 07/15/25 21:04 Atorvastatin 10 Mg Tablet PO 10 mg HS DEVAUGHN Administration Buspirone HCl 15 mg 07/12/25 21:00 07/16/25 09:13 Buspirone Hcl 5 Mg Tablet PO 15 mg TID DEVAUGHN Administration Diltiazem HCl 180 mg 07/13/25 09:00 07/16/25 09:12 Diltiazem Hcl Cd 180 Mg Cap.24hr PO 180 mg DAILY DEVAUGHN Administration Dorzolamide/Timolol 1 drop 07/13/25 09:00 07/16/25 09:14 Dorzolamide/Timolol Ophth Lizzie 10 Ml Bottle EACH EYE 1 drop TID DEVAUGHN Administration Gabapentin 300 mg 07/12/25 21:00 07/16/25 09:13 Gabapentin 300 Mg Capsule PO 300 mg BID DEVAUGHN Administration Levetiracetam 500 mg 07/12/25 21:00 07/16/25 09:13 Levetiracetam 500 Mg Tablet PO 500 mg Q12HR DEVAUGHN Administration Levofloxacin 750 mg 07/16/25 13:00 Levofloxacin 750 Mg Tablet PO 07/16/25 13:01 ONCE ONE Lidocaine 1 patch 07/16/25 21:00 Lidocaine 5% Patch TRANSDERM HS DEVAUGHN Linaclotide 290 mcg 07/13/25 09:00 07/16/25 09:12 Linaclotide 145 Mcg Capsule PO 290 mcg DAILY DEVAUGHN Administration Loratadine 10 mg 07/13/25 09:00 07/16/25 09:13 Loratadine 10 Mg Tablet PO 10 mg DAILY DEVAUGHN Administration Meclizine HCl 25 mg 07/12/25 18:33 Meclizine Hcl 25 Mg Tablet PO TID PRN dizziness Mirtazapine 7.5 mg 07/12/25 21:00 07/15/25 21:04 Mirtazapine 7.5 Mg Tablet PO 7.5 mg HS DEVAUGHN Administration Nitroglycerin 0.4 mg 07/12/25 18:33 Nitroglycerin Sl 0.4 Mg Tablet SUBLINGUAL Q5M PRN Chest Pain Oxycodone HCl 5 mg 07/12/25 18:33 07/15/25 16:24 Oxycodone Hcl (*Crx) 5 Mg Tab Ir PO 5 mg BID PRN Administration pain 7-10 Pantoprazole Sodium 40 mg 07/13/25 09:00 07/16/25 09:13 Pantoprazole 40 Mg Tablet PO 40 mg DAILY DEVAUGHN Administration Paroxetine HCl 40 mg 07/13/25 09:00 07/16/25 09:12 Paroxetine 20 Mg Tablet PO 40 mg DAILY DEVAUGHN Administration Fluticasone/Salmeterol 2 puff 07/12/25 20:00 07/16/25 08:11 Fluticasone/Salmeterol 115-21 Mcg Inhaler 1 Puff INHALATION 2 puff Q12HRT DEVAUGHN Administration Sertraline HCl 25 mg 07/13/25 09:00 07/16/25 09:12 Sertraline Hcl 25 Mg Tablet PO 25 mg DAILY DEVAUGHN Administration Sertraline HCl 50 mg 07/13/25 09:00 07/16/25 09:13 Sertraline Hcl 50 Mg Tablet PO 50 mg DAILY DEVAUGHN Administration Sucralfate 1 gm 07/12/25 21:00 07/16/25 09:13 Sucralfate 1 Gm Tablet PO 1 gm QID DEVAUGHN Administration Trazodone HCl 50 mg 07/12/25 21:00 07/12/25 20:23 Trazodone Hcl 50 Mg Tablet PO 50 mg HS DEVAUGHN Administration Radiology Results: ITS Impressions Head CT 07/12/25 14:33 IMPRESSION: 1. No acute intracranial abnormality. Chest X-Ray 07/12/25 17:02 IMPRESSION: 1. No acute pulmonary process identified. MRCP 07/14/25 15:50 IMPRESSION: 1. 11 mm simple appearing cystic lesion in the tail of the pancreas with tiny ductal communication to the main pancreatic duct which could represent either a pseudocyst/dilated sidebranch related to chronic pancreatitis or intraductal papillary mucinous neoplasm (IPMN). No abnormal enhancing soft tissue component. This appears to been subtly present on CT studies dating back to 11/20/2023. Recommend six-month follow-up pre and postcontrast MRI. 2. Very small bilateral pleural effusions. Abdomen X-Ray 07/15/25 11:37 Impression: 1: Left nephrolithiasis. Abdomen/Pelvis CT 07/15/25 12:05 IMPRESSION: 1. Grossly stable calcification in the proximal left ureter. No hydronephrosis identified this time. Please see above for full details Labs Labs: Laboratory Results - last 24 hr 07/13/25 15:13 Stool H.pylori Ag (EIA) Negative
[2025-07-16 14:08] LABS: Pancreatic Elastase, Fecal >800 (>200)
[2025-07-16 15:09] LABS: Calprotectin, Fecal 213 ug/g (0-120)
--- NOTE | 2025-07-16 15:33 | P.DS_ITS ---
DS: Admitting Diagnosis Discharge Date 07/16/25 Admitting Diagnosis Gastritis/calculus of the kidney/UTI/pancreatic mass DS: Discharge Diagnosis Discharge Diagnosis (1) Kidney stone: Code(s): N20.0 - Calculus of kidney Status: Acute (2) Urinary tract infection: Qualifiers: Hematuria presence: without hematuria Urinary tract infection type: acute cystitis Qualified Code(s): N30.00 - Acute cystitis without hematuria Code(s): N39.0 - Urinary tract infection, site not specified Status: Acute (3) Abnormal CT scan, colon: Code(s): R93.3 - Abnormal findings on diagnostic imaging of other parts of digestive tract Status: Acute (4) Pancreatic mass: Code(s): K86.89 - Other specified diseases of pancreas Status: Acute (5) Seizure: Code(s): R56.9 - Unspecified convulsions Status: Acute (6) COPD (chronic obstructive pulmonary disease): Code(s): J44.9 - Chronic obstructive pulmonary disease, unspecified Status: Acute (7) Atrial fibrillation: Code(s): I48.91 - Unspecified atrial fibrillation Status: Acute (8) Gastritis: Qualifiers: Chronicity: chronic Gastritis bleeding: without bleeding Gastritis type: superficial Qualified Code(s): K29.30 - Chronic superficial gastritis without bleeding Code(s): K29.70 - Gastritis, unspecified, without bleeding Status: Acute DS: Summary Hospital Course Reason for hospitalization: Gastritis/calculus of the kidney/UTI/pancreatic mass Hospital Course: Admission: Patient was a 75-year-old female past medical history of AFib, diabetes, COPD, hypertension presents the emergency room with abdominal pain. She states that is being ongoing for few days shows as nausea and vomiting. Patient states that the pain started in her back and went to her abdomen and down into her pelvis. Patient denies fevers or chills. In the ED: Lab work shows leukocytosis at 11, carbon dioxide 31, alkaline phos of 141, UA shows positive for nitrates, 2+ leukocyte esterase, over 100 wbc's, 3+ bacteria. Chest x-ray shows no acute process. Head CT shows no acute process. Thickening of the rectal de la o, left kidney stones 6 mm nonobstructing calcification left ureter, 1 cm lesion of tail pancreas. Patient had reported that the edge findings on her left hip arthroplasty and proximal left femur are chronic and she has no acute pain there. Hospital Course: Patient was admitted to the medical unit with consult to GI, orthopedics, and urology for further evaluation. during patient's hospitalization she did undergo an MRCP which showed a benign small cyst at the distal pancreas with pancreatic cancer being ruled out by GI regarding her multiple chronic issues with bowel habits likely IBS with alternating between constipation and diarrhea she was continued on her Linzess and can follow up with GI outpatient had previous colonoscopy and follow-up 1 scheduled in 5 years. [facility] which follow-up imaging continued daily showed no further obstruction urology recommended to treat her acute urinary infection and plan for outpatient lithotripsy after infectious process resolved. patient was made aware if she experiences severe left flank pain, becomes febrile or renal function worsens to seek medical attention for follow-up evaluation if unable to perform lithotripsy at that time may require a ureteroscopy with stent placement. patient continued treatment for her urinary tract infection on IV meropenem and completed her antibiotic therapy x5 days while hospitalized for cultures and sensitivities which grew E coli ESBL. patient with evidence of gastritis was continued on her PPI and initiated on Carafate with improvement and able to tolerate food. patient's CT scan of abdomen pelvis had also revealed a left hip arthroplasty with extensive adjacent bony irregularity and fluid collection lateral to the proximal left femur orthopedics was consulted after their review and evaluation this appears to be chronic postoperative complications and so sequential wound was currently healing well and after further discussion with the patient she confirmed that she already has established care for her hip and recurrent infections for which she sees a physician in [place]. Recommended close follow-up with her physician upon discharge with noo surgical intervention needs indicated during this hospitalization. patient was seen and assessed day discharge had long discussion with patient regarding follow-up outpatient and answered all questions for patient to her satisfaction and understanding, patient agreed and acknowledged with discharge plan. Patient was then discharged back to her [facility] facility. Status at Discharge Functional status at discharge: wheelchair bound Overall status at discharge: patient is back to baseline Time Spent with Patient Time attestation: Total time spent providing and/or coordinating discharge services: Time spent: Greater than 30 minutes Exam Narrative: General: NAD, obese Eyes: EOMI ENT: neck supple Cardiovascular: RRR Respiratory: Clear to auscultation, respirations even and unlabored on RA Gastrointestinal: Soft, midline tenderness, BS present all 4 quadrants Genitourinary: no suprapubic tenderness Musculoskeletal: No edema, left hip surgical scar with some edema, no erythema or drainage noted. Skin: warm, dry Neuro: Moves all extremities. Alert and oriented x2 Psych: tearful due to ABD pain appropriate DS: Data Data Completed and Pending Labs on day of discharge: Labs from last 24 hours 07/13/25 15:13 Stool Calprotectin 213 H Stool Pancreat Elastase >800 Imaging Radiologist's impression: Radiology Results: ITS Impressions Head CT 07/12/25 14:33 IMPRESSION: 1. No acute intracranial abnormality. Chest X-Ray 07/12/25 17:02 IMPRESSION: 1. No acute pulmonary process identified. MRCP 07/14/25 15:50 IMPRESSION: 1. 11 mm simple appearing cystic lesion in the tail of the pancreas with tiny ductal communication to the main pancreatic duct which could represent either a pseudocyst/dilated sidebranch related to chronic pancreatitis or intraductal papillary mucinous neoplasm (IPMN). No abnormal enhancing soft tissue component. This appears to been subtly present on CT studies dating back to 11/20/2023. Recommend six-month follow-up pre and postcontrast MRI. 2. Very small bilateral pleural effusions. Abdomen X-Ray 07/15/25 11:37 Impression: 1: Left nephrolithiasis. Abdomen/Pelvis CT 07/15/25 12:05 IMPRESSION: 1. Grossly stable calcification in the proximal left ureter. No hydronephrosis identified this time. Discharge Plan Discharge Attending physician on discharge: Matthew Birmingham Consulting providers: Cecille Valladares; Brenda Ramírez; Rosie Man; Marshall Caro Discharging Clinician: Rosie Man Anticipated Discharge Date/Time: 07/15/25 12:53 Patient Disposition: SNF Activity: as tolerated Diet: heart healthy Discharge Instructions: 1). IBS * May follow-up with GI outpatient infectious cause was ruled out 2). Gastritis * Continue taking Protonix and carafate 3). Calculus/UTI Stone is nonobstructive on last CT scan. * Patient will need monitoring of renal function if worsens follow-up scan for evaluation of stone * You completed your Antibiotic therapy for your UTI while hospitalized no further antibiotics needed at this time * Urology prefer outpatient lithotripsy once you get over acute UTI and symptoms. However, if you becomes febrile, creatinine rising, or continues severe left flank pain then you will need to seek medical attention and contact urology. Your MRCP showed: 11 mm simple appearing cystic lesion in the tail of the pancreas with tiny ductal communication to the main pancreatic duct which could represent either a pseudocyst/dilated sidebranch related to chronic pancreatitis or intraductal papillary mucinous neoplasm (IPMN). No abnormal enhancing soft tissue component. This appears to been subtly present on CT studies dating back to 11/20/2023. Recommend six-month follow-up pre and postcontrast MRI. How can you care for yourself at home? ? Keep track of any new symptoms or changes in your symptoms. ? Rest until you feel better. ? Be safe with medicines. Take your medicines exactly as prescribed. Call your doctor if you think you are having a problem with your medicine. ? Do not drive after taking a prescription pain medicine. ? Ensure to follow-up with primary care physician as indicated and provide [facility] ed medication list provided to you at discharge. When should you call for help? Call 911 anytime you think you may need emergency care. For example, call if: ? You passed out (lost consciousness). Call your doctor now or seek immediate medical care if: ? You have new symptoms like fever, difficulty breathing, Chest pain, vomiting, or rash. ? You have new or different pain. ? You are confused and are having trouble thinking clearly. ? Your symptoms are getting worse. Watch closely for changes in your health, and be sure to contact your doctor if: ? You do not get better as expected. Patient Instructions: Antibiotic Form, Gastritis (DC), Irritable Bowel Syndrome (DC) Patient Language: Mongolian Stand Alone Forms: General Discharge Information Follow-up/Referrals: Marshall Caro MD [Physician] - Call for Appointment Salomón Perales MD [Physician] - Call for Appointment Discharge Medications: New lidocaine [Lidoderm] 5 % Adhesive Patch,Medicated 1 patch transdermal HS Qty: 10 0RF Continued diltiazem HCl [Tiazac] 180 mg Capsule,Extended Release 24 Hr 180 mg PO DAILY atorvastatin [Lipitor] 10 mg Tablet 10 mg PO HS paroxetine HCl 20 mg tablet 40 mg PO DAILY aspirin 81 mg tablet,chewable 81 mg PO DAILY albuterol sulfate [ProAir HFA] 90 mcg/actuation Hfa Aerosol Inhaler 2 inh INHALATION QID PRN (Reason: Shortness Of Breath) acetaminophen [Tylenol] 325 mg Capsule 650 mg PO Q6H PRN (Reason: Pain (Scale Score 1-3)) buspirone 5 mg tablet 15 mg PO TID Rx Instructions: 0900, 1300, 2100 Eliquis 5 mg tablet 5 mg PO BID guaifenesin 100 mg/5 mL Liquid 200 mg PO Q6H PRN (Reason: Cough) nitroglycerin 0.4 mg tablet, sublingual 0.4 mg sublingual Q5M PRN (Reason: Chest Pain) Rx Instructions: dissolve 1 ta under tongue PRN may repeat Q5 min x 3 Glucagon Emergency Kit (human) 1 mg recon soln 1 mg IM Q15M PRN (Reason: Hypoglycemia) ondansetron 4 mg tablet,disintegrating 4 mg PO Q8H PRN (Reason: Nausea And Vomiting) naloxone 4 mg/actuation spray,non-aerosol 1 spray INTRANASAL ONCE PRN (Reason: Opioid Overdose) nystatin 100,000 unit/gram cream 1 applic TOPICAL TID PRN (Reason: reddened skin) Patient Comments: apply under bilateral breasts and groin polyethylene glycol 3350 [Miralax] 17 gram Powder In Packet 17 g PO QAM Qty: 30 0RF trazodone 50 mg tablet 50 mg PO HS diclofenac sodium [Voltaren Arthritis Pain] 1 % Gel 2 g TOPICAL QID PRN (Reason: pain) Rx Instructions: apply to bilateral shoulders pantoprazole 40 mg tablet,delayed release (DR/EC) 40 mg PO DAILY sucralfate 1 gram tablet 1 g PO QID Artificial Tears([id number]) Drops 1 drp EACH EYE HS Patient Comments: HS and TID PRN fluticasone furoate-vilanterol [Breo Ellipta] 100-25 mcg/dose blister with device 1 inh inhalation DAILY cetirizine [All Day Allergy (cetirizine)] 10 mg tablet 10 mg PO DAILY dorzolamide-timolol [Cosopt] 22.3-6.8 mg/mL drops 1 drp EACH EYE TID gabapentin 300 mg capsule 300 mg PO BID lidocaine 4 % adhesive patch,medicated 1 patch topical Q24H Patient Comments: apply to left hip Rx Instructions: may leave on for up to 12 hrs Linzess 290 mcg capsule 290 mcg PO DAILY loperamide [Anti-Diarrheal (loperamide)] 2 mg capsule 4 mg PO Q8H PRN (Reason: loose stool) meclizine 25 mg tablet 25 mg PO TID PRN (Reason: dizziness) mirtazapine 7.5 mg tablet 7.5 mg PO HS One Daily Multi-Vit w-Mineral 4.5 mg iron tablet 1 tablet PO DAILY prochlorperazine maleate 5 mg tablet 5 mg PO BID PRN (Reason: anxiety) Senna Plus 8.6-50 mg capsule 1 tab-cap PO BID sertraline 25 mg tablet 25 mg PO DAILY Patient Comments: take with 50mg for a total of 75mg sertraline 50 mg tablet 50 mg PO DAILY Patient Comments: take with 25mg for a total of 75mg oxycodone 5 mg tablet 5 mg PO BID Qty: 10 0RF levetiracetam 500 mg tablet 500 mg PO BID Discontinued doxycycline hyclate 100 mg capsule 100 mg PO Q12H cefuroxime axetil 250 mg tablet 250 mg PO Q12H Date of admission: 07/14/25 16:20 Primary Care Provider: PHYSICIAN NOT ON STAFF,NONSTAFF Admitting Provider: Christoph Mancini Attending physician on admission: Christoph Mancini Condition: Stable Quality VTE Prophylaxis VTE prophylaxis: pharmacologic ordered -Patient's previous records reviewed on admission -ER notes reviewed in detail on admission -discussed all findings and current treatment plan with patient/Family/POA -Consultations reviewed for recommendations -Patient's disposition for safe discharge discussed with rn case manager Dictation performed by Fullscreen direct speech recognition software, therefore gem cutter variants and typographical errors may occur. Hospitalist MIPS Heart Failure (Exclusion) Patient has history of Heart Transplant or Left Ventricular Assistive Device?: No IF YES, STOP HERE Heart Failure (Qualifier) Patient has current or prior documentation of LVEF less than or equal to 40%, or mod/servere depressed LVSF?: No IF NO, STOP HERE
== END 2025-07-16 15:00 | DRG 690 ==
LOC: ANHED 16:35 → ANH2MED 17:09
PROVIDERS: Nurse Practitioner Family; Physician Assistant; Admitting Provider Internal Medicine; Emergency Provider Emergency Medicine; Visit Provider Nurse Practitioner Family
DX: N30.00 Acute cystitis without hematuria (principal); N20.1 Calculus of ureter; K86.2 Cyst of pancreas; Z16.12 Extended spectrum beta lactamase (ESBL) resistance; B96.20 Unspecified Escherichia coli [E. coli] as the cause of diseases classified elsewhere; I48.91 Unspecified atrial fibrillation; J44.9 Chronic obstructive pulmonary disease, unspecified; I10 Essential (primary) hypertension; F41.9 Anxiety disorder, unspecified; Z79.01 Long term (current) use of anticoagulants; G89.29 Other chronic pain; F32.A Depression, unspecified; E11.42 Type 2 diabetes mellitus with diabetic polyneuropathy; K21.9 Gastro-esophageal reflux disease without esophagitis; G47.33 Obstructive sleep apnea (adult) (pediatric); E55.9 Vitamin D deficiency, unspecified; Z96.642 Presence of left artificial hip joint; Z87.891 Personal history of nicotine dependence; R56.9 Unspecified convulsions; R19.7 Diarrhea, unspecified; K59.09 Other constipation; K29.30 Chronic superficial gastritis without bleeding; Z99.3 Dependence on wheelchair
CPT/HCPCS: 36415; 70450; 71045; 74018; 74176; 74183; 76376; 80048; 80053; 81001; 82653; 83605; 83690; 83993; 85025; 85610; 85730; 87045; 87046; 87086; 87338; 87427; 87493; 94640; 96361; 96365; 96367; 96375; 99285; A9270; A9577; G0378; J1171; J1885; J1956; J2185; J2405; J7030; J7120

== ENCOUNTER 2025-11-05 00:46 | Day surgery (SDC) | payer MEDICARE, MEDICAID, SELFPAY ==
[2025-11-01 12:48] VITALS: BMI 29.6
--- NOTE | 2025-11-01 14:31 | PC.NURSE ---
Spoke with LING Jonas at [facility] and made aware for pt to stop Eliquis, last dose 11/02. 2 day prep faxed.
--- NOTE | 2025-11-02 11:46 | PC.NURSE ---
Spoke with Sumi Valdivia at [facility] and confirmed they received the 2 day prep instructions- will make sure both days of the prep she takes her linzess in the am. Confirmed today is her last day for Sabrina, and to give her Kepra and diltiazem with sip of water on am of procedure.
[2025-11-05 10:04] VITALS: BP 144/81; PULSE 94; RESP 20; TEMP 35.9; O2SAT 97; BMI 32.0
--- NOTE | 2025-11-05 10:11 | SUR.PREOP ---
Spoke with nurse at [facility] who confirmed that pt stopped her eliquis prior to her procedure, last dose on 11/02/25
--- NOTE | 2025-11-05 10:18 | WPDANESEPPF ---
Anes - Initial Pre Proc Eval Procedure: Operation Date: 11/05/25 11:30 Proposed Procedures p Diagnostic Colonoscopy - Ankit Perales MD Date/Time: 11/05/25 10:18 Surgeon: Ankit Perales MD Pre Op Diagnosis: Drug induced constipation Patient Data Age: 75 Gender: F Height: 1.73 m Weight: 95.6 kg Last Vital Signs Temp 35.9 C L 11/05/25 10:04 Pulse 94 11/05/25 10:04 Resp 20 11/05/25 10:04 BP 144/81 H 11/05/25 10:04 Pulse Ox 97 11/05/25 10:04 O2 Del Method Room Air 11/05/25 10:04 Allergies Allergy/AdvReac Type Severity Reaction Status Date / Time iodine Allergy Unknown Verified 11/05/25 10:02 latex Allergy Unknown Verified 11/05/25 10:02 meperidine Allergy Unknown Verified 11/05/25 10:02 Penicillins Allergy Unknown Verified 11/05/25 10:02 piperacillin (From Zosyn) Allergy Unknown Verified 11/05/25 10:02 tazobactam (From Zosyn) Allergy Unknown Verified 11/05/25 10:02 Home Medications ?Medication ?Instructions ?Recorded ?Confirmed ?Type acetaminophen 325 mg capsule 650 mg PO Q6H PRN Pain (Scale 11/14/21 11/01/25 History (Tylenol) Score 1-3) albuterol sulfate 90 mcg/actuation 2 inh inhalation QID PRN Shortness 11/14/21 11/01/25 History aerosol inhaler (ProAir HFA) Of Breath aspirin 81 mg chewable tablet 81 mg PO DAILY 11/14/21 11/05/25 History atorvastatin 10 mg tablet (Lipitor) 10 mg PO HS 11/14/21 11/05/25 History diltiazem HCl 180 mg capsule,24 180 mg PO DAILY 11/14/21 11/05/25 History hr,extended release (Tiazac) paroxetine HCl 20 mg tablet 40 mg PO DAILY 11/14/21 11/01/25 History apixaban 5 mg tablet (Eliquis) 5 mg PO BID 03/26/23 11/05/25 History buspirone 5 mg tablet 15 mg PO TID 03/26/23 11/05/25 History glucagon 1 mg solution for 1 mg IM Q15M PRN Hypoglycemia 05/12/23 11/01/25 History injection (Glucagon Emergency Kit) guaifenesin 100 mg/5 mL oral liquid 200 mg PO Q6H PRN Cough 05/12/23 11/05/25 History naloxone 4 mg/actuation nasal spray 1 spray intranasal ONCE PRN Opioid 05/12/23 11/01/25 History Overdose nitroglycerin 0.4 mg sublingual 0.4 mg sublingual Q5M PRN Chest 05/12/23 11/01/25 History tablet Pain ondansetron 4 mg disintegrating 4 mg PO Q8H PRN Nausea And Vomiting 05/12/23 11/01/25 History tablet levetiracetam 500 mg tablet 500 mg PO BID 07/27/23 11/05/25 History nystatin 100,000 unit/gram topical 1 applic topical TID PRN reddened 11/20/23 11/01/25 History cream skin polyethylene glycol 3350 17 gram 17 g PO QAM #30 ea 11/27/23 11/01/25 Rx oral powder packet (Miralax) diclofenac sodium 1 % topical gel 2 g topical QID PRN pain 05/10/24 11/05/25 History (Voltaren Arthritis Pain) trazodone 50 mg tablet 50 mg PO HS 05/10/24 11/05/25 History pantoprazole 40 mg tablet,delayed 40 mg PO DAILY 03/26/25 11/05/25 History release sucralfate 1 gram tablet 1 g PO QID 03/26/25 11/05/25 History cetirizine 10 mg tablet (All Day 10 mg PO DAILY 07/12/25 11/05/25 History Allergy (cetirizine)) dextran 70-hypromellose eye drops 1 drp EACH EYE HS 07/12/25 11/05/25 History (Artificial Tears (dextran 70-hypromellose) eye drops) dorzolamide 22.3 mg-timolol 6.8 1 drp EACH EYE TID 07/12/25 11/05/25 History mg/mL eye drops (Cosopt) fluticasone furoate 100 1 inh inhalation DAILY 07/12/25 11/05/25 History mcg-vilanterol 25 mcg/dose inhalation powder (Breo Ellipta) gabapentin 300 mg capsule 300 mg PO BID 07/12/25 11/05/25 History lidocaine 4 % topical patch 1 patch topical Q24H 07/12/25 07/12/25 History linaclotide 290 mcg capsule 290 mcg PO DAILY 07/12/25 11/05/25 History (Linzess) loperamide 2 mg capsule 4 mg PO Q8H PRN loose stool 07/12/25 11/01/25 History (Anti-Diarrheal (loperamide)) meclizine 25 mg tablet 25 mg PO TID PRN dizziness 07/12/25 11/01/25 History mirtazapine 7.5 mg tablet 7.5 mg PO HS 07/12/25 11/05/25 History multivitamin with minerals-ferrous 1 tablet PO DAILY 07/12/25 11/05/25 History sulfate 4.5 mg iron tablet (One Daily Multivitamins with Minerals) prochlorperazine maleate 5 mg 5 mg PO BID PRN anxiety 07/12/25 11/01/25 History tablet sennosides 8.6 mg-docusate sodium 1 tab-cap PO BID 07/12/25 11/01/25 History 50 mg capsule (Senna Plus) sertraline 25 mg tablet 25 mg PO DAILY 07/12/25 11/01/25 History sertraline 50 mg tablet 50 mg PO DAILY 07/12/25 11/01/25 History lidocaine 5 % topical patch 1 patch transdermal HS #10 ea 07/16/25 11/01/25 Rx (Lidoderm) oxycodone 5 mg tablet 5 mg PO BID #10 tabs 07/16/25 11/05/25 Rx acetaminophen 500 mg tablet 1,000 mg PO TID PRN pain 11/01/25 11/01/25 History (Acetaminophen Extra Strength) cefuroxime axetil 250 mg tablet 250 mg PO Q12H 11/01/25 11/05/25 History doxycycline hyclate 100 mg capsule 100 mg PO Q12H 11/01/25 11/05/25 History duloxetine 60 mg capsule,delayed 60 mg PO DAILY 11/01/25 11/05/25 History release (Cymbalta) sucralfate 1 gram tablet (Carafate) 1 g PO .4x a day 11/01/25 11/01/25 History Patient hx anesthesia problems: none Family hx anesthesia problems: none Results Review: All pre-operative results and documents have been reviewed as part of the pre-operative evaluation. [facility] Past Medical History Medical History (Updated 11/04/25 @ 10:56 by Cresencio Victor DO) CHF (congestive heart failure) CVA (cerebral vascular accident) Atrial fibrillation Chronic anticoagulation Gastroesophageal reflux disease Chronic obstructive pulmonary disease Anxiety Obstructive sleep apnea Seizure-like activity (05/2023) Type 2 diabetes mellitus Diabetic peripheral neuropathy Chronic pain disorder Vitamin D deficiency Vasculitis determined by biopsy of skin Pneumonia due to COVID-19 virus (01/2023) Hypertension Depression Surgical History Surgical History (Updated 07/13/25 @ 15:38 by Brenda Ramírez APRN) History of hysterectomy History of left hip replacement History of colonoscopy with polypectomy Family History Family History Sibling Heart disease Son COPD (chronic obstructive pulmonary disease) Daughter Sleep apnea Father Colon polyp Mother Colon polyp Colon cancer Social History Social History Social History: Healthcare power of staff attorney: Karina Veliz. Code status: Full code. Smoking packs per day: 2 Smoking cigarettes per day: 40.0 Years smoked: 25 Smoking pack-years: 50.00 Smoking status: Former smoker Tobacco type: cigarettes Alcohol intake: never Substance use: never Substance use type: does not use Lack of Transportation: No Lack of Food: Never True Current Housing: I Have Housing Concerned About Future Housing: No Difficulty Paying Gas/Electric Bills: No Difficulty Paying for Meds: No Currently Unemployed: No Education: Grade School Difficulty w/ Childcare or Family Care: No Living arrangements: assisted living Additional living arrangements comments: [facility] Spiritual care concerns: No Anes - Eval Final PreProcedure Day of Procedure 11/05/25 10:18 Patient weight: obese Heart: regular rate and rhythm Lungs: clear to auscultation Airway: Mallampati scale class III and special considerations poor dentition Neurological: alert and oriented Last oral intake: >/= 8 hours ASA classification: IV Emergent: no Anesthetic plan: proceed Anesthesia type and monitoring: general GIVS and standard monitoring Results Review: All pre-operative results and documents have been reviewed as part of the pre-operative evaluation. Informed Consent: The patient's anesthetic plan and its attendant risks and benefits were discussed with the patient/family/POA. Questions were solicited and answers provided to the satisfaction of the patient/family/POA.
[2025-11-05] MEDS: LACTATED RINGERS 1,000 ML 150 ML IV CONT (10:19)
--- NOTE | 2025-11-05 10:30 | PM.HPGS ---
History of Present Illness History of Present Illness Consent: Risks, benefits, and alternatives have been discussed and questions answered. Patient agrees to proceed with procedure. Chief complaint: Drug induced constipation Narrative: Lexus Veliz is a 75 year old female with drug induced constipation and recently lower abdominal pain, last colonoscopy 11/2023 no major findings Review of Systems Review of Systems: All systems reviewed & are unremarkable except as noted in HPI and below PMFSH Past Medical History Medical History (Updated 11/04/25 @ 10:56 by Cresencio Victor, DO) CHF (congestive heart failure) CVA (cerebral vascular accident) Atrial fibrillation Chronic anticoagulation Gastroesophageal reflux disease Chronic obstructive pulmonary disease Anxiety Obstructive sleep apnea Seizure-like activity (05/2023) Type 2 diabetes mellitus Diabetic peripheral neuropathy Chronic pain disorder Vitamin D deficiency Vasculitis determined by biopsy of skin Pneumonia due to COVID-19 virus (01/2023) Hypertension Depression Surgical History Surgical History (Updated 07/13/25 @ 15:38 by Brenda Ramírez, [employer]PECT[employer]) History of hysterectomy History of left hip replacement History of colonoscopy with polypectomy Family History Family History Sibling Heart disease Son COPD (chronic obstructive pulmonary disease) Daughter Sleep apnea Father Colon polyp Mother Colon polyp Colon cancer Social History Social History Social History: Healthcare power of physician assistant surgery: Karina Veliz. Code status: Full code. Smoking packs per day: 2 Smoking cigarettes per day: 40.0 Years smoked: 25 Smoking pack-years: 50.00 Smoking status: Former smoker Tobacco type: cigarettes Alcohol intake: never Substance use: never Substance use type: does not use Lack of Transportation: No Lack of Food: Never True Current Housing: I Have Housing Concerned About Future Housing: No Difficulty Paying Gas/Electric Bills: No Difficulty Paying for Meds: No Currently Unemployed: No Education: Grade School Difficulty w/ Childcare or Family Care: No Living arrangements: assisted living Additional living arrangements comments: [facility] Spiritual care concerns: No Meds Home Medications and Allergies Home Medications ?Medication ?Instructions ?Recorded ?Confirmed ?Type acetaminophen 325 mg capsule 650 mg PO Q6H PRN Pain (Scale 11/14/21 11/01/25 History (Tylenol) Score 1-3) albuterol sulfate 90 mcg/actuation 2 inh inhalation QID PRN Shortness 11/14/21 11/01/25 History aerosol inhaler (ProAir HFA) Of Breath aspirin 81 mg chewable tablet 81 mg PO DAILY 11/14/21 11/05/25 History atorvastatin 10 mg tablet (Lipitor) 10 mg PO HS 11/14/21 11/05/25 History diltiazem HCl 180 mg capsule,24 180 mg PO DAILY 11/14/21 11/05/25 History hr,extended release (Tiazac) paroxetine HCl 20 mg tablet 40 mg PO DAILY 11/14/21 11/01/25 History apixaban 5 mg tablet (Eliquis) 5 mg PO BID 03/26/23 11/05/25 History buspirone 5 mg tablet 15 mg PO TID 03/26/23 11/05/25 History glucagon 1 mg solution for 1 mg IM Q15M PRN Hypoglycemia 05/12/23 11/01/25 History injection (Glucagon Emergency Kit) guaifenesin 100 mg/5 mL oral liquid 200 mg PO Q6H PRN Cough 05/12/23 11/05/25 History naloxone 4 mg/actuation nasal spray 1 spray intranasal ONCE PRN Opioid 05/12/23 11/01/25 History Overdose nitroglycerin 0.4 mg sublingual 0.4 mg sublingual Q5M PRN Chest 05/12/23 11/01/25 History tablet Pain ondansetron 4 mg disintegrating 4 mg PO Q8H PRN Nausea And Vomiting 05/12/23 11/01/25 History tablet levetiracetam 500 mg tablet 500 mg PO BID 07/27/23 11/05/25 History nystatin 100,000 unit/gram topical 1 applic topical TID PRN reddened 11/20/23 11/01/25 History cream skin polyethylene glycol 3350 17 gram 17 g PO QAM #30 ea 11/27/23 11/01/25 Rx oral powder packet (Miralax) diclofenac sodium 1 % topical gel 2 g topical QID PRN pain 05/10/24 11/05/25 History (Voltaren Arthritis Pain) trazodone 50 mg tablet 50 mg PO HS 05/10/24 11/05/25 History pantoprazole 40 mg tablet,delayed 40 mg PO DAILY 03/26/25 11/05/25 History release sucralfate 1 gram tablet 1 g PO QID 03/26/25 11/05/25 History cetirizine 10 mg tablet (All Day 10 mg PO DAILY 07/12/25 11/05/25 History Allergy (cetirizine)) dextran 70-hypromellose eye drops 1 drp EACH EYE HS 07/12/25 11/05/25 History (Artificial Tears (dextran 70-hypromellose) eye drops) dorzolamide 22.3 mg-timolol 6.8 1 drp EACH EYE TID 07/12/25 11/05/25 History mg/mL eye drops (Cosopt) fluticasone furoate 100 1 inh inhalation DAILY 07/12/25 11/05/25 History mcg-vilanterol 25 mcg/dose inhalation powder (Breo Ellipta) gabapentin 300 mg capsule 300 mg PO BID 07/12/25 11/05/25 History lidocaine 4 % topical patch 1 patch topical Q24H 07/12/25 07/12/25 History linaclotide 290 mcg capsule 290 mcg PO DAILY 07/12/25 11/05/25 History (Linzess) loperamide 2 mg capsule 4 mg PO Q8H PRN loose stool 07/12/25 11/01/25 History (Anti-Diarrheal (loperamide)) meclizine 25 mg tablet 25 mg PO TID PRN dizziness 07/12/25 11/01/25 History mirtazapine 7.5 mg tablet 7.5 mg PO HS 07/12/25 11/05/25 History multivitamin with minerals-ferrous 1 tablet PO DAILY 07/12/25 11/05/25 History sulfate 4.5 mg iron tablet (One Daily Multivitamins with Minerals) prochlorperazine maleate 5 mg 5 mg PO BID PRN anxiety 07/12/25 11/01/25 History tablet sennosides 8.6 mg-docusate sodium 1 tab-cap PO BID 07/12/25 11/01/25 History 50 mg capsule (Senna Plus) sertraline 25 mg tablet 25 mg PO DAILY 07/12/25 11/01/25 History sertraline 50 mg tablet 50 mg PO DAILY 07/12/25 11/01/25 History lidocaine 5 % topical patch 1 patch transdermal HS #10 ea 07/16/25 11/01/25 Rx (Lidoderm) oxycodone 5 mg tablet 5 mg PO BID #10 tabs 07/16/25 11/05/25 Rx acetaminophen 500 mg tablet 1,000 mg PO TID PRN pain 11/01/25 11/01/25 History (Acetaminophen Extra Strength) cefuroxime axetil 250 mg tablet 250 mg PO Q12H 11/01/25 11/05/25 History doxycycline hyclate 100 mg capsule 100 mg PO Q12H 11/01/25 11/05/25 History duloxetine 60 mg capsule,delayed 60 mg PO DAILY 11/01/25 11/05/25 History release (Cymbalta) sucralfate 1 gram tablet (Carafate) 1 g PO .4x a day 11/01/25 11/01/25 History Allergies Allergy/AdvReac Type Severity Reaction Status Date / Time iodine Allergy Unknown Verified 11/05/25 10:02 latex Allergy Unknown Verified 11/05/25 10:02 meperidine Allergy Unknown Verified 11/05/25 10:02 Penicillins Allergy Unknown Verified 11/05/25 10:02 piperacillin (From Zosyn) Allergy Unknown Verified 11/05/25 10:02 tazobactam (From Zosyn) Allergy Unknown Verified 11/05/25 10:02 Vital Signs Vital Signs - 24 hr 11/05/25 10:04 Temperature 96.6 F L Pulse Rate 94 Respiratory Rate 20 Blood Pressure 144/81 H Pulse Oximetry 97 Oxygen Delivery Room Air Exam Const: General: comfortable and no acute distress Resp: Auscultation: clear to auscultation bilaterally Cardio: Rate: regular rate Rhythm: regular rhythm GI: Inspection: non-distended GI Palp: Yes Soft to palpation Skin: General skin exam: normal color Extrem: General: normal to inspection Psych: Mental Status: mental status grossly normal Assessment and Plan Assessment and plan (1) Constipation: Qualifiers: Constipation type: drug induced constipation Qualified Code(s): K59.03 - Drug induced constipation Code(s): K59.00 - Constipation, unspecified Status: Acute Assessment and Plan: colonoscopy (2) Generalized abdominal pain: Code(s): R10.84 - Generalized abdominal pain Status: Acute
--- NOTE | 2025-11-05 10:46 | S_PTH ---
PATIENT: Lexus Veliz LOC: [facility]#:[id number] AGE/SX: 75/F ROOM: RE11/05/[address]: Ankit Perales MD : 1950 BED: DIS: 11/05/2025 SPEC #: [id number] RECD: 11/05/25 11:38 STATUS: KIP REAiram #: [id number] JUANITO: 11/05/25 10:[address]: Ankit Perales DEPT: [facility] Surgical RECD BY: Laura Shell ENTERED: 11/05/25 11:39 SP TYPE: Surgical OTHR DR: Jazmyn KincaidMD Tissues: A - Colon Polypectomy B - Colon Polypectomy Procedures: Hematoxylin and Eosin Stain Gross and Microscopic Level 4
[2025-11-05 10:49] VITALS: BP 135/93; PULSE 84; RESP 25; O2SAT 91
[2025-11-05 10:59] VITALS: BP 141/89; PULSE 94; RESP 21; O2SAT 95
[2025-11-05 11:09] VITALS: BP 158/84; PULSE 90; RESP 23; O2SAT 97
== END 2025-11-05 11:38 | disposition home or self-care (01) ==
PROVIDERS: PCP Internal Medicine; Referring Provider Nurse Practitioner Family; Visit Provider Internal Medicine Gastroenterology
PROC: 0DJD8ZZ Inspection of Lower Intestinal Tract, Via Natural or Artificial Opening Endoscopic (ICD-10-PCS; CPT 45378; principal; 2025-11-05 11:30)
DX: K59.03 Drug induced constipation (principal); K63.5 Polyp of colon; K57.30 Diverticulosis of large intestine without perforation or abscess without bleeding; K64.8 Other hemorrhoids; Z87.891 Personal history of nicotine dependence; E66.9 Obesity, unspecified; Z68.32 Body mass index [BMI] 32.0-32.9, adult
CPT/HCPCS: 45380; 88305; J2003; J2704; J7120